=== PATIENT | female | born 1980 | race Caucasian/White ===

== ENCOUNTER 2023-07-18 21:37 | Emergency (ER) | payer OTHER, MEDICAID, SELFPAY ==
--- NOTE | ~2023-07-18 | XR_ITS ---
EXAMINATION: XR CHEST CLINICAL INFORMATION: Chest pain COMPARISON: Chest x-ray December 22, 2010 dictated report only. Images not available for review. TECHNIQUE: Frontal portable view of the chest was obtained. 10:04 PM FINDINGS: No significant abnormality is noted involving the heart, lungs, mediastinum, bony thorax or soft tissues. XR/XR chest 1V IMPRESSION: Unremarkable examination.
--- NOTE | 2023-07-18 21:48 | ECG_ITS ---
Test Reason : CP Blood Pressure : / mmHG Vent. Rate : 068 BPM Atrial Rate : 068 BPM P-R Int : 156 ms QRS Dur : 088 ms QT Int : 436 ms P-R-T Axes : 013 -02 039 degrees QTc Int : 463 ms Normal sinus rhythm Low voltage QRS Cannot rule out Anterior infarct , age undetermined Abnormal ECG When compared with ECG of 27-DEC-2010 06:39, No significant change was found Referred By: Evelyn Briscoe Electronically Signed By:Uvaldo Quijano
[2023-07-18 22:06] VITALS: BP 129/72; BP 165/92; PULSE 75; PULSE 88; RESP 16; TEMP 37.2; O2SAT 98; BMI 33.3
--- NOTE | 2023-07-18 22:08 | ED_ITS ---
HPI - Chest Pain General Chief Complaint: Chest Pain Stated Complaint: CHEST PRESSURE X4HRS, L JAW PAIN,LARM PAIN Time Seen by Provider: 07/18/23 21:49 History of Present Illness HPI narrative: Patient is a 43-year-old female presents today with having chest pain on the left side going to her neck. There is no shortness of breath there is no diaphoresis. Positive history using cocaine and heroin. Patient is from home. Patient's pain is been ongoing for the last 5 hours. There is no history of stress test. No history of coronary artery disease. No history of diabetes, hypertension, high cholesterol. No travel history. Is not made worse with deep breath. Not on control. No leg swelling. No history of blood clots in the past. Patient is from home. Related Data Previous Rx's Medication Instructions Recorded furosemide 20 mg tablet (Lasix) 20 mg PO DAILY #7 tabs 07/18/23 Allergies Allergy/AdvReac Type Severity Reaction Status Date / Time No Known Allergies Allergy Unverified 04/02/20 18:06 Review of Systems 2 Review of Systems: Positive chest pain Yes all other systems are reviewed and are negative PMFSH Past Medical History Attestation statement: The following information was validated with the patient. Onset Date is defined in the Problem List Problems that require an onset date and time if occurred within 24 hrs of arrival to the ED Aortic Dissection and Rupture; Neurologic impairment; Cardiopulmonary Arrest; Endotracheal Intubation; Insertion or Replacement of Mechanical Circulatory Assist Device Social History Social History Smoked in Last 30 Days: Yes Use of substances other than those prescribed or required for medical reasons: Yes Substance Use Type: Crack/Cocaine and Heroin Substance Use Frequency: Chronic Longstanding Last Used Substance: Weeks (ago) Any prior treatment program specific to substance use: No Advance Directives: No Advance Directives Information Provided: No Patient : No Physical Exam 2 Vital Signs: Vital Signs: Last Vital Signs Temp 98.9 F 07/18/23 22:06 Pulse 75 07/18/23 22:06 Resp 16 07/18/23 22:06 BP 129/72 07/18/23 22:06 Pulse Ox 98 07/18/23 22:06 O2 Del Method Room Air 07/18/23 22:06 BMI result Body Mass Index 33.3 Appearance: Alert. Oriented X3. No acute distress. Eyes: Pupils equal, round and reactive to light. ENT: Pharynx normal. Neck: Normal inspection. Neck supple. No lymph nodes noted. No crepitus CVS: Normal heart rate and rhythm. Pulses normal. Normal S1 and S2 Respiratory: No respiratory distress. Breath sounds normal. No Wheezing. No rales Abdomen: Soft and nontender. No rigidity. No distention. good BS x4 Skin: Skin warm and dry. Normal skin color. Normal skin turgor. Extremities: No lower extremity edema. Neurovascular intact to all extremities. No Lacerations. No Rash Neuro: Oriented X 3. No motor deficit. No sensory deficit. Moving all extermities. No slurred speech Medical Decision Making Medical Decision Making [facility] Narrative: Patient's COVID flu RSV were all negative. Positive coughing upper respiratory symptoms. Patient denies any cardiac history bed stated baseline she is on Lasix 20 mg. Will give 1 week supply of the medication. Will have patient follow-up on an outpatient basis closely. Patient chest x-ray did not show any focal infiltrate by my interpretation. I reviewed radiology's reading. Her EKG is normal her troponin is negative her chest pain is on ongoing for about 5 hours. Her pain is atypical for ACS. No history of diabetes, hypertension, high cholesterol, family history of AR. She does have a previous history of IV drug use. Her heart score is still less than 3. Patient is ESR and CRP are both negative. There is no evidence for spinal abscess. Will discharge patient home. Currently in stable condition. On my exam I did not appreciate any murmurs. Differential Diagnosis Differential Diagnoses: The differential diagnosis associated with the presentation includes Chest pain, ACS, spinal abscess, upper respiratory infection, COVID, flu, RSV Admission/Observation Consideration of admission/observation: Escalation of care including admission/observation considered Workup was negative symptom improving no need for admission Lab Data [facility] Lab Attestation statement: I reviewed the patient's lab results. 07/18/23 22:20 07/18/23 22:20 Labs: Lab Results 07/18/23 07/18/23 07/18/23 Range/Units 22:20 22:30 22:31 WBC 7.1 (4.8-10.8) X10*3/uL RBC 4.01 L (4.20-5.50) X10*6/uL Hgb 10.1 L (12.0-16.0) g/dl Hct 31.4 L (37.0-47.0) % MCV 78.3 L (80.0-98.0) fL MCH 25.2 L (27.0-33.0) pg MCHC 32.2 (31.0-35.0) g/dl RDW 16.8 H (11.0-16.0) % Plt Count 218 (160-400) X10*3/uL MPV 9.7 (9.4-12.3) fL Immature Gran % (Auto) 0.1 (0.0-0.4) % Neut % (Auto) 49.0 (45-73) % Lymph % (Auto) 42.5 H (20-40) % [place] % (Auto) 6.1 (2-11) % Eos % (Auto) 2.0 (0-4) % Baso % (Auto) 0.3 (0-2) % Lymph # (Auto) 3.0 (1.2-4.9) X10*3/uL [place] # (Auto) 0.4 (0.1-1.2) X10*3/uL Eos # (Auto) 0.1 (0.0-0.4) X10*3/uL Baso # (Auto) 0.0 (0.0-0.2) X10*3/uL Abs Immat Gran (auto) 0.01 (0.00-0.03) X10*3/uL Absolute Neuts (auto) 3.5 (2.0-8.3) x10*3/uL Absolute Nucleated RBC 0.000 (0.0-0.012) X10*3/uL Nucleated RBC % (auto) 0.0 (0.0-0.2) /100WBC ESR 12 (0-20) MM/HR Sodium 140 (135-145) mmol/L Potassium 3.6 (3.3-5.1) mmol/L Chloride 107 (96-108) mmol/L Carbon Dioxide 25 (22-29) mmol/L Anion Gap 12 (12-20) BUN 14 (9-16) mg/dL Creatinine 0.76 (0.5-1.4) mg/dL Estim Creat Clear Calc 108.4 Estimated GFR > 60 Random Glucose 78 (60-115) mg/dL Calcium 8.7 (8.4-10.2) mg/dL Total Bilirubin 0.1 (0.0-1.0) mg/dL AST 18 (5-31) U/L ALT 12 (0-31) U/L Alkaline Phosphatase 39 (39-117) U/L Troponin I High Sens < 2.7 (<3.5-17.0) ng/L C-Reactive Protein 0.17 (< or = 0.50) mg/dL Total Protein 7.0 (6.5-8.0) g/dL Albumin 4.1 (3.5-5.0) g/dL Urine Test NEGATIVE (NEGATIVE) COVID-19 (NERISSA) Negative (Negative) COVID-19 Clin Com See Note Influenza Type A (KIERRA) Negative (Negative) Influenza Type B (KIERRA) Negative (Negative) Influenza A & B Note See Note Independent Interpretation I performed an independent interpretation of an: EKG (My interpretation of patient's EKG showed a sinus rhythm heart rate is 70 GA QRS QTC within normal limits there is no acute ST segment elevation noted.) and Plain X-Ray (My interpretation of patient's chest x-ray is grossly negative for any acute evidence of pneumonia pneumothorax) Radiology Impression Discussion of test interpretation with radiology: I have reviewed the radiologist's reading. Social Determinants Patient?s care significantly limited by Social Determinants of Health including: Alcoholism and drug addiction in family Discharge Plan Discharge Clinical Impression: Chest pain, Acute upper respiratory infection Patient Disposition: Home, Self-Care Instructions: Chest Pain (DC), Upper Respiratory Infection (DC) Prescriptions: New furosemide [Lasix] 20 mg tablet 20 mg PO DAILY Qty: 7 0RF Referrals: Uvaldo Quijano MD [Physician] - 07/21/23
[2023-07-18 22:40] LABS: MANUAL DIFF FLAG NO
[2023-07-18 22:42] LABS: Basophils Percent Auto 0.3 % (0-2); Eosinophils Absolute Auto 0.1 X10*3/uL (0.0-0.4); Hematocrit 31.4 % (37.0-47.0); Hemoglobin 10.1 g/dl (12.0-16.0); Imm Gran Abs Auto 0.01 X10*3/uL (0.00-0.03); Imm Gran Pct Auto 0.1 % (0.0-0.4); Lymphocytes Percent Auto 42.5 % (20-40); Mean Corpuscular HGB Conc 32.2 g/dl (31.0-35.0); Mean Corpuscular Hemoglobin 25.2 pg (27.0-33.0); Mean Corpuscular Volume 78.3 fL (80.0-98.0); Mean Platelet Volume 9.7 fL (9.4-12.3); Monocytes Absolute Auto 0.4 X10*3/uL (0.1-1.2); Monocytes Percent Auto 6.1 % (2-11); Neutrophils Absolute Auto 3.5 x10*3/uL (2.0-8.3); Platelet Count 218 X10*3/uL (160-400); Red Blood Count 4.01 X10*6/uL (4.20-5.50); Red Cell Distribution Width 16.8 % (11.0-16.0); White Blood Count 7.1 X10*3/uL (4.8-10.8)
[2023-07-18 22:48] LABS: UPreg QC Valid YES; Urine Pregnancy NEGATIVE (NEGATIVE)
[2023-07-18 22:53] LABS: C Reactive Protein 0.17 mg/dL (< or = 0.50)
[2023-07-18 22:56] LABS: Alanine Aminotransferase 12 U/L (0-31); Albumin Level 4.1 g/dL (3.5-5.0); Alkaline Phosphatase 39 U/L (39-117); Anion Gap 12 (12-20); Aspartate Amino Transferase 18 U/L (5-31); Bilirubin Total 0.1 mg/dL (0.0-1.0); Blood Urea Nitrogen 14 mg/dL (9-16); Calcium 8.7 mg/dL (8.4-10.2); Carbon Dioxide 25 mmol/L (22-29); Chloride 107 mmol/L (96-108); Creatinine Clr Calc Pharmacy 108.4; Estimated Glomerular Filt Rate > 60; Glucose Random 78 mg/dL (60-115); Potassium 3.6 mmol/L (3.3-5.1); Sodium 140 mmol/L (135-145)
[2023-07-18 23:06] LABS: Troponin-I High Sensitivity < 2.7 ng/L (<3.5-17.0)
--- OUTSIDE RECORDS SUMMARY | 2023-07-18 23:06 | XMS_ITS | Continuity of Care Document ---
Author Name Unknown Organization [facility] Address [address] [place] [id number] Care Team Providers Care Casket Liner Name Role Phone Kvng SALAZAR, Janina Her Primary Care Physician Encounter [facility] [place] Date(s): 02/23/21 - 03/25/21 [facility] [address] [place] [id number] Allergies, Adverse Reactions, Alerts Substance Reaction Severity Status codeine Active Medications albuterol CFC free 90 mcg/inh inhalation aerosol 1, puffs, Inhalation, 4 times a day, PRN, # 7 Gm, Refills 5, Tot. Refills 5, Maintenance, 11/10/20 9:14:00 EDT, Aerosol, Route to Pharmacy Electronically, [id number], [facility] #[id number], 165, cm, 10/01/20 13:31:00 ED... Start Date: 11/10/20 Status: Ordered Atrovent HFA 17 mcg/inh inhalation aerosol 2 puffs, Inhalation, 4 times a day, # 12.9 Gm, 0 Refills, Maintenance, 10/07/19 15:10:00 EDT, Aerosol, [facility] #[id number], 165, cm, 09/17/19 11:11:00 EST, Height Start Date: 10/07/19 Status: Ordered clonazePAM 0.5 mg oral tablet 0 Refills, Maintenance, 12/26/19 13:59:00 EDT Start Date: 12/26/19 Status: Ordered diphenhydrAMINE 25 mg oral capsule 1 capsule, By Mouth, 3 times a day, PRN NEEDED FOR ITCHING, # 100 capsule, 0 Refills, Acute, 01/18/21 20:42:00 EDT, [facility] #[id number], 165, cm, 10/01/20 13:31:00 EDT, Height Start Date: 01/18/21 Status: Ordered gabapentin 600 mg oral tablet 0 Refills, Maintenance, 12/26/19 13:59:00 EDT Start Date: 12/26/19 Status: Ordered ibuprofen 800 mg oral tablet 800 mg, 1, tablet, By Mouth, 3 times a day, # 60 tablet, Refills 1, Tot. Refills 1, Maintenance, 07/30/20 18:10:00 EST, Route to Pharmacy Electronically, [facility] #[id number], Partial fill upon patient request if the prescription is for a sched... Start Date: 07/30/20 Status: Ordered levothyroxine 0.05 mg oral tablet 1 tablet = 50 mcg, By Mouth, Daily, # 30 tablet, 5 Refills, Maintenance, 07/15/19 17:13:00 EST, Tablet, [facility] #[id number], 165, cm, 04/15/19 16:17:00 EDT, Height, 93.5, kg, 08/24/17 21:31:00 EST, Dry Weight Start Date: 07/15/19 Status: Ordered methadone 10 mg oral tablet = 40 mg, By Mouth, Daily, 0 Refills, Maintenance, 08/26/17 11:07:54, Tablet Start Date: 08/26/17 Status: Ordered omeprazole 40 mg oral enteric coated capsule 1 capsule = 40 mg, By Mouth, Daily, for 30 days, # 30 capsule, 5 Refills, Hard Stop 03/30/21 14:01:00 EDT, 10/01/20 14:01:00 EDT, EC Capsule, [facility] #[id number], 165, cm, 10/01/20 13:31:00 EDT, Height Start Date: 10/01/20 Stop Date: 03/30/21 Status: Ordered omeprazole 40 mg oral enteric coated capsule 1 capsule = 40 mg, By Mouth, Daily, # 30 capsule, 2 Refills, Maintenance, 03/30/21 14:01:00 EDT, ECCapsule, [facility] #[id number], 165, cm, 10/01/20 13:31:00 EDT, Height Start Date: 03/30/21 Stop Date: 06/28/21 Status: Ordered QUEtiapine 300 mg oral tablet 0 Refills, Maintenance, 12/26/19 13:59:00 EDT Start Date: 12/26/19 Status: Ordered triamcinolone 0.1% topical cream See Instructions, APPLY EXTERNALLY TO THE AFFECTED AREA TWICE DAILY FOR 14 DAYS, # 80 Gm, 0 Refills, Acute, [facility] #[id number], 25, APPLY EXTERNALLY TO THE AFFECTED AREA TWICE DAILY FOR 14 DAYS, 165, cm, 10/01/20 13:31:00 EDT, Height Start Date: 01/19/21 Status: Ordered Problem List Condition Effective Dates Status Health Status Inform ant *HERB/ERICH/[facility]-[phone]/Health senior care, active care coordination(Confirmed) Active Tobacco dependence(Confirmed) Active Hepatitis C(Confirmed) Active Social History Social History Type Response Smoking Status 5-9 cigarettes (betw een 1/4 to 1/2 pack)/day in last 30 days; Other: VAPING FLAVORED TOBACCO; entered on: 04/15/19 Sex Female
--- OUTSIDE RECORDS SUMMARY | 2023-07-18 23:06 | XMS_ITS | Continuity of Care Document ---
Author Name Unknown Organization [facility] Address [address] [place] [id number] Care Team Providers Care Scrap Sawyer Name Role Phone Kvng SALAZAR, Janina Her Primary Care Physician [phone] [place] [facility] [place] 11/16/21 - 12/25/21 [facility] [address] [place] [id number] Attending Physician: Jorge Tapia MD Admitting Physician: Jorge Tapia MD Allergies, Adverse Reactions, Alerts Substance Reaction Severity Status codeine Active Immunizations Given and Recorded Vaccine Date Status Refusal Reason tetanus/diphtheria/pertussis, acel(Tdap) 04/09/21 Given tetanus/diphtheria/pertussis, acel(Tdap) 06/11/19 Recorded tetanus/diphtheria/pertussis, acel(Tdap) 07/21/16 Recorded tetanus-diphtheria toxoids (Td) 07/17/05 Recorded Not Given Vaccine Date Status Refusal Reason influenza virus vaccine, inactivated 04/15/21 Not Given Patient Refuses Medications Albuterol (Eqv-ProAir HFA) 90 mcg/inh inhalation aerosol 1 puffs, Inhalation, 4 times a day, PRN NEEDED FOR WHEEZING, for 90 days, # 18 Gm, 3 Refills, Physician Stop 12/15/22 9:03:00 EDT, 12/20/21 9:03:00 EDT, [facility] #[id number], 1 puffs Inhalation 4 times a day,x90 days,PRN: NEEDED FOR WHEEZI... Start Date: 12/20/21 Stop Date: 12/15/22 Status: Ordered Atrovent HFA 17 mcg/inh inhalation aerosol 2 puffs, Inhalation, 4 times a day, # 12.9 Gm, 0 Refills, Maintenance, 10/07/19 15:10:00 EDT, Aerosol, [facility] #[id number], 165, cm, 09/17/19 11:11:00 EST, Height Start Date: 10/07/19 Status: Ordered buPROPion 150 mg/24 hours (XL) oral tablet, extended release 1 tablet = 150 mg, By Mouth, Daily, # 30 tablet, 0 Refills, Maintenance, 04/22/21 9:39:00 EDT, XL Tablet, Partial fill upon patient request if the prescription is for a schedule II opioid drug. Start Date: 04/22/21 Status: Ordered clonazePAM 0.5 mg oral tablet 1 tablet = 0.5 mg, By Mouth, 2 times a day, 0 Refills, Maintenance, 04/09/21 15:56:00 EDT, Tablet, Partial fill upon patient request if the prescription is for a schedule II opioid drug. Start Date: 04/09/21 Status: Ordered cloNIDine 0.1 mg oral tablet 0.1 mg, 1, tablet, By Mouth, Daily at bedtime, PRN, # 30 tablet, Refills 0, Tot. Refills 0, Maintenance, Insomnia, 04/22/21 9:39:00 EDT, Print Requisition, Partial fill upon patient request if the prescription is for a schedule II opioid drug. Start Date: 04/22/21 Status: Ordered diphenhydrAMINE 25 mg oral capsule 1 capsule, By Mouth, 3 times a day, PRN NEEDED FOR ITCHING, # 100 capsule, 0 Refills, Acute, 01/18/21 20:42:00 EDT, [facility] #[id number], 165, cm, 10/01/20 13:31:00 EDT, Height Start Date: 01/18/21 Status: Ordered divalproex sodium 250 mg oral enteric coated tablet 1 tablet = 250 mg, By Mouth, 2 times a day, # 60 tablet, 0 Refills, Maintenance, 04/22/21 9:39:00 EDT, Tablet, Partial fill upon patient request if the prescription is for a schedule II opioid drug. Start Date: 04/22/21 Status: Ordered gabapentin 300 mg oral capsule 600 mg, 2, capsule, By Mouth, 2 times a day, Refills 0, Maintenance, 04/22/21 9:56:00 EDT, Partial fill upon patient request if the prescription is for a schedule II opioid drug. Start Date: 04/22/21 Status: Ordered ibuprofen 800 mg oral tablet 800 mg, 1, tablet, By Mouth, 3 times a day, # 60 tablet, Refills 1, Tot. Refills 1, Maintenance, 07/30/20 18:10:00 EST, Route to Pharmacy Electronically, [facility] #[id number], Partial fill upon patient request if the prescription is for a sched... Start Date: 07/30/20 Status: Ordered levothyroxine 0.05 mg oral tablet 1 tablet = 50 mcg, By Mouth, Daily, # 30 tablet, 5 Refills, Maintenance, 07/15/19 17:13:00 EST, Tablet, [facility] #[id number], 165, cm, 04/15/19 16:17:00 EDT, Height, 93.5, kg, 08/24/17 21:31:00 EST, Dry Weight Start Date: 07/15/19 Status: Ordered methadone 10 mg oral tablet 7 tablet = 70 mg, By Mouth, Daily, 0 Refills, Maintenance, 04/22/21 9:55:00 EDT, Tablet, Partial fill upon patient request if the prescription is for a schedule II opioid drug. Start Date: 04/22/21 Status: Ordered nicotine 7 mg/24 hr transdermal film, extended release 1 patch, Topically, Daily, # 30 patch, 0 Refills, Maintenance, 04/22/21 9:40:00 EDT, Patch, Partialfill upon patient request if the prescription is for a schedule II opioid drug. Start Date: 04/22/21 Status: Ordered omeprazole 40 mg oral enteric coated capsule 1 capsule = 40 mg, By Mouth, Daily, # 30 capsule, 2 Refills, Maintenance, 03/30/21 14:01:00 EDT, ECCapsule, [facility] #[id number], 165, cm, 10/01/20 13:31:00 EDT, Height Start Date: 03/30/21 Stop Date: 06/28/21 Status: Ordered QUEtiapine 200 mg oral tablet 200 mg, 1, tablet, By Mouth, Daily at bedtime, # 30 tablet, Refills 0, Tot. Refills 0, Maintenance,04/22/21 9:41:00 EDT, Print Requisition, Partial fill upon patient request if the prescription is for a schedule II opioid drug. Start Date: 04/22/21 Status: Ordered triamcinolone 0.1% topical cream See Instructions, APPLY EXTERNALLY TO THE AFFECTED AREA TWICE DAILY FOR 14 DAYS, # 80 Gm, 0 Refills, Acute, [facility] #[id number], 25, APPLY EXTERNALLY TO THE AFFECTED AREA TWICE DAILY FOR 14 DAYS, 165, cm, 10/01/20 13:31:00 EDT, Height Start Date: 01/19/21 Status: Ordered Problem List Condition Effective Dates Status Health Status Inform ant Borderline personality disorder(Confirmed) 1 Active *BHN/CCA/CC-Katie [facility]-[phone]/Health jail, active care coordination(Confirmed) Active PTSD (post-traumatic stress disorder)(Confirmed) Active Tobacco dependence(Confirmed) Active Hepatitis C(Confirmed) Active 1Psych admission 04/2021 Social History Social History Type Response Smoking Status 5-9 cigarettes (betw een 1/4 to 1/2 pack)/day in last 30 days; Other: VAPING FLAVORED TOBACCO; entered on: 04/15/19 Sex
--- OUTSIDE RECORDS SUMMARY | 2023-07-18 23:06 | XMS_ITS | Continuity of Care Document ---
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 Name Role Phone Santi Conway DO Primary Care Physician Encounter [facility] [place] Date(s): 01/26/23 - 01/28/[address] [address] Encounter Diagnosis Back pain(Final) - 01/27/23 Discharge Disposition: A-D/C Home Attending Physician: Vidal Platt MD Admitting Physician: Martin Brown MD Referring Physician: Not on Staff, Referring MD Allergies, Adverse Reactions, Alerts No Known Allergies Immunizations Given and Recorded Vaccine Date Status Refusal Reason tetanus/diphtheria/pertussis, acel(Tdap) 04/09/21 Given tetanus/diphtheria/pertussis, acel(Tdap) 06/11/19 Recorded tetanus/diphtheria/pertussis, acel(Tdap) 07/21/16 Recorded tetanus-diphtheria toxoids (Td) 07/17/05 Recorded Not Given Vaccine Date Status Refusal Reason influenza virus vaccine, inactivated 09/28/22 Not Given Patient Refuses influenza virus vaccine, inactivated 04/15/21 Not Given Patient Refuses Medications Albuterol (Eqv-ProAir HFA) 90 mcg/inh inhalation aerosol 1 puffs, Inhalation, 4 times a day, PRN Wheezing/Shortness of Breath Start Date: 01/01/23 Status: Ordered Ativan 1 mg oral tablet 1 tablet = 1 mg, By Mouth, 3 times a day, PRN Agitation, # 10 tablet, 0 Refills, Maintenance, 01/05/23 15:08:00 EDT, Tablet, [id number], Partial fill upon patient request if the prescription is for a schedule II opioid drug., 163, cm,... Start Date: 01/05/23 Status: Ordered gabapentin 300 mg oral capsule 300 mg, 1, capsule, By Mouth, 3 times a day, # 270 capsule, Refills 0, Maintenance, 01/28/23 3:59:00 EDT, Partial fill upon patient request if the prescription is for a schedule II opioid drug. Start Date: 01/28/23 Status: Ordered gabapentin 300 mg oral capsule 300 mg, Capsule, By Mouth, 01/28/23 9:00:00 EDT Start Date: 01/28/23 Stop Date: 01/28/23 Status: Completed KlonoPIN 0.5 mg oral tablet 1 tablet = 0.5 mg, By Mouth, 2 times a day, 0 Refills, Maintenance, 09/26/22 14:32:00 EDT, Tablet, Partial fill upon patient request if the prescription is for a schedule II opioid drug. Start Date: 09/26/22 Status: Ordered methadone 5 mg/5 mL oral solution = 90 mg, By Mouth, Daily, 0 Refills, Maintenance, 09/26/22 14:32:00 EDT, Partial fill upon patient request if the prescription is for a schedule II opioid drug. Start Date: 09/26/22 Status: Ordered omeprazole 40 mg oral enteric coated capsule 1 capsule = 40 mg, By Mouth, Daily, # 30 capsule, 2 Refills, Maintenance, 03/30/21 14:01:00 EDT, Yani, [id number], 165, cm, 10/01/20 13:31:00 EDT, Height Start Date: 03/30/21 Stop Date: 06/28/21 Status: Ordered QUEtiapine 200 mg oral tablet 200 mg, 1, tablet, By Mouth, Daily at bedtime, # 30 tablet, Refills 0, Tot. Refills 0, Maintenance,04/22/21 9:41:00 EDT, Print Requisition, Partial fill upon patient request if the prescription is for a schedule II opioid drug. Start Date: 04/22/21 Status: Ordered torsemide 20 mg oral tablet 1 tablet = 20 mg, By Mouth, Daily, # 30 tablet, 0 Refills, Maintenance, 01/28/23 9:42:00 EDT, Tablet, [facility] #[id number], Partial fill upon patient request if the prescription is for a schedule II opioid drug., 162, cm, 01/28/23 2:58:00 EDT, Height, 9... Start Date: 01/28/23 Status: Ordered Problem List Condition Confirmation Course Effective Dates Status Health St atus Informant Borderline personality disorder 1 Confirmed Active *BHN/CCA/CC-K[facility]-[phone]/ Health alf, active care coordination Confirmed Active PTSD (post-traumatic stress disorder) Confirmed Active Severe obesity (BMI 35.0-39.9) with comorbidity Confirmed Active Tobacco dependence Confirmed Active Hepatitis C Confirmed Active 1Psych admission 04/2021 Results Orders for Microbiology Reports Name Date Blood Culture 01/27/23 Microbiology Reports TEST:Blood Culture STATUS:Unauthenticated BODY SITE: SOURCE:Blood COLLECTED DATE/TIME:01/27/23 7:08 PM Blood Culture SPECIMEN DESCRIPTION : BLOOD NO SITE SPECIAL REQUESTS : NONE CULTURE : NO GROWTH AFTER 24 HOURS REPORT STATUS : PRELIMINARY REPORT Radiology Reports * Exam Date Time Procedure Performing Provider Status 01/27/23 5:34 PM MRI Thoracic Spine W+W/O Contrast Zoë Garcia ms; Auth (Verified) Notes: (MRI Thoracic Spine W+W/O Contrast) Reason For Exam: ?SEA;Back Pain RESULT: MRI Thoracic Spine W+W/O Contrast MRI Thoracic Spine W+W/O Contrast INDICATION: Hx of Present Illness: BLE edema for 6 days, sob with exertion, cough, back pain, headache, coming from PCP office; Reason: Back Pain; ?SEA; Clinical Question(s): Disc Space Infection; Order Comment: Please see Reference Text for complete list of contraindications Disc Space Infection TECHNIQUE: MRI of the thoracic spine was performed with and without intravenous contrast utilizing sagittal T1, sagittal T2, sagittal STIR, axial T1, and fat- saturated axial T2-weighted sequences, and post-contrast sagittal T1 and fat- saturated axial T1-weighted sequences. 20 mL of Clariscan was administered intravenously. COMPARISON: MRI of the thoracic spine dated 01/03/2023. FINDINGS: ALIGNMENT, VERTEBRAE, MARROW, AND DISCS: Alignment is normal. Vertebral body heights are preserved.There is no significant marrow signal abnormality. Intervertebral discs are maintained. There are partially imaged degenerative changes of the lumbar spine on the localizer images with disc desiccation at L4- L5 and L5-S1 as well as mild loss of intervertebral disc height at L5-S1. Similar findings on dedicated lumbar spine MRI from 09/27/2022. CORD: The thoracic cord is normal in signal and contour. There is no abnormal enhancement. PARASPINAL TISSUES: Visualized paraspinal soft tissues are unremarkable. Nonspecific edema in the subcutaneous fat which can be related to the common positioning. FINDINGS BY LEVEL: No significant central stenosis or neural foraminal narrowing is seen at any level in the thoracic spine. IMPRESSION: 1. Unremarkable MRI of the thoracic spine. No evidence of discitis/osteomyelitis or epidural abscess. No significant change from 01/03/2023. 2. Partially imaged minimal degenerative changes in the lumbar spine, also seen previously on 09/27/2022. A similar preliminary report was provided by Shira. WSN: [id number] Ordering Physician: Anne Boswell Dictated By: Janice Booker MD Dictated Date/Time: 01/28/23 7:52 am Reviewed By: Janice Booker MD Signed By: Janice Booker MD Signed Date/Time: 01/28/23 7:52 am Transcribed By: MAYA Transcribed Date/Time: 01/28/23 7:48 am * Exam Date Time Procedure Performing Provider Status 01/27/23 10:10 AM US Retroperitoneum Comp Nick Ramirez ca; Auth (Verified) Notes: (US Retroperitoneum Comp) Reason For Exam: Flank pain;Other: RESULT: US Retroperitoneum Comp US Retroperitoneum Comp Hx of Present Illness: One week of flank pain. Reason: Flank pain. Clinical Question(s): Renal Obstruction. COMPARISON: CT abdomen/pelvis 09/26/2022 FINDINGS: Right kidney: 10.6 cm in length. No hydronephrosis. Normal parenchymal thickness and echotexture. No stones. No suspicious mass. Left kidney: 11.8 cm in length. No hydronephrosis. Normal parenchymal thickness and echotexture. Nostones. No suspicious mass. Urinary bladder: Incompletely distended, but no evidence of stone, mass or debris. IMPRESSION: Normal kidneys and urinary bladder. I have personally reviewed the images and I agree with this report. WSN: [id number] Ordering Physician: Anne Boswell Dictated By: Geetha Colorado DO Dictated Date/Time: 01/27/23 10:42 a Reviewed By: Heaven Farr MD Signed By: Heaven Farr MD Signed Date/Time: 01/27/23 10:47 am Transcribed By: MAYA Transcribed Date/Time: 01/27/23 10:24 am * Exam Date Time Procedure Performing Provider Status 01/27/23 10:10 AM US Doppler Ext Lower Venous Bilat Maribell Ramirez; Auth (Verified) Notes: (US Doppler Ext Lower Venous Bilat) Reason For Exam: Pain in limb;Other: RESULT: US Doppler Ext Lower Venous Bilat US Doppler Ext Lower Venous Bilat Hx of Present Illness: BLE edema for 6 days, sob with exertion, cough, back pain, headache, coming from PCP office; Reason: Other:; Pain in limb; Clinical Question(s): Thrombosis COMPARISON: None IMAGING TECHNIQUE: Ultrasound of the veins from the groin through the calf was performed using grayscale, color, and spectral Doppler ultrasound assessing for complete compressibility and normal flowcharacteristics. FINDINGS: RIGHT LOWER EXTREMITY: Common femoral vein: Patent. No thrombosis. Femoral vein: Patent. No thrombosis. Popliteal vein: Patent. No thrombosis. Gastrocnemius veins: The visualized portions are patent without evidence of thrombosis. Peroneal veins: The visualized portions are patent without evidence of thrombosis. Posterior tibial veins: The visualized portions are patent without evidence of thrombosis. LEFT LOWER EXTREMITY: Common femoral vein: Patent. No thrombosis. Femoral vein: Patent. No thrombosis. Popliteal vein: Patent. No thrombosis. Gastrocnemius veins: The visualized portions are patent without evidence of thrombosis. Peroneal veins: The visualized portions are patent without evidence of thrombosis. Posterior tibial veins: The visualized portions are patent without evidence of thrombosis. OTHER FINDINGS: Anechoic fluid collection in the left popliteal fossa compatible with a Carty's cyst, measuring 5.2 x 1.3 x 2.9 cm. IMPRESSION: 1. No evidence of deep venous thrombosis. 2. 5.2 cm Carty cyst in the left popliteal fossa. WSN: [id number] Ordering Physician: Anne Boswell Dictated By: Heaven Farr MD Dictated Date/Time: 01/27/23 10:13 a Reviewed By: Heaven Farr MD Signed By: Heaven Farr MD Signed Date/Time: 01/27/23 10:13 am Transcribed By: MAYA Transcribed Date/Time: 01/27/23 10:12 am * Exam Date Time Procedure Performing Provider Status 01/26/23 11:50 AM Chest 2 Views Frontal and Lat Trinh Bailey; Stephani (Verified) Notes: (Chest 2 Views Frontal and Lat) Reason For Exam: Chest Pain;Other: RESULT: Chest 2 Views Frontal and Lat Chest 2 Views Frontal and Lat Hx of Present Illness: BLE edema for 6 days, sob with exertion, cough, back pain, headache, coming from PCP office; Reason: Other:; Chest Pain; Clinical Question(s): Other: COMPARISON: Multiple prior chest radiographs with the most recent dated 01/01/2023. FINDINGS: LINES AND TUBES: None. LUNGS AND PLEURA: Clear lungs. Normal pulmonary vascularity. No pleural effusion. No pneumothorax. HEART, MEDIASTINUM AND ANGELINA: Heart is normal in size. Normal mediastinal and hilar contour. BONES AND SOFT TISSUES: No acute abnormality. IMPRESSION: No acute abnormality. No significant interval change. WSN: [id number] Ordering Physician: Meagan Ellis Dictated By: Edouard Torrez MD, V Dictated Date/Time: 01/26/23 12:00 p Reviewed By: Edouard Torrez MD, V Signed By: Edouard Torrez MD, V Signed Date/Time: 01/26/23 12:00 pm Transcribed By: MAYA Transcribed Date/Time: 01/26/23 11:59 am Vital Signs Most recent to oldest [Reference Range]: 1 2 3 Height 162 cm (01/28/23 2:58 AM) 162 cm (01/27/23 2:08 PM) 162 cm (01/27/23 2:07 PM) Weight 96 kg (01/28/23 2:58 AM) Oxygen Saturation [94-100 %] 98 % (01/28/23 6:00 AM) 100 % (01/28/23 3:00 AM) 99 % (01/28/23 2:26 AM) Pulse Rate [55-90 bpm] 78 bpm (01/28/23 6:00 AM) 59 bpm (01/28/23 3:00 AM) 80 bpm (01/28/23 2:58 AM) Body Mass Index [18.5-24.99 kg/m2] 36.58 kg/m2 *>HHI* (01/28/23 2:58 AM) Blood Pressure [90-138/55-84 mm Hg] 104/54mm Hg (01/28/23 6:00 AM) 122/85mm Hg (01/28/23 3:00 AM) 180/68mm Hg *H* (01/28/23 2:58 AM) Respiratory Rate [16-30 br/min] 17 br/min (01/28/23 9:38 AM) 17 br/min (01/28/23 6:00 AM) 17 br/min (01/28/23 3:00 AM) Temperature [96.8-100.4 DegF] 98.1 DegF (01/28/23 6:00 AM) 98.5 DegF (01/28/23 3:00 AM) 98.9 DegF (01/28/23 2:58 AM) Mode of Delivery (Oxygen) Room air (01/28/23 6:00 AM) Room air (01/28/23 3:00 AM) Room air (01/28/23 2:26 AM) Blood pressure sites Arm, left (01/28/23 6:00 AM) Arm, right (01/28/23 3:00 AM) Arm, right (01/28/23 2:58 AM) Temperature Route Oral (01/28/23 6:00 AM) Oral (01/28/23 3:00 AM) Oral (01/28/23 2:58 AM) Dry Weight 98 kg (01/28/23 2:58 AM) 96 kg (01/27/23 2:08 PM) 96 kg (01/27/23 2:07 PM) Weight Obtained Via Patient/family state d (01/28/23 2:58 AM) Dry Weight Obtained Via Patient/family s tated (01/26/23 12:36 PM) Social History Social History Type Response Smoking Status 5-9 cigarettes (betw een 1/4 to 1/2 pack)/day in last 30 days; Other: VAPING FLAVORED TOBACCO; entered on: 04/15/19 Sex Female History and physical note * Santa Rivera MD: PERFORM, MODIFY Event Display: History and Physical Hospital Authored Date: [id number] Patient: ??DUSTIN WAGONER ? Age:??42 Years?Sex:??Female?:??1980?? Chief Complaint/Reason for Consultation sob, back pain, History of Present Illness 42-year-old female with a past medical history of anxiety, bipolar, PTSD, personality disorder, hepC, IV drug use, congestive heart failure continue IV drugs, presents to the hospital with With multiple complaints.?? Patient reports that all her symptoms started about 2 weeks ago, initially felt she had something stuck in her throat while she was talking, followed by facial droop and for which she seek medical attention and she was diagnosed to have Price's palsy.?? Her symptoms of facial droopare now resolved.?? Patient reports to have tics.?? She also reports to have shortness of breath, orthopnea, back pain, arm pain.?? Peripheral edema. gained 12 lbs weight in one week. ??she also reports her throat was white.?? Patient denies reports fever of 100.6 at home.?? Patient denies having any chills, side effects, heartburn, nausea, vomiting, diarrhea, urinary symptoms.?? She reports she relapsed on IV heroin because of pain, he takes methadone at baseline ?? She was also seen by heart failure clinic and she was sent to ED for evaluation. ?? In the emergency department, patient was hemodynamically stable, on room air, lab work showed hemoglobin of 9, baseline is around 10 chemistry shows creatinine 1.1, proBNP 131, troponin negative, C-reactive protein is 0.6, CK-MB of 6.5,??ultrasound renal was obtained with normal kidneys and bladder, duplex Doppler ultrasound negative for any DVT, 5.2 cm Carty's cyst noted, MRI of thoracic spine was also obtained did not show any acute findings.?? Patient received IV Toradol, methadone and 1/2 L bolus, chest x-ray was normal, no significant change.?? EKG was obtained shows normal sinus rhythm, nonspecific changes in V1 and V2, no other acute ST-T changes noted. Review of Systems as noted in HPI Objective Measurements?? Height: 162 cm (01/28/23) Weight: 96 kg (01/28/23) Dry Weight: 98 kg (01/28/23) Body Mass Index:??36.58 kg/m2??Critical (01/28/23) ? Vital Signs?? Temperature: 98.1 DegF (01/28/23 06:00:00) Temperature Route: Oral (01/28/23 06:00:00) Pulse Rate: 78 bpm (01/28/23 06:00:00) Respiratory Rate: 17 br/min (01/28/23 06:00:00) Vented: No (01/27/23 18:10:00) Systolic Blood Pressure: 104 mm Hg (01/28/23 06:00:00) Diastolic Blood Pressure:??54 mm Hg??Low (01/28/23 06:00:00) Blood pressure sites: Arm, left (01/28/23 06:00:00) Mean Arterial Pressure: 105 mm Hg (01/28/23 02:58:00) Pulse Pressure: 50 mm Hg (01/28/23 06:00:00) Oxygen Saturation: 98 % (01/28/23 06:00:00) Mode of Delivery (Oxygen): Room air (01/28/23 06:00:00) Early Warning Score: 0 (01/28/23 06:07:06) Temperature, Opiate Withdrawal: 98.9 DegF (01/28/23 03:08:00) Temperature Route, Opiate Withdrawal: Oral (01/28/23 03:08:00) Pulse Rate, Opiate Withdrawal: 59 bpm (01/28/23 03:08:00) Respiratory Rate, Opiate Withdrawal: 18 br/min (01/28/23 03:08:00) Systolic BP, Opiate Withdrawal: 122 mm Hg (01/28/23 03:08:00) Diastolic BP, Opiate Withdrawal:??85 mm Hg??High (01/28/23 03:08:00) ? Physical Exam Constitutional: Alert, in no acute distress. Head EENT: Extraocular muscle movement intact.??Moist mucous membranes.?? Neck: Supple. No JVD. Respiratory: Clear to auscultation. No wheezing or crackles. No use of accessory muscles. Cardiovascular: S1S2 regular. No murmurs, rubs or gallops. Gastrointestinal: Abdomen soft, non-tender, non-distended. Normal bowel sounds. Genitourinary: No CVA tenderness. Extremities:+ 2 edema . Neurologic: AAOx3, Speech normal. No focal neurological deficits. jerking movements of the head Skin: No rash. Psychiatric: Normal mood and affect Assessment/Plan Diagnoses Anxiety ??(F41.9) Back pain ??(M54.9) Price's palsy ??(G51.0) Shortness of breath ??(R06.02) 1. ??Borderline personality disorder ??(F60.3) 2. ??PTSD (post-traumatic stress disorder) ??(F43.10) ?? Assessment:??42-year-old female with a past medical history of anxiety, bipolar, PTSD, personality disorder, hep C, IV drug use, congestive heart failure continue IV drugs, presents to the hospital with With multiple complaints( sob, peripheral edema, weight gain, back pain ?? Shortness of breath (R06.02):??Presented with shortness of breath, orthopnea, peripheral edema and weight gain,??chest x-ray??was normal, no congestion, elevated proBNP of 131??(could be falsely low because he is obese)??but on exam her lungs are clear she only has peripheral edema??and she was resting comfortably laying flat.??Could be CHF versus anxiety. Patient was given steroids which can cause fluid retention but she reports she only took this for 1 day??as a she did not like how it made her feel. -Patient does have??history of??IV drug use??causing cardiomyopathy, EKG did not show any acute changes,??and troponin negative, unlikely to be ACS -Ultrasound negative for DVT did show Carty's cyst -Echocardiogram -Patient was also encouraged in cessation of IV drug use -check urine protein creatinine ratio -if her work up is negative she will benefit from psych eval ?? Back pain (M54.9):??Thoracic region, MRI??of thoracic spine was obtained??which then preliminary read did not show any acute findings -Also ultrasound renal was obtained showed normal kidneys -Patient reports that she takes gabapentin ?? Price's palsy (G51.0):??Currently??resolved,??chest posttreatment with valacyclovir ,??prednisone was prescribed by patient she only took it for 1 dose ?? Borderline personality disorder (F60.3):??: ?? PTSD (post-traumatic stress disorder) (F43.10):??: ?? Anxiety (F41.9):??:??Continue Ativan as needed, she only takes??seroquel as needed for sleep ?? Tics:??likely related to stress ?? VTE Prophylaxis:??Low risk ?VTE Prophylaxis Assessment:??Risk Level documented as Low Risk ?? Code Status:??Full code ?Order Code Status:??Code Status Ordered ?? Ongoing Medical Necessity:??Echocardiogram ?? Discharge Planning:??Pending clinical course ?? This note was created using [employer] speech recognition software, there may be unwanted word substitution, typographical errors or grammatical error, an attempt at proofreading has been made to minimize errors. please call if there are any questions regarding plan of care. ? Histories Allergies Allergies ?(Active and Proposed Allergies Only) NKA? (Severity: Unknown severity, Onset: Unknown) ? Past Medical History/Problem List Active Problems??(6) *BHN/ERICH/[facility]-[phone]/Health alf, active care coordination Borderline personality disorder Hepatitis C PTSD (post-traumatic stress disorder) Severe obesity (BMI 35.0-39.9) with comorbidity Tobacco dependence ? Past Surgical History No surgery history documented. ? Social History Alcohol Details:??Use: Past. Exercise Details:??Self assessment: Fair condition. Home/Environment Details:??Living situation: Home/Independent. Nutrition/Health Details:??Diet: Regular. Sexual Details:??Sexually involved in last 6 months: Yes. ??Gender identity: Identifies as female. ??Self described orientation: Lesbian, field or homosexual. Substance Abuse Details:??Use: Current. ??Type: Heroin. Tobacco Details:??Use: 5-9 cigarettes (between 1/4 to 1/2 pack)/day in last 30 days. ??Other: VAPING FLAVORED TOBACCO. ? Family History Mother: Agoraphobia; Bipolar Brother (B youngest): Autism ? Medications Home Medications Albuterol (Albuterol (Eqv-ProAir HFA) 90 mcg/inh inhalation aerosol)?1?puff(s)?Inhalation?4 times a day?as needed?Wheezing/Shortness of Breath Clonazepam (KlonoPIN 0.5 mg oral tablet)?1?tab(s)?0.5?Milligram?By Mouth?2 times a day Gabapentin (gabapentin 300 mg oral capsule)?300?Milligram?1?capsule?By Mouth?3 times a day Lorazepam (Ativan 1 mg oral tablet)?1?tab(s)?1?Milligram?By Mouth?3 times a day?as needed?Agitation Methadone (methadone 5 mg/5 mL oral solution)?90?Milligram?By Mouth?Daily Omeprazole (omeprazole 40 mg oral enteric coated capsule)?1?capsule?40?Milligram?By Mouth?Daily?for 30?Days Quetiapine (QUEtiapine 200 mg oral tablet)?200?Milligram?1?tablet?By Mouth?Daily at bedtime ? Results Recent Labs VIROLOGY COVID-19 by RT-PCR NEGATIVE ()?? 01/27/2023 21:45 ? EKG study * Event Display: EKG Authored Date: * Event Display: ECG 12-Lead Authored Date: Please click on pdf link to open report * Event Display: ECG 12-Lead Authored Date: Ventricular Rate: 63 BPM Atrial Rate: 63 BPM P-R Interval: 136 ms QRS Duration: 84 ms Q-T Interval: 464 ms QTC Calculation(Bazett): 474 ms P [place]: 15 degrees R Boston: 6 degrees T [place]: 36 degrees Normal sinus rhythm Low voltage QRS Cannot rule out Anterior infarct , age undetermined Abnormal ECG When compared with ECG of 04-JAN-2023 00:17, Questionable change in QRS axis Confirmed by DUY FRANCO MD ([id number]) on 01/26/2023 2:28:25 PM [place]: DUY FRANCO MD * Event Display: ECG 12-Lead Authored Date: [id number] Please click on pdf link to open report * Event Display: ECG 12-Lead Authored Date: [id number] Ventricular Rate: 74 BPM Atrial Rate: 74 BPM P-R Interval: 130 ms QRS Duration: 88 ms Q-T Interval: 442 ms QTC Calculation(Bazett): 490 ms P [place]: 2 degrees R Boston: 0 degrees T Boston: 46 degrees Normal sinus rhythm Prolonged QT Abnormal ECG When compared with ECG of 04-JAN-2023 00:17, Questionable change in QRS axis Confirmed by DONAVAN LING DO ([id number]) on 01/27/2023 9:08:53 AM [place]: DONAVAN LING DO [facility] Progress note * Chela Meza RN: PERFORM, SIGN, VERIFY Event Display: Progress Note [facility] Authored Date: [id number] Patient: DUSTIN WAGONER Age: 42 years Sex: Female : 1980 Associated Diagnoses: None Author: Chela Meza RN Findings Problem Related to Alteration in Comfort : Alteration in Comfort/new 01/28/2023 10:28 EDT Alteration in Comfort Related to Disease process Goals & Outcomes: Comfort Pt will report acceptable level of comfort & pain control, Pt will state importance of adhering to pain strategy regime, Pt will demonstrate necessary skills to manage pain, Non-verbal indicators will indicate comfort/pain control Interventions Implemented: Comfort Assess pain using appropriate pain scale/tools, Assess aggravating factors & prevent them accordingly BH Goals/Interventions, Comfort Yes Comfort, Problem Start 01/28/2023 10:28 Reviewed plan with, Comfort Patient Patient Progression, Comfort Plan Initiation Comfort, Problem Ongoing Yes . Nursing Data Vital Signs : VITAL SIGNS SECTION 01/28/2023 6:00 EDT Temperature 98.1 DegF Temperature Route Oral Pulse Rate 78 bpm Respiratory Rate 17 br/min Systolic Blood Pressure 104 mm Hg Diastolic Blood Pressure 54 mm Hg L Blood pressure sites Arm, left Pulse Pressure 50 mm Hg Oxygen Saturation 98 % Mode of Delivery (Oxygen) Room air . Narrative/Incidental Alert and oriented X 3, denies numbness/tingling/dizziness. Denies pain, headache and chest pain. LSC, no cough and no shortness of breath. Positive bowel sounds X 4, round soft non tender abdomen, denies n/v, tolerating diet and ate 100% of breakfast, up to BR independently. Up in room and hallwaywith steady gait noted. Safety is maintained, hourly checks in place. Discharge Information Case Management Discharge Plan : Case Management Discharge Plan Data 01/28/2023 10:23 EDT Discharge Level of Care at Discharge Home/Long-Term/Foster Care * Mireya Whiting: PERFORM, SIGN, VERIFY Event Display: Progress Note Hospital Authored Date: [id number] Patient: DUSTIN WAGONER Age: 42 years Sex: Female : 1980 Associated Diagnoses: None Author: Mireya Whiting Findings pt admitted from ED a&ox4, able to ambulate independently around room. lung sounds clear on room air. had some head ticking on arrival. + bowel sounds. pt stated she has not had a bm in 3 days which is normal for her. complaining of pain in lower extremities. +1 pitting edema to calves. no shortness of breath no n/v at the moment. COWS assessment done due to drug use. vital signs stable Note * Chela Meza RN: PERFORM Event Display: Discharge/Transfer Note Hospital Authored Date: [id number] Nursing Discharge Note Entered On: 01/28/2023 10:24 EDT Performed On: 01/28/2023 10:23 EDT by Chela Meza RN Nursing Discharge Note 2 Discharge Time : 01/28/2023 10:10 EDT Discharge Level of Care at Discharge : Home/Long-Term/Foster Care Patient Left Unit Via : Ambulatory Patient Accompanied Off Unit with : Responsible adult DC Instructions Provided & Signed by Pt : Yes Patient Understands D/C Instructions : Yes Verbalized Understanding of D/C Plan By : Patient Patient Instructions Discharge Signed : Yes Did Pt have Specialty Bed or Wound Vac : No Chela Meza RN - 01/28/2023 10:23 EDT * Lc SALAZAR, Vidal: MODIFY, PERFORM Event Display: Discharge/Transfer Note Hospital Authored Date: [id number] Patient: ??RIZWANA, DUSTIN ? Age:??42 Years?Sex:??Female?:??1980?? 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 _ Quality Measures Tobacco Use Treatment:? Medications Started torsemide Hospital Course Patient presented with??multiple nonspecific complaints. ??Complained of generalized body pain??back pain??leg swelling.?? Patient has history of polysubstance abuse. ??Admitting using cocaine.?? Patient denied any current IV drug abuse.?? Patient was extensively investigated??in the hospital.?? Patient is afebrile, hemodynamically stable??currently on room air, normal WBC count,??stable??microcytic hypochromic anemia??normal platelet normal ESR and CRP??normal complete metabolic panel,??troponin negative,??EKG no evidence of ischemia QTc 474,??DVT negative, ultrasound kidney negative for anyevidence of infection,??MRI thoracic spine and limited??inclusion of lumbar spine did not??reveal any evidence of??infection/epidural abscess.?? Chest x-ray within normal limit.?? Patient refused to give??a urine sample. ??However patient has no signs and symptoms suggestive of UTI.?? Patient neverhad an echo done previously.?? Patient's inpatient work-up is fairly unremarkable.?Clinically??patient does not have any signs and symptoms of overt CHF.?? Cardiac auscultation fairly benign,??chest bilaterally clear,??no JVD??no S3 gallop.?? Only patient is to palpate edema. ??Patient has been?? discharged from torsemide 20 mg daily.?? Patient has been extremely counseled that patient will need to follow-up with PCP??to get a formal outpatient echo??done.?? Patient has been strongly counseled??to quit??polysubstance abuse.?? Patient verbalized understanding and discharged in stable condition.?? Patient to follow-up with PCP for further work-up.?? Patient has been given diuretics. today patient achieved maximum benefit of hospitalization and discharged in stable condition. Objective doing well. ??Patient is little frustrated that no one had??ever explained what is going on.?? I explained in great details??heart test results. ??I also explained to her??that she may have??an element of cardiomyopathy related to her cocaine use however she does not have any??evidence of??florid heart failure which will??require inpatient??hospitalization and treatment.?? I told her that she need to follow-up with PCP??to get her??echocardiogram??and other work-up done as outpatient. ??Patientverbalized understanding??and I also explained that??she needs to stop using??recreational drugs??to have maximum benefit with medication. . Physical Exam Constitutional: Alert, in no acute distress. Head EENT: Extraocular muscle movement intact.??Moist mucous membranes.?? Neck: Supple. No JVD. Respiratory: Clear to auscultation. No wheezing or crackles. No use of accessory muscles. Cardiovascular: S1S2 regular. No murmurs, rubs or gallops. Gastrointestinal: Abdomen soft, non-tender, non-distended. Normal bowel sounds. Genitourinary: No CVA tenderness. Extremities: 2+ lower extremity edema. No cyanosis or clubbing. Neurologic: AAOx3, Speech normal. No focal neurological deficits. Skin: No rash. Psychiatric: Normal mood and affect Pending Results Add On Lab Order ordered on 01/27/2023 Add On Lab Order ordered on 01/27/2023 Add On Lab Order ordered on 01/27/2023 Add On Lab Order ordered on 01/28/2023 Blood Culture ordered on 01/27/2023 Blood Culture #2 ordered on 01/27/2023 Protein/Creatinine Ratio Urine ordered on 01/28/2023 Protein/Creatinine Ratio Urine ordered on 01/28/2023 Follow-Up Appointments Added Follow Up ?Time Frame ?Comments Djantonio DO, Syifa?1 week: call to discuss follow up visit Patient Instructions counseled to take diurectics as prescribed follow up with PCP to get an outpatient echo counseled to quit recreational drugs ?? Post Discharge Care Diet: Regular Diet Activity: Ambulate with assistance ??3 times a day ??unless otherwise specified Code Status: ?? Full Resuscitation Condition: stable Prognosis: Fair Discharge ?01/28/23 9:49:00 EDT Home Health Face to Face ^HomeHealthFTF _40 ??minutes spent on discharge * Chela Meza RN: PERFORM Event Display: Patient Education/Instruction Authored Date: [id number] Inpatient Adult Discharge Instructions [address] [address] Name: DUSTIN WAGONER : 1980 Visit: 01/26/2023 11:02:00 Current Date: 01/28/2023 09:49 Account: [id number] Inpatient Adult Discharge Instructions We would like to thank you for allowing us to assist you with your healthcare needs. The following includes patient education materials and information regarding your injury/illness. Our entire staffstrives to provide an excellent experience for our patients and their families. PLEASE ENSURE YOU FOLLOW-UP PER THE INSTRUCTIONS BELOW! ?? YOUR OPINION IS IMPORTANT TO US! Please complete the survey you may receive by mail or email. Your feedback will be used to make improvements to the healthcare experiences of our patients and their families. Surveys are administered by [employer] ?? If further treatment with your primary care physician or another doctor is recommended, it is important for you to keep the appointment. Call your primary care physician or return to the Emergency Department immediately if your condition worsens, fails to improve, or new symptoms develop. If you need to find a doctor, you can call [facility] for a referral at [phone] or toll free at [phone] ([phone]) or log in to [email or web address].. ?? You can view and manage your care through the patient portal or by using a health care rebecca of your choosing. [employer] is a website that allows you to securely view your medical information including your hospital discharge summary, office visit summaries, medications and follow-up visits. You can also request appointments, renew medications, and request access to your medical information using a health care rebecca of your choosing, or just ask a question. You can enroll at [email or web address] or register during your next office visit. You have been discharged from [facility], Patient Care Unit: S64. If you have any questions regarding these instructions after you leave, please call us and we will be happy to assist you. [facility] Your Care Team Attending Physician Vidal Platt MD Discharging Providers Vidal Platt MD Reason for Admission MCO: CP, tongue swelling, back pain Your Diagnosis Back pain Shortness of breath Borderline personality disorder PTSD (post-traumatic stress disorder) Anxiety Price's palsy Tests Performed Below is a partial list of the tests performed during your hospitalization. You may have had other tests and procedures not included in this list. Please discuss all test results with your provider. Basic Metabolic Panel BUN C-REACTIVE PROTEIN Calcium Level CBC w/ Differential CK (CREATINE KINASE) CKMB CONFIRMATION/QUANT COVID-19 (Novel Coronavirus), Rapid PCR Creatinine Electrolytes Glucose Level HEPATIC FUNCTION PANEL High??Sensitivity??Troponin T Hold Blue Top Tube HOLD LAVENDER TUBE Serum Qualitative PROBNP SEDIMENTATION RATE,AUTOMATED MRI Thoracic Spine W+W/O Contrast US Doppler Ext Lower Venous Bilat US Retroperitoneum Comp XR Chest 2 Views Frontal and Lat Primary Care Provider Santi Conway DO Advance Directive Health Care Proxy on File Yes - Health Care Proxy Discharge Vitals Temperature: 98.1 DegF Height: 162 cm Pulse Rate: 78 bpm Weight: 96 kg Respiratory Rate: 17 br/min Body Mass Index:??36.58 kg/m2??Critical Systolic Blood Pressure: 104 mm Hg Body surface area: 2.08 Diastolic Blood Pressure:??54 mm Hg??Low ?? Oxygen Saturation: 98 % ?? Studies Pending All tests and labs ordered during this hospital stay have been completed unless listed below. Please discuss all pending results with your provider listed above in these instructions. ?? Add On Lab Order Blood Culture Blood Culture #2 Protein/Creatinine Ratio Urine What to do next Instructions From Your Doctor counseled to take diurectics as prescribed follow up with PCP to get an outpatient echo counseled to quit recreational drugs ?? Discharge Orders Diet:??Regular Diet Activity:??Ambulate with assistance 3 times a day unless otherwise specified Code Status:?? Full Resuscitation Condition:??stable Prognosis:??Fair You Need to Schedule the Following Appointments Follow Up with??Santi Conway DO When:??Within 1 week: call to discuss follow up visit Where: ?? Discharge Medications DUSTIN WAGONER :1980 Visit Date:01/26/2023 Medications: Please continue your medications until treatment is completed or stopped by your provider. Medications not listed below should be discontinued. Discuss any questions related to medications with your provider. What How Much When Instructions Next Dose New torsemide (torsemide 20 mg oral tablet) 1 tab(s) Oral Daily Pickup at [facility]/pharmacy #[id number] Today Unchanged Albuterol (Albuterol (Eqv-ProAir HFA) 90 mcg/ inh inhalation aerosol) 1 puff(s) Inhalation 4 times a day as needed for Wheezing/Shortness of Breath As needed Unchanged Clonazepam (KlonoPIN 0.5 mg oral tablet) 1 tab(s) Oral Twice a day Today Unchanged Gabapentin (gabapentin 300 mg oral capsule) 1 capsule Oral 3 times a day Today at 3pm Unchanged Lorazepam (Ativan 1 mg oral tablet) 1 tab(s) Oral 3 times a day as needed for Agitation As needed Unchanged Methadone (methadone 5 mg/ 5 mL oral solution) 90 Milligram Oral Daily Today Unchanged Omeprazole (omeprazole 40 mg oral enteric coated capsule) 1 capsule Oral Daily Duration: 30 Days Today Unchanged Quetiapine (QUEtiapine 200 mg oral tablet) 1 tab(s) Oral Daily at Bedtime Tonight at bedtime Pharmacy Information [facility]/pharmacy #[id number]: [address], [place] [id number] [phone] Test Results Below is a partial list of the most recent Laboratory test results done prior to this discharge. You may have had other tests and procedures not included in this list. Please discuss all test resultswith your provider. Est Creatinine Clearance - 63.98 mL/min (01/28/2023) Basic Metabolic Panel (01/26/2023) ???Sodium - 140 mmol/L???Potassium - 4.4 mmol/L???Chloride - 103 mmol/L???Bicarbonate Level - 27 mmol/L???Anion Gap - 10???Glucose Level - 95 mg/dL???BUN - 16 mg/dL???Creatinine-Blood - 1.1 mg/dL???Estimated GFR Creatinine - 69 ML/MIN/1.73 M2???Calcium - 9.1 mg/dL BUN (01/28/2023) ???BUN - 12 mg/dL C-REACTIVE PROTEIN (01/26/2023) ???C-Reactive Protein - 0.6 mg/dL Calcium Level (01/28/2023) ???Calcium - 8.7 mg/dL CBC w/ Differential (01/26/2023) ???WBC - 6.1 k/mm3???RBC - 3.80 m/mm3???Hgb - 9.0 Gm/dL???Hct - 30.3 %???MCV - 79.7 femtoliters???MCH - 23.7 pg???MCHC - 29.7 g/dL???Platelet Count - 260 k/mm3???RDW-SD - 48.3 femtoliters???MPV - 9.7femtoliters???Nucleated RBC (Automated) - 0.0 #/100 WBC'S???Abs. NRBC - 0.0 k/mm3???Abs. Neut - 3.9 k/mm3???Abs. Lymph - 1.5 k/mm3???Abs. Sioux - 0.5 k/mm3???Abs. Eo - 0.1 k/mm3???Abs. Baso - 0.0 k/mm3???Neut % - 64.5 %???Lymph % - 25.1 %???Sioux % - 7.9 %???Eos % - 1.5 %???Baso % - 0.5 %???Imm Gran - 0.5 %???Abs. Imm Gran - 0.0 k/mm3 CK (CREATINE KINASE) (01/26/2023) ???CK, Total - 139 units/L CKMB CONFIRMATION/QUANT (01/26/2023) ???CK MB Confirmation - Quant - 6.5 ng/mL COVID-19 (Novel Coronavirus), Rapid PCR (01/27/2023) ???COVID-19 by RT-PCR - NEGATIVE Creatinine (01/28/2023) ???Creatinine-Blood - 1.0 mg/dL???Estimated GFR Creatinine - 71 ML/MIN/1.73 M2 Electrolytes (01/28/2023) ???Sodium - 143 mmol/L???Potassium - 4.4 mmol/L???Chloride - 109 mmol/L???Bicarbonate Level - 27 mmol/L???Anion Gap - 7 Glucose Level (01/28/2023) ???Glucose Level - 112 mg/dL HEPATIC FUNCTION PANEL (01/26/2023) ???Protein, Total - 7.0 Gm/dL???Albumin - 4.4 Gm/dL???Alkaline Phosphatase - 53 units/L???AST (SGOT) - 20 units/L? ?ALT (SGPT) - 13 units/L? ?Bilirubin, Total - <0.2 mg/dL? ?Bilirubin, Direct - <0.2 mg/dL???Bilirubin, Indirect - Total bilirubin is less than the measureable limit. Therefore, indirect High??Sensitivity??Troponin T (01/26/2023) ? ?High Sensitivity Troponin (HSTnT) - <6 ng/L Hold Blue Top Tube (01/26/2023) ???Hold Blue Top - SPECIMEN DISCARDED AFTER 4 HOURS. HOLD LAVENDER TUBE (01/28/2023) ???Hold Lavender Top - SPECIMEN DISCARDED AFTER 24 HOURS. Serum Qualitative (01/26/2023) ??? Serum Qual - NEGATIVE PROBNP (01/26/2023) ???Nt-Probnp - 131 pg/mL SEDIMENTATION RATE,AUTOMATED (01/26/2023) ???Sed Rate - 17 mm/hr Allergies (NKA means No Known Allergies) NKA Problems Active Problems??(9) *BHN/CCA/CC-Katie [facility]-[phone]/Health alf, active care coordination?? Anxiety and depression?? Bipolar disorder?? Borderline personality disorder?? Hepatitis C?? Polysubstance Use?? PTSD (post-traumatic stress disorder)?? Severe obesity (BMI 35.0-39.9) with comorbidity?? Tobacco dependence?? Education Materials Below is the list of Educational Leaflet Providered with your Discharge Instructions. Valuables and Belongings I fully understand and agree that [facility] accepts no responsibility for all my personal property including clothing, toilet articles, radios, jewelry, dentures, hearing aids, rings, money, or any other property that is in my possession or is brought to me after admission. I understand certain valuables may be placed in a hospital safe for a short period of time. I understand that the hospital is not liable for loss or damage due to accident, fire, or other natural occurrence while said property is in the safe. I accept full responsibility for any personal property that I keep with me, and will not hold the hospital responsible in case of loss or disappearance. I acknowledge that i have been encouraged to send valuables and belongings home. ?? Review of Valuable and Belonging List: With patient Date for Pt to Sign Valuables/Belongings: 01/28/23 03:21:00 ?? Other Discharge Information ? Pulmonary Rehab Status?? Pulmonary Rehab Discharge Status?? Respiratory Rate: 17 br/min ? Common Emergency Awareness Tips IS IT A STROKE? Act FAST and Check for these signs: FACE Does the face look uneven? ARM Does one arm drift down? SPEECH Does their speech sound strange? TIME Call at any sign of stroke ?? Heart Attack Signs Chest discomfort: Most heart attacks involve discomfort in the center of the chest and lasts more than a few minutes, or goes away and comes back. It can feel like uncomfortable pressure, squeezing, fullness or pain. Discomfort in upper body: Symptoms can include pain or discomfort in one or both arms, back, neck, jaw or stomach. Shortness of breath: With or without discomfort. Other signs: Breaking out in a cold sweat, nausea, or lightheaded. Remember, MINUTES DO MATTER. If you experience any of these heart attack warning signs, call to get immediate medical attention! ?? Smoking can increase your chances of developing chronic health problems and can cause harmful effects to other family members in your house. If you smoke, you are strongly encouraged to quit. Please call [facility] Link at [phone] or [phone] ([phone]) or log in to [email or web address] for referrals to smoking cessation programs. ?? 464 Suicide & Crisis Lifeline is available 06/02 if you or someone you know needs to find a reason to keep living. By calling 192 you'll be connected to a skilled, trained counselor at a crisis center in your area. INPATIENT DISCHARGE INSTRUCTIONS SIGNATURE PAGE DUSTIN WAGONER Location:[facility] Registration Date and Time:01/26/2023 11:02 EDT Primary Care Physician: Santi Conway DO, Attending Physician: Vidal Platt MD, I DUSTIN WAGONER, have received the above patient education materials/instructions and have verbalized understanding. If ambulance or transport services are being used I further acknowledge being given a choice of service. ?? If you need to contact me, please call me at this number: . Patient/Merchandise Adjustment Clerk Name: Patient/Merchandise Adjustment Clerk Signature: Relationship to Patient: Witness Name/Signature: Date: * Chela Meza RN: PERFORM Event Display: Patient Education Leaflets Authored Date: [id number] Anxiety: Learning to Just Be ?? Anxiety: Learning to Just Be - Video Rev. Paco High was always anxious; he just didn't know it. After undergoing therapy using a neurofeedback machine, he's now more aware of his place in the world around him. To view the video go to this web address: [email or web address] Or, scan this QR code with your smart phone ?? The [employer]. All rights reserved. This information is not intended as a substitute for professional medical care. Always follow your healthcare professional's instructions. ?? Patient Care team information Care Team Personnel Name: Santi Conway DO Position: [facility] Resident Member Role: PCP Address: Address: [address] [place] [id number] Name: Isabelle Sinclair Position: [facility] RN Member Role: Primary Care Nurse Name: Mireya Whiting Position: [facility] RN Member Role: Primary Care Nurse Name: Duy Dumont RN Position: [facility] RN Member Role: Primary Care Nurse Name: Cassidy Kelley RN Position: [facility] RN Member Role: Primary Care Nurse Name: Evelyn Chapin RN Position: [facility] RN Member Role: Primary Care Nurse Name: *S, ED Attending Position: [facility] ED Attendings Patient Name: *FOSTER, Inpt Attending Position: [facility] ED Medicine MD Name: Miko Mcguire RN Position: [facility] ED RN W/OE and Tasks Member Role: Patient Care Provider Name: Donna Hanks RN Position: [facility] ED RN W/OE and Tasks Member Role: Patient Care Provider Name: Hui Segundo Position: [facility] ED TA [facility] Member Role: Lap Runner Name: Oxana Myrick Position: [facility] ED TA [facility] Care Team Related Persons Name: MICHAEL CHEEK Name: VINICIUS WAGONER Address: home [address] [place] [id number] Name: CINDI WU Name: PAVITHRA WU Address: home UNKNOWN
--- OUTSIDE RECORDS SUMMARY | 2023-07-18 23:06 | XMS_ITS | Continuity of Care Document ---
Author Name Unknown Organization [facility] Address [address] [place] [address]- Care Team Providers Care Chemist Food Name Role Phone Kvng SALAZAR, Janina Her Primary Care Physician Encounter [facility] Date(s): 01/29/20 - 02/28/20 [facility] [address] [place] [address]- [facility] Allergies, Adverse Reactions, Alerts Substance Reaction Severity Status codeine Active Medications acetaminophen 325 mg oral tablet 650 mg, 2, tablet, By Mouth, Every 4 hours, PRN, # 30 tablet, Refills 0, Tot. Refills 0, Maintenance, as needed for fever, 09/16/19 13:27:00 EST, Route to Pharmacy Electronically, [facility] #[id number], 165, cm, 09/13/19 9:34:00 EST, Height Start Date: 09/16/19 Status: Ordered albuterol CFC free 90 mcg/inh inhalation aerosol 1, puffs, Inhalation, 4 times a day, PRN, # 7 Gm, Refills 5, Tot. Refills 5, Maintenance, 12/02/19 10:54:00 EDT, Aerosol, Route to Pharmacy Electronically, [id number], [facility] #[id number], 165, cm, 09/17/19 11:11:00 E... Start Date: 12/02/19 Status: Ordered Atrovent HFA 17 mcg/inh inhalation aerosol 2 puffs, Inhalation, 4 times a day, # 12.9 Gm, 0 Refills, Maintenance, 10/07/19 15:10:00 EDT, Aerosol, [facility] #[id number], 165, cm, 09/17/19 11:11:00 EST, Height Start Date: 10/07/19 Status: Ordered cetirizine 5 mg oral tablet 1 tablet = 5 mg, By Mouth, Daily, PRN Congestion, # 90 tablet, 1 Refills, Maintenance, 11/12/19 11:57:00 EDT, Tablet, [facility] #[id number], 165, cm, 09/17/19 11:11:00 EST, Height Start Date: 11/12/19 Status: Ordered clonazePAM 0.5 mg oral tablet 0 Refills, Maintenance, 12/26/19 13:59:00 EDT Start Date: 12/26/19 Status: Ordered cloNIDine 0.3 mg oral tablet 0 Refills, Maintenance, 12/26/19 13:59:00 EDT Start Date: 12/26/19 Status: Ordered Diflucan 150 mg oral tablet 1 tablet = 150 mg, By Mouth, Once, # 1 tablet, 1 Refills, Soft Stop, 12/26/19 13:58:00 EDT, Tablet,[facility] #[id number], 165, cm, 09/17/19 11:11:00 EST, Height Start Date: 12/26/19 Status: Ordered Flonase 50 mcg/inh nasal spray 1 sprays, Nares, Both, Daily in AM, # 9.9 mL, 0 Refills, Maintenance, 09/13/19 10:15:00 EST, [facility] #[id number], 1 sprays Nares, Both Daily in AM, 165, cm, 09/13/19 9:34:00 EST, Height Start Date: 09/13/19 Status: Ordered Flonase 50 mcg/inh nasal spray 1 sprays, Nares, Both, 2 times a day, # 16 Gm, 0 Refills, Maintenance, 10/11/19 8:25:00 EDT, [facility] #[id number], 1 sprays Nares, Both 2 times a day, 165, cm, 09/17/19 11:11:00 EST, Height Start Date: 10/11/19 Status: Ordered gabapentin 600 mg oral tablet 0 Refills, Maintenance, 12/26/19 13:59:00 EDT Start Date: 12/26/19 Status: Ordered levothyroxine 0.05 mg oral tablet 1 tablet = 50 mcg, By Mouth, Daily, # 30 tablet, 5 Refills, Maintenance, 07/15/19 17:13:00 EST, Tablet, [facility] #[id number], 165, cm, 04/15/19 16:17:00 EDT, Height, 93.5, kg, 08/24/17 21:31:00 EST, Dry Weight Start Date: 07/15/19 Status: Ordered methadone 10 mg oral tablet = 40 mg, By Mouth, Daily, 0 Refills, Maintenance, 08/26/17 11:07:54, Tablet Start Date: 08/26/17 Status: Ordered omeprazole 40 mg oral enteric coated capsule 1 capsule = 40 mg, By Mouth, Daily, # 30 capsule, 5 Refills, Maintenance, 12/26/19 13:58:00 EDT, ECCapsule, [email or web address] #[id number], 165, cm, 09/17/19 11:11:00 EST, Height Start Date: 12/26/19 Stop Date: 06/23/20 Status: Ordered QUEtiapine 300 mg oral tablet 0 Refills, Maintenance, 12/26/19 13:59:00 EDT Start Date: 12/26/19 Status: Ordered Problem List Condition Effective Dates Status Health Status Inform ant *BHN/ERICH/JOHNNIE-Katie [facility]-[phone]/Health prison, active care coordination(Confirmed) Active Tobacco dependence(Confirmed) Active Hepatitis C(Confirmed) Active Social History Social History Type Response Smoking Status 5-9 cigarettes (betw een 1/4 to 1/2 pack)/day in last 30 days; Other: VAPING FLAVORED TOBACCO; entered on: 04/15/19 Sex Female
--- OUTSIDE RECORDS SUMMARY | 2023-07-18 23:06 | XMS_ITS | Continuity of Care Document ---
Author Name Unknown Organization [facility] Address [address] [place] [address]- Care Team Providers Care Swimming Pool Salesperson Name Role Phone Santi Conway DO Primary Care Physician [place] [facility] [place]23 [place] 03/18/23 [facility] [address] [place] [address]- Attending Physician: Not on Staff, Attending MD Allergies, Adverse Reactions, Alerts No Known Allergies Immunizations Given and Recorded Vaccine Date Status Refusal Reason tetanus/diphtheria/pertussis, acel(Tdap) 04/09/21 Given tetanus/diphtheria/pertussis, acel(Tdap) 06/11/19 Recorded tetanus/diphtheria/pertussis, acel(Tdap) 07/21/16 Recorded tetanus-diphtheria toxoids (Td) 07/17/05 Recorded Medications Albuterol (Eqv-ProAir HFA) 90 mcg/inh inhalation aerosol 1 puffs, Inhalation, 4 times a day, PRN Wheezing/Shortness of Breath Start Date: 01/01/23 Status: Ordered Ativan 1 mg oral tablet 1 tablet = 1 mg, By Mouth, 3 times a day, PRN Agitation, # 10 tablet, 0 Refills, Maintenance, 01/05/23 15:08:00 EDT, Tablet, [facility] #[id number], Partial fill upon patient request if the [...] opioid drug. Start Date: 01/28/23 Status: Ordered KlonoPIN 0.5 mg oral tablet 1 tablet [...] 2 Refills, Maintenance, 03/30/21 14:01:00 EDT, ECCapsule, [facility] #[id number], 165, cm, 10/01/20 13:31:00 EDT, Height Start [...] 0 Refills, Maintenance, 01/28/23 9:42:00 EDT, Tablet, [facility]/pharmacy #[id number], Partial fill upon patient request if the prescription is for a schedule II opioid drug., 162, cm, 01/28/23 2:58:00 EDT, Height, 9... Start Date: 01/28/23 Status: Ordered Problem List Condition Confirmation Course Effective Dates Status Health St atus Informant Borderline personality disorder 1 Confirmed Active *BHN/CCA [facility] Esp[facility]-[phone] 2/Health intermediate, active care coordination Confirmed Active PTSD (post-traumatic stress disorder) Confirmed Active Severe obesity (BMI 35.0-39.9) with comorbidity Confirmed Active Tobacco dependence Confirmed Active Hepatitis C Confirmed Active 1Psy admission 04/2021 Social History Social History Type Response Smoking Status 5-9 cigarettes (betw een 1/4 to 1/2 pack)/day in last 30 days; Other: VAPING FLAVORED TOBACCO; entered on: 04/15/19 Sex Female Patient Care team information Care Team Personnel Name: Santi Conway DO Position: [facility] Resident Member Role: PCP Address: Address: [address] [place] [address] Name: Isabelle Sinclair Position: [facility] RN Member Role: Primary Care Nurse Name: Mireya Whiting Position: [facility] RN Member Role: Primary Care Nurse Name: Jared Dumont RN Position: [facility] RN Member Role: Primary Care Nurse Name: Cassidy Kelley RN Position: [facility] RN Member Role: Primary Care Nurse Name: Evelyn Chapin RN Position: [facility] RN Member Role: Primary Care Nurse Care Team Related Persons Name: MICHAEL CHEEK Name: VINICIUS WAGONER Address: home [address] [place] [address] Name: CINDI WU Name: PAVITHRA WU Address: home UNKNOWN
--- OUTSIDE RECORDS SUMMARY | 2023-07-18 23:06 | XMS_ITS | Continuity of Care Document ---
Author Name Unknown Organization [facility] Address [address] [place] [address]- Care Team Providers Care Umbrella Tipper Hand Name Role Phone Kvng SALAZAR, Janina Her Primary Care Physician [phone] Encounter [facility] [place] [facility] R [id number] Date(s): 03/16/20 - 04/15/20 [facility] [address] [place] [address]- [facility] Attending Physician: Not on Staff, Attending MD Allergies, Adverse Reactions, Alerts Substance Reaction Severity Status codeine Active Medications acetaminophen 325 mg oral tablet 650 mg, 2, tablet, By Mouth, Every 4 hours, PRN, # 30 tablet, Refills 0, Tot. Refills 0, Maintenance, as needed for fever, 09/16/19 13:27:00 EST, Route to Pharmacy Electronically, [facility] #[id number], 165, cm, 09/13/19 9:34:00 EST, Height Start Date: 09/16/19 Status: Ordered albuterol CFC free 90 mcg/inh inhalation aerosol 1, puffs, Inhalation, 4 times a day, PRN, # 7 Gm, Refills 5, Tot. Refills 5, Maintenance, 12/02/19 10:54:00 EDT, Aerosol, Route to Pharmacy Electronically, [id number], [facility] #[id number], 165, cm, 09/17/19 11:11:00 E... Start Date: 12/02/19 Status: Ordered Atrovent HFA 17 mcg/inh inhalation aerosol 2 puffs, Inhalation, 4 times a day, # 12.9 Gm, 0 Refills, Maintenance, 10/07/19 15:10:00 EDT, Aerosol, [facility] #[id number], 165, cm, 09/17/19 11:11:00 EST, Height Start Date: 10/07/19 Status: Ordered Benadryl 25 mg oral capsule 1 capsule = 25 mg, By Mouth, 3 times a day, PRN for itching, for 30 days, # 100 capsule, 0 Refills,Acute 04/19/20 16:28:00 EDT, 03/20/20 16:28:00 EDT, Capsule, [facility] #[id number], 165, cm, 03/20/20 16:09:00 EDT, Height Start Date: 03/20/20 Stop Date: 04/19/20 Status: Ordered cetirizine 5 mg oral tablet 1 tablet = 5 mg, By Mouth, Daily, PRN Congestion, # 90 tablet, 1 Refills, Maintenance, 11/12/19 11:57:00 EDT, Tablet, [facility] #[id number], 165, cm, 09/17/19 11:11:00 EST, Height Start Date: 11/12/19 Status: Ordered clonazePAM 0.5 mg oral tablet 0 Refills, Maintenance, 12/26/19 13:59:00 EDT Start Date: 12/26/19 Status: Ordered cloNIDine 0.3 mg oral tablet 0 Refills, Maintenance, 12/26/19 13:59:00 EDT Start Date: 12/26/19 Status: Ordered Dex-Tuss DM 10 mg-300 mg/5 mL oral liquid 5 mL, By Mouth, Every 4 hours, PRN for cough and congestion, # 360 mL, 1 Refills, Maintenance, 03/15/20 14:27:00 EDT, Liquid, [facility] #[id number], 5 mL By Mouth Every 4 hours,PRN:for cough and congestion, 165, cm, 09/17/19 11:11:00 EST, Height Start Date: 03/15/20 Status: Ordered Diflucan 150 mg oral tablet 1 tablet = 150 mg, By Mouth, Once, # 1 tablet, 1 Refills, Soft Stop, 12/26/19 13:58:00 EDT, Tablet,[facility] #[id number], 165, cm, 09/17/19 11:11:00 EST, Height Start Date: 12/26/19 Status: Ordered Flonase 50 mcg/inh nasal spray 1 sprays, Nares, Both, Daily in AM, # 9.9 mL, 0 Refills, Maintenance, 09/13/19 10:15:00 EST, [place] #50210, 1 sprays Nares, Both Daily in AM, 165, cm, 09/13/19 9:34:00 EST, Height Start Date: 09/13/19 Status: Ordered Flonase 50 mcg/inh nasal spray 1 sprays, Nares, Both, 2 times a day, # 16 Gm, 0 Refills, Maintenance, 10/11/19 8:25:00 EDT, [place],[facility] #[id number], 1 sprays Nares, Both 2 times a day, 165, cm, 09/17/19 11:11:00 EST, Height Start Date: 10/11/19 Status: Ordered gabapentin 600 mg oral tablet 0 Refills, Maintenance, 12/26/19 13:59:00 EDT Start Date: 12/26/19 Status: Ordered levothyroxine 0.05 mg oral tablet 1 tablet = 50 mcg, By Mouth, Daily, # 30 tablet, 5 Refills, Maintenance, 07/15/19 17:13:00 EST, Tablet, [facility] #[id number], 165, cm, 04/15/19 16:17:00 EDT, Height, 93.5, kg, 08/24/17 21:31:00 EST, Dry Weight Start Date: 07/15/19 Status: Ordered methadone 10 mg oral tablet = 40 mg, By Mouth, Daily, 0 Refills, Maintenance, 08/26/17 11:07:54, Tablet Start Date: 08/26/17 Status: Ordered omeprazole 40 mg oral enteric coated capsule 1 capsule = 40 mg, By Mouth, Daily, # 30 capsule, 5 Refills, Maintenance, 03/20/20 16:18:00 EDT, ECCapsule, [facility] #[id number], 165, cm, 03/20/20 16:09:00 EDT, Height Start Date: 03/20/20 Stop Date: 09/16/20 Status: Ordered QUEtiapine 300 mg oral tablet 0 Refills, Maintenance, 12/26/19 13:59:00 EDT Start Date: 12/26/19 Status: Ordered Problem List Condition Effective Dates Status Health Status Inform ant *BHN/ERICH/JOHNNIE-Katie [facility]-[phone]/Health assisted, active care coordination(Confirmed) Active Tobacco dependence(Confirmed) Active Hepatitis C(Confirmed) Active Social History Social History Type Response Smoking Status 5-9 cigarettes (betw een 1/4 to 1/2 pack)/day in last 30 days; Other: VAPING FLAVORED TOBACCO; entered on: 04/15/19 Sex Female
--- OUTSIDE RECORDS SUMMARY | 2023-07-18 23:06 | XMS_ITS | Continuity of Care Document ---
Author Name Unknown Organization [facility] Address [address] [place] [address]- Care Team Providers Care Steam Engineer Name Role Phone Not on Staff, PCP Primary Care Physician Unavail able Encounter [facility] [place] Date(s): 02/25/22 - 03/27/22 [facility] [address] [place] [id number] Attending Physician: Wilber Phelan Admitting Physician: Wilber Phelan Allergies, Adverse Reactions, Alerts No Known Allergies [...] Stop 12/15/22 9:03:00 EDT, 12/20/21 9:03:00 EDT, [facility] #[id number], 1 puffs Inhalation 4 times a day,x90 days,PRN: NEEDED FOR WHEEZI... Start Date: 12/20/21 Stop Date: 12/15/22 Status: Ordered Atrovent HFA 17 mcg/inh inhalation aerosol 2 puffs, Inhalation, 4 times a day, # 12.9 Gm, 0 Refills, Maintenance, 10/07/19 15:10:00 EDT, Aerosol, [facility] #25935, 165, cm, 09/17/19 11:11:00 EST, Height Start Date: 10/07/19 Status: Ordered buPROPion 150 mg/24 hours (XL) oral tablet, extended release 1 tablet = 150 mg, By Mouth, Daily, # 30 tablet, 0 Refills, Maintenance, 04/22/21 9:39:00 EDT, XL Tablet, Partial fill upon patient request if the prescription is for a schedule II opioid drug. Start Date: 04/22/21 Status: Ordered Carafate 1 gm oral tablet 1 Gm, 1, tablet, By Mouth, 4 times a day, # 120 tablet, Refills 0, Tot. Refills 0, Maintenance, 01/12/22 17:25:00 EDT, Route to Pharmacy Electronically, [facility] #[id number], Partial fill uponpatient request if the prescription is for a schedu... Start Date: 01/12/22 Status: Ordered clonazePAM 0.5 mg oral tablet [...] capsule, 0 Refills, Acute, 01/18/21 20:42:00 EDT, [facility] #[id number], 165, cm, 10/01/20 13:31:00 EDT, Height Start [...] 07/30/20 18:10:00 EST, Route to Pharmacy Electronically, [facility] #[id number], Partial fill upon patient request if the prescription is for a sched... Start Date: 07/30/20 Status: Ordered levothyroxine 0.05 mg oral tablet 1 tablet = 50 mcg, By Mouth, Daily, # 30 tablet, 5 Refills, Maintenance, 07/15/19 17:13:00 EST, Tablet, [facility] #[id number], 165, cm, 04/15/19 16:17:00 EDT, Height, 93.5, [...] 2 Refills, Maintenance, 03/30/21 14:01:00 EDT, ECCapsule, [facility] #[id number], 165, cm, 10/01/20 13:31:00 EDT, Height Start [...] DAYS, # 80 Gm, 0 Refills, Acute, [facility] #[id number], 25, APPLY EXTERNALLY TO THE AFFECTED AREA TWICE DAILY FOR 14 DAYS, 165, cm, 10/01/20 13:31:00 EDT, Height Start Date: 01/19/21 Status: Ordered Tylenol Extra Strength 500 mg oral tablet 2 tablet = 1,000 mg, By Mouth, Every 6 hours, PRN for pain, for 360 days, # 100 tablet, 0 Refills, Acute 01/07/23 17:25:00 EDT, 01/12/22 17:25:00 EDT, Tablet, [facility] #[id number], Partial fill upon patient request if the prescription is for a... Start Date: 01/12/22 Stop Date: 01/07/23 Status: Ordered Problem List Condition Effective Dates Status Health Status Inform ant Borderline personality disorder(Confirmed) 1 Active *N/ERICH/CC-Katie [facility]-[phone]/Health alf, active care coordination(Confirmed) Active PTSD (post-traumatic stress disorder)(Confirmed) Active Tobacco dependence(Confirmed) Active Hepatitis C(Confirmed) Active 1Psych admission 04/2021 Social History Social History Type Response Smoking Status 5-9 cigarettes (betw een 1/4 to 1/2 pack)/day in last 30 days; Other: VAPING FLAVORED TOBACCO; entered on: 04/15/19 Sex Care Team Personnel Name: Not on Staff, PCP
--- OUTSIDE RECORDS SUMMARY | 2023-07-18 23:06 | XMS_ITS | Continuity of Care Document ---
Author Name Unknown Organization [facility] Address [address] [place] [address]- Care Team Providers Care Substance Abuse Clinician Name Role Phone Santi Conway DO Primary Care Physician En[place] [facility] [place] Date(s): 08/15/22 - 09/14/22 [facility] [address] [place] [id number] Attending Physician: Jose Moreira Admitting Physician: AdmJose washington Referring Physician: AdmtrJose Allergies, Adverse Reactions, Alerts No Known Allergies [...] Stop 12/15/22 9:03:00 EDT, 12/20/21 9:03:00 EDT, [facility] #[id number], 1 puffs Inhalation 4 times a day,x90 days,PRN: NEEDED FOR WHEEZI... Start Date: 12/20/21 Stop Date: 12/15/22 Status: Ordered Atrovent HFA 17 mcg/inh inhalation aerosol 2 puffs, Inhalation, 4 times a day, # 12.9 Gm, 0 Refills, Maintenance, 10/07/19 15:10:00 EDT, Aerosol, [facility] #[id number], 165, cm, 09/17/19 11:11:00 EST, Height Start [...] 01/12/22 17:25:00 EDT, Route to Pharmacy Electronically, [facility] #[id number], Partial fill uponpatient request if the prescription [...] capsule, 0 Refills, Acute, 01/18/21 20:42:00 EDT, [facility] #[id number], 165, cm, 10/01/20 13:31:00 EDT, Height Start [...] 07/30/20 18:10:00 EST, Route to Pharmacy Electronically, [facility] #[id number], Partial fill upon patient request if the prescription is for a sched... Start Date: 07/30/20 Status: Ordered levothyroxine 0.05 mg oral tablet 1 tablet = 50 mcg, By Mouth, Daily, # 30 tablet, 5 Refills, Maintenance, 07/15/19 17:13:00 EST, Tablet, [facility] #43151, 165, cm, 04/15/19 16:17:00 EDT, Height, 93.5, kg, 08/24/17 21:31:00 EST, Dry Weight Start Date: 07/15/19 Status: Ordered methadone 10 mg oral tablet 7 tablet = 70 mg, By Mouth, Daily, 0 Refills, Maintenance, 04/22/21 9:55:00 EDT, Tablet, Partial fill upon patient request if the prescription is for a schedule II opioid drug. Start Date: 04/22/21 Status: Ordered nalOXONE 4 mg/0.1 mL nasal spray = 4 mg, Nares, Both, Once, may repeat every 2 to 3 minutes until patient responds, # 2 each, 11 Refills, Soft Stop, 07/13/22 17:04:00 EST, [facility] #[id number], Partial fill upon patient request if the prescription is for a schedule II opioid d... Start Date: 07/13/22 Status: Ordered nicotine 7 mg/24 hr transdermal [...] 2 Refills, Maintenance, 03/30/21 14:01:00 EDT, ECCapsule, [facility] #50479, 165, cm, 10/01/20 13:31:00 EDT, Height Start [...] DAYS, # 80 Gm, 0 Refills, Acute, [facility] #26369, 25, APPLY EXTERNALLY TO THE AFFECTED AREA TWICE DAILY FOR 14 DAYS, 165, cm, 10/01/20 13:31:00 EDT, Height Start Date: 01/19/21 Status: Ordered Tylenol Extra Strength 500 mg oral tablet 2 tablet = 1,000 mg, By Mouth, Every 6 hours, PRN for pain, for 360 days, # 100 tablet, 0 Refills, Acute 01/07/23 17:25:00 EDT, 01/12/22 17:25:00 EDT, Tablet, [facility] #[id number], Partial fill upon patient request if the prescription is for a... Start Date: 01/12/22 Stop Date: 01/07/23 Status: Ordered Problem List Condition Confirmation Course Effective Dates Status Health St at[facility] Informant Borderline personality disorder 1 Confirmed Active Obese class I Confirmed Active *BHN/CCA/CC-Katie [facility]-[phone]/ Health skilled nursing, active care coordination Confirmed Active PTSD (post-traumatic stress disorder) Confirmed Active Tobacco dependence Confirmed Active Hepatitis C Confirmed Active 1Psych admission 04/2021 Social History Social History Type Response Smoking Status 5-9 cigarettes (betw een 1/4 to 1/2 pack)/day in last 30 days; Other: VAPING FLAVORED TOBACCO; entered on: 04/15/19 Sex Note * Event Display: EKG Non Authored Date: Patient Care team information Care Team Personnel Name: Santi Conway DO Position: [facility] Resident Member Role: PCP Address: Address: [address] [place] [address] Name: Isabelle Sinclair Position: [facility] RN Member Role: Primary Care Nurse Name: Heaven Perez NP Position: [facility] PCO Associate Professional Member Role: Lifetime Consulting Provider Address: Address: [address] [place] [address] Name: Cassidy Kelley RN Position: [facility] RN Member Role: Primary Care Nurse Name: Evelyn Chapin RN Position: [facility] RN Member Role: Primary Care Nurse Care Team Related Persons Name: MICHAEL CHEEK Name: VINICIUS WAGONER Address: home [address] [place] [id number] Name: CINDI WU Name: PAVITHRA WU Address: home UNKNOWN
--- OUTSIDE RECORDS SUMMARY | 2023-07-18 23:06 | XMS_ITS | Continuity of Care Document ---
Author Name Unknown Organization [facility] Address [address] [place] [address]- Care Team Providers Care Licensed Audiologist Name Role Phone Santi Conway DO Primary Care Physician Encounter [facility] Date(s): 01/03/23 - 02/03/23 [facility] [address] [place] [id number] Attending Physician: Varsha Wakefield NP Admitting Physician: Varsha Wakefield NP Allergies, Adverse Reactions, Alerts No Known Allergies [...] 0 Refills, Maintenance, 01/05/23 15:08:00 EDT, Tablet, [facility] #[id number], Partial fill upon patient request if the [...] 2 Refills, Maintenance, 03/30/21 14:01:00 EDT, ECCapsule, [facility] #[id number], 165, cm, 10/01/20 13:31:00 EDT, Height Start [...] 0 Refills, Maintenance, 01/28/23 9:42:00 EDT, Tablet, [facility]acy #[id number], Partial fill upon patient request if the prescription is for a schedule II opioid drug., 162, cm, 01/28/23 2:58:00 EDT, Height, 9... Start Date: 01/28/23 Status: Ordered Problem List Condition Confirmation Course Effective Dates Status Health St atus Informant Borderline personality disorder 1 Confirmed Active *BHN/CCA/CC-Katie [facility]-[phone]/ Health fpc, active care coordination Confirmed Active PTSD (post-traumatic [...] Team Personnel Name: Santi Conway DO Position: [facility] Resident Member Role: PCP Address: Address: [address] [place] [address] Name: Isabelle Sincliar Position: S RN Member Role: Primary Care Nurse Name: Mireya Whiting Position: S RN Member Role: Primary Care Nurse Name: Jared Dumont RN Position: S RN Member Role: Primary Care Nurse Name: Cassidy Kelley RN Position: S RN Member Role: Primary Care Nurse Name: Evelyn Chapin RN Position: S RN Member Role: Primary Care Nurse Care Team Related Persons Name: MICHAEL CHEEK Name: VINICIUS WAGONER Address: home [address] [place] [address] Name: CINDI WU Name: PAVITHRA WU Address: home UNKNOWN
--- OUTSIDE RECORDS SUMMARY | 2023-07-18 23:06 | XMS_ITS | Continuity of Care Document ---
Author Name Unknown Organization [facility] Address [address] [place] [address]- Care Team Providers Care Car Storer Name Role Phone Kvng SALAZAR, Janina Her Primary Care Physician [place] [facility] [place] Date(s): 09/11/19 - 11/02/19 [facility] [address] [place] [id number] [facility] Attending Physician: Not on Staff, Attending MD Allergies, Adverse Reactions, Alerts Substance Reaction Severity Status codeine Active Medications acetaminophen 325 mg oral tablet 650 mg, 2, tablet, By Mouth, Every 4 hours, PRN, # 30 tablet, Refills 0, Tot. Refills 0, Maintenance, as needed for fever, 09/16/19 13:27:00 EST, Route to Pharmacy Electronically, [facility] #[id number], 165, cm, 09/13/19 9:34:00 EST, Height Start Date: 09/16/19 Status: Ordered albuterol CFC free 90 mcg/inh inhalation aerosol 1, puffs, Inhalation, 4 times a day, PRN, # 7 Gm, Refills 0, Tot. Refills 0, Maintenance, 10/13/19 14:32:00 EDT, Aerosol, Route to Pharmacy Electronically, [id number], [facility] #[id number], 165, cm, 09/17/19 11:11:00 E... Start Date: 10/13/19 Status: Ordered Atrovent HFA 17 mcg/inh inhalation aerosol 2 puffs, Inhalation, 4 times a day, # 12.9 Gm, 0 Refills, Maintenance, 10/07/19 15:10:00 EDT, Aerosol, [facility] #[id number], 165, cm, 09/17/19 11:11:00 EST, Height Start Date: 10/07/19 Status: Ordered clonazePAM 1 mg oral tablet 1 tablet = 1 mg, By Mouth, Daily at bedtime, # 28 tablet, 0 Refills, Maintenance, 12/24/18 16:50:49EDT, Tablet Start Date: 12/24/18 Stop Date: 01/21/19 Status: Ordered cloNIDine 0.3 mg oral tablet 1 tablet = 0.3 mg, By Mouth, Daily at bedtime, # 30 tablet, 0 Refills, Maintenance, 12/21/18 12:14:29 EDT Start Date: 12/21/18 Status: Ordered Diflucan 150 mg oral tablet 1 tablet = 150 mg, By Mouth, Once, # 1 tablet, 0 Refills, Soft Stop, 10/06/19 10:57:00 EDT, Tablet,[facility] #71310, 165, cm, 09/17/19 11:11:00 EST, Height Start Date: 10/06/19 Status: Ordered Flonase 50 mcg/inh nasal spray 1 sprays, Nares, Both, Daily in AM, # 9.9 mL, 0 Refills, Maintenance, 09/13/19 10:15:00 EST, [place] #[id number], 1 sprays Nares, Both Daily in AM, 165, cm, 09/13/19 9:34:00 EST, Height Start Date: 09/13/19 Status: Ordered Flonase 50 mcg/inh nasal spray 1 sprays, Nares, Both, 2 times a day, # 16 Gm, 0 Refills, Maintenance, 10/11/19 8:25:00 EDT, [place] #[id number], 1 sprays Nares, Both 2 times a day, 165, cm, 09/17/19 11:11:00 EST, Height Start Date: 10/11/19 Status: Ordered gabapentin 600 mg oral tablet 1 tablet = 600 mg, By Mouth, 2 times a day, # 60 tablet, 4 Refills, Maintenance, 09/19/18 13:40:07 EST Start Date: 09/19/18 Status: Ordered levothyroxine 0.05 mg oral tablet 1 tablet = 50 mcg, By Mouth, Daily, # 30 tablet, 5 Refills, Maintenance, 07/15/19 17:13:00 EST, Tablet, [facility] #[id number], 165, cm, 04/15/19 16:17:00 EDT, Height, 93.5, kg, 08/24/17 21:31:00 EST, Dry Weight Start Date: 07/15/19 Status: Ordered methadone 10 mg oral tablet = 40 mg, By Mouth, Daily, 0 Refills, Maintenance, 08/26/17 11:07:54, Tablet Start Date: 08/26/17 Status: Ordered omeprazole 40 mg oral enteric coated capsule 1 capsule = 40 mg, By Mouth, Daily, # 30 capsule, 1 Refills, Maintenance, 08/22/18 15:52:48 EST, ECCapsule Start Date: 08/22/18 Stop Date: 10/21/18 Status: Ordered SEROquel 300 mg oral tablet 1 tablet = 300 mg, By Mouth, Daily at bedtime, # 30 tablet, 0 Refills, Maintenance, 12/21/18 12:13:41 EDT, Tablet Start Date: 12/21/18 Status: Ordered Tylenol 8 Hour 650 mg oral tablet, extended release 2 tablet = 1,300 mg, By Mouth, Every 8 hours, PRN as needed for pain, for 14 days, # 50 tablet, 0 Refills, Acute 11/05/19 11:40:00 EDT, 10/22/19 11:40:00 EDT, ER Tablet, [facility] #[id number], 165, cm, 09/17/19 11:11:00 EST, Height Start Date: 10/22/19 Stop Date: 11/05/19 Status: Ordered Problem List Condition Effective Dates Status Health Status Inform ant *BHN/CCA/CC-Katie [facility]-[phone]/Health custodial, active care coordination(Confirmed) Active Tobacco dependence(Confirmed) Active Hepatitis C(Confirmed) Active Social History Social History Type Response Smoking Status 5-9 cigarettes (betw een 1/4 to 1/2 pack)/day in last 30 days; Other: VAPING FLAVORED TOBACCO; entered on: 04/15/19 Sex Female
--- OUTSIDE RECORDS SUMMARY | 2023-07-18 23:06 | XMS_ITS | Continuity of Care Document ---
Author Name Unknown Organization [facility] Address [address] [place] [address]- Care Team Providers Care Service Trainer Name Role Phone Santi Conway DO Primary Care Physician [phone] En[place] [facility] [place] Date(s): 05/08/23 - 06/07/[address] [address]- Attending Physician: Jose Moreira Admitting Physician: Jose Moreira Referring Physician: AdmtrJose Allergies, Adverse Reactions, Alerts [...] 0 Refills, Maintenance, 01/05/23 15:08:00 EDT, Tablet, [facility] #[id number], Partial fill upon patient request if the [...] 2 Refills, Maintenance, 03/30/21 14:01:00 EDT, Yani, [facility] #[id number], 165, cm, 10/01/20 13:31:00 EDT, Height Start [...] 0 Refills, Maintenance, 01/28/23 9:42:00 EDT, Tablet, [facility]/pharmacy #[id number], Partial fill upon patient request if the prescription is for a schedule II opioid drug., 162, cm, 01/28/23 2:58:00 EDT, Height, 9... Start Date: 01/28/23 Status: Ordered Problem List Condition Confirmation Course Effective Dates Status Health St atus Informant Borderline personality disorder 1 Confirmed Active *BHN/[facility]/Sharepoint Developer-Az Espino-[phone] 2/Health fdc, active care coordination Confirmed Active PTSD (post-traumatic [...] Team Personnel Name: Santi Conway DO Position: [facility] Resident Member Role: PCP Address: Address: [address] [place] [address] Name: Isabelle Sinclair Position: [facility] RN Member Role: Primary Care Nurse Name: Mireya Whiting Position: [facility] RN Member Role: Primary Care Nurse Name: Jared Dumont RN Position: [facility] RN Member Role: Primary Care Nurse Name: Cassidy Kelley RN Position: [facility] RN Member Role: Primary Care Nurse Name: Evelyn Chapin RN Position: [facility] RN Member Role: Primary Care Nurse Care Team Related Persons Name: MICHALE CHEEK Name: VINICIUS WAGONER Address: home [address] [place] [id number] Name: CINDI WU Name: PAVITHRA WU Address: home UNKNOWN
--- OUTSIDE RECORDS SUMMARY | 2023-07-18 23:06 | XMS_ITS | Continuity of Care Document ---
Author Name Unknown Organization [facility] ter Address [address] [place] [address]- Care Team Providers Care Packaging Materials Inspector Name Role Phone Santi Conway DO Primary Care Physician [place] [facility] [place] Date(s): 01/03/23 - 01/03/[address] [address]- Discharge Disposition: A-D/C Walkout Attending Physician: Not on Staff, Attending MD Admitting Physician: Not on Staff, Admitting MD Referring Physician: Not on Staff, Referring [...] of Breath Start Date: 01/01/23 Status: Ordered KlonoPIN 0.5 mg oral tablet [...] capsule, 2 Refills, Maintenance, 03/30/21 14:01:00 EDT, [facility][id number], 165, cm, 10/01/20 13:31:00 EDT, Height Start Date: 03/30/21 Stop Date: 06/28/21 Status: Ordered QUEtiapine 200 mg oral tablet 200 mg, 1, tablet, By Mouth, Daily at bedtime, # 30 tablet, Refills 0, Tot. Refills 0, Maintenance,04/22/21 9:41:00 EDT, Print Requisition, Partial fill upon patient request if the prescription is for a schedule II opioid drug. Start Date: 04/22/21 Status: Ordered Problem List Condition Confirmation Course Effective Dates Status Health St at[facility] Informant Borderline personality disorder 1 Confirmed Active Obese class I Confirmed Active *BHN/CCA/CC-Katie Neat-[phone]/ Health long-term, active care coordination Confirmed Active PTSD (post-traumatic stress disorder) Confirmed Active Tobacco dependence Confirmed Active Hepatitis C Confirmed Active 1Psych admission 04/2021 Vital Signs Most recent to oldest [Reference Range]: 1 2 Weight 90.4 kg (01/03/23 6:32 PM) 90.4 kg (01/03/23 4:49 PM) Oxygen Saturation [94-100 %] 100 % (01/03/23 4:49 PM) Pulse Rate [55-90 bpm] 100 bpm 1 *H* (01/03/23 6:32 PM) 125 bpm *H* (01/03/23 4:49 PM) Blood Pressure [90-138/55-84 mm Hg] 164/ 111mm Hg 2 *H* (01/03/23 6:32 PM) 143/87mm Hg *H* (01/03/23 4:49 PM) Respiratory Rate [16-30 br/min] 20 br/mi n (01/03/23 6:32 PM) 22 br/min (01/03/23 4:49 PM) Temperature [96.8-100.4 DegF] 100.6 DegF 3 *H* (01/03/23 6:32 PM) 99.9 DegF (01/03/23 4:49 PM) Mode of Delivery (Oxygen) Room air (01/03/23 4:49 PM) Blood pressure sites Arm, right (01/03/23 6:32 PM) Arm, left (01/03/23 4:49 PM) Temperature Route Oral (01/03/23 6:32 PM) Oral (01/03/23 4:49 PM) Dry Weight 90.4 kg (01/03/23 6:32 PM) 90.4 kg (01/03/23 4:49 PM) Weight Obtained Via Standing scale (01/03/23 4:49 PM) Dry Weight Obtained Via Standing scale (01/03/23 4:49 PM) 1Result Comment: Jevon RN aware of this 2Result Comment: Jevon RN aware of this 3Result Comment: Jevon RN aware of this Social History Social History Type Response Smoking Status 5-9 cigarettes (betw een 1/4 to 1/2 pack)/day in last 30 days; Other: VAPING FLAVORED TOBACCO; entered on: 04/15/19 Sex Patient Care team information Care Team Personnel Name: aSnti Conway DO Position: [facility] Resident Member Role: PCP Address: Address: [address] [place] [address] Name: Isabelle Sinclair Position: S RN Member Role: Primary Care Nurse Name: Jared Dumont RN Position: S RN Member Role: Primary Care Nurse Name: Cassidy Kelley RN Position: S RN Member Role: Primary Care Nurse Name: Evelyn Chapin RN Position: S RN Member Role: Primary Care Nurse Care Team Related Persons Name: MICHAEL CHEEK Name: VINICIUS WAGONER Address: home [address] [place] [id number] Name: CINDI WU Name: PAVITHRA WU Address: home UNKNOWN
--- OUTSIDE RECORDS SUMMARY | 2023-07-18 23:06 | XMS_ITS | Continuity of Care Document ---
Author Name Unknown Organization [facility] Address [address] [place] [address]- Care Team Providers Care Transport Coordinator Name Role Phone Santi Conway DO Primary Care Physician Encounter [facility] Date(s): 02/16/23 - 03/18/23 [facility] [address] [place] [address]- Attending Physician: Jose Moreira Admitting Physician: AdmJose [...] 0 Refills, Maintenance, 01/05/23 15:08:00 EDT, Tablet, [facility] #[id number], Partial fill upon patient request if the [...] 2 Refills, Maintenance, 03/30/21 14:01:00 EDT, [facility] #[id number], 165, cm, 10/01/20 13:31:00 EDT, Height Start [...] 0 Refills, Maintenance, 01/28/23 9:42:00 EDT, Tablet, [facility]/pharmacy #[id number], Partial fill upon patient request if the prescription is for a schedule II opioid drug., 162, cm, 01/28/23 2:58:00 EDT, Height, 9... Start Date: 01/28/23 Status: Ordered Problem List Condition Confirmation Course Effective Dates Status Health St at[facility] Informant Borderline personality disorder 1 Confirmed Active *[facility]N/[facility]/Curriculum Assistant Principal-Az Espino-[phone] 2/Health usp, active care coordination Confirmed Active PTSD (post-traumatic stress disorder) Confirmed Active Severe obesity (BMI 35.0-39.9) with comorbidity Confirmed Active Tobacco dependence Confirmed Active Hepatitis C Confirmed Active 1Psych admission 04/2021 Social History Social History Type Response Smoking Status 5-9 cigarettes (betw een 1/4 to 1/2 pack)/day in last 30 days; Other: VAPING FLAVORED TOBACCO; entered on: 04/15/19 Sex Female Cardiology * Event Display: EKG Non Authored Date: Patient Care team information Care Team Personnel Name: Santi Conway DO Position: [facility] Resident Member Role: PCP Address: Address: [address] [place] [address] Name: Isabelle Sinclair Position: [facility] RN Member Role: Primary Care Nurse Name: Mireya Whiting Position: [facility] RN Member Role: Primary Care Nurse Name: Jared Dumont RN Position: [facility] RN Member Role: Primary Care Nurse Name: Cassidy Kelley RN Position: [facility] RN Member Role: Primary Care Nurse Name: Evelyn Chapin RN Position: [facility] RN Member Role: Primary Care Nurse Care Team Related Persons Name: MICHAEL CHEEK Name: VINICIUS WAGONER Address: home [address] [place] [id number] Name: CINDI WU Name: PAVITHRA WU Address: home UNKNOWN
--- OUTSIDE RECORDS SUMMARY | 2023-07-18 23:06 | XMS_ITS | Continuity of Care Document ---
Author Name Unknown Organization [facility] ter Address [address] [place] [address]- Care Team Providers Care Book Binder Name Role Phone Santi Conway DO Primary Care Physician [phone] [place] [facility] [place]23 - 01/03/[address] [address]- Discharge Disposition: A-D/C Home Attending Physician: Marcelo Watkins MD Admitting Physician: Marcelo Watkins MD Referring Physician: Not on Staff, Referring [...] opioid drug. Start Date: 09/26/22 Status: Ordered MorPHINE Inj 4 mg, Injection, IV Push Slowly, Every 5 minutes for 3 doses/times, PRN for Pain , Moderate, and SBP greater than 100, Routine, 01/02/23 14:13:00 EDT, Stop date Limited # of times Start Date: 01/02/23 Stop Date: 01/02/23 Status: Completed omeprazole 40 mg oral enteric coated capsule 1 capsule = 40 mg, By Mouth, Daily, # 30 capsule, 2 Refills, Maintenance, 03/30/21 14:01:00 EDT, [facility][id number], 165, cm, 10/01/20 13:31:00 EDT, Height Start [...] Confirmed Active Obese class I Confirmed Active *N/CCA/CC-Katie Neath-[phone]/ Health usp, active care coordination Confirmed Active PTSD (post-traumatic stress disorder) Confirmed Active Tobacco dependence Confirmed Active Hepatitis C Confirmed Active 1Psy admission 04/2021 Results Orders for Microbiology Reports Name Date Blood Culture 01/02/23 Blood Culture #2 01/02/23 Microbiology Reports TEST:Blood Culture STATUS:Unauthenticated BODY SITE: SOURCE:Blood COLLECTED DATE/TIME:01/02/23 1:45 PM Blood Culture SPECIMEN DESCRIPTION : BLOOD NO SITE SPECIAL REQUESTS : NONE CULTURE : NO GROWTH AFTER 24 HOURS REPORT STATUS : PRELIMINARY REPORT TEST:Blood Culture, Second Order STATUS:Unauthenticated BODY SITE: SOURCE:Blood COLLECTED DATE/TIME:01/02/23 1:45 PM Blood Culture, Second Order SPECIMEN DESCRIPTION : BLOOD NO SITE SPECIAL REQUESTS : NONE CULTURE : NO GROWTH AFTER 24 HOURS REPORT STATUS : PRELIMINARY REPORT Radiology Reports * Exam Date Time Procedure Performing Provider Status 01/03/23 1:24 AM MRI Thoracic Spine W+W/O Contrast Vanna Light; Auth (Verified) Notes: (MRI Thoracic Spine W+W/O Contrast) Reason For Exam: Epidural abscess;Other: RESULT: MRI Thoracic Spine W+W/O Contrast MRI Thoracic Spine W+W/O Contrast INDICATION: Reason: Other:; Epidural abscess; Clinical Question(s): Epidural Empyema; Special Instructions: obtain within two hours; Order Comment: Please see Reference Text for complete list of contraindications Epidural Empyema TECHNIQUE: MRI of the thoracic spine was performed with and without intravenous contrast utilizing sagittal T1, sagittal T2, sagittal STIR, axial T1, and fat- saturated axial T2-weighted sequences, and post-contrast sagittal T1 and fat- saturated axial T1-weighted sequences. 20 mL of Clariscan was administered intravenously. COMPARISON: MRI of 09/27/2022 FINDINGS: ALIGNMENT, VERTEBRAE, MARROW, AND DISCS: Alignment is normal. Vertebral body heights are preserved.There is no significant marrow signal abnormality. Intervertebral discs are maintained. CORD: The thoracic cord is normal in signal and contour. There is no abnormal enhancement. PARASPINAL TISSUES: Visualized paraspinal soft tissues are unremarkable. FINDINGS BY LEVEL: No significant central stenosis or neural foraminal narrowing is seen at any level in the thoracic spine. IMPRESSION: Normal MRI of the thoracic spine with and without contrast. A similar preliminary report was provided by [facility] at 1:58 AM on 01/03/2023. WSN: [id number] Ordering Physician: Marcio Lira Dictated By: Milvia Whiting MD Dictated Date/Time: 01/03/23 8:55 am Reviewed By: Milvia Whiting MD Signed By: Milvia Whiting MD Signed Date/Time: 01/03/23 8:55 am Transcribed By: MAAY Transcribed Date/Time: 01/03/23 8:50 am * Exam Date Time Procedure Performing Provider Status 01/03/23 1:24 AM MRI Cervical Spine W+W/O Contrast Vanna Light; Auth (Verified) Notes: (MRI Cervical Spine W+W/O Contrast) Reason For Exam: Epidural abscess;Other: RESULT: MRI Cervical Spine W+W/O Contrast MRI Cervical Spine W+W/O Contrast INDICATION: Reason: Other:; Epidural abscess; Clinical Question(s): Epidural Empyema; Special Instructions: obtain within two hours; Order Comment: Please see Reference Text for complete list of contraindications Epidural Empyema TECHNIQUE: MRI of the cervical spine was performed with and without intravenous contrast utilizing sagittal T1, sagittal T2, sagittal STIR, axial T1, and fat- saturated axial T2-weighted sequences, and post-contrast sagittal T1 and fat- saturated axial T1-weighted sequences. 20 mL of Clariscan was administered intravenously. COMPARISON: CT soft tissue neck of 05/19/2022, CTA of 01/01/2023. FINDINGS: ALIGNMENT, VERTEBRAE, MARROW, AND DISCS: Alignment is normal. Vertebral body heights are preserved.There is no significant marrow signal abnormality. Intervertebral discs are maintained. POSTERIOR FOSSA AND CORD: Visualized posterior fossa is normal. The cervical cord is normal in signal and caliber. There is no abnormal enhancement. PARASPINAL TISSUES: Soft tissues of the neck are unremarkable. Major cervical flow voids are present. FINDINGS BY LEVEL: No significant central stenosis or neural foraminal narrowing is seen at any level in the cervical spine. IMPRESSION: No evidence of discitis or osteomyelitis. No abnormal signal within the cord. A similar preliminary report was provided by [facility] at 2:03 AM on 01/03/2023. WSN: [id number] Ordering Physician: Marcio Lira Dictated By: Milvia Whiting MD Dictated Date/Time: 01/03/23 8:50 am Reviewed By: Milvia Whiting MD Signed By: Milvia Whiting MD Signed Date/Time: 01/03/23 8:50 am Transcribed By: MAYA Transcribed Date/Time: 01/03/23 8:43 am Vital Signs Most recent to oldest [Reference Range]: 1 2 3 Oxygen Saturation [94-100 %] 99 % (01/03/23 2:31 AM) 96 % (01/02/23 11:51 PM) 100 % (01/02/23 10:40 PM) Pulse Rate [55-90 bpm] 94 bpm *H* (01/03/23 2:31 AM) 100 bpm *H* (01/02/23 11:51 PM) 96 bpm *H* (01/02/23 10:40 PM) Blood Pressure [90-138/55-84 mm Hg] 129/90mm Hg (01/03/23 2:31 AM) 121/75mm Hg (01/02/23 11:51 PM) 121/84mm Hg (01/02/23 10:40 PM) Respiratory Rate [16-30 br/min] 18 br/min (01/03/23 2:31 AM) 18 br/min (01/02/23 11:51 PM) 18 br/min (01/02/23 10:40 PM) Temperature [96.8-100.4 DegF] 98.7 DegF (01/03/23 2:31 AM) 98.8 DegF (01/02/23 11:51 PM) 98.2 DegF (01/02/23 10:40 PM) Mode of Delivery (Oxygen) Room air (01/03/23 2:31 AM) Room air (01/02/23 11:51 PM) Room air (01/02/23 10:40 PM) Blood pressure sites Arm, right (01/03/23 2:31 AM) Arm, right (01/02/23 11:51 PM) Arm, right (01/02/23 10:40 PM) Temperature Route Oral (01/03/23 2:31 AM) Oral (01/02/23 11:51 PM) Oral (01/02/23 10:40 PM) Social History Social History Type Response Smoking Status 5-9 cigarettes (betw een 1/4 to 1/2 pack)/day in last 30 days; Other: VAPING FLAVORED TOBACCO; entered on: 04/15/19 Sex Patient Care team information Care Team Personnel Name: Santi Conway DO Position: [facility] Resident Member Role: PCP Address: Address: [address] [place] [id number] Name: Isabelle Sinclair Position: S RN Member Role: Primary Care Nurse Name: Jared Dumont RN Position: S RN Member Role: Primary Care Nurse Name: Cassidy Kelley RN Position: S RN Member Role: Primary Care Nurse Name: Evelyn Chapin RN Position: S RN Member Role: Primary Care Nurse Name: Isela Kendrick LPN Position: [facility] ED RN W/OE and Tasks Member Role: Patient Care Provider Name: Venancio Erickson DO Position: [facility] Resident Member Role: ED Resident Address: Address: [address] [place] [address] Name: Feli Hernandes Position: [facility] ED TA [facility] Member Role: Vacuum Drum Drier Operator Name: Marcelo Watkins MD Position: [facility] Resident Member Role: ED Attending Physician Address: Address: [address] [place] [address] Name: Valentin Morgan RN Position: [facility] ED RN W/OE and Tasks Member Role: Patient Care Provider Care Team Related Persons Name: MICHAEL CHEEK Name: VINICIUS WAGONER Address: [address] [address] Name: CINDI WU Name: PAVITHRA WU Address: home UNKNOWN
--- OUTSIDE RECORDS SUMMARY | 2023-07-18 23:06 | XMS_ITS | Continuity of Care Document ---
Author Name Unknown Organization [facility] Address [address] [place] [address]- Care Team Providers Care Chemical Plant Operator Supervisor Name Role Phone Santi Conway DO Primary Care Phys[id number] [address], [place] [address] Attending Physician: Kali Pineda MD Admitting Physician: Kali Pineda MD Allergies, Adverse Reactions, Alerts No Known [...] Stop 12/15/22 9:03:00 EDT, 12/20/21 9:03:00 EDT, [facility] #[id number], 1 puffs Inhalation 4 times a day,x90 days,PRN: NEEDED FOR WHEEZI... Start Date: 12/20/21 Stop Date: 12/15/22 Status: Ordered Atrovent HFA 17 mcg/inh inhalation aerosol 2 puffs, Inhalation, 4 times a day, # 12.9 Gm, 0 Refills, Maintenance, 10/07/19 15:10:00 EDT, Aerosol, [facility] #[id number], 165, cm, 09/17/19 11:11:00 EST, Height Start [...] 01/12/22 17:25:00 EDT, Route to Pharmacy Electronically, [facility] #[id number], Partial fill uponpatient request if the prescription [...] capsule, 0 Refills, Acute, 01/18/21 20:42:00 EDT, [facility] #[id number], 165, cm, 10/01/20 13:31:00 EDT, Height Start [...] 07/30/20 18:10:00 EST, Route to Pharmacy Electronically, [facility] #[id number], Partial fill upon patient request if the prescription is for a sched... Start Date: 07/30/20 Status: Ordered levothyroxine 0.05 mg oral tablet 1 tablet = 50 mcg, By Mouth, Daily, # 30 tablet, 5 Refills, Maintenance, 07/15/19 17:13:00 EST, Tablet, [facility] #[id number], 165, cm, 04/15/19 16:17:00 EDT, Height, 93.5, [...] 2 Refills, Maintenance, 03/30/21 14:01:00 EDT, ECCapsule, [facility] #[id number], 165, cm, 10/01/20 13:31:00 EDT, Height Start [...] DAYS, # 80 Gm, 0 Refills, Acute, [facility] #[id number], 25, APPLY EXTERNALLY TO THE AFFECTED AREA TWICE DAILY FOR 14 DAYS, 165, cm, 10/01/20 13:31:00 EDT, Height Start Date: 01/19/21 Status: Ordered Tylenol Extra Strength 500 mg oral tablet 2 tablet = 1,000 mg, By Mouth, Every 6 hours, PRN for pain, for 360 days, # 100 tablet, 0 Refills, Acute 01/07/23 17:25:00 EDT, 01/12/22 17:25:00 EDT, Tablet, [facility] #[id number], Partial fill upon patient request if the prescription is for a... Start Date: 01/12/22 Stop Date: 01/07/23 Status: Ordered Problem List Condition Confirmation Course Effective Dates Status Health St at[facility] Informant Borderline personality disorder 1 Confirmed Active *BHN/CCA/CC-Katie [facility]-[phone]/ Health intermediate, active care coordination Confirmed Active PTSD (post-traumatic stress disorder) Confirmed Active Tobacco dependence Confirmed Active Hepatitis C Confirmed Active 1Psych admission 04/2021 Social History Social History Type Response Smoking Status 5-9 cigarettes (betw een 1/4 to 1/2 pack)/day in last 30 days; Other: VAPING FLAVORED TOBACCO; entered on: 04/15/19 Sex Patient Care team information Care Team Personnel Name: Santi Conway DO Position: [facility] Resident Member Role: PCP Address: Address: [address] [place] [address]- Name: Isabelle Sinclair Position: S RN Member Role: Primary Care Nurse Name: Heaven Perez NP Position: [facility] PCO Associate Professional Member Role: Lifetime Consulting Provider Address: Address: [address] [place] [address]- Name: Cassidy Kelley RN Position: [facility] RN Member Role: Primary Care Nurse Name: Vianney Wang RN Position: [facility] RN Member Role: Primary Care Nurse Name: Evelyn Chapin RN Position: [facility] RN Member Role: Primary Care Nurse Care Team Related Persons Name: MICHAEL CHEEK Name: VINICIUS WAGONER Address: home [address] [place] [id number] Name: CINDI WU Name: PAVITHRA WU Address: home UNKNOWN
--- OUTSIDE RECORDS SUMMARY | 2023-07-18 23:06 | XMS_ITS | Continuity of Care Document ---
Author Name Unknown Organization [facility] Address [address] [place] [address]- Care Team Providers Care Rand Cementer Name Role Phone Not on Staff, PCP Primary Care Physician Unavail able Encounter [facility] [place] Date(s): 01/12/22 - 01/12/[address] [address]- Encounter Diagnosis Extravasation of other vesicant agent, initial encounter(Final) - 01/12/22 Discharge Disposition: A-D/C Home Attending Physician: Mary Sy MD Admitting Physician: Mary Sy MD Referring Physician: Not on Staff, Referring [...] Stop 12/15/22 9:03:00 EDT, 12/20/21 9:03:00 EDT, [facility] #[id number], 1 puffs Inhalation 4 times a day,x90 days,PRN: NEEDED FOR WHEEZI... Start Date: 12/20/21 Stop Date: 12/15/22 Status: Ordered Atrovent HFA 17 mcg/inh inhalation aerosol 2 puffs, Inhalation, 4 times a day, # 12.9 Gm, 0 Refills, Maintenance, 10/07/19 15:10:00 EDT, Aerosol, [facility] #[id number], 165, cm, 09/17/19 11:11:00 EST, Height Start [...] 01/12/22 17:25:00 EDT, Route to Pharmacy Electronically, [facility] #[id number], Partial fill uponpatient request if the prescription is for a schedu... Start Date: 01/12/22 Status: Ordered cephalexin monohydrate 250 mg oral capsule 1 capsule = 250 mg, By Mouth, 4 times a day, for 7 days, # 28 capsule, 0 Refills, Acute 01/19/22 17:25:00 EDT, 01/12/22 17:25:00 EDT, Capsule, [facility] #[id number], Partial fill upon patient request if the prescription is for a schedule II opio... Start Date: 01/12/22 Stop Date: 01/19/22 Status: Ordered clonazePAM 0.5 mg oral tablet [...] capsule, 0 Refills, Acute, 01/18/21 20:42:00 EDT, [facility] #[id number], 165, cm, 10/01/20 13:31:00 EDT, Height Start [...] drug. Start Date: 04/22/21 Status: Ordered ibuprofen 600 mg oral tablet 600 mg, 1, tablet, By Mouth, 4 times a day, for 14 days, # 56 tablet, Refills 0, Tot. Refills 0, Acute 01/26/22 17:25:00 EDT, 01/12/22 17:25:00 EDT, Route to Pharmacy Electronically, [facility] #[id number], Partial fill upon patient request if th... Start Date: 01/12/22 Stop Date: 01/26/22 Status: Ordered ibuprofen 800 mg oral tablet 800 mg, 1, tablet, By Mouth, 3 times a day, # 60 tablet, Refills 1, Tot. Refills 1, Maintenance, 07/30/20 18:10:00 EST, Route to Pharmacy Electronically, [facility] #[id number], Partial fill upon patient request if the prescription is for a sched... Start Date: 07/30/20 Status: Ordered levothyroxine 0.05 mg oral tablet 1 tablet = 50 mcg, By Mouth, Daily, # 30 tablet, 5 Refills, Maintenance, 07/15/19 17:13:00 EST, Tablet, [facility] #[id number], 165, cm, 04/15/19 16:17:00 EDT, Height, 93.5, [...] 2 Refills, Maintenance, 03/30/21 14:01:00 EDT, ECCapsule, [facility] #[id number], 165, cm, 10/01/20 13:31:00 EDT, Height Start [...] DAYS, # 80 Gm, 0 Refills, Acute, [facility] #[id number], 25, APPLY EXTERNALLY TO THE AFFECTED AREA TWICE DAILY FOR 14 DAYS, 165, cm, 10/01/20 13:31:00 EDT, Height Start Date: 01/19/21 Status: Ordered Tylenol Extra Strength 500 mg oral tablet 2 tablet = 1,000 mg, By Mouth, Every 6 hours, PRN for pain, for 360 days, # 100 tablet, 0 Refills, Acute 01/07/23 17:25:00 EDT, 01/12/22 17:25:00 EDT, Tablet, [facility] #[id number], Partial fill upon patient request if the prescription is for a... Start Date: 01/12/22 Stop Date: 01/07/23 Status: Ordered Problem List Condition Effective Dates Status Health Status Inform ant Borderline personality disorder(Confirmed) 1 Active *BHN/CCA/CC-Katie Neat-[phone]/Health long term, active care coordination(Confirmed) Active PTSD (post-traumatic stress disorder)(Confirmed) Active Tobacco dependence(Confirmed) Active Hepatitis C(Confirmed) Active 1Psych admission 04/2021 Vital Signs Most recent to oldest [Reference Range]: 1 2 3 Oxygen Saturation [94-100 %] 100 % (01/12/22 3:50 PM) 100 % (01/12/22 3:33 PM) Pulse Rate [55-90 bpm] 110 bpm *H* (01/12/22 5:18 PM) 102 bpm *H* (01/12/22 3:50 PM) 112 bpm *H* (01/12/22 3:33 PM) Blood Pressure [90-138/55-84 mm Hg] 123/73mm Hg (01/12/22 5:18 PM) 131/78mm Hg (01/12/22 3:50 PM) Respiratory Rate [16-30 br/min] 18 br/min (01/12/22 5:18 PM) 18 br/min (01/12/22 3:50 PM) Temperature [96.8-100.4 DegF] 99.0 DegF (01/12/22 5:18 PM) 98.8 DegF (01/12/22 3:50 PM) Mode of Delivery (Oxygen) Room air (01/12/22 5:18 PM) Room air (01/12/22 3:50 PM) Room air (01/12/22 3:33 PM) Blood pressure sites Arm, left (01/12/22 5:18 PM) Arm, left (01/12/22 3:50 PM) Temperature Route Oral (01/12/22 5:18 PM) Oral (01/12/22 3:50 PM) Social History Social History Type Response Smoking Status 5-9 cigarettes (betw een 1/4 to 1/2 pack)/day in last 30 days; Other: VAPING FLAVORED TOBACCO; entered on: 04/15/19 Sex
--- OUTSIDE RECORDS SUMMARY | 2023-07-18 23:06 | XMS_ITS | Continuity of Care Document ---
Author Name Unknown Organization [facility] Address [address] [place] [address]- Care Team Providers Care Underground Roof Bolter Name Role Phone Kvng SALAZAR, Janina Her Primary Care Physician Encounter [facility] [place] Date(s): 11/15/21 - 12/15/21 [facility] [address] [place] [id number] Allergies, Adverse Reactions, Alerts Substance Reaction Severity [...] times a day, PRN NEEDED FOR WHEEZING, # 8.5 Gm, 0 Refills, [facility] #[id number], 50, INHALE ONE PUFF BY MOUTH FOUR TIMES DAILY NEEDED FOR WHEEZING, 165, cm, 04/22/21 9:13:00 EDT, Height, 93.5, kg, 04/10/21 17:07:00... Start Date: 10/26/21 Status: Ordered Atrovent HFA 17 mcg/inh inhalation aerosol 2 puffs, Inhalation, 4 times a day, # 12.9 Gm, 0 Refills, Maintenance, 10/07/19 15:10:00 EDT, Aerosol, [facility] #[id number], 165, cm, 09/17/19 11:11:00 EST, Height Start [...] capsule, 0 Refills, Acute, 01/18/21 20:42:00 EDT, [facility] #[id number], 165, cm, 10/01/20 13:31:00 EDT, Height Start [...] 07/30/20 18:10:00 EST, Route to Pharmacy Electronically, [facility] #[id number], Partial fill upon patient request if the prescription is for a sched... Start Date: 07/30/20 Status: Ordered levothyroxine 0.05 mg oral tablet 1 tablet = 50 mcg, By Mouth, Daily, # 30 tablet, 5 Refills, Maintenance, 07/15/19 17:13:00 EST, Tablet, [facility] #[id number], 165, cm, 04/15/19 16:17:00 EDT, Height, 93.5, [...] 2 Refills, Maintenance, 03/30/21 14:01:00 EDT, ECCapsule, [facility] #[id number], 165, cm, 10/01/20 13:31:00 EDT, Height Start [...] DAYS, # 80 Gm, 0 Refills, Acute, [facility] #[id number], 25, APPLY EXTERNALLY TO THE AFFECTED AREA TWICE DAILY FOR 14 DAYS, 165, cm, 10/01/20 13:31:00 EDT, Height Start Date: 01/19/21 Status: Ordered Problem List Condition Effective Dates Status Health Status Inform ant Borderline personality disorder(Confirmed) 1 Active *BHN/CCA/CC-Katie Neath-[phone]/Health shelter, active care coordination(Confirmed) Active PTSD (post-traumatic stress disorder)(Confirmed) Active Tobacco dependence(Confirmed) Active Hepatitis C(Confirmed) Active 1Psych admission 04/2021 Social History Social History Type Response Smoking Status 5-9 cigarettes (betw een 1/4 to 1/2 pack)/day in last 30 days; Other: VAPING FLAVORED TOBACCO; entered on: 04/15/19 Sex
--- OUTSIDE RECORDS SUMMARY | 2023-07-18 23:06 | XMS_ITS | Continuity of Care Document ---
Author Name Unknown Organization [facility] Address [address] [place] [id number]- Care Team Providers Care Care Management Associate Name Role Phone Janina Calderon MD Primary Care Physician Encounter [facility] [place] Date(s): 12/25/20 - 02/04/21 [facility] [address] [place] [address] Attending Physician: Ashu WHYTE, Varsha Chang Admitting Physician: Varsha Wakefield NP Referring Physician: Janina Calderon MD Allergies, Adverse Reactions, Alerts Substance Reaction Severity Status codeine Active Medications albuterol CFC free 90 mcg/inh inhalation aerosol 1, puffs, Inhalation, 4 times a day, PRN, # 7 Gm, Refills 5, Tot. Refills 5, Maintenance, 11/10/20 9:14:00 EDT, Aerosol, Route to Pharmacy Electronically, [id number], [facility] #[id number], 165, cm, 10/01/20 13:31:00 ED... Start Date: 11/10/20 Status: Ordered Atrovent HFA 17 mcg/inh inhalation aerosol 2 puffs, Inhalation, 4 times a day, # 12.9 Gm, 0 Refills, Maintenance, 10/07/19 15:10:00 EDT, Aerosol, [facility] #[id number], 165, cm, 09/17/19 11:11:00 EST, Height Start Date: 10/07/19 Status: Ordered clonazePAM 0.5 mg oral tablet 0 Refills, Maintenance, 12/26/19 13:59:00 EDT Start Date: 12/26/19 Status: Ordered diphenhydrAMINE 25 mg oral capsule 1 capsule, By Mouth, 3 times a day, PRN NEEDED FOR ITCHING, # 100 capsule, 0 Refills, Acute, 01/18/21 20:42:00 EDT, [facility] #[id number], 165, cm, 10/01/20 13:31:00 EDT, Height Start Date: 01/18/21 Status: Ordered gabapentin 600 mg oral tablet 0 Refills, Maintenance, 12/26/19 13:59:00 EDT Start Date: 12/26/19 Status: Ordered ibuprofen 800 mg oral tablet 800 mg, 1, tablet, By Mouth, 3 times a day, # 60 tablet, Refills 1, Tot. Refills 1, Maintenance, 07/30/20 18:10:00 EST, Route to Pharmacy Electronically, [facility] #[id number], Partial fill upon patient request if the prescription is for a sched... Start Date: 07/30/20 Status: Ordered levothyroxine 0.05 mg oral tablet 1 tablet = 50 mcg, By Mouth, Daily, # 30 tablet, 5 Refills, Maintenance, 07/15/19 17:13:00 EST, Tablet, [facility] #[id number], 165, cm, 04/15/19 16:17:00 EDT, Height, 93.5, kg, 08/24/17 21:31:00 EST, Dry Weight Start Date: 07/15/19 Status: Ordered methadone 10 mg oral tablet = 40 mg, By Mouth, Daily, 0 Refills, Maintenance, 08/26/17 11:07:54, Tablet Start Date: 08/26/17 Status: Ordered omeprazole 40 mg oral enteric coated capsule 1 capsule = 40 mg, By Mouth, Daily, # 30 capsule, 5 Refills, Maintenance, 10/01/20 14:01:00 EDT, ECCapsule, [facility] #[id number], 165, cm, 10/01/20 13:31:00 EDT, Height Start Date: 10/01/20 Stop Date: 03/30/21 Status: Ordered QUEtiapine 300 mg oral tablet 0 Refills, Maintenance, 12/26/19 13:59:00 EDT Start Date: 12/26/19 Status: Ordered triamcinolone 0.1% topical cream See Instructions, APPLY EXTERNALLY TO THE AFFECTED AREA TWICE DAILY FOR 14 DAYS, # 80 Gm, 0 Refills, Acute, [facility] #[id number], 25, APPLY EXTERNALLY TO THE AFFECTED AREA TWICE DAILY FOR 14 DAYS, 165, cm, 10/01/20 13:31:00 EDT, Height Start Date: 01/19/21 Status: Ordered Problem List Condition Effective Dates Status Health Status Inform ant *BHN/ERICH/[facility]-[phone]/Health senior living, active care coordination(Confirmed) Active Tobacco dependence(Confirmed) Active Hepatitis C(Confirmed) Active Social History Social History Type Response Smoking Status 5-9 cigarettes (betw een 1/4 to 1/2 pack)/day in last 30 days; Other: VAPING FLAVORED TOBACCO; entered on: 04/15/19 Sex Female
--- OUTSIDE RECORDS SUMMARY | 2023-07-18 23:06 | XMS_ITS | Continuity of Care Document ---
Author Name Unknown Organization [facility] Address [address] [place] [address]- Care Team Providers Care Metrology Specialist Name Role Phone Kvng SALAZAR, Janina Her Primary Care Physician Encounter [facility] [place] Date(s): 10/15/19 - 10/22/19 [facility] [address] [place] [id number] [facility] Attending Physician: Willie SALAZAR, Jorge Juan Allergies, Adverse Reactions, Alerts Substance Reaction Severity Status codeine Active Medications acetaminophen 325 mg oral tablet 650 mg, 2, tablet, By Mouth, Every 4 hours, PRN, # 30 tablet, Refills 0, Tot. Refills 0, Maintenance, as needed for fever, 09/16/19 13:27:00 EST, Route to Pharmacy Electronically, [facility] #[id number], 165, cm, 09/13/19 9:34:00 EST, Height Start Date: 09/16/19 Status: Ordered albuterol CFC free 90 mcg/inh inhalation aerosol 1, puffs, Inhalation, 4 times a day, PRN, # 7 Gm, Refills 0, Tot. Refills 0, Maintenance, 10/13/19 14:32:00 EDT, Aerosol, Route to Pharmacy Electronically, [id number], [facility] #[id number], 165, cm, 09/17/19 11:11:00 E... Start Date: 10/13/19 Status: Ordered Atrovent HFA 17 mcg/inh inhalation aerosol 2 puffs, Inhalation, 4 times a day, # 12.9 Gm, 0 Refills, Maintenance, 10/07/19 15:10:00 EDT, Aerosol, [facility] #[id number], 165, cm, 09/17/19 11:11:00 EST, Height Start [...] 0 Refills, Soft Stop, 10/06/19 10:57:00 EDT, Tablet,[facility] #[id number], 165, cm, 09/17/19 11:11:00 EST, Height Start Date: 10/06/19 Status: Ordered Flonase 50 mcg/inh nasal spray 1 sprays, Nares, Both, Daily in AM, # 9.9 mL, 0 Refills, Maintenance, 09/13/19 10:15:00 EST, [place] #[id number], 1 sprays Nares, Both Daily in AM, 165, cm, 09/13/19 9:34:00 EST, Height Start Date: 09/13/19 Status: Ordered Flonase 50 mcg/inh nasal spray 1 sprays, Nares, Both, 2 times a day, # 16 Gm, 0 Refills, Maintenance, 10/11/19 8:25:00 EDT, [place] #[id number], 1 sprays Nares, Both 2 times a day, 165, cm, 09/17/19 11:11:00 EST, Height Start Date: 10/11/19 Status: Ordered gabapentin 600 mg oral tablet 1 tablet = 600 mg, By Mouth, 2 times a day, # 60 tablet, 4 Refills, Maintenance, 09/19/18 13:40:07 EST Start Date: 09/19/18 Status: Ordered ibuprofen 800 mg oral tablet 800 mg, 1, tablet, By Mouth, 3 times a day, PRN, for 10 days, # 30 tablet, Refills 0, Tot. Refills 0, Acute 10/23/19 14:30:00 EDT, for pain, 10/13/19 14:30:00 EDT, Route to Pharmacy Electronically, [facility] #[id number], 165, cm, 09/17/19 11:11:... Start Date: 10/13/19 Stop Date: 10/23/19 Status: Ordered levothyroxine 0.05 mg oral tablet 1 tablet = 50 mcg, By Mouth, Daily, # 30 tablet, 5 Refills, Maintenance, 07/15/19 17:13:00 EST, Tablet, [facility] #[id number], 165, cm, 04/15/19 16:17:00 EDT, Height, 93.5, [...] Date: 08/22/18 Stop Date: 10/21/18 Status: Ordered pseudoephedrine 30 mg oral tablet 1 tablet = 30 mg, By Mouth, Every 6 hours, PRN as needed for congestion, for 7 days, # 24 tablet, 0Refills, Acute 10/29/19 11:38:00 EDT, 10/22/19 11:38:00 EDT, Tablet, [facility] #[id number], 165, cm, 09/17/19 11:11:00 EST, Height Start Date: 10/22/19 Stop Date: 10/29/19 Status: Ordered SEROquel 300 mg oral tablet [...] 11:40:00 EDT, 10/22/19 11:40:00 EDT, ER Tablet, [facility] #[id number], 165, cm, 09/17/19 11:11:00 EST, Height Start Date: 10/22/19 Stop Date: 11/05/19 Status: Ordered Problem List Condition Effective Dates Status Health Status Inform ant *BHN/ERICH/CC-Katie Neat-[phone]/Health [facility], active care coordination(Confirmed) Active Tobacco dependence(Confirmed) Active Hepatitis C(Confirmed) Active Social History Social History Type Response Smoking Status 5-9 cigarettes (betw een 1/4 to 1/2 pack)/day in last 30 days; Other: VAPING FLAVORED TOBACCO; entered on: 04/15/19 Sex Female
--- OUTSIDE RECORDS SUMMARY | 2023-07-18 23:06 | XMS_ITS | Continuity of Care Document ---
Author Name Unknown Organization [facility] Address [address] [place] [address]- Care Team Providers Care Biochemist Name Role Phone Kvng SALAZAR, Janina Her Primary Care Physician Encounter [facility] [place] Date(s): 03/31/20 - 04/30/20 [facility] [address] [place] [address]- [facility] Attending Physician: Admpadmini, Jose Admitting Physician: Admtr, Jose Referring Physician: Admtr, Ar8 Allergies, Adverse Reactions, Alerts Substance Reaction Severity Status codeine Active Medications acetaminophen 325 mg oral tablet 650 mg, 2, tablet, By Mouth, Every 4 hours, PRN, # 30 tablet, Refills 0, Tot. Refills 0, Maintenance, as needed for fever, 09/16/19 13:27:00 EST, Route to Pharmacy Electronically, [facility] #[id number], 165, cm, 09/13/19 9:34:00 EST, Height Start Date: 09/16/19 Status: Ordered albuterol CFC free 90 mcg/inh inhalation aerosol 1, puffs, Inhalation, 4 times a day, PRN, # 7 Gm, Refills 5, Tot. Refills 5, Maintenance, 12/02/19 10:54:00 EDT, Aerosol, Route to Pharmacy Electronically, [id number], [facility] #[id number], 165, cm, 09/17/19 11:11:00 E... Start Date: 12/02/19 Status: Ordered Atrovent HFA 17 mcg/inh inhalation aerosol 2 puffs, Inhalation, 4 times a day, # 12.9 Gm, 0 Refills, Maintenance, 10/07/19 15:10:00 EDT, Aerosol, [facility] #[id number], 165, cm, 09/17/19 11:11:00 EST, Height Start Date: 10/07/19 Status: Ordered cetirizine 5 mg oral tablet 1 tablet = 5 mg, By Mouth, Daily, PRN Congestion, # 90 tablet, 1 Refills, Maintenance, 11/12/19 11:57:00 EDT, Tablet, [facility] #[id number], 165, cm, 09/17/19 11:11:00 EST, Height Start [...] 1 Refills, Maintenance, 03/15/20 14:27:00 EDT, Liquid, [facility] #06054, 5 mL By Mouth Every 4 hours,PRN:for cough and congestion, 165, cm, 09/17/19 11:11:00 EST, Height Start Date: 03/15/20 Status: Ordered Diflucan 150 mg oral tablet 1 tablet = 150 mg, By Mouth, Once, # 1 tablet, 1 Refills, Soft Stop, 12/26/19 13:58:00 EDT, Tablet,[facility] #[id number], 165, cm, 09/17/19 11:11:00 EST, Height Start Date: 12/26/19 Status: Ordered Flonase 50 mcg/inh nasal spray 1 sprays, Nares, Both, Daily in AM, # 9.9 mL, 0 Refills, Maintenance, 09/13/19 10:15:00 EST, [place] #[id number], 1 sprays Nares, Both Daily in AM, 165, cm, 09/13/19 9:34:00 EST, Height Start Date: 09/13/19 Status: Ordered Flonase 50 mcg/inh nasal spray 1 sprays, Nares, Both, 2 times a day, # 16 Gm, 0 Refills, Maintenance, 10/11/19 8:25:00 EDT, [place] #[id number], 1 sprays Nares, Both 2 times a day, 165, cm, 09/17/19 11:11:00 EST, Height Start Date: 10/11/19 Status: Ordered gabapentin 600 mg oral tablet 0 Refills, Maintenance, 12/26/19 13:59:00 EDT Start Date: 12/26/19 Status: Ordered levothyroxine 0.05 mg oral tablet 1 tablet = 50 mcg, By Mouth, Daily, # 30 tablet, 5 Refills, Maintenance, 07/15/19 17:13:00 EST, Tablet, [facility] #[id number], 165, cm, 04/15/19 16:17:00 EDT, Height, 93.5, [...] 5 Refills, Maintenance, 03/20/20 16:18:00 EDT, ECCapsule, [facility] #[id number], 165, cm, 03/20/20 16:09:00 EDT, Height Start Date: 03/20/20 Stop Date: 09/16/20 Status: Ordered QUEtiapine 300 mg oral tablet 0 Refills, Maintenance, 12/26/19 13:59:00 EDT Start Date: 12/26/19 Status: Ordered Problem List Condition Effective Dates Status Health Status Inform ant *BHN/[facility][phone]/Health long-term, active care coordination(Confirmed) Active Tobacco dependence(Confirmed) Active Hepatitis C(Confirmed) Active Social History Social History Type Response Smoking Status 5-9 cigarettes (betw een 1/4 to 1/2 pack)/day in last 30 days; Other: VAPING FLAVORED TOBACCO; entered on: 04/15/19 Sex Female
--- OUTSIDE RECORDS SUMMARY | 2023-07-18 23:06 | XMS_ITS | Continuity of Care Document ---
Author Name Unknown Organization [facility] ter Address [address] [place] [id number]- Care Team Providers Care Unit Secy Name Role Phone Santi Conway DO Primary Care Physician [place] [facility] [place]): [place]26[place]22 - 09/28/[address] [address]- Encounter Diagnosis Sepsis(Final) - 09/27/22 Constipation(Final) - 09/27/22 Discharge Disposition: A-D/C Home Attending Physician: Sarai Burns MD Admitting Physician: Leatha SALAZAR, Jayna Wilks Referring Physician: Not on Staff, Referring MD [...] Stop 12/15/22 9:03:00 EDT, 12/20/21 9:03:00 EDT, [id number], 1 puffs Inhalation 4 times a day,x90 days,PRN: NEEDED FOR WHEEZI... Start Date: 12/20/21 Stop Date: 12/15/22 Status: Ordered KlonoPIN 0.5 mg oral tablet 1 tablet = 0.5 mg, By Mouth, 2 times a day, 0 Refills, Maintenance, 09/26/22 14:32:00 EDT, Tablet, Partial fill upon patient request if the prescription is for a schedule II opioid drug. Start Date: 09/26/22 Status: Ordered methadone 5 mg/5 mL oral solution = 85 mg, By Mouth, Daily, 0 Refills, Maintenance, 09/26/22 14:32:00 EDT, Partial fill upon patient request if the prescription is for a schedule II opioid drug. Start Date: 09/26/22 Status: Ordered Methadone Tablet 85 mg, Tablet, By Mouth, 09/28/22 9:00:00 EDT Start Date: 09/28/22 Stop Date: 09/28/22 Status: Completed omeprazole 40 mg oral enteric coated capsule 1 capsule = 40 mg, By Mouth, Daily, # 30 capsule, 2 Refills, Maintenance, 03/30/21 14:01:00 EDT, [id number], 165, cm, 10/01/20 13:31:00 EDT, Height Start [...] Active Obese class I Confirmed Active *BHN/CCA/CC-Katie Neat-[phone]/ Health halfway, active care coordination Confirmed Active PTSD (post-traumatic stress disorder) Confirmed Active Tobacco dependence Confirmed Active Hepatitis C Confirmed Active 1Psych admission 04/2021 Results Orders for Microbiology Reports Name Date Blood Culture #2 09/26/22 Microbiology Reports TEST:Blood Culture, Second Order STATUS:Unauthenticated BODY SITE: SOURCE:Blood COLLECTED DATE/TIME:09/27/22 1:35 AM Blood Culture, Second Order SPECIMEN DESCRIPTION : BLOOD NO SITE SPECIAL REQUESTS : NONE CULTURE : NO GROWTH AFTER 24 HOURS REPORT STATUS : PRELIMINARY REPORT Radiology Reports * Exam Date Time Procedure Performing Provider Status 09/28/22 1:[address] Head-Hyper Acute Stroke Cheikh Mendoza; Auth (Verified) Notes: (CT Head-Hyper Acute Stroke) Reason For Exam: IVDU, dark spot in visual field, shooting eye pain;Other: RESULT: CT Head-Hyper Acute Stroke CT Head-Hyper Acute Stroke INDICATION: Reason: Other:; IVDU, dark spot in visual field, shooting eye pain; Clinical Question(s): Other:; septic embolic brain abscess; Order Comment: TECHNIQUE: Noncontrast head CT using axial technique and reconstructed in axial and coronal planes.Iterative reconstruction techniques are used to optimize dose and image quality. CTDIvol Head: 48.20 mGy, DLP Head: 773 mGy*cm. COMPARISON: 05/19/2022. FINDINGS: Wet Process Head Miller view findings, lines and tubes: None. BRAIN AND EXTRA-AXIAL SPACES: No parenchymal hemorrhage, midline shift, or mass effect. Jensen-white matter differentiation is wellpreserved. No acute infarct. Negative insular ribbon and hyperdense vessel signs. Mild prominence of the ventricles and sulci consistent with parenchymal volume loss. No white matter lesions. No subarachnoid hemorrhage. No subdural or epidural collection. CALVARIUM, SKULL BASE, AND SOFT TISSUES: No fractures or suspicious bony lesions. The paranasal sinuses and mastoid air cells are clear. Visualized orbits and globes are intact. The extracranial soft tissues are unremarkable. IMPRESSION: No acute intracranial pathology. I have personally reviewed the images and I agree with this report. WSN: [id number] Ordering Physician: Corie Gotti Dictated By: Evelyn Dillon MD Dictated Date/Time: 09/28/22 7:17 am Reviewed By: Blaze Ye MD Signed By: Blaze Ye MD Signed Date/Time: 09/28/22 7:22 am Transcribed By: MAYA Transcribed Date/Time: 09/28/22 1:39 am * Exam Date Time Procedure Performing Provider Status 09/27/22 3:38 AM MRI Lumbar Spine W+W/O Contrast Vanna Light; Auth (Verified) Notes: (MRI Lumbar Spine W+W/O Contrast) Reason For Exam: neck, thoracic and lumbar back pain, paresthesias, IDVU;Fever RESULT: MRI Lumbar Spine W+W/O Contrast MRI Thoracic Spine W+W/O Contrast, MRI Lumbar Spine W+W/O Contrast INDICATION: Fever; neck, thoracic and lumbar back pain, paresthesias, IVDU; Clinical Question(s): Other:; spinal epidural abscess. TECHNIQUE: Sagittal T1, T2, STIR and axial T1 and T2-weighted fat-sat sequences through the thoracic and lumbar spine. After 20 mL of Clariscan was administered intravenously, sagittal T1 and axial T1 with fat sat sequences obtained. COMPARISON: CT of abdomen and pelvis on 09/26/2022. FINDINGS: ALIGNMENT, VERTEBRAE, MARROW, AND DISCS: The alignment of the thoracic and lumbar spine is normal. No fracture or subluxation. The bone marrow signals are within normal limits. No evidence of an epidural hematoma or ligamentous injury. The intervertebral disc spaces of the thoracic spine 2 level ofL3-L4 are preserved. Disc desiccation is seen at L4-L5 and L5-S1 levels. L5-S1 level has mild disc space narrowing and mild degenerative endplate changes. CORD: The thoracic cord is normal in signal and contour. The conus medullaris terminates at the level of L1. The nerve roots of cauda equina are unremarkable. There is no abnormal enhancement. PARASPINAL TISSUES: Visualized paraspinal soft tissues are unremarkable. There is no disc herniation, stenosis or neuroforamen narrowing throughout the thoracic and the lumbar spine. A small perineural cyst is seen at the left-sided T9 neural foramina. L4-L5 and L5-S1 levels have mild disc bulges. No abnormal enhancement is seen throughout the thoracic and lumbar spine.No epidural empyema is seen. There is no evidence of osteomyelitis or discitis. No paravertebral sof t tissue swelling or enhancement. IMPRESSION: No evidence of epidural empyema, osteomyelitis/discitis is seen throughout the thoracicand lumbar spine. The thoracic cord is normal. The conus medullaris terminates at L1-2 level No myelopathy or abnormal enhancement. Unremarkable thoracic spine. Minimal spondylosis at L4-L5 and L5-S1 levels. The preliminary report was given by the [facility]. WSN: [id number] Ordering Physician: Mary López Dictated By: Phill Dang MD Dictated Date/Time: 09/27/22 8:14 am Reviewed By: Phill Dang MD Signed By: Phill Dang MD Signed Date/Time: 09/27/22 8:14 am Transcribed By: MAYA Transcribed Date/Time: 09/27/22 8:09 am * Exam Date Time Procedure Performing Provider Status 09/27/22 3:38 AM MRI Thoracic Spine W+W/O Contrast Vanna Light; Auth (Verified) Notes: (MRI Thoracic Spine W+W/O Contrast) Reason For Exam: neck, thoracic and lumbar back pain, paresthesias, IDVU;Fever RESULT: MRI Thoracic Spine W+W/O Contrast MRI Thoracic Spine W+W/O Contrast, MRI Lumbar Spine W+W/O Contrast INDICATION: Fever; neck, thoracic and lumbar back pain, paresthesias, IVDU; Clinical Question(s): Other:; spinal epidural abscess. TECHNIQUE: Sagittal T1, T2, STIR and axial T1 and T2-weighted fat-sat sequences through the thoracic and lumbar spine. After 20 mL of Clariscan was administered intravenously, sagittal T1 and axial T1 with fat sat sequences obtained. COMPARISON: CT of abdomen and pelvis on 09/26/2022. FINDINGS: ALIGNMENT, VERTEBRAE, MARROW, AND DISCS: The alignment of the thoracic and lumbar spine is normal. No fracture or subluxation. The bone marrow signals are within normal limits. No evidence of an epidural hematoma or ligamentous injury. The intervertebral disc spaces of the thoracic spine 2 level ofL3-L4 are preserved. Disc desiccation is seen at L4-L5 and L5-S1 levels. L5-S1 level has mild disc space narrowing and mild degenerative endplate changes. CORD: The thoracic cord is normal in signal and contour. The conus medullaris terminates at the level of L1. The nerve roots of cauda equina are unremarkable. There is no abnormal enhancement. PARASPINAL TISSUES: Visualized paraspinal soft tissues are unremarkable. There is no disc herniation, stenosis or neuroforamen narrowing throughout the thoracic and the lumbar spine. A small perineural cyst is seen at the left-sided T9 neural foramina. L4-L5 and L5-S1 levels have mild disc bulges. No abnormal enhancement is seen throughout the thoracic and lumbar spine.No epidural empyema is seen. There is no evidence of osteomyelitis or discitis. No paravertebral sof t tissue swelling or enhancement. IMPRESSION: No evidence of epidural empyema, osteomyelitis/discitis is seen throughout the thoracicand lumbar spine. The thoracic cord is normal. The conus medullaris terminates at L1-2 level No myelopathy or abnormal enhancement. Unremarkable thoracic spine. Minimal spondylosis at L4-L5 and L5-S1 levels. The preliminary report was given by the [facility]. WSN: [id number] Ordering Physician: Mary López Dictated By: Phill Dang MD Dictated Date/Time: 09/27/22 8:14 am Reviewed By: Phill Dang MD Signed By: Phill Dang MD Signed Date/Time: 09/27/22 8:14 am Transcribed By: MAYA Transcribed Date/Time: 09/27/22 8:09 am Vital Signs Most recent to oldest [Reference Range]: 1 2 3 Height 165 cm (09/27/22 8:21 PM) 165 cm (09/27/22 3:09 PM) Weight 89.3 kg (09/27/22 3: PM) Oxygen Saturation [94-100 %] 100 % (09/28/22 5:00 AM) 100 % (09/27/22 8: PM) 97 % (09/27/22 3:09 PM) Pulse Rate [55-90 bpm] 83 bpm (09/28/22 5:00 AM) 88 bpm (09/27/22 8: PM) 86 bpm (09/27/22 3:09 PM) Body Mass Index [18.5-24.99 kg/m2] 32.8 kg/m2 *>HHI* (09/27/22 3:09 PM) Blood Pressure [90-138/55-84 mm Hg] 116/65mm Hg (09/28/22 5:00 AM) 148/98mm Hg *H* (09/27/22 8: PM) 137/108mm Hg (09/27/22 3:09 PM) Respiratory Rate [16-30 br/min] 18 br/min (09/28/22 12:34 PM) 18 br/min (09/28/22 5:00 AM) 18 br/min (09/27/22 8:21 PM) Temperature [96.8-100.4 DegF] 97.7 DegF (09/28/22 5:00 AM) 98.5 DegF (09/27/22 8:21 PM) 98.6 DegF (09/27/22 3:09 PM) Mode of Delivery (Oxygen) Room air (09/28/22 5:00 AM) Room air (09/27/22 8:21 PM) Room air (09/27/22 3:09 PM) Blood pressure sites Arm, left (09/28/22 5:00 AM) Arm, right (09/27/22 8:21 PM) Arm, left (09/27/22 3:09 PM) Temperature Route Oral (09/28/22 5:00 AM) Oral (09/27/22 8:21 PM) Oral (09/27/22 3:09 PM) Dry Weight 89.3 kg (09/27/22 3:09 PM) Social History Social History Type Response Smoking Status 5-9 cigarettes (betw een 1/4 to 1/2 pack)/day in last 30 days; Other: VAPING FLAVORED TOBACCO; entered on: 04/15/19 Sex Admission evaluation note * Monica SALAZAR, Lonnie S: MODIFY, MODIFY, PERFORM, MODIFY, MODIFY, MODIFY Event Display: Admission Note Authored Date: Patient: ??DUSTIN WAGONER ? Age:??42 Years?Sex:??Female?:??1980?? Chief Complaint/Reason for Consultation transfer from [facility], IV drug user, +hep C. c/o abd pain, bp, mouth pain, rectal pain. VSS. given vanco zosyn & 2 L, clonidine History of Present Illness 42-year-old??lady??with past medical history??of IV drug use??with heroin and cocaine abuse??who injects into the??jugular veins??stopped??fluids??okay (about??3 days ago??per patient.?? The patient states that the??she had??abdominal pain and rectal pain??and was severely constipated.?? She denies having any vomitings. ??She denies having any fevers??or chills or rigors.?? She had a temperature 100.9 ??F.?? 2 sets of blood cultures have been??ordered. ??The patient is being admitted to [facility] for further evaluation and treatment. Review of Systems Constitutional: No fever HEENT: No visual loss, blurred vision, double vision or yellow sclera. No runny nose or sore throat. Cardiovascular: No chest pain, palpitations or pedal edema. Respiratory: No shortness of breath, cough or sputum production. Gastrointestinal: Severe constipation.?No nausea, vomiting or diarrhea.c/o ??abdominal pain.?? Neurologic: No headache, dizziness, unilateral weakness, numbness or tingling in the extremities. Objective ? Vital Signs?? Temperature: 99.1 DegF (09/27/22 09:10:00) Temperature Route: Oral (09/27/22 09:10:00) Pulse Rate: 86 bpm (09/27/22 09:10:00) Respiratory Rate: 20 br/min (09/27/22 09:10:00) Systolic Blood Pressure: 111 mm Hg (09/27/22 09:10:00) Diastolic Blood Pressure: 64 mm Hg (09/27/22 09:10:00) Blood pressure sites: Arm, right (09/27/22 09:10:00) Mean Arterial Pressure: 123 mm Hg (09/26/22 14:23:00) Pulse Pressure: 47 mm Hg (09/27/22 09:10:00) Oxygen Saturation: 99 % (09/27/22 09:10:00) Mode of Delivery (Oxygen): Room air (09/27/22 09:10:00) Early Warning Score: 0 (09/27/22 09:25:31) ? Intake/Output? No Data Available ?? Precautions No Precautions documented.? Mobility & Ambulation Level Mobility & Ambulation Level?? No qualifying data available. ? Physical Exam General: Alert Mental Status: Oriented to person, place and time. Head: Normocephalic. Neck: Supple Respiratory: Clear to auscultation and percussion. No wheezing, rales or rhonchi. Cardiovascular: Heart sounds normal. No thrills. Regular rate and rhythm, no murmurs, rubs or gallops. Gastrointestinal: Abdomen soft, tender, non-distended. Normal bowel sounds.?? Neurologic: Cranial nerves II-XII grossly intact. No focal neurological deficits. Sensation intact bilaterally. Skin: No rashes or lesions.?? Musculoskeletal: No cyanosis Assessment/Plan Diagnoses Constipation ??(K59.00) Sepsis ??(A41.9) ?? Assessment:??42-year-old lady with past medical history of IV drug use with heroin and cocaine abuse who injects into the jugular veins.?Last injection was??about??3 days ago per patient. The patient states that the she had abdominal pain and rectal pain and was severely constipated. She denies having any vomitings. She denies having any fevers or chills or rigors. She had a temperature 100.9 ??F. 2 sets of blood cultures have been ordered. The patient is being admitted to [facility] for further evaluation and treatment. ? 1.?Severe constipation: Likely secondary to opiate use??disorder Patient says that??sometimes she??manually??does manual disimpaction Multiple laxatives:??Senna, Colace, MiraLAX,??Dulcolax suppositories Will monitor ? 2.?History of??opiate use, cocaine use??disorder : QTc interval normal Patient says that she??85 mg of??methadone??daily??from the methadone clinic at[facility] [place], [place] I called the number??but nobody picked up??probably??due to him??severe??snowstorm??in the [place].??Weneed to try??to call them??again tomorrow?? I have counseled the patient??in detail about the potential serious and??illicit drug??use??and that it can sometimes lead to??serious complications including I have??consulted??addiction team I have also consulted??social work??for further guidance ?? Addiction team contacted me and said to give 10 mg more of methadone * 1 time today to make it total of??40??mg for today which??I ordered.?? QTc interval normal on EKG 479 ? 3.? Febrile illness: Temperature 100.9 Likely from??IV drug use??history 2 sets of blood cultures have been sent Further attempted transabdominal We will follow up??with??blood culture results ? 4.?Anxiety: Patient has history of anxiety We will continue with??clonazepam ? 5.?GERD: Patient takes??omeprazole at home.?It is not available in hospital formulary We will??give pantoprazole??40 mg daily??in the hospital ? 6.?DVT prophylaxis:??Subcu heparin Diet:??Regular diet CODE STATUS: Full code ? I have discussed the above plan with the patient at bedside who is in??agreement. ? Discharge Planning:? Histories Allergies Allergies ?(Active and Proposed Allergies Only) NKA? (Severity: Unknown severity, Onset: Unknown) ? Past Medical History/Problem List Active Problems??(6) *BHN/CCA/CC-Katie [facility]-[phone]/Health halfway, active care coordination Borderline personality disorder Hepatitis C Obese class I PTSD (post-traumatic stress disorder) Tobacco dependence ? Past Surgical History No [...] 30 days. ??Other: VAPING FLAVORED TOBACCO. ? Psychosocial History ? Family History Mother: Agoraphobia; Bipolar Brother (B youngest): Autism ? Medications Home Medications Albuterol (Albuterol (Eqv-ProAir HFA) 90 mcg/inh inhalation aerosol)?1?puff(s)?Inhalation?4 times a day?as needed? NEEDED FOR WHEEZING?for 90?Days Clonazepam (KlonoPIN 0.5 mg oral tablet)?1?tab(s)?0.5?Milligram?By Mouth?2 times a day Methadone (methadone 5 mg/5 mL oral solution)?85?Milligram?By Mouth?Daily Omeprazole (omeprazole 40 mg oral enteric coated capsule)?1?capsule?40?Milligram?By Mouth?Daily?for 30?Days Quetiapine (QUEtiapine 200 mg oral tablet)?200?Milligram?1?tablet?By Mouth?Daily at bedtime ? Inpatient Medications Medications (21) Active SCHEDULED: (11) BuPROPion XL 150 mg Tablet (BuPROpion XL Tablet) ??150 mg, By Mouth, Daily Clonazepam 0.5 mg Tablet (KlonoPIN 0.5 mg oral tablet) ??0.5 mg, By Mouth, 2 times a day Heparin 5000 units/mL Inj (1 mL) (Heparin Inj) ??5,000 units 1 mL, Subcutaneous Injection, 3 times a day Ipratropium 0.02% Inhalation Solution (Ipratropium 0.02% inhalation otto) ??0.5 mg 2.5 mL, BAND Nebulizer, 3 times a day Methadone 10 mg Tablet (Methadone Tablet) ??30 mg, By Mouth, Once NaCl 0.9% Flush 3ml (NaCL 0.9% Flush) ??3 mL, IV Push, Every 8 hours NaCl 0.9% Flush 3ml (NaCL 0.9% Flush) ??3 mL, IV Push, Every 8 hours Pantoprazole 40 mg EC Tablet (pantoprazole 40 mg oral delayed release tablet) ??40 mg, By Mouth, Daily Polyethylene Glycol 17 Gm Powder (MiraLax Powder) ??17 Gm 1 pack/packet, By Mouth, Daily Quetiapine 200 mg Tablet (QUEtiapine 200 mg oral tablet) ??200 mg, By Mouth, Daily at bedtime Senna 8.6 mg / Docusate 50 mg tablet (Docusate/Senna Tablet) ??2 tablet, By Mouth, 2 times a day CONTINUOUS: (0) PRN: (10) Acetaminophen 325 mg Tablet (Acetaminophen Tablet) ??650 mg, By Mouth, Every 4 hours Albuterol 90mcg/Inhalation Inhaler HFA (Ventolin 90 mcg Inhaler) ??90 mcg 1 puffs, Inhalation, Every 4 hours Bisacodyl 10 mg Suppository (Dulcolax Supp) ??10 mg 1 supp, Rectally, Daily Dextromethorphan-Guaifenesin 20 mg-200 mg/10 mL Liqu UD (Robitussin DM Liquid) ??10 mL, By Mouth, Every 4 hours Melatonin 3 mg Tablet (Melatonin Tablet) ??3 mg, By Mouth, Daily at bedtime NaCl 0.9% Flush 3ml (NaCL 0.9% Flush) ??3 mL, IV Push, Every 8 hours nalOXONE ??400mcg/mL Inj (nalOXONE Inj) ??0.2 mg 0.5 mL, IV Push, Every 5 minutes Polyethylene Glycol 17 Gm Powder (MiraLax Powder) ??17 Gm 1 pack/packet, By Mouth, Daily Senna 8.6 mg / Docusate 50 mg tablet (Docusate/Senna Tablet) ??1 tablet, By Mouth, 2 times a day Simethicone 80 mg Chewable Tablet (Simethicone Tablet) ??80 mg, Chew, 3 times a day ? Results Recent Labs BLOOD COUNT & DIFF WBC 12.7 k/mm3 (High)?? 09/27/2022 01:35 RBC 4.18 m/mm3 (Low)?? 09/27/2022 01:35 Hgb 9.9 Gm/dL (Low)?? 09/27/2022 01:35 Hct 32.8 % (Low)?? 09/27/2022 01:35 MCV 78.5 femtoliters (Low)?? 09/27/2022 01:35 MCH 23.7 pg (Low)?? 09/27/2022 01:35 MCHC 30.2 g/dL (Low)?? 09/27/2022 01:35 Platelet Count 363 k/mm3 ()?? 09/27/2022 01:35 RDW-SD 43.8 femtoliters ()?? 09/27/2022 01:35 MPV 9.3 femtoliters (Low)?? 09/27/2022 01:35 Nucleated RBC (Automated) 0.0 #/100 WBC'S ()?? 09/27/2022 01:35 Abs. NRBC 0.0 k/mm3 ()?? 09/27/2022 01:35 Abs. Neut 9.2 k/mm3 (High)?? 09/27/2022 01:35 Abs. Lymph 2.7 k/mm3 ()?? 09/27/2022 01:35 Abs. [place] 0.8 k/mm3 ()?? 09/27/2022 01:35 Abs. Eo 0.0 k/mm3 ()?? 09/27/2022 01:35 Abs. Baso 0.0 k/mm3 ()?? 09/27/2022 01:35 Neut % 71.8 % ()?? 09/27/2022 01:35 Lymph % 21.2 % ()?? 09/27/2022 01:35 [place] % 6.0 % ()?? 09/27/2022 01:35 Eos % 0.2 % ()?? 09/27/2022 01:35 Baso % 0.2 % ()?? 09/27/2022 01:35 Imm Gran 0.6 % ()?? 09/27/2022 01:35 Abs. Imm Gran 0.1 k/mm3 ()?? 09/27/2022 01:35 ?? CHEM GENERAL Sodium 142 mmol/L ()?? 09/27/2022 01:35 Potassium 4.6 mmol/L ()?? 09/27/2022 01:35 Chloride 104 mmol/L ()?? 09/27/2022 01:35 Bicarbonate Level 27 mmol/L ()?? 09/27/2022 01:35 Anion Gap 11 ()?? 09/27/2022 01:35 Glucose Level 94 mg/dL ()?? 09/27/2022 01:35 BUN 7 mg/dL ()?? 09/27/2022 01:35 Creatinine-Blood 1.0 mg/dL ()?? 09/27/2022 01:35 Estimated GFR Creatinine 78 ML/MIN/1.73 M2 ()?? 09/27/2022 01:35 Calcium 9.4 mg/dL ()?? 09/27/2022 01:35 Protein, Total 8.5 Gm/dL (High)?? 09/26/2022 16:17 Albumin 4.5 Gm/dL ()?? 09/26/2022 16:17 AG Ratio 1.1 ()?? 09/26/2022 16:17 Alkaline Phosphatase 73 units/L ()?? 09/26/2022 16:17 Lipase 16 units/L ()?? 09/26/2022 16:17 AST (SGOT) 13 units/L ()?? 09/26/2022 16:17 ALT (SGPT) 9 units/L ()?? 09/26/2022 16:17 Bilirubin, Total 0.2 mg/dL ()?? 09/26/2022 16:17 Lactate 1.1 mmol/L ()?? 09/27/2022 01:35 C-Reactive Protein 2.1 mg/dL (High)?? 09/26/2022 16:17 ?? ENDOCRINE/TUMOR MARKER TSH 0.71 uIU/mL ()?? 09/26/2022 16:17 Beta HCG-serum, Qual NEGATIVE ()?? 09/26/2022 16:17 ?? HEME OTHER Sed Rate 49 mm/hr (High)?? 09/26/2022 16:17 Hold Blue Top SPECIMEN DISCARDED AFTER 4 HOURS. ()?? 09/26/2022 16:17 ?? MISC. CHEMISTRY Hold Green Top SPECIMEN DISCARDED AFTER 1 WEEK ()?? 09/27/2022 01:34 ?? UA/URINALYSIS Appear/Color, Urine LIGHT YELLOW ()?? 09/26/2022 16:00 Clarity CLEAR ()?? 09/26/2022 16:00 Specific [place], Urine <1.005 ()?? 09/26/2022 16:00 pH, Urine 7.0 ()?? 09/26/2022 16:00 Albumin, Urine NEGATIVE ()?? 09/26/2022 16:00 Glucose, Urine NEGATIVE ()?? 09/26/2022 16:00 Ketones, Urine NEGATIVE ()?? 09/26/2022 16:00 Bilirubin, Urine NEGATIVE ()?? 09/26/2022 16:00 Hemoglobin, Urine NEGATIVE ()?? 09/26/2022 16:00 Nitrite, Urine NEGATIVE ()?? 09/26/2022 16:00 Leukocyte, Urine NEGATIVE ()?? 09/26/2022 16:00 Urobilinogen NORMAL mg/dL ()?? 09/26/2022 16:00 Hold Urine Culture Testing available 48 hours from time of collection. ()?? 09/26/2022 16:00 ?? VIROLOGY COVID-19 by RT-PCR NEGATIVE ()?? 09/27/2022 08:53 ? EKG study * Event Display: ECG 12-Lead Authored Date: Please click on pdf link to open report * Event Display: ECG 12-Lead Authored Date: Ventricular Rate: 84 BPM Atrial Rate: 84 BPM P-R Interval: 136 ms QRS Duration: 80 ms Q-T Interval: 406 ms QTC Calculation(Bazett): 479 ms P [place]: 67 degrees R [place]: -6 degrees T [place]: 53 degrees Normal sinus rhythm Normal ECG When compared with ECG of 19-MAY-2022 18:49, QT has shortened Confirmed by LUIS ACUNA ([id number]) on 09/27/2022 8:28:17 PM [place]: LUIS ACUNA [facility] Progress note * Corie Gotti NP: PERFORM Event Display: Progress Note Hospital Authored Date: [id number] 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 Age:??42 Years?Sex:??Female?:??1980?? Paged due to patient c/o right posterior neck pain and shooting pain to R eye, as well as report ofblack spot in the R visual field. Patient evaluated at bedside.?? Denies changes in visual acuity, double or blurry vision, reports??dark spot in R visual field.?? Pt denies??temporal tenderness. afebrile.?? No other focal neurologicdeficit. Given hx of IVDU and use of neck veins for injection with obtain plain CT head for??initial evaluation??of possible septic emboli. * Jared Dumont RN: PERFORM, SIGN, VERIFY Event Display: Progress Note Hospital Authored Date: [id number] Patient: DUSTIN WAGONER Age: 42 years Sex: Female : 1980 Associated Diagnoses: None Author: Jared Dumont RN Findings Problem Related to Alteration in Gastrointestinal : Alteration in Gastrointestinal Func/new 09/28/2022 3:00 EDT Alteration in GI status Related to Constipation Goals & Outcomes, Gastrointestinal Establish a regular pattern of elimination for pt, Nutritional intake is adequate for metabolic needs, Pt will achieve normal/improved fluid balance, Pt will have a bowel movement prior to discharge, Pt will maintain adequate GI function appropriate for pt, Ptwill maintain normal elimination patterns, Pt will resume/maintain adequate hemodynamic status, Pt w ill tolerate age appropriate diet prior to discharge Interventions, Gastrointestinal Assess/monitor abdomen for distention, tenderness, Assess/monitor bowel pattern, bowel sounds, flatus, Assess/monitor color, quantity, quality, consistency of stoo, Assess/monitor pt for nausea, vomiting BH Goals/Interventions, Gastrointestinal Yes Gastrointestinal, Problem Start 09/27/2022 18:57 Reviewed plan with, Gastrointestinal Patient Patient Progression, Gastrointestinal Pt progressing according to plan . Evaluation Pt has been using the bathroom multiple times, and saying that she is just getting smears of bowel movements. Pt continues on Senna/Docusate and Milarlax. Pt moved her bowels on the day shift. Pt says she is still constipated. Abdomen is soft, tender, and bowel sounds are active to hypoactive. Heart rate is regular, and pedal pulses are present. No edema is noted. Pt is afebrile. No acute resp distress is noted. Lung sounds are diminished throughout. Pt had c/os of right posterior neck pain, and that the pain was radiating in her left eye. Pt also said that she was seeing a dark spot with the right eye. TThat the dark spot was moving with her gaze. Pt did not present with other neuro signs: Pt was alert, oriented, and was able move all extremities equally. Hammad hand grasps were equal. Pt was able smile, and no facial droop was noted. Voice wasclear. Pt was seen by provider Corie Gotti. A CT scan was ordered, and it was done. . * Tali Phan: PERFORM, SIGN, VERIFY Event Display: Progress Note Hospital Authored Date: [id number] Patient: DUSTIN WAGONER Age: 42 years Sex: Female : 1980 Associated Diagnoses: None Author: Tali Phan Findings Narrative/Incidental Pt alert and oriented, came up from ED this afternoon. Pt has IV access. Pt was not able to pass stool, Miralax and senna given, pt had bowel movement. Pt is on Heparin but refused. Pt was anxious. Pt got oxycodone for pain. Pt safe and comfortable. Call ferrer within reach, bed in lowest position, all needs met at this time. . Note * Makayla Powers RN: PERFORM Event Display: Discharge/Transfer Note Hospital Authored Date: [id number] Nursing Discharge Note Entered On: 09/28/2022 13:42 EDT Performed On: 09/28/2022 13:42 EDT by Makayla Powers RN Nursing Discharge Note 2 Discharge Time : 09/28/2022 13:42 EDT Discharge Level of Care at Discharge : Home/Fpc/Foster Care Patient Left Unit Via : Ambulatory Patient Accompanied Off Unit with : Responsible adult DC Instructions Provided & Signed by Pt : Yes Patient Understands D/C Instructions : Yes Patient Instructions Discharge Signed : Yes Did Pt have Specialty Bed or Wound Vac : No Makayla Powers RN - 09/28/2022 13:42 EDT * Katy SALAZAR, Sarai Rocha: PERFORM Event Display: Discharge/Transfer Note Hospital Authored Date: Patient: ??RIZWANA, DUSTIN ? Age:??42 Years?Sex:??Female?:??1980?? Patient Information Discharge Location: 4 Primary Care Physician: Santi Conway DO Admit Date/Time: 09/27/22 05:02 Discharge Disposition Discharge Disposition: ?? 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 _ Discharge Medications Albuterol (Albuterol (Eqv-ProAir HFA) 90 mcg/inh inhalation aerosol)?1?puff(s)?Inhalation?4 times a day?as needed? NEEDED FOR WHEEZING?for 90?Days Clonazepam (KlonoPIN 0.5 mg oral tablet)?1?tab(s)?0.5?Milligram?By Mouth?2 times a day Methadone (methadone 5 mg/5 mL oral solution)?85?Milligram?By Mouth?Daily Omeprazole (omeprazole 40 mg oral enteric coated capsule)?1?capsule?40?Milligram?By Mouth?Daily?for 30?Days Quetiapine (QUEtiapine 200 mg oral tablet)?200?Milligram?1?tablet?By Mouth?Daily at bedtime ? Quality Measures Tobacco Use Treatment:? Allergies Allergies ?(Active and Proposed Allergies Only) NKA? (Severity: Unknown severity, Onset: Unknown) ? Objective Assessment and Plan Assessment:? 42 y/o female with h/o??IV drug use with heroin and cocaine abuse who injects into the jugular veins. Last injection was about 3 days ago per patient. The patient states that the she had abdominal pain and rectal pain and was severely constipated. She denies having any vomitings. She denies having any fevers or chills or rigors. She had a temperature 100.9 ??F. 2 sets of blood cultures have been ordered. The patient is being admitted to [facility] for further evaluation and treatment. ? Severe constipation: ??Likely secondary to opiate use disorder Had large BM She wants to go home She is being discharged home in??a stable condition ?? Plan: Will continue??bowel regimen including??Senna, Colace, MiraLAX, Dulcolax suppositories ??Will monitor, if needed will give enema ? History of??opiate use, cocaine use disorder QTc interval normal, 479 ?? Plan: Will continue to f/up with Methadone clinic for??Methadone??85 mg??daily (getting a dose today prior to discharge) ?? Addiction medicine consulted Patient requested a therapy referral for addiction resources. Patient has been referred to [facility] in [facility] for individual therapy ? She was referred to??the following programs: ?? [facility] Therapy [address] [place] [id number] Patient will call the above number listed for same day intake to begin therapy over the phone. ? Febrile illness: Temperature 100.9 on arrival Afebrile since then Due to??IV drug use??endocarditis??is on differential Blood cs was sent She does not wait for CS to be back; states that she will follow up with PCP for culture result ? Anxiety: ??We will continue with clonazepam ? GERD: PPI ? Diet: Regular diet ?CODE STATUS: Full code ?? Discharge Planning:? Vital Signs?? Temperature: 97.7 DegF (09/28/22 05:00:00) Temperature Route: Oral (09/28/22 05:00:00) Pulse Rate: 83 bpm (09/28/22 05:00:00) Respiratory Rate: 18 br/min (09/28/22 05:00:00) Systolic Blood Pressure: 116 mm Hg (09/28/22 05:00:00) Diastolic Blood Pressure: 65 mm Hg (09/28/22 05:00:00) Blood pressure sites: Arm, left (09/28/22 05:00:00) Mean Arterial Pressure: 115 mm Hg (09/27/22 20:21:00) Pulse Pressure: 50 mm Hg (09/27/22 20:21:00) Oxygen Saturation: 100 % (09/28/22 05:00:00) Mode of Delivery (Oxygen): Room air (09/28/22 05:00:00) Early Warning Score: 2 (09/28/22 05:24:43) ? . Physical Exam Awake, alert, oriented Lungs: Clear to auscultation bilateral, no wheezing no rales Heart: Regular rate and rhythm, no murmur, no rub or gallop Abdomen: Soft, nontender, nondistended; Bowel sounds present Extremity: No edema cyanosis clubbing Neurological: No focal deficit Psychiatric: Normal mood and affect Pending Results Blood Culture ordered on 09/26/2022 Blood Culture #2 ordered on 09/26/2022 Follow-Up Appointments Added Follow Up ?Time Frame ?Comments Man FORTUNE, Syifa?2 to 3 days?pl follow up with your bloodcs resultYou have been referred to the following programs:[facility] Therapy [address] [place], [place] [phone] the above number listed for same day intake to begin therapy over the phone.? Home Health Face to Face ^[facility] Results Discharge Labs BLOOD COUNT & DIFF WBC 11.1 k/mm3 (High)?? 09/28/2022 00:42 RBC 3.78 m/mm3 (Low)?? 09/28/2022 00:42 Hgb 9.0 Gm/dL (Low)?? 09/28/2022 00:42 Hct 30.3 % (Low)?? 09/28/2022 00:42 MCV 80.2 femtoliters ()?? 09/28/2022 00:42 MCH 23.8 pg (Low)?? 09/28/2022 00:42 MCHC 29.7 g/dL (Low)?? 09/28/2022 00:42 Platelet Count 314 k/mm3 ()?? 09/28/2022 00:42 RDW-SD 45.2 femtoliters ()?? 09/28/2022 00:42 MPV 9.2 femtoliters (Low)?? 09/28/2022 00:42 Nucleated RBC (Automated) 0.0 #/100 WBC'S ()?? 09/28/2022 00:42 Abs. NRBC 0.0 k/mm3 ()?? 09/28/2022 00:42 Abs. Neut 7.8 k/mm3 (High)?? 09/28/2022 00:42 Abs. Lymph 2.6 k/mm3 ()?? 09/28/2022 00:42 Abs. Lenoir 0.5 k/mm3 ()?? 09/28/2022 00:42 Abs. Eo 0.0 k/mm3 ()?? 09/28/2022 00:42 Abs. Baso 0.0 k/mm3 ()?? 09/28/2022 00:42 Neut % 70.3 % ()?? 09/28/2022 00:42 Lymph % 23.8 % ()?? 09/28/2022 00:42 Lenoir % 4.8 % ()?? 09/28/2022 00:42 Eos % 0.4 % ()?? 09/28/2022 00:42 Baso % 0.2 % ()?? 09/28/2022 00:42 Imm Gran 0.5 % ()?? 09/28/2022 00:42 Abs. Imm Gran 0.1 k/mm3 ()?? 09/28/2022 00:42 ?? CHEM GENERAL Sodium 139 mmol/L ()?? 09/28/2022 00:42 Potassium 4.2 mmol/L ()?? 09/28/2022 00:42 Chloride 103 mmol/L ()?? 09/28/2022 00:42 Bicarbonate Level 24 mmol/L ()?? 09/28/2022 00:42 Anion Gap 12 ()?? 09/28/2022 00:42 Glucose Level 94 mg/dL ()?? 09/27/2022 01:35 BUN 9 mg/dL ()?? 09/28/2022 00:42 Creatinine-Blood 0.9 mg/dL ()?? 09/28/2022 00:42 Estimated GFR Creatinine 84 ML/MIN/1.73 M2 ()?? 09/28/2022 00:42 Calcium 9.4 mg/dL ()?? 09/27/2022 01:35 Lactate 1.1 mmol/L ()?? 09/27/2022 01:35 ? MISC. CHEMISTRY Hold Green Top SPECIMEN DISCARDED AFTER 1 WEEK ()?? 09/27/2022 01:34 ? VIROLOGY COVID-19 by RT-PCR NEGATIVE ()?? 09/27/2022 08:53 ? Microbiology ?? COVID-19 (Novel Coronavirus), Rapid PCR?? Completed?? Source: Nasal Body Site: Nose Collected Dt/Tm: 09/27/2022 05:01 Last Updated Dt/Tm: 09/27/2022 09:42 ? 30 minutes spent on discharge * Makayla Powers RN: PERFORM Event Display: Patient Education/Instruction Authored Date: [id number] Inpatient Adult Discharge Instructions [address] [id number] Name: DUSTIN WAGONER : 1980 Visit: 09/26/2022 23:12:00 Current Date: 09/28/2022 13:13 Account: [id number] Inpatient Adult Discharge Instructions We would like [...] and their families. Surveys are administered by [employer] ?? If further treatment with your primary care physician or another doctor is recommended, it is important for you to keep the appointment. Call your primary care physician or return to the Emergency Department immediately if your condition worsens, fails to improve, or new symptoms develop. If you need to find a doctor, you can call [facility] [employer] for a referral at [phone] or toll free at [phone]) or log in to [email or web address].. ?? You can view and manage your care through the patient portal or by using a health care rebecca of your choosing. [employer] is a website that allows you to securely view your medical information including your hospital discharge summary, office visit summaries, medications and follow-up visits. You can also request appointments, renew medications, and request access to your medical information using a health care rebecca of your choosing, or just ask a question. You can enroll at [email or web address] or register during your next office visit. You have been discharged from [facility], Patient Care Unit: S64. If you have any questions regarding these instructions after you leave, please call us and we will be happy to assist you. [facility] Your Care Team Attending Physician Sarai Burns MD Discharging Providers Sarai Burns MD Reason for Admission transfer from [facility], IV drug user, +hep C. c/o abd pain, bp, mouth pain, rectal pain. VSS. given vanco zosyn & 2 L, clonidine Your Diagnosis Sepsis Constipation Cocaine use disorder Opioid use disorder Benzodiazepine misuse Tests Performed Below is a partial list of the tests performed during your hospitalization. You may have had other tests and procedures not included in this list. Please discuss all test results with your provider. Basic Metabolic Panel BUN CBC w/ Differential COVID-19 (Novel Coronavirus), Rapid PCR Creatinine Electrolytes HOLD GREEN TUBE Lactate Level CT Head-Hyper Acute Stroke MRI Lumbar Spine W+W/O Contrast MRI Thoracic Spine W+W/O Contrast Primary Care Provider Santi Conway DO Advance Directive Health Care Proxy on File Yes - Health Care Proxy Discharge Vitals Temperature: 97.7 DegF Height: 165 cm Pulse Rate: 83 bpm Weight: 89.3 kg Respiratory Rate: 18 br/min Body Mass Index:??32.8 kg/m2??Critical Systolic Blood Pressure: 116 mm Hg Body surface area: 2.02 Diastolic Blood Pressure: 65 mm Hg ?? Oxygen Saturation: 100 % ?? Studies Pending All tests and labs ordered during this hospital stay have been completed unless listed below. Please discuss all pending results with your provider listed above in these instructions. ?? Blood Culture #2 What to do next Instructions From Your Doctor Discharge Orders You Need to Schedule the Following Appointments Follow Up with??Santi Conway DO When??Within 2 to 3 days Why: pl follow up with your blood cs result ?? You have been referred to the following programs: ?? [facility] Therapy [address] [place] [address] Call the above number listed for same day intake to begin therapy over the phone. ? Where: ?? Discharge Medications DUSTIN WAGONER :1980 Visit Date:09/26/2022 Medications: Please continue your medications until treatment is completed or stopped by your provider. Medications not listed below should be discontinued. Discuss any questions related to medications with your provider. What How Much When Instructions Next Dose Unchanged Albuterol (Albuterol (Eqv- ProAir HFA) 90 mcg/ inh inhalation aerosol) 1 puff(s) Inhalation 4 times a day as needed for NEEDED FOR WHEEZING Duration: 90 Days as needed Unchanged Clonazepam (KlonoPIN 0.5 mg oral tablet) 1 tab(s) Oral Twice a day 09/28 in pm Unchanged Methadone (methadone 5 mg/ 5 mL oral solution) 85 Milligram Oral Daily 09/29 in am Unchanged Omeprazole (omeprazole 40 mg oral enteric coated capsule) 1 capsule Oral Daily Duration: 30 Days 09/29 in am Unchanged Quetiapine (QUEtiapine 200 mg oral tablet) 1 tab(s) Oral Daily at Bedtime 3/15 in pm Test Results Below is a partial list of the most recent Laboratory test results done prior to this discharge. You may have had other tests and procedures not included in this list. Please discuss all test resultswith your provider. Basic Metabolic Panel (09/27/2022) ???Sodium - 142 mmol/L???Potassium - 4.6 mmol/L???Chloride - 104 mmol/L???Bicarbonate Level - 27 mmol/L???Anion Gap - 11???Glucose Level - 94 mg/dL???BUN - 7 mg/dL???Creatinine-Blood - 1.0 mg/dL???Estimated GFR Creatinine - 78 ML/MIN/1.73 M2???Calcium - 9.4 mg/dL BUN (09/28/2022) ???BUN - 9 mg/dL CBC w/ Differential (09/28/2022) ???WBC - 11.1 k/mm3???RBC - 3.78 m/mm3???Hgb - 9.0 Gm/dL???Hct - 30.3 %???MCV - 80.2 femtoliters???MCH - 23.8 pg???MCHC - 29.7 g/dL???Platelet Count - 314 k/mm3???RDW-SD - 45.2 femtoliters???MPV - 9.2 femtoliters???Nucleated RBC (Automated) - 0.0 #/100 WBC'S???Abs. NRBC - 0.0 k/mm3???Abs. Neut - 7.8 k/mm3???Abs. Lymph - 2.6 k/mm3???Abs. Lenoir - 0.5 k/mm3???Abs. Eo - 0.0 k/mm3???Abs. Baso - 0.0 k/mm3???Neut % - 70.3 %???Lymph % - 23.8 %???Lenoir % - 4.8 %???Eos % - 0.4 %???Baso % - 0.2 %???Imm Gran- 0.5 %???Abs. Imm Gran - 0.1 k/mm3 COVID-19 (Novel Coronavirus), Rapid PCR (09/27/2022) ???COVID-19 by RT-PCR - NEGATIVE Creatinine (09/28/2022) ???Creatinine-Blood - 0.9 mg/dL???Estimated GFR Creatinine - 84 ML/MIN/1.73 M2 Electrolytes (09/28/2022) ???Sodium - 139 mmol/L???Potassium - 4.2 mmol/L???Chloride - 103 mmol/L???Bicarbonate Level - 24 mmol/L???Anion Gap - 12 HOLD GREEN TUBE (09/27/2022) ???Hold Green Top - SPECIMEN DISCARDED AFTER 1 WEEK Lactate Level (09/27/2022) ???Lactate - 1.1 mmol/L Immunizations This Visit Not Given Vaccine Commentsinfluenza virus vaccine, inactivated Patient Refuses Allergies (NKA means No Known Allergies) NKA Problems Active Problems??(9) *WILLIAMN/ERICH/JOHNNIE-Katie [facility]-[phone]/Health halfway, active care coordination?? Anxiety and depression?? Bipolar disorder?? Borderline personality disorder?? Hepatitis C?? Obese class I?? Polysubstance Use?? PTSD (post-traumatic stress disorder)?? Tobacco dependence?? Education Materials Below is the list of Educational Leaflet Providered with your Discharge Instructions. Constipation (Adult)?? Valuables and Belongings I fully understand and agree that [facility] accepts no responsibility for all my [...] ?? Review of Valuable and Belonging List: Other: locked with security Date for Pt to Sign Valuables/Belongings: 09/27/22 14:45:00 ?? Other Discharge Information ? Pulmonary Rehab Status?? Pulmonary Rehab Discharge Status?? Respiratory Rate: 18 br/min ? Common Emergency Awareness Tips IS [...] are strongly encouraged to quit. Please call [facility] [employer] Link at [phone] or [phone] ([phone]) or log in to [email or web address] for referrals to smoking cessation programs. ?? The National Suicide Prevention Hotline is available 06/02 if you or someone you know needs to find a reason to keep living. By calling 6-562-660-[employer] (6468) you'll be connected to a skilled, trained counselor at a crisis center in your area. INPATIENT DISCHARGE INSTRUCTIONS SIGNATURE PAGE DAMEONDUSTIN TUCKER Location:[facility] Registration Date and Time:09/26/2022 23:12 EDT Primary Care Physician: Santi Conway DO, I DUSTIN WAGONER, have received the above patient education materials/instructions and have verbalized understanding. If ambulance or transport services are being used I further acknowledge being given a choice of service. ?? If you need to contact me, please call me at this number: . Patient/Irrigation Service Technician Name: Patient/Irrigation Service Technician Signature: Relationship to Patient: Witness Name/Signature: Date: * Makayla Powers RN: PERFORM Event Display: Patient Education Leaflets Authored Date: [id number] Constipation (Adult) ?? [id number] Constipation (Adult) Constipation means that you have bowel movements that are less frequent than usual. Stools often become very hard and difficult to pass. Constipation is very common. At some point in life, it affects almost everyone. Since everyone's bowel habits are different, what is constipation to one person may not be to another. Your healthcare provider may do tests to diagnose constipation. It depends on what??they??find when evaluating you. Symptoms of constipation include: ??? Abdominal pain ??? Bloating ??? Vomiting ??? Painful bowel movements ??? Itching, swelling, bleeding, or pain around the anus Causes Constipation can have many causes. These include: ??? Diet low in fiber ??? Too much dairy ??? Not drinking enough liquids ??? Lack of exercise or physical activity (especially true for older adults)??? Changes in lifestyle or daily routine, including , aging, work, and travel ??? Frequent use or misuse of laxatives ??? Ignoring the urge to have a bowel movement or delaying it until later ??? Medicines, such as certain prescription pain medicines, iron supplements, antacids, certain antidepressants, and calcium supplements ??? Diseases like irritable bowel syndrome, bowel obstructions, stroke, diabetes, thyroid disease, Parkinson disease, hemorrhoids, and colon cancer ?? Complications Possible complications of constipation can include: ??? Hemorrhoids ??? Rectal bleeding from hemorrhoids or anal fissures??(skin tears) ??? Hernias ??? Chronic constipation ??? Fecal impaction, a severe form of constipation in which a large amount of hard stool is in your rectum that you can't pass??? Bowel obstruction or perforation ?? Home care All treatment should be done after talking with your healthcare provider. This is especially true if you have another medical problem, are taking prescription medicines, or are an older adult. Treatment most often involves lifestyle changes. You may also need medicines. Your healthcare provider will tell you which will work best for you. Follow the advice below to help avoid this problem in the future. ?? Lifestyle changes These lifestyle changes can help prevent constipation: ??? Diet. Eat a high- fiber diet, with fresh fruit and vegetables, and reduce dairy intake, meats, and processed foods ??? Fluids. It's importantto get enough fluids each day. Drink plenty of water when you eat more fiber. If you are on diet that limits the amount of fluid you can have, talk about this with your healthcare provider. ??? Regular exercise. Check with your healthcare provider first. ?? Medicines Take any medicines as directed. Some laxatives are safe to use only every now and then. Others can be taken on a regular basis. While laxatives don't cause bowel dependence, they are treating the symptoms. So your constipation may return if you don't make other changes. Talk with your healthcare provider or pharmacist if you have questions. Prescription pain medicines can cause constipation. If you are taking this kind of medicine, ask your healthcare provider if you should also take a stool softener. Medicines you may take to treat constipation include: ??? Fiber supplements ??? Stool softeners ???Laxatives ??? Enemas ??? Rectal suppositories ?? Follow-up care Follow up with your healthcare provider if symptoms don't get better in the next few days. You may need to have more tests or see a specialist. ?? Call 911 Call 911 if any of these occur: ??? Trouble breathing ??? Stiff, rigid abdomen that is severely painful to touch ??? Large amount of blood in the stool ??? Confusion ??? Fainting or loss of consciousness ??? Rapid heart rate ??? Chest pain ?? When to seek medical advice Call your healthcare provider right away if any of these occur: ??? Fever of 100.4??F (38??C) or higher, or as directed by your healthcare provider ??? Failure to resume normal bowel movements ??? Pain in your abdomen or back gets worse ??? Nausea or vomiting ??? Swelling in your abdomen ??? Small amount of blood in the stool ??? Black, tarry stool ??? Involuntary weight loss ??? Weakness ?? Last Reviewed Date: 2021 ?? 1572-3259 The [employer]. All rights reserved. This information is not intended as a substitute for professional medical care. Always follow your healthcare professional's instructions. ?? * BHSPowerscribe , CIS S: TRANSCSHARIF Ye MD, Blaze J: JAZMIN Dillon MD, Evelyn: SIGN Event Display: Result: Authored Date: [id number] CT Head-Hyper Acute Stroke INDICATION: Reason: Other:; IVDU, dark spot in visual field, shooting eye pain; Clinical Question(s): Other:; septic embolic brain abscess; Order Comment: TECHNIQUE: Noncontrast head CT using axial technique and reconstructed in axial and coronal planes.Iterative reconstruction techniques are used to optimize dose and image quality. CTDIvol Head: 48.20 mGy, DLP Head: 773 mGy*cm. COMPARISON: 05/19/2022. FINDINGS: Wet Process Head Miller view findings, lines and tubes: None. BRAIN AND EXTRA-AXIAL SPACES: No parenchymal hemorrhage, midline shift, or mass effect. Jensen-white matter differentiation is wellpreserved. No acute infarct. Negative insular ribbon and hyperdense vessel signs. Mild prominence of the ventricles and sulci consistent with parenchymal volume loss. No white matter lesions. No subarachnoid hemorrhage. No subdural or epidural collection. CALVARIUM, SKULL BASE, AND SOFT TISSUES: No fractures or suspicious bony lesions. The paranasal sinuses and mastoid air cells are clear. Visualized orbits and globes are intact. The extracranial soft tissues are unremarkable. IMPRESSION: No acute intracranial pathology. I have personally reviewed the images and I agree with this report. WSN: [id number] Ordering Physician: Corie Gotti Dictated By: Evelyn Dillon MD Dictated Date/Time: 09/28/22 7:17 am Reviewed By: Blaze Ye MD Signed By: Blaze Ye MD Signed Date/Time: 09/28/22 7:22 am Transcribed By: MAYA Transcribed Date/Time: 09/28/22 1:39 am MR Lumbar spine WO and W contrast IV * BHSPowerscribe , CIS S: TRANSCRIBE Phill Dang MD: VERIFY Event Display: Result: Authored Date: [id number] MRI Thoracic Spine W+W/O Contrast, MRI Lumbar Spine W+W/O Contrast INDICATION: Fever; neck, thoracic and lumbar back pain, paresthesias, IVDU; Clinical Question(s): Other:; spinal epidural abscess. TECHNIQUE: Sagittal T1, T2, STIR and axial T1 and T2-weighted fat-sat sequences through the thoracic and lumbar spine. After 20 mL of Clariscan was administered intravenously, sagittal T1 and axial T1 with fat sat sequences obtained. COMPARISON: CT of abdomen and pelvis on 09/26/2022. FINDINGS: ALIGNMENT, VERTEBRAE, MARROW, AND DISCS: The alignment of the thoracic and lumbar spine is normal. No fracture or subluxation. The bone marrow signals are within normal limits. No evidence of an epidural hematoma or ligamentous injury. The intervertebral disc spaces of the thoracic spine 2 level ofL3-L4 are preserved. Disc desiccation is seen at L4-L5 and L5-S1 levels. L5-S1 level has mild disc space narrowing and mild degenerative endplate changes. CORD: The thoracic cord is normal in signal and contour. The conus medullaris terminates at the level of L1. The nerve roots of cauda equina are unremarkable. There is no abnormal enhancement. PARASPINAL TISSUES: Visualized paraspinal soft tissues are unremarkable. There is no disc herniation, stenosis or neuroforamen narrowing throughout the thoracic and the lumbar spine. A small perineural cyst is seen at the left-sided T9 neural foramina. L4-L5 and L5-S1 levels have mild disc bulges. No abnormal enhancement is seen throughout the thoracic and lumbar spine.No epidural empyema is seen. There is no evidence of osteomyelitis or discitis. No paravertebral sof t tissue swelling or enhancement. IMPRESSION: No evidence of epidural empyema, osteomyelitis/discitis is seen throughout the thoracicand lumbar spine. The thoracic cord is normal. The conus medullaris terminates at L1-2 level No myelopathy or abnormal enhancement. Unremarkable thoracic spine. Minimal spondylosis at L4-L5 and L5-S1 levels. The preliminary report was given by the [facility]. WSN: [id number] Ordering Physician: Mary López Dictated By: Phill Dang MD Dictated Date/Time: 09/27/22 8:14 am Reviewed By: Phill Dang MD Signed By: Phill Dang MD Signed Date/Time: 09/27/22 8:14 am Transcribed By: MAYA Transcribed Date/Time: 09/27/22 8:09 am MR Thoracic spine WO and W contrast IV * [facility] , CIS S: TRANSCRIBE Phill Dang MD: VERIFY Event Display: Result: Authored Date: [id number] MRI Thoracic Spine W+W/O Contrast, MRI Lumbar Spine W+W/O Contrast INDICATION: Fever; neck, thoracic and lumbar back pain, paresthesias, IVDU; Clinical Question(s): Other:; spinal epidural abscess. TECHNIQUE: Sagittal T1, T2, STIR and axial T1 and T2-weighted fat-sat sequences through the thoracic and lumbar spine. After 20 mL of Clariscan was administered intravenously, sagittal T1 and axial T1 with fat sat sequences obtained. COMPARISON: CT of abdomen and pelvis on 09/26/2022. FINDINGS: ALIGNMENT, VERTEBRAE, MARROW, AND DISCS: The alignment of the thoracic and lumbar spine is normal. No fracture or subluxation. The bone marrow signals are within normal limits. No evidence of an epidural hematoma or ligamentous injury. The intervertebral disc spaces of the thoracic spine 2 level ofL3-L4 are preserved. Disc desiccation is seen at L4-L5 and L5-S1 levels. L5-S1 level has mild disc space narrowing and mild degenerative endplate changes. CORD: The thoracic cord is normal in signal and contour. The conus medullaris terminates at the level of L1. The nerve roots of cauda equina are unremarkable. There is no abnormal enhancement. PARASPINAL TISSUES: Visualized paraspinal soft tissues are unremarkable. There is no disc herniation, stenosis or neuroforamen narrowing throughout the thoracic and the lumbar spine. A small perineural cyst is seen at the left-sided T9 neural foramina. L4-L5 and L5-S1 levels have mild disc bulges. No abnormal enhancement is seen throughout the thoracic and lumbar spine.No epidural empyema is seen. There is no evidence of osteomyelitis or discitis. No paravertebral sof t tissue swelling or enhancement. IMPRESSION: No evidence of epidural empyema, osteomyelitis/discitis is seen throughout the thoracicand lumbar spine. The thoracic cord is normal. The conus medullaris terminates at L1-2 level No myelopathy or abnormal enhancement. Unremarkable thoracic spine. Minimal spondylosis at L4-L5 and L5-S1 levels. The preliminary report was given by the [facility]. WSN: [id number] Ordering Physician: Mary López Dictated By: Phill Dang MD Dictated Date/Time: 09/27/22 8:14 am Reviewed By: Phill Dang MD Signed By: Phill Dang MD Signed Date/Time: 09/27/22 8:14 am Transcribed By: MAYA Transcribed Date/Time: 09/27/22 8:09 am Patient Care team information Care Team Personnel Name: Santi Conway DO Position: [facility] Resident Member Role: PCP Address: Address: [address] [place] [id number] Name: Isabelle Sinclair Position: [facility] RN Member Role: Primary Care Nurse Name: Jared Dumont RN Position: [facility] RN Member Role: Primary Care Nurse Name: Cassidy Kelley RN Position: [facility] RN Member Role: Primary Care Nurse Name: Evelyn Chapin RN Position: [facility] RN Member Role: Primary Care Nurse Name: Francois POLLARD Attending Position: [facility] ED Medicine Name: Maribell Grigsby RN Position: [facility] ED RN W/OE and Tasks Member Role: Patient Care Provider Name: nAne Gilliland Position: [facility] ED TA [facility] Member Role: [employer] Care Team Related Persons Name: MICHAEL CHEEK Name: VINICIUS WAGONER Address: [address] [place] [address] Name: CINDI WU Name: PAVITHRA WU Address: home UNKNOWN
--- OUTSIDE RECORDS SUMMARY | 2023-07-18 23:06 | XMS_ITS | Continuity of Care Document ---
Author Name Unknown Organization [facility] Address [address] [place] [address]- Care Team Providers Care Senior Climate Advisor Name Role Phone Kvng SALAZAR, Janina Her Primary Care Physician Encounter [facility] [place] Date(s): 12/23/20 - 01/22/21 [facility] [address] [place] [id number] Allergies, Adverse Reactions, Alerts Substance Reaction Severity Status codeine Active Medications albuterol CFC free 90 mcg/inh inhalation aerosol 1, puffs, Inhalation, 4 times a day, PRN, # 7 Gm, Refills 5, Tot. Refills 5, Maintenance, 11/10/20 9:14:00 EDT, Aerosol, Route to Pharmacy Electronically, [id number], [facility] #[id number], 165, cm, 10/01/20 13:31:00 ED... Start Date: 11/10/20 Status: Ordered Atrovent HFA 17 mcg/inh inhalation aerosol 2 puffs, Inhalation, 4 times a day, # 12.9 Gm, 0 Refills, Maintenance, 10/07/19 15:10:00 EDT, Aerosol, [facility] #[id number], 165, cm, 09/17/19 11:11:00 EST, Height Start Date: 10/07/19 Status: Ordered clonazePAM 0.5 mg oral tablet 0 Refills, Maintenance, 12/26/19 13:59:00 EDT Start Date: 12/26/19 Status: Ordered diphenhydrAMINE 25 mg oral capsule 1 capsule, By Mouth, 3 times a day, PRN NEEDED FOR ITCHING, # 100 capsule, 0 Refills, Acute, 01/18/21 20:42:00 EDT, [facility] #[id number], 165, cm, 10/01/20 13:31:00 EDT, Height Start Date: 01/18/21 Status: Ordered gabapentin 600 mg oral tablet 0 Refills, Maintenance, 12/26/19 13:59:00 EDT Start Date: 12/26/19 Status: Ordered ibuprofen 800 mg oral tablet 800 mg, 1, tablet, By Mouth, 3 times a day, # 60 tablet, Refills 1, Tot. Refills 1, Maintenance, 07/30/20 18:10:00 EST, Route to Pharmacy Electronically, [facility] #[id number], Partial fill upon patient request if the prescription is for a sched... Start Date: 07/30/20 Status: Ordered levothyroxine 0.05 mg oral tablet 1 tablet = 50 mcg, By Mouth, Daily, # 30 tablet, 5 Refills, Maintenance, 07/15/19 17:13:00 EST, Tablet, [facility] #[id number], 165, cm, 04/15/19 16:17:00 EDT, Height, 93.5, [...] 5 Refills, Maintenance, 10/01/20 14:01:00 EDT, ECCapsule, [facility] #[id number], 165, cm, 10/01/20 13:31:00 EDT, Height Start Date: 10/01/20 Stop Date: 03/30/21 Status: Ordered QUEtiapine 300 mg oral tablet 0 Refills, Maintenance, 12/26/19 13:59:00 EDT Start Date: 12/26/19 Status: Ordered triamcinolone 0.1% topical cream See Instructions, APPLY EXTERNALLY TO THE AFFECTED AREA TWICE DAILY FOR 14 DAYS, # 80 Gm, 0 Refills, Acute, [facility] #[id number], 25, APPLY EXTERNALLY TO THE AFFECTED AREA TWICE DAILY FOR 14 DAYS, 165, cm, 10/01/20 13:31:00 EDT, Height Start Date: 01/19/21 Status: Ordered Problem List Condition Effective Dates Status Health Status Inform ant *HERB/ERICH/CC-Katie Neat-[phone]/Health alf, active care coordination(Confirmed) Active Tobacco dependence(Confirmed) Active Hepatitis C(Confirmed) Active Social History Social History Type Response Smoking Status 5-9 cigarettes (betw een 1/4 to 1/2 pack)/day in last 30 days; Other: VAPING FLAVORED TOBACCO; entered on: 04/15/19 Sex Female
--- OUTSIDE RECORDS SUMMARY | 2023-07-18 23:06 | XMS_ITS | Continuity of Care Document ---
Author Name Unknown Organization [facility] ter Address [address] [place] [id number]- Care Team Providers Care Mirror Machine Feeder Name Role Phone Santi Conway DO Primary Care Physician Encounter [facility] [place] Date(s): 01/01/23 - 01/01/[address] [address]- Encounter Diagnosis Bigeminy(Final) - 01/01/23 Discharge Disposition: A-D/C AMA Attending Physician: Lonnie Anderson MD Admitting Physician: Lonnie Anderson MD Referring Physician: Not on Staff, Referring [...] 2 Refills, Maintenance, 03/30/21 14:01:00 EDT, [id number], 165, cm, 10/01/20 13:31:00 EDT, Height Start [...] Informant Borderline personality disorder 1 Confirmed Active *N/CCA/CC-Katie Neath-[phone]/ Health alf, active care coordination Confirmed Active PTSD (post-traumatic stress disorder) Confirmed Active Severe obesity (BMI 35.0-39.9) with comorbidity Confirmed Active Tobacco dependence Confirmed Active Hepatitis C Confirmed Active 1Psy admission 04/2021 Results Radiology Reports * Exam Date Time Procedure Performing Provider Status 01/01/23 4:[address] Angio Neck Kassandra Bonilla; Auth (Yari eubanks) Notes: (CT Angio Neck) Reason For Exam: Neck pain, IVDU in left jugular vein;Other: RESULT: CT Angio Neck CT Angio Head, CT Angio Neck Hx of Present Illness: left sided neck pains, palpitations; Reason: Other:; IVDU in left jugular vein, GUZMÁN dz; Clinical Question(s): Other:; ?intracranial abscess embolism; Order Comment: / Other: TECHNIQUE: CT angiogram of the head and neck was performed after bolus administration of intravenous contrast. 100 mL of Omnipaque 300 was administered intravenously. Coronal and sagittal MIP reformatted images were obtained. Additional 3-D images were created on a separate workstation under concurrent supervision by the attending radiologist. All stenoses are measured using NASCET criteria. Weight-based protocol using automatic tube modulation was used to optimize exposure parameters. RADIATION DOSE PARAMETERS: CTDIvol Body: 23.10 mGy, DLP Body: 512 mGy*cm. COMPARISON: Noncontrast CT head performed concurrently. FINDINGS: CTA OF THE NECK: Arch: There is a three vessel aortic arch. The origins of the supra aortic vessels are patent. Right carotid system: The common carotid and cervical internal carotid arteries are patent, allowing for mild motion artifact in the lower neck. No stenosis (0%) by NASCET criteria. There is no dissection or aneurysm. Left carotid system: The common carotid and cervical internal carotid arteries are patent. No stenosis (0%) by NASCET criteria. There is no dissection or aneurysm. There is a co-dominant vertebral artery system. Right vertebral: No significant stenosis. No evidence of dissection or aneurysm. Left vertebral: No significant stenosis. No evidence of dissection or aneurysm. Visualized cervical veins: There is normal enhancement of bilateral internal jugular veins throughout the neck without filling defect. Evaluation is degraded at the internal jugular-subclavian venousjunction by mixing artifact. Other: Soft tissues and bones: No evidence of lymphadenopathy or mass. No inflammatory change or fluid collection is seen. The thyroid is unremarkable. Visualized lungs are blurred by motion artifact, without significant superimposed airspace opacity. No acute osseous abnormality. CTA OF THE HEAD: Anterior circulation: Bilateral intracranial ICAs and their DAVID and MCA branches are patent. There is no significant stenosis, proximal cutoff, aneurysm, or vascular malformation. Posterior circulation: Bilateral intracranial vertebral arteries, the basilar artery, and bilateralsuperior cerebellar and posterior cerebral branches are patent. There is no significant stenosis, proximal cutoff, aneurysm, or vascular malformation. Veins: Major dural venous sinuses are patent. Other: Soft tissues and bones: No midline shift or effacement of the basal cisterns. No space-occupying hemorrhage. No territorial loss of english-white matter differentiation. Orbits are unremarkable. No significant opacification in the paranasal sinuses or mastoid air cells. Multiple dental caries. IMPRESSION: No proximal occlusion, high grade stenosis, or other significant abnormality of the major arteries of the head and neck. A similar preliminary report was provided by [facility]. WSN: [id number] Ordering Physician: Joseph Alexandra Dictated By: Heaven Farr MD Dictated Date/Time: 01/01/23 4:17 pm Reviewed By: Heaven Farr MD Signed By: Heaven Farr MD Signed Date/Time: 01/01/23 4:17 pm Transcribed By: MAYA Transcribed Date/Time: 01/01/23 3:43 pm * Exam Date Time Procedure Performing Provider Status 01/01/23 4:[address] Angio Head Irene Kassandra; Auth (Veri fied) Notes: (CT Angio Head) Reason For Exam: IVDU in left jugular vein, GUZMÁN/ dz;Other: RESULT: CT Angio Head CT Angio Head, CT Angio Neck Hx of Present Illness: left sided neck pains, palpitations; Reason: Other:; IVDU in left jugular vein, GUZMÁN dz; Clinical Question(s): Other:; ?intracranial abscess embolism; Order Comment: / Other: TECHNIQUE: CT angiogram of the head and neck was performed after bolus administration of intravenous contrast. 100 mL of Omnipaque 300 was administered intravenously. Coronal and sagittal MIP reformatted images were obtained. Additional 3-D images were created on a separate workstation under concurrent supervision by the attending radiologist. All stenoses are measured using NASCET criteria. Weight-based protocol using automatic tube modulation was used to optimize exposure parameters. RADIATION DOSE PARAMETERS: CTDIvol Body: 23.10 mGy, DLP Body: 512 mGy*cm. COMPARISON: Noncontrast CT head performed concurrently. FINDINGS: CTA OF THE NECK: Arch: There is a three vessel aortic arch. The origins of the supra aortic vessels are patent. Right carotid system: The common carotid and cervical internal carotid arteries are patent, allowing for mild motion artifact in the lower neck. No stenosis (0%) by NASCET criteria. There is no dissection or aneurysm. Left carotid system: The common carotid and cervical internal carotid arteries are patent. No stenosis (0%) by NASCET criteria. There is no dissection or aneurysm. There is a co-dominant vertebral artery system. Right vertebral: No significant stenosis. No evidence of dissection or aneurysm. Left vertebral: No significant stenosis. No evidence of dissection or aneurysm. Visualized cervical veins: There is normal enhancement of bilateral internal jugular veins throughout the neck without filling defect. Evaluation is degraded at the internal jugular-subclavian venousjunction by mixing artifact. Other: Soft tissues and bones: No evidence of lymphadenopathy or mass. No inflammatory change or fluid collection is seen. The thyroid is unremarkable. Visualized lungs are blurred by motion artifact, without significant superimposed airspace opacity. No acute osseous abnormality. CTA OF THE HEAD: Anterior circulation: Bilateral intracranial ICAs and their DAVID and MCA branches are patent. There is no significant stenosis, proximal cutoff, aneurysm, or vascular malformation. Posterior circulation: Bilateral intracranial vertebral arteries, the basilar artery, and bilateralsuperior cerebellar and posterior cerebral branches are patent. There is no significant stenosis, proximal cutoff, aneurysm, or vascular malformation. Veins: Major dural venous sinuses are patent. Other: Soft tissues and bones: No midline shift or effacement of the basal cisterns. No space-occupying hemorrhage. No territorial loss of english-white matter differentiation. Orbits are unremarkable. No significant opacification in the paranasal sinuses or mastoid air cells. Multiple dental caries. IMPRESSION: No proximal occlusion, high grade stenosis, or other significant abnormality of the major arteries of the head and neck. A similar preliminary report was provided by [facility]. WSN: [id number] Ordering Physician: Joseph Alexandra Dictated By: Heaven Farr MD Dictated Date/Time: 01/01/23 4:17 pm Reviewed By: Heaven Farr MD Signed By: Heaven Farr MD Signed Date/Time: 01/01/23 4:17 pm Transcribed By: MAYA Transcribed Date/Time: 01/01/23 3:43 pm * Exam Date Time Procedure Performing Provider Status 01/01/23 2:24 AM Chest Portable Brii Eckert; Auth (Verified) Notes: (Chest Portable) Reason For Exam: Chest Pain;Other: RESULT: Chest Portable Chest Portable Reason: Other:; Chest Pain; Clinical Question(s): CHF; Order Comment: Not ready for portable chest xray @ 0125, labs, IV. [facility] COMPARISON: 09/26/2022. FINDINGS: LINES AND TUBES: None. LUNGS AND PLEURA: Clear lungs. Normal pulmonary vascularity. No pleural effusion. No pneumothorax. HEART, MEDIASTINUM AND ANGELINA: Heart is normal in size. Normal mediastinal and hilar contour. BONES AND SOFT TISSUES: No acute abnormality. IMPRESSION: No acute abnormality. WSN: [id number] Ordering Physician: Joseph Alexandra Dictated By: Mai Murdock MD Dictated Date/Time: 01/01/23 4:30 am Reviewed By: Mai Murdock MD Signed By: Mai Murdock MD Signed Date/Time: 01/01/23 4:30 am Transcribed By: MAYA Transcribed Date/Time: 01/01/23 4:30 am Vital Signs Most recent to oldest [Reference Range]: 1 2 3 Height 163 cm (01/01/23 10:23 AM) 163 cm (01/01/23 10:03 AM) 163 cm (01/01/23 1:06 AM) Weight 95.5 kg (01/01/23 10:23 AM) 95.5 kg (01/01/23 1:06 AM) Oxygen Saturation [94-100 %] 100 % (01/01/23 3:42 PM) 100 % (01/01/23 10:23 AM) 100 % (01/01/23 10:03 AM) Pulse Rate [55-90 bpm] 115 bpm *H* (01/01/23 3:42 PM) 77 bpm (01/01/23 10:23 AM) 77 bpm (01/01/23 10:03 AM) Body Mass Index [18.5-24.99 kg/m2] 35.94 kg/m2 *>HHI* (01/01/23 10:23 AM) Blood Pressure [90-138/55-84 mm Hg] 163/101mm Hg *H* (01/01/23 3:42 PM) 199/85mm Hg *H* (01/01/23 10:23 AM) 199/85mm Hg *H* (01/01/23 10:03 AM) Respiratory Rate [16-30 br/min] 22 br/min (01/01/23 3:42 PM) 18 br/min (01/01/23 10:23 AM) 18 br/min (01/01/23 10:03 AM) Temperature [96.8-100.4 DegF] 98.7 DegF (01/01/23 10:23 AM) 98.7 DegF (01/01/23 10:03 AM) 98.8 DegF (01/01/23 5:35 AM) Mode of Delivery (Oxygen) Room air (01/01/23 3:42 PM) Room air (01/01/23 10:23 AM) Room air (01/01/23 10:03 AM) Blood pressure sites Arm, left (01/01/23 3:42 PM) Arm, right (01/01/23 10:23 AM) Arm, right (01/01/23 10:03 AM) Temperature Route Oral (01/01/23 10:23 AM) Oral (01/01/23 10:03 AM) Oral (01/01/23 5:35 AM) Dry Weight 95.5 kg (01/01/23 10:23 AM) 95.5 kg (01/01/23 1:06 AM) Weight Obtained Via Patient/family state d (01/01/23 1:06 AM) Dry Weight Obtained Via Patient/family s tated (01/01/23 1:06 AM) Social History Social History Type Response Smoking Status 5-9 cigarettes (betw een 1/4 to 1/2 pack)/day in last 30 days; Other: VAPING FLAVORED TOBACCO; entered on: 04/15/19 Sex Admission evaluation note * Monica SALAZAR, Lonnie Duff: MODIFY, PERFORM, MODIFY Event Display: Admission Note Authored Date: Patient: ??DUSTIN WAGONER ? Age:??42 Years?Sex:??Female?:??1980?? Chief Complaint/Reason for Consultation neck pains and palpitations. Was using the carotid arteries for the IV drug use and she lastly used4 days ago History of Present Illness 42-year-old??lady with past medical history of??anxiety, bipolar disorder, borderline personality disorder, PTSD, hepatitis C,??IV drug use??with heroin??presented to [facility] with??complaints of palpitations, anxiety, chest pain.?? She denies having any cough or sputum production or diarrhea or vomiting.?? She states that??she was recently??seen at??[facility].?? High-sensitivity??troponins??are negative. EKG showed normal sinus rhythm with a ventricular rate of 85 bpm, MO [id number] ms, QTc interval 485 ms. ??During my interview??of the patient??with??registered nurse??at [facility],??the patient became??very anxious??and panicky??for about 5 to 10 minutes.??I called??patient's??family??and updated??them.?? I again counseled the??patient??and patient agreed to??stay in the hospital.?? The patient is being admitted to [facility] for further evaluation and treatment Review of Systems Constitutional: No fever, increased anxiety HEENT: No visual loss, blurred vision, double vision or yellow sclera. No runny nose or sore throat. Cardiovascular: No chest pain, palpitations or pedal edema. Respiratory: No shortness of breath, cough or sputum production. Gastrointestinal: No nausea, vomiting or diarrhea. No abdominal pain.?? Neurologic: No headache, dizziness, unilateral weakness, numbness or tingling in the extremities. Objective Measurements?? Height: 163 cm (01/01/23) Weight: 95.5 kg (01/01/23) Dry Weight: 95.5 kg (01/01/23) Body Mass Index:??35.94 kg/m2??Critical (01/01/23) ? Vital Signs?? Temperature: 98.7 DegF (01/01/23 10:23:00) Temperature Route: Oral (01/01/23 10:23:00) Pulse Rate: 77 bpm (01/01/23 10:23:00) Respiratory Rate: 18 br/min (01/01/23 10:23:00) Systolic Blood Pressure:??199 mm Hg??High (01/01/23 10:23:00) Diastolic Blood Pressure:??85 mm Hg??High (01/01/23 10:23:00) Blood pressure sites: Arm, right (01/01/23 10:23:00) Mean Arterial Pressure: 123 mm Hg (01/01/23 10:23:00) Pulse Pressure: 114 mm Hg (01/01/23 10:23:00) Oxygen Saturation: 100 % (01/01/23 10:23:00) Mode of Delivery (Oxygen): Room air (01/01/23 10:23:00) Early Warning Score: 0 (01/01/23 10:26:15) ? Intake/Output? No Data Available ?? Precautions [...] Gastrointestinal: Abdomen soft, non-tender, non-distended. Normal bowel sounds.?? Neurologic: Cranial nerves II-XII grossly intact. No focal neurological deficits. Sensation intact bilaterally. Skin: No rashes or lesions.?? Musculoskeletal: No cyanosis or clubbing. Assessment/Plan Diagnoses Bigeminy ??(I49.8) ?? Assessment:??42-year-old lady with past medical history of anxiety, bipolar disorder, borderline personality disorder, PTSD, hepatitis C, IV drug use with heroin presented to [facility] with complaints of palpitations, anxiety, chest pain. She denies having any cough or sputum production or diarrhea or vomiting. She states that she was recently seen at [facility]. High- sensitivity troponins are negative. EKG showed normal sinus rhythm with a ventricular rate of 85 bpm, MO interval 138ms, QTc interval 485 ms. During my interview of the patient with registered nurse at bedside, the patient became very anxious and panicky for about 5 to 10 minutes. I called patient's family and updated them. I again counseled the patient and patient agreed to stay in the hospital. The patient is being admitted to [facility] for further evaluation and treatment ? 1.?Increased anxiety/panic attack: Patient has history of??anxiety/PTSD/borderline personality disorder/bipolar??disorder Patient??had a panic attack??in ER??and she was very anxious I??counseled the patient??at bedside??with the RN at bedside I also??called??the patient's??parents??and updated them I have also ordered??few doses of IV Ativan Patient??started to calm down She agreed to stay in the hospital??for further treatment We will monitor this patient closely ? 2.?Opiate use disorder: Patient has a history of??IV??drug/opiate??abuse I have consulted social sciences lecturer??for further counseling??about??substance use??and its problems If still not improving,??can consider Addiction team consult ?? 3.?Chest pain: Patient complained of chest pain??which has subsequently??improved??after the??panic has improved EKG showed normal sinus rhythm??without any??ischemic changes High-sensitivity??troponins??are normal I think??the chest pain is??a noncardiac chest pain We will monitor??the patient closely ? 4.?DVT prophylaxis:??We will give??pneumatic compression boots??and will encourage??early ambulation Diet:??Regular diet CODE STATUS: Full code ? I have discussed the above plan with the patient??who is in agreement ?? I have also??talked to patient's??family??and updated them ? Discharge Planning:? Histories Allergies Allergies ?(Active and Proposed Allergies Only) NKA? (Severity: Unknown severity, Onset: Unknown) ? Past Medical History/Problem List Active Problems??(6) *BHN/CCA/CC-Katie [facility]-[phone]/Health alf, active care coordination Borderline personality disorder [...] day Methadone (methadone 5 mg/5 mL oral solution)?90?Milligram?By Mouth?Daily Omeprazole (omeprazole 40 mg oral enteric coated capsule)?1?capsule?40?Milligram?By Mouth?Daily?for 30?Days Quetiapine (QUEtiapine 200 mg oral tablet)?200?Milligram?1?tablet?By Mouth?Daily at bedtime ? Inpatient Medications Medications (18) Active SCHEDULED: (7) Clonazepam 0.5 mg Tablet (clonazePAM 0.5 mg oral tablet) ??0.5 mg, By Mouth, 2 times a day Methadone 10 mg Tablet (Methadone Tablet) ??90 mg, By Mouth, Daily NaCl 0.9% Flush 3ml (NaCL 0.9% Flush) ??3 mL, IV Push, Every 8 hours NaCl 0.9% Flush 3ml (NaCL 0.9% Flush) ??3 mL, IV Push, Every 8 hours Pantoprazole 40 mg EC Tablet (pantoprazole 40 mg oral delayed release tablet) ??40 mg, By Mouth, 2 times a day Quetiapine 200 mg Tablet (QUEtiapine 200 mg oral tablet) ??200 mg, By Mouth, Daily at bedtime Quetiapine 200 mg Tablet (QUEtiapine 200 mg oral tablet) ??200 mg, By Mouth, Daily at bedtime CONTINUOUS: (0) PRN: (11) Acetaminophen 325 mg Tablet (Acetaminophen Tablet) ??650 mg, By Mouth, Every 4 hours Albuterol 90mcg/Inhalation Inhaler HFA (albuterol CFC free 90 mcg/inh inhalation aerosol) ??90 mcg 1 puffs, Inhalation, Every 4 hours Dextromethorphan-Guaifenesin 20 mg-200 mg/10 mL Liqu UD (Robitussin DM Liquid) ??10 mL, By Mouth, Every 4 hours Lorazepam 2 mg Inj Syringe (Ativan Inj) ??1 mg, IV Push Slowly, Every 6 hours Melatonin 3 mg Tablet (Melatonin Tablet) ??3 mg, By Mouth, Daily at bedtime NaCl 0.9% Flush 3ml (NaCL 0.9% Flush) ??3 mL, IV Push, Every 8 hours nalOXONE ??400mcg/mL Inj (nalOXONE Inj) ??0.2 mg 0.5 mL, IV Push, Every 5 minutes nalOXONE ??400mcg/mL Inj (nalOXONE Inj) ??0.2 mg [...] Recent Labs BLOOD COUNT & DIFF WBC 8.1 k/mm3 ()?? 01/01/2023 01:34 RBC 4.23 m/mm3 ()?? 01/01/2023 01:34 Hgb 10.0 Gm/dL (Low)?? 01/01/2023 01:34 Hct 33.3 % (Low)?? 01/01/2023 01:34 MCV 78.7 femtoliters (Low)?? 01/01/2023 01:34 MCH 23.6 pg (Low)?? 01/01/2023 01:34 MCHC 30.0 g/dL (Low)?? 01/01/2023 01:34 Platelet Count 275 k/mm3 ()?? 01/01/2023 01:34 RDW-SD 48.1 femtoliters (High)?? 01/01/2023 01:34 MPV 9.7 femtoliters ()?? 01/01/2023 01:34 Nucleated RBC (Automated) 0.0 #/100 WBC'S ()?? 01/01/2023 01:34 Abs. NRBC 0.0 k/mm3 ()?? 01/01/2023 01:34 Abs. Neut 4.0 k/mm3 ()?? 01/01/2023 01:34 Abs. Lymph 3.2 k/mm3 (High)?? 01/01/2023 01:34 Abs. [place] 0.7 k/mm3 ()?? 01/01/2023 01:34 Abs. Eo 0.1 k/mm3 ()?? 01/01/2023 01:34 Abs. Baso 0.0 k/mm3 ()?? 01/01/2023 01:34 Neut % 50.2 % ()?? 01/01/2023 01:34 Lymph % 39.8 % ()?? 01/01/2023 01:34 [place] % 8.3 % ()?? 01/01/2023 01:34 Eos % 1.0 % ()?? 01/01/2023 01:34 Baso % 0.5 % ()?? 01/01/2023 01:34 Imm Gran 0.2 % ()?? 01/01/2023 01:34 Abs. Imm Gran 0.0 k/mm3 ()?? 01/01/2023 01:34 ?? CARDIAC High Sensitivity Troponin (HSTnT) 10 ng/L ()?? 01/01/2023 06:44 ?? CHEM GENERAL Sodium 142 mmol/L ()?? 01/01/2023 01:34 Potassium 4.0 mmol/L ()?? 01/01/2023 01:34 Chloride 106 mmol/L ()?? 01/01/2023 01:34 Bicarbonate Level 25 mmol/L ()?? 01/01/2023 01:34 Anion Gap 11 ()?? 01/01/2023 01:34 Glucose Level 100 mg/dL (High)?? 01/01/2023 01:34 BUN 15 mg/dL ()?? 01/01/2023 01:34 Creatinine-Blood 1.0 mg/dL ()?? 01/01/2023 01:34 Estimated GFR Creatinine 72 ML/MIN/1.73 M2 ()?? 01/01/2023 01:34 Calcium 9.6 mg/dL ()?? 01/01/2023 01:34 ?? ENDOCRINE/TUMOR MARKER TSH 1.61 uIU/mL ()?? 01/01/2023 01:34 ?? URINE OTHER Est Creatinine Clearance 65.05 mL/min ()?? 01/01/2023 02:34 ?? VIROLOGY COVID-19 by RT-PCR NEGATIVE ()?? 01/01/2023 01:35 ? Hospital Progress note * Qian Flores: PERFORM Event Display: Progress Note Hospital Authored Date: Patient: ??DUSTIN WAGONER ? Age:??42 Years?Sex:??Female?:??1980?? RN informed via page that the patient had left AMA without signing the form. She had left with an IV still in place, however security was called, the patient was found, and her was??IV removed by nursing staff. Still did not sign the AMA form per nursing. * Alisha Yoo RN: PERFORM, SIGN, VERIFY Event Display: Progress Note Hospital Authored Date: Patient: DUSTIN WAGONER Age: 42 years Sex: Female : 1980 Associated Diagnoses: None Author: Alisha Yoo RN Findings Narrative/Incidental Patient KAYLEE SALAZAR notified. Patient Care team information Care Team Personnel Name: Santi Conway DO Position: [facility] Resident Member Role: PCP Address: Address: [address] [place] [id number] Name: Isabelle Sinclair Position: [facility] RN Member Role: Primary Care Nurse Name: Jared Dumont RN Position: [facility] RN Member Role: Primary Care Nurse Name: Cassidy Kelley RN Position: [facility] RN Member Role: Primary Care Nurse Name: Evelyn Chapin RN Position: [facility] RN Member Role: Primary Care Nurse Name: Francois POLLARD Attending Position: [facility] ED Medicine MD Name: Soha Gillespie RN Position: [facility] ED RN W/OE and Tasks Member Role: Patient Care Provider Name: Saundra Good RN Position: [facility] ED RN W/OE and Tasks Member Role: Patient Care Provider Name: Óscar Chan Position: [facility] ED TA [facility] Member Role: Patient Care Provider Care Team Related Persons Name: MICHAEL CHEEK Name: VINICIUS WAGONER Address: home [address] [place] [id number] Name: CINDI WU Name: PAVITHRA WU Address: home UNKNOWN
--- OUTSIDE RECORDS SUMMARY | 2023-07-18 23:06 | XMS_ITS | Continuity of Care Document ---
Author Name Unknown Organization [facility] Address [address] [place] [id number]- Care Team Providers Care Animal Impersonator Name Role Phone Kvng SALAZAR, Janina Her Primary Care Physician [place] [facility] [place] - 10/20/21 [facility] [address] [place] [id number] Attending Physician: Jorge Tapia MD Admitting Physician: Jorge Tapia MD Allergies, Adverse Reactions, Alerts Substance Reaction Severity Status codeine Active Immunizations Given and Recorded Vaccine Date Status Refusal Reason tetanus/diphtheria/pertussis, acel(Tdap) 04/09/21 Given tetanus/diphtheria/pertussis, acel(Tdap) 06/11/19 Recorded tetanus/diphtheria/pertussis, acel(Tdap) 07/21/16 Recorded tetanus-diphtheria toxoids (Td) 07/17/05 Recorded Not Given Vaccine Date Status Refusal Reason influenza virus vaccine, inactivated 04/15/21 Not Given Patient Refuses Medications albuterol CFC free 90 mcg/inh inhalation aerosol 1, puffs, Inhalation, 4 times a day, PRN, # 7 Gm, Refills 5, Tot. Refills 5, Maintenance, 11/10/20 9:14:00 EDT, Aerosol, Route to Pharmacy Electronically, [id number], [facility] #[id number], 165, cm, 10/01/20 13:31:00 ED... Start Date: 11/10/20 Status: Ordered Atrovent HFA 17 mcg/inh inhalation aerosol 2 puffs, Inhalation, 4 times a day, # 12.9 Gm, 0 Refills, Maintenance, 10/07/19 15:10:00 EDT, Aerosol, [facility] #[id number], 165, cm, 09/17/19 11:11:00 EST, Height Start [...] capsule, 0 Refills, Acute, 01/18/21 20:42:00 EDT, [facility] #[id number], 165, cm, 10/01/20 13:31:00 EDT, Height Start [...] 07/30/20 18:10:00 EST, Route to Pharmacy Electronically, [facility] #[id number], Partial fill upon patient request if the prescription is for a sched... Start Date: 07/30/20 Status: Ordered levothyroxine 0.05 mg oral tablet 1 tablet = 50 mcg, By Mouth, Daily, # 30 tablet, 5 Refills, Maintenance, 07/15/19 17:13:00 EST, Tablet, [facility] #43651, 165, cm, 04/15/19 16:17:00 EDT, Height, 93.5, [...] 2 Refills, Maintenance, 03/30/21 14:01:00 EDT, ECCapsule, [facility] #07007, 165, cm, 10/01/20 13:31:00 EDT, Height Start [...] DAYS, # 80 Gm, 0 Refills, Acute, [facility] #21511, 25, APPLY EXTERNALLY TO THE AFFECTED AREA TWICE DAILY FOR 14 DAYS, 165, cm, 10/01/20 13:31:00 EDT, Height Start Date: 01/19/21 Status: Ordered Problem List Condition Effective Dates Status Health Status Inform ant Borderline personality disorder(Confirmed) 1 Active *BHN/CCA/CC-Katie [facility]-[phone]/Health assisted, active care coordination(Confirmed) Active PTSD (post-traumatic stress disorder)(Confirmed) Active Tobacco dependence(Confirmed) Active Hepatitis C(Confirmed) Active 1Psych admission 04/2021 Social History Social History Type Response Smoking Status 5-9 cigarettes (betw een 1/4 to 1/2 pack)/day in last 30 days; Other: VAPING FLAVORED TOBACCO; entered on: 04/15/19 Sex
--- OUTSIDE RECORDS SUMMARY | 2023-07-18 23:06 | XMS_ITS | Continuity of Care Document ---
Author Name Unknown Organization [facility] Address [address] [place] [address]- Care Team Providers Care Box Repairer Name Role Phone Kvng SALAZAR, Janina Her Primary Care Physician Encounter [facility] Date(s): 12/30/19 - 01/29/20 [facility] [address] [place] [address]- [facility] Attending Physician: Jose Moreira Admitting Physician: AdmtrJose Referring Physician: Admtr ArFabian Allergies, Adverse Reactions, Alerts Substance Reaction Severity Status codeine Active Medications acetaminophen 325 mg oral tablet 650 mg, 2, tablet, By Mouth, Every 4 hours, PRN, # 30 tablet, Refills 0, Tot. Refills 0, Maintenance, as needed for fever, 09/16/19 13:27:00 EST, Route to Pharmacy Electronically, [facility] #50091, 165, cm, 09/13/19 9:34:00 EST, Height Start Date: 09/16/19 Status: Ordered albuterol CFC free 90 mcg/inh inhalation aerosol 1, puffs, Inhalation, 4 times a day, PRN, # 7 Gm, Refills 5, Tot. Refills 5, Maintenance, 12/02/19 10:54:00 EDT, Aerosol, Route to Pharmacy Electronically, [id number], [facility] #[id number], 165, cm, 09/17/19 11:11:00 E... Start Date: 12/02/19 Status: Ordered Atrovent HFA 17 mcg/inh inhalation aerosol 2 puffs, Inhalation, 4 times a day, # 12.9 Gm, 0 Refills, Maintenance, 10/07/19 15:10:00 EDT, Aerosol, [facility] #74663, 165, cm, 09/17/19 11:11:00 EST, Height Start Date: 10/07/19 Status: Ordered cetirizine 5 mg oral tablet 1 tablet = 5 mg, By Mouth, Daily, PRN Congestion, # 90 tablet, 1 Refills, Maintenance, 11/12/19 11:57:00 EDT, Tablet, [facility] #48711, 165, cm, 09/17/19 11:11:00 EST, Height Start [...] 1 Refills, Soft Stop, 12/26/19 13:58:00 EDT, Tablet,[facility] #86857, 165, cm, 09/17/19 11:11:00 EST, Height Start Date: 12/26/19 Status: Ordered Flonase 50 mcg/inh nasal spray 1 sprays, Nares, Both, Daily in AM, # 9.9 mL, 0 Refills, Maintenance, 09/13/19 10:15:00 EST, [place],[facility] #69344, 1 sprays Nares, Both Daily in AM, 165, cm, 09/13/19 9:34:00 EST, Height Start Date: 09/13/19 Status: Ordered Flonase 50 mcg/inh nasal spray 1 sprays, Nares, Both, 2 times a day, # 16 Gm, 0 Refills, Maintenance, 10/11/19 8:25:00 EDT, [place],[facility] #97616, 1 sprays Nares, Both 2 times a day, 165, cm, 09/17/19 11:11:00 EST, Height Start Date: 10/11/19 Status: Ordered gabapentin 600 mg oral tablet 0 Refills, Maintenance, 12/26/19 13:59:00 EDT Start Date: 12/26/19 Status: Ordered levothyroxine 0.05 mg oral tablet 1 tablet = 50 mcg, By Mouth, Daily, # 30 tablet, 5 Refills, Maintenance, 07/15/19 17:13:00 EST, Tablet, [facility] #63286, 165, cm, 04/15/19 16:17:00 EDT, Height, 93.5, [...] 5 Refills, Maintenance, 12/26/19 13:58:00 EDT, ECCapsule, [facility] #44838, 165, cm, 09/17/19 11:11:00 EST, Height Start Date: 12/26/19 Stop Date: 06/23/20 Status: Ordered QUEtiapine 300 mg oral tablet 0 Refills, Maintenance, 12/26/19 13:59:00 EDT Start Date: 12/26/19 Status: Ordered Problem List Condition Effective Dates Status Health Status Inform ant *BHN/ERICH/CC-Katie [facility]-[phone]/Health detention, active care coordination(Confirmed) Active Tobacco dependence(Confirmed) Active Hepatitis C(Confirmed) Active Social History Social History Type Response Smoking Status 5-9 cigarettes (betw een 1/4 to 1/2 pack)/day in last 30 days; Other: VAPING FLAVORED TOBACCO; entered on: 04/15/19 Sex Female
--- OUTSIDE RECORDS SUMMARY | 2023-07-18 23:06 | XMS_ITS | Continuity of Care Document ---
Author Name Unknown Organization [facility] Address [address] [place] [address]- Care Team Providers Care Sealer Operator Name Role Phone Kvng SALAZAR, Janina Her Primary Care Physician [phone] [place] [facility] [place] Date(s): 11/12/19 - 11/19/19 [facility] [address] [place] [address]- [facility] Attending Physician: Simon Myrick MD Admitting Physician: Willie SALAZAR, Jorge Juan Allergies, Adverse Reactions, Alerts Substance Reaction Severity Status codeine Active Medications acetaminophen 325 mg oral tablet 650 mg, 2, tablet, By Mouth, Every 4 hours, PRN, # 30 tablet, Refills 0, Tot. Refills 0, Maintenance, as needed for fever, 09/16/19 13:27:00 EST, Route to Pharmacy Electronically, [facility] #[id number], 165, cm, 09/13/19 9:34:00 EST, Height Start Date: 09/16/19 Status: Ordered albuterol CFC free 90 mcg/inh inhalation aerosol 1, puffs, Inhalation, 4 times a day, PRN, # 7 Gm, Refills 0, Tot. Refills 0, Maintenance, 10/13/19 14:32:00 EDT, Aerosol, Route to Pharmacy Electronically, [id number], [facility] #51602, 165, cm, 09/17/19 11:11:00 E... Start Date: 10/13/19 Status: Ordered Atrovent HFA 17 mcg/inh inhalation aerosol 2 puffs, Inhalation, 4 times a day, # 12.9 Gm, 0 Refills, Maintenance, 10/07/19 15:10:00 EDT, Aerosol, [facility] #25593, 165, cm, 09/17/19 11:11:00 EST, Height Start Date: 10/07/19 Status: Ordered cetirizine 5 mg oral tablet 1 tablet = 5 mg, By Mouth, Daily, PRN Congestion, # 90 tablet, 1 Refills, Maintenance, 11/12/19 11:57:00 EDT, Tablet, [facility] #83491, 165, cm, 09/17/19 11:11:00 EST, Height Start Date: 11/12/19 Status: Ordered clonazePAM 1 mg oral tablet [...] 0 Refills, Soft Stop, 10/06/19 10:57:00 EDT, Tablet,[facility] #[id number], 165, cm, 09/17/19 11:11:00 EST, Height Start Date: 10/06/19 Status: Ordered Flonase 50 mcg/inh nasal spray 1 sprays, Nares, Both, Daily in AM, # 9.9 mL, 0 Refills, Maintenance, 09/13/19 10:15:00 EST, [place],[facility] #82253, 1 sprays Nares, Both Daily in AM, 165, cm, 09/13/19 9:34:00 EST, Height Start Date: 09/13/19 Status: Ordered Flonase 50 mcg/inh nasal spray 1 sprays, Nares, Both, 2 times a day, # 16 Gm, 0 Refills, Maintenance, 10/11/19 8:25:00 EDT, [place],[facility] #55685, 1 sprays Nares, Both 2 times a day, 165, cm, 09/17/19 11:11:00 EST, Height Start Date: 10/11/19 Status: Ordered gabapentin 600 mg oral tablet 1 tablet = 600 mg, By Mouth, 2 times a day, # 60 tablet, 4 Refills, Maintenance, 09/19/18 13:40:07 EST Start Date: 09/19/18 Status: Ordered ipratropium nasal 21 mcg/inh spray 2 sprays, Nares, Both, 2 times a day, for 30 days, # 30 mL, 1 Refills, Acute 01/11/20 11:55:00 EDT,11/12/19 11:55:00 EDT, [place], [facility] #17048, 2 sprays Nares, Both 2 times a day,x30 days, 165, cm, 09/17/19 11:11:00 EST, Height Start Date: 11/12/19 Stop Date: 01/11/20 Status: Ordered levothyroxine 0.05 mg oral tablet 1 tablet = 50 mcg, By Mouth, Daily, # 30 tablet, 5 Refills, Maintenance, 07/15/19 17:13:00 EST, Tablet, [facility] #99420, 165, cm, 04/15/19 16:17:00 EDT, Height, 93.5, [...] EDT, Tablet Start Date: 12/21/18 Status: Ordered Problem List Condition Effective Dates Status Health Status Inform ant *BHN/CCA/CC-Katie [facility]-[phone]/Health residential, active care coordination(Confirmed) Active Tobacco dependence(Confirmed) Active Hepatitis C(Confirmed) Active Social History Social History Type Response Smoking Status 5-9 cigarettes (betw een 1/4 to 1/2 pack)/day in last 30 days; Other: VAPING FLAVORED TOBACCO; entered on: 04/15/19 Sex Female
--- OUTSIDE RECORDS SUMMARY | 2023-07-18 23:06 | XMS_ITS | Continuity of Care Document ---
Author Name Unknown Organization [facility] Address [address] [place] [address]- Care Team Providers Care User Support Analyst Name Role Phone Kvng SALAZAR, Janina Her Primary Care Physician [phone] Encounter [facility] [place] Date(s): 05/14/21 - 08/07/21 [facility] [address] [place] [address] Attending Physician: Jorge Tapia MD Admitting [...] 9:14:00 EDT, Aerosol, Route to Pharmacy Electronically, [id number], [facility] #[id number], 165, cm, 10/01/20 13:31:00 ED... Start Date: 11/10/20 Status: Ordered Atrovent HFA 17 mcg/inh inhalation aerosol 2 puffs, Inhalation, 4 times a day, # 12.9 Gm, 0 Refills, Maintenance, 10/07/19 15:10:00 EDT, Aerosol, [facility] #76282, 165, cm, 09/17/19 11:11:00 EST, Height Start [...] capsule, 0 Refills, Acute, 01/18/21 20:42:00 EDT, [facility] #06291, 165, cm, 10/01/20 13:31:00 EDT, Height Start [...] 07/30/20 18:10:00 EST, Route to Pharmacy Electronically, [facility] #65102, Partial fill upon patient request if the prescription is for a sched... Start Date: 07/30/20 Status: Ordered levothyroxine 0.05 mg oral tablet 1 tablet = 50 mcg, By Mouth, Daily, # 30 tablet, 5 Refills, Maintenance, 07/15/19 17:13:00 EST, Tablet, [facility] #58941, 165, cm, 04/15/19 16:17:00 EDT, Height, 93.5, [...] 2 Refills, Maintenance, 03/30/21 14:01:00 EDT, ECCapsule, [facility] #82498, 165, cm, 10/01/20 13:31:00 EDT, Height Start [...] DAYS, # 80 Gm, 0 Refills, Acute, [facility] #55716, 25, APPLY EXTERNALLY TO THE AFFECTED AREA TWICE DAILY FOR 14 DAYS, 165, cm, 10/01/20 13:31:00 EDT, Height Start Date: 01/19/21 Status: Ordered Problem List Condition Effective Dates Status Health Status Inform ant *BHN/CCA/CC-Katie [facility]-[phone]/Health group home, active care coordination(Confirmed) Active Tobacco dependence(Confirmed) Active Hepatitis C(Confirmed) Active Social History Social History Type Response Smoking Status 5-9 cigarettes (betw een 1/4 to 1/2 pack)/day in last 30 days; Other: VAPING FLAVORED TOBACCO; entered on: 04/15/19 Sex
--- OUTSIDE RECORDS SUMMARY | 2023-07-18 23:06 | XMS_ITS | Continuity of Care Document ---
Author Name Unknown Organization [facility] Address [address] [place] [address]- Care Team Providers Care Director Of Quality Improvement Name Role Phone Kvng SALAZAR, Janina Her Primary Care Physician [place] [facility] [id number] Date(s): 03/17/20 - 04/17/20 [facility] [address] [place] [address]- [facility] Attending Physician: Not on Staff, Attending MD Allergies, Adverse Reactions, Alerts Substance Reaction Severity Status codeine Active Medications acetaminophen 325 mg oral tablet 650 mg, 2, tablet, By Mouth, Every 4 hours, PRN, # 30 tablet, Refills 0, Tot. Refills 0, Maintenance, as needed for fever, 09/16/19 13:27:00 EST, Route to Pharmacy Electronically, [facility] #[id number], 165, cm, 09/13/19 9:34:00 EST, Height Start Date: 09/16/19 Status: Ordered albuterol CFC free 90 mcg/inh inhalation aerosol 1, puffs, Inhalation, 4 times a day, PRN, # 7 Gm, Refills 5, Tot. Refills 5, Maintenance, 12/02/19 10:54:00 EDT, Aerosol, Route to Pharmacy Electronically, [id number], [facility] #77662, 165, cm, 09/17/19 11:11:00 E... Start Date: 12/02/19 Status: Ordered Atrovent HFA 17 mcg/inh inhalation aerosol 2 puffs, Inhalation, 4 times a day, # 12.9 Gm, 0 Refills, Maintenance, 10/07/19 15:10:00 EDT, Aerosol, [facility] #06908, 165, cm, 09/17/19 11:11:00 EST, Height Start Date: 10/07/19 Status: Ordered Benadryl 25 mg oral capsule 1 capsule = 25 mg, By Mouth, 3 times a day, PRN for itching, for 30 days, # 100 capsule, 0 Refills,Acute 04/19/20 16:28:00 EDT, 03/20/20 16:28:00 EDT, Capsule, [facility] #40361, 165, cm, 03/20/20 16:09:00 EDT, Height Start Date: 03/20/20 Stop Date: 04/19/20 Status: Ordered cetirizine 5 mg oral tablet 1 tablet = 5 mg, By Mouth, Daily, PRN Congestion, # 90 tablet, 1 Refills, Maintenance, 11/12/19 11:57:00 EDT, Tablet, [facility] #46030, 165, cm, 09/17/19 11:11:00 EST, Height Start [...] 1 Refills, Maintenance, 03/15/20 14:27:00 EDT, Liquid, [facility] #93204, 5 mL By Mouth Every 4 hours,PRN:for cough and congestion, 165, cm, 09/17/19 11:11:00 EST, Height Start Date: 03/15/20 Status: Ordered Diflucan 150 mg oral tablet 1 tablet = 150 mg, By Mouth, Once, # 1 tablet, 1 Refills, Soft Stop, 12/26/19 13:58:00 EDT, Tablet,[facility] #63724, 165, cm, 09/17/19 11:11:00 EST, Height Start Date: 12/26/19 Status: Ordered Flonase 50 mcg/inh nasal spray 1 sprays, Nares, Both, Daily in AM, # 9.9 mL, 0 Refills, Maintenance, 09/13/19 10:15:00 EST, [place],[facility] #60010, 1 sprays Nares, Both Daily in AM, 165, cm, 09/13/19 9:34:00 EST, Height Start Date: 09/13/19 Status: Ordered Flonase 50 mcg/inh nasal spray 1 sprays, Nares, Both, 2 times a day, # 16 Gm, 0 Refills, Maintenance, 10/11/19 8:25:00 EDT, [place],[facility] #30384, 1 sprays Nares, Both 2 times a day, 165, cm, 09/17/19 11:11:00 EST, Height Start Date: 10/11/19 Status: Ordered gabapentin 600 mg oral tablet 0 Refills, Maintenance, 12/26/19 13:59:00 EDT Start Date: 12/26/19 Status: Ordered levothyroxine 0.05 mg oral tablet 1 tablet = 50 mcg, By Mouth, Daily, # 30 tablet, 5 Refills, Maintenance, 07/15/19 17:13:00 EST, Tablet, [facility] #00838, 165, cm, 04/15/19 16:17:00 EDT, Height, 93.5, [...] 5 Refills, Maintenance, 03/20/20 16:18:00 EDT, ECCapsule, [facility] #09209, 165, cm, 03/20/20 16:09:00 EDT, Height Start Date: 03/20/20 Stop Date: 09/16/20 Status: Ordered QUEtiapine 300 mg oral tablet 0 Refills, Maintenance, 12/26/19 13:59:00 EDT Start Date: 12/26/19 Status: Ordered Problem List Condition Effective Dates Status Health Status Inform ant *BHN/ERICH/CC-Katie [facility]-[phone]/Health residential, active care coordination(Confirmed) Active Tobacco dependence(Confirmed) Active Hepatitis C(Confirmed) Active Social History Social History Type Response Smoking Status 5-9 cigarettes (betw een 1/4 to 1/2 pack)/day in last 30 days; Other: VAPING FLAVORED TOBACCO; entered on: 04/15/19 Sex Female
--- OUTSIDE RECORDS SUMMARY | 2023-07-18 23:06 | XMS_ITS | Continuity of Care Document ---
Author Name Unknown Organization [facility] Address [address] [place] [address]- Care Team Providers Care Golf Player Assistant Name Role Phone Santi Conway DO Primary Care Physician [place] [facility] [place] [facility] [address] [place], [place] [address] Allergies, Adverse Reactions, Alerts No Known Allergies [...] Stop 12/15/22 9:03:00 EDT, 12/20/21 9:03:00 EDT, [facility] #36402, 1 puffs Inhalation 4 times a day,x90 [...] capsule, 2 Refills, Maintenance, 03/30/21 14:01:00 EDT, [facility] #06086, 165, cm, 10/01/20 13:31:00 EDT, Height Start [...] Active Obese class I Confirmed Active *BHN/CCA/CC-Katie [facility]-[phone]/ Health assisted, active care coordination Confirmed Active PTSD (post-traumatic stress disorder) Confirmed Active Tobacco dependence Confirmed Active Hepatitis C Confirmed Active 1Psy admission 04/2021 Social History Social History Type Response Smoking Status 5-9 cigarettes (betw een 1/4 to 1/2 pack)/day in last 30 days; Other: VAPING FLAVORED TOBACCO; entered on: 04/15/19 Sex Patient Care team information Care Team Personnel Name: Santi Conway DO Position: [facility] Resident Member Role: PCP Address: Address: [address] [place] [address]- Name: Isabelle Sinclair Position: S RN Member Role: Primary Care Nurse Name: Jared Dumont RN Position: S RN Member Role: Primary Care Nurse Name: Cassidy Kelley RN Position: S RN Member Role: Primary Care Nurse Name: Evelyn Chapin RN Position: [facility] RN Member Role: Primary Care Nurse Care Team Related Persons Name: MICHAEL CHEEK Name: VINICIUS WAGONER Address: [address] [address] Name: CINDI WU Name: PAVITHRA WU Address: home UNKNOWN
--- OUTSIDE RECORDS SUMMARY | 2023-07-18 23:06 | XMS_ITS | Continuity of Care Document ---
Author Name Unknown Organization [facility] Address [address] [place] [address]- Care Team Providers Care Supervisor [employer] Name Role Phone Kvng SALAZAR, Janina Her Primary Care Physician [phone] [place] [facility] [place] Date(s): 06/15/21 - 07/18/21 [facility] [address] [place] [id number] Attending Physician: Jorge Tapia MD Admitting [...] 9:14:00 EDT, Aerosol, Route to Pharmacy Electronically, [id number], [facility] #[id number], 165, cm, 10/01/20 13:31:00 ED... Start Date: 11/10/20 Status: Ordered Atrovent HFA 17 mcg/inh inhalation aerosol 2 puffs, Inhalation, 4 times a day, # 12.9 Gm, 0 Refills, Maintenance, 10/07/19 15:10:00 EDT, Aerosol, [facility] #47629, 165, cm, 09/17/19 11:11:00 EST, Height Start [...] capsule, 0 Refills, Acute, 01/18/21 20:42:00 EDT, [facility] #68756, 165, cm, 10/01/20 13:31:00 EDT, Height Start [...] 07/30/20 18:10:00 EST, Route to Pharmacy Electronically, [facility] #[id number], Partial fill upon patient request if the prescription is for a sched... Start Date: 07/30/20 Status: Ordered levothyroxine 0.05 mg oral tablet 1 tablet = 50 mcg, By Mouth, Daily, # 30 tablet, 5 Refills, Maintenance, 07/15/19 17:13:00 EST, Tablet, [facility] #95499, 165, cm, 04/15/19 16:17:00 EDT, Height, 93.5, [...] 2 Refills, Maintenance, 03/30/21 14:01:00 EDT, ECCapsule, [facility] #90433, 165, cm, 10/01/20 13:31:00 EDT, Height Start [...] DAYS, # 80 Gm, 0 Refills, Acute, [facility] #29453, 25, APPLY EXTERNALLY TO THE AFFECTED AREA TWICE DAILY FOR 14 DAYS, 165, cm, 10/01/20 13:31:00 EDT, Height Start Date: 01/19/21 Status: Ordered Problem List Condition Effective Dates Status Health Status Inform ant *BHN/CCA/CC-Katie [facility]-[phone]/Health prison, active care coordination(Confirmed) Active Tobacco dependence(Confirmed) Active Hepatitis C(Confirmed) Active Social History Social History Type Response Smoking Status 5-9 cigarettes (betw een 1/4 to 1/2 pack)/day in last 30 days; Other: VAPING FLAVORED TOBACCO; entered on: 04/15/19 Sex
--- OUTSIDE RECORDS SUMMARY | 2023-07-18 23:06 | XMS_ITS | Continuity of Care Document ---
Author Name Unknown Organization [facility] Address [address] [place] [address]- Care Team Providers Care Spooler Name Role Phone Santi Conway DO [id number] - [facility]10[facility] [address] [place], [place] [address] Attending Physician: Wilber Phelan Admitting Physician: Wilber [...] Stop 12/15/22 9:03:00 EDT, 12/20/21 9:03:00 EDT, [facility] #[id number], 1 puffs Inhalation 4 times a day,x90 days,PRN: NEEDED FOR WHEEZI... Start Date: 12/20/21 Stop Date: 12/15/22 Status: Ordered Atrovent HFA 17 mcg/inh inhalation aerosol 2 puffs, Inhalation, 4 times a day, # 12.9 Gm, 0 Refills, Maintenance, 10/07/19 15:10:00 EDT, Aerosol, [facility] #[id number], 165, cm, 09/17/19 11:11:00 EST, Height Start [...] 01/12/22 17:25:00 EDT, Route to Pharmacy Electronically, [facility] #[id number], Partial fill uponpatient request if the prescription [...] capsule, 0 Refills, Acute, 01/18/21 20:42:00 EDT, [facility] #[id number], 165, cm, 10/01/20 13:31:00 EDT, Height Start [...] 07/30/20 18:10:00 EST, Route to Pharmacy Electronically, [facility] #[id number], Partial fill upon patient request if the prescription is for a sched... Start Date: 07/30/20 Status: Ordered levothyroxine 0.05 mg oral tablet 1 tablet = 50 mcg, By Mouth, Daily, # 30 tablet, 5 Refills, Maintenance, 07/15/19 17:13:00 EST, Tablet, [facility] #[id number], 165, cm, 04/15/19 16:17:00 EDT, Height, 93.5, [...] 2 Refills, Maintenance, 03/30/21 14:01:00 EDT, ECCapsule, [facility] #[id number], 165, cm, 10/01/20 13:31:00 EDT, Height Start [...] DAYS, # 80 Gm, 0 Refills, Acute, [facility] #[id number], 25, APPLY EXTERNALLY TO THE AFFECTED AREA TWICE DAILY FOR 14 DAYS, 165, cm, 10/01/20 13:31:00 EDT, Height Start Date: 01/19/21 Status: Ordered Tylenol Extra Strength 500 mg oral tablet 2 tablet = 1,000 mg, By Mouth, Every 6 hours, PRN for pain, for 360 days, # 100 tablet, 0 Refills, Acute 01/07/23 17:25:00 EDT, 01/12/22 17:25:00 EDT, Tablet, [facility] #22568, Partial fill upon patient request if the prescription is for a... Start Date: 01/12/22 Stop Date: 01/07/23 Status: Ordered Problem List Condition Confirmation Course Effective Dates Status Health St atus Informant Borderline personality disorder 1 Confirmed Active *BHN/CCA/CC-Katie [facility]-[phone]/ Health long-term, active care coordination Confirmed Active [...] Team Personnel Name: Santi Conway DO Position: [facility] Resident Member Role: PCP Address: Address: [address] [place] [phone]- Name: Isabelle Sinclair Position: S RN Member Role: Primary Care Nurse Name: Heaven Perez NP Position: [facility] PCO Associate Professional Member Role: Lifetime Consulting Provider Address: Address: [address] [place] [address]- Name: Cassidy Kelley RN Position: [facility] RN Member Role: Primary Care Nurse Name: Vianney Wang RN Position: [facility] RN Member Role: Primary Care Nurse Name: Evelyn Chapin RN Position: [facility] RN Member Role: Primary Care Nurse Care Team Related Persons Name: MICHAEL CHEEK Name: VINICIUS WAGONER Address: home [address] [place] [phone] Name: CINDI WU Name: PAVITHRA WU Address: home UNKNOWN
--- OUTSIDE RECORDS SUMMARY | 2023-07-18 23:06 | XMS_ITS | Continuity of Care Document ---
Author Name Unknown Organization [facility] Address [address] [place] [address]- Care Team Providers Care Employment Attorney Name Role Phone Santi Conway DO Primary Care Physician Encounter [facility] Date(s): 05/26/22 - 06/25/22 [facility] [address] [place], [place] [address] Attending Physician: Jose Moreira Admitting Physician: Jose Moreira Referring Physician: AdmJose washington Allergies, Adverse Reactions, Alerts No Known Allergies [...] Stop 12/15/22 9:03:00 EDT, 12/20/21 9:03:00 EDT, [facility] #[id number], 1 puffs Inhalation 4 times a day,x90 days,PRN: NEEDED FOR WHEEZI... Start Date: 12/20/21 Stop Date: 12/15/22 Status: Ordered Atrovent HFA 17 mcg/inh inhalation aerosol 2 puffs, Inhalation, 4 times a day, # 12.9 Gm, 0 Refills, Maintenance, 10/07/19 15:10:00 EDT, Aerosol, [facility] #[id number], 165, cm, 09/17/19 11:11:00 EST, Height Start [...] 01/12/22 17:25:00 EDT, Route to Pharmacy Electronically, [facility] #[id number], Partial fill uponpatient request if the prescription [...] capsule, 0 Refills, Acute, 01/18/21 20:42:00 EDT, [facility] #[id number], 165, cm, 10/01/20 13:31:00 EDT, Height Start [...] 07/30/20 18:10:00 EST, Route to Pharmacy Electronically, [facility] #[id number], Partial fill upon patient request if the prescription is for a sched... Start Date: 07/30/20 Status: Ordered levothyroxine 0.05 mg oral tablet 1 tablet = 50 mcg, By Mouth, Daily, # 30 tablet, 5 Refills, Maintenance, 07/15/19 17:13:00 EST, Tablet, [facility] #42110, 165, cm, 04/15/19 16:17:00 EDT, Height, 93.5, [...] 2 Refills, Maintenance, 03/30/21 14:01:00 EDT, ECCapsule, [facility] #70933, 165, cm, 10/01/20 13:31:00 EDT, Height Start [...] DAYS, # 80 Gm, 0 Refills, Acute, [facility] #50260, 25, APPLY EXTERNALLY TO THE AFFECTED AREA TWICE DAILY FOR 14 DAYS, 165, cm, 10/01/20 13:31:00 EDT, Height Start Date: 01/19/21 Status: Ordered Tylenol Extra Strength 500 mg oral tablet 2 tablet = 1,000 mg, By Mouth, Every 6 hours, PRN for pain, for 360 days, # 100 tablet, 0 Refills, Acute 01/07/23 17:25:00 EDT, 01/12/22 17:25:00 EDT, Tablet, [facility] #53192, Partial fill upon patient request if the prescription is for a... Start Date: 01/12/22 Stop Date: 01/07/23 Status: Ordered Problem List Condition Confirmation Course Effective Dates Status Health St atus Informant Borderline personality disorder 1 Confirmed Active *BHN/CCA/CC-Katie [facility]-[phone]/ Health [facility], active care coordination Confirmed Active PTSD (post-traumatic stress disorder) Confirmed Active Tobacco dependence Confirmed Active Hepatitis C Confirmed Active 1Psych admission 04/2021 Social History Social History Type Response Smoking Status 5-9 cigarettes (betw een 1/4 to 1/2 pack)/day in last 30 days; Other: VAPING FLAVORED TOBACCO; entered on: 04/15/19 Sex Note * Event Display: EKG Non BH Authored Date: Patient Care team information Care Team Personnel Name: Walterantonio FORTUNE Scottlongcheng Position: [facility] Resident Member Role: PCP Address: Address: [address] [place] [id number] Name: Isabelle Sinclair Position: [facility] RN Member Role: Primary Care Nurse Name: Heaven Perez NP Position: [facility] PCO Associate Professional Member Role: Lifetime Consulting Provider Address: Address: [address] [place] [address]- Name: Cassidy Kelley RN Position: [facility] RN Member Role: Primary Care Nurse Name: Vianney Wang RN Position: [facility] RN Member Role: Primary Care Nurse Name: Evelyn Chapin RN Position: [facility] RN Member Role: Primary Care Nurse Care Team Related Persons Name: MICHAEL CHEEK Name: VINICIUS WAGONER Address: home [address] [place] [id number] Name: CINDI WU Name: PAVITHRA WU Address: home UNKNOWN
--- OUTSIDE RECORDS SUMMARY | 2023-07-18 23:06 | XMS_ITS | Continuity of Care Document ---
Author Name Unknown Organization [facility] Address [address] [place] [address]- Care Team Providers Care Testing Coordinator Name Role Phone Santi Conway DO Primary Care Physician Encounter [facility] Date(s): 01/03/23 - 02/02/23 [facility] [address] [place] [id number] Allergies, Adverse Reactions, Alerts No Known Allergies [...] 0 Refills, Maintenance, 01/05/23 15:08:00 EDT, Tablet, [facility] #[id number], Partial fill upon patient request if the [...] 2 Refills, Maintenance, 03/30/21 14:01:00 EDT, ECCapsule, [facility] #[id number], 165, cm, 10/01/20 13:31:00 EDT, Height Start [...] 0 Refills, Maintenance, 01/28/23 9:42:00 EDT, Tablet, [id number], Partial fill upon patient request if the prescription is for a schedule II opioid drug., 162, cm, 01/28/23 2:58:00 EDT, Height, 9... Start Date: 01/28/23 Status: Ordered Problem List Condition Confirmation Course Effective Dates Status Health St atus Informant Borderline personality disorder 1 Confirmed Active [phone]/ Health assisted, active care coordination Confirmed Active [...] Team Personnel Name: Santi Conway DO Position: [facility] Resident Member Role: PCP Address: Address: [address] [place] [address] Name: Isabelle Sinclair Position: S RN Member Role: Primary Care Nurse Name: Mireya Wihting Position: S RN Member Role: Primary Care Nurse Name: Jared Dumont RN Position: S RN Member Role: Primary Care Nurse Name: Cassidy Kelley RN Position: S RN Member Role: Primary Care Nurse Name: Evelyn Chapin RN Position: S RN Member Role: Primary Care Nurse Care Team Related Persons Name: MICHAEL CHEEK Name: VINICIUS WAGONER Address: home [address] [place] [phone] Name: CINDI WU Name: PAVITHRA WU Address: home UNKNOWN
--- OUTSIDE RECORDS SUMMARY | 2023-07-18 23:07 | XMS_ITS | Continuity of Care Document ---
Author Name Unknown Organization [facility] Address [address] [place] [address]- Care Team Providers Care Manager Universal Name Role Phone Kvng SALAZAR, Janina Her Primary Care Physician En[facility] Date(s): 10/22/19 - 11/01/19 [facility] [address] [place] [address]- [facility] Attending Physician: Jose Moreira Admitting Physician: AdmtrJose Referring Physician: Admtr ArFabian Allergies, Adverse Reactions, Alerts Substance Reaction Severity Status codeine Active Medications acetaminophen 325 mg oral tablet 650 mg, 2, tablet, By Mouth, Every 4 hours, PRN, # 30 tablet, Refills 0, Tot. Refills 0, Maintenance, as needed for fever, 09/16/19 13:27:00 EST, Route to Pharmacy Electronically, [facility] #[id number], 165, cm, 09/13/19 9:34:00 EST, Height Start Date: 09/16/19 Status: Ordered albuterol CFC free 90 mcg/inh inhalation aerosol 1, puffs, Inhalation, 4 times a day, PRN, # 7 Gm, Refills 0, Tot. Refills 0, Maintenance, 10/13/19 14:32:00 EDT, Aerosol, Route to Pharmacy Electronically, [id number], [facility] #[id number], 165, cm, 09/17/19 11:11:00 E... Start Date: 10/13/19 Status: Ordered Atrovent HFA 17 mcg/inh inhalation aerosol 2 puffs, Inhalation, 4 times a day, # 12.9 Gm, 0 Refills, Maintenance, 10/07/19 15:10:00 EDT, Aerosol, [facility] #85859, 165, cm, 09/17/19 11:11:00 EST, Height Start [...] 0 Refills, Soft Stop, 10/06/19 10:57:00 EDT, Tablet,[facility] #66259, 165, cm, 09/17/19 11:11:00 EST, Height Start Date: 10/06/19 Status: Ordered Flonase 50 mcg/inh nasal spray 1 sprays, Nares, Both, Daily in AM, # 9.9 mL, 0 Refills, Maintenance, 09/13/19 10:15:00 EST, [facility] #55933, 1 sprays Nares, Both Daily in AM, 165, cm, 09/13/19 9:34:00 EST, Height Start Date: 09/13/19 Status: Ordered Flonase 50 mcg/inh nasal spray 1 sprays, Nares, Both, 2 times a day, # 16 Gm, 0 Refills, Maintenance, 10/11/19 8:25:00 EDT, [facility] #80565, 1 sprays Nares, Both 2 times a [...] 5 Refills, Maintenance, 07/15/19 17:13:00 EST, Tablet, [facility] #[id number], 165, cm, 04/15/19 16:17:00 EDT, Height, 93.5, [...] 11:40:00 EDT, 10/22/19 11:40:00 EDT, ER Tablet, [facility] #45278, 165, cm, 09/17/19 11:11:00 EST, Height Start Date: 10/22/19 Stop Date: 11/05/19 Status: Ordered Problem List Condition Effective Dates Status Health Status Inform ant *BHN/CCA/JOHNNIE-Katie [facility]-[phone]/Health [facility], active care coordination(Confirmed) Active Tobacco dependence(Confirmed) Active Hepatitis C(Confirmed) Active Social History Social History Type Response Smoking Status 5-9 cigarettes (betw een 1/4 to 1/2 pack)/day in last 30 days; Other: VAPING FLAVORED TOBACCO; entered on: 04/15/19 Sex Female
--- OUTSIDE RECORDS SUMMARY | 2023-07-18 23:07 | XMS_ITS | Continuity of Care Document ---
Author Name Unknown Organization [facility] Address [address] [place] [address]- Care Team Providers Care Rug Hooker Hand Name Role Phone Stevocorina Santi FORTUNE Primary Care Physician [phone] Encounter [facility] Date(s): 07/12/22 - 08/11/22 [facility] [address] [place] [id number] Allergies, Adverse Reactions, Alerts No Known [...] Stop 12/15/22 9:03:00 EDT, 12/20/21 9:03:00 EDT, [facility] #87006, 1 puffs Inhalation 4 times a day,x90 days,PRN: NEEDED FOR WHEEZI... Start Date: 12/20/21 Stop Date: 12/15/22 Status: Ordered Atrovent HFA 17 mcg/inh inhalation aerosol 2 puffs, Inhalation, 4 times a day, # 12.9 Gm, 0 Refills, Maintenance, 10/07/19 15:10:00 EDT, Aerosol, [facility] #[id number], 165, cm, 09/17/19 11:11:00 EST, Height Start [...] 01/12/22 17:25:00 EDT, Route to Pharmacy Electronically, [facility] #[id number], Partial fill uponpatient request if the prescription [...] capsule, 0 Refills, Acute, 01/18/21 20:42:00 EDT, [facility] #[id number], 165, cm, 10/01/20 13:31:00 EDT, Height Start [...] 07/30/20 18:10:00 EST, Route to Pharmacy Electronically, [facility] #[id number], Partial fill upon patient request if the prescription is for a sched... Start Date: 07/30/20 Status: Ordered levothyroxine 0.05 mg oral tablet 1 tablet = 50 mcg, By Mouth, Daily, # 30 tablet, 5 Refills, Maintenance, 07/15/19 17:13:00 EST, Tablet, [facility] #[id number], 165, cm, 04/15/19 16:17:00 EDT, Height, 93.5, [...] 11 Refills, Soft Stop, 07/13/22 17:04:00 EST, [facility] #88794, Partial fill upon patient request if the [...] 2 Refills, Maintenance, 03/30/21 14:01:00 EDT, ECCapsule, [facility] #61743, 165, cm, 10/01/20 13:31:00 EDT, Height Start [...] DAYS, # 80 Gm, 0 Refills, Acute, [facility] #05448, 25, APPLY EXTERNALLY TO THE AFFECTED AREA TWICE DAILY FOR 14 DAYS, 165, cm, 10/01/20 13:31:00 EDT, Height Start Date: 01/19/21 Status: Ordered Tylenol Extra Strength 500 mg oral tablet 2 tablet = 1,000 mg, By Mouth, Every 6 hours, PRN for pain, for 360 days, # 100 tablet, 0 Refills, Acute 01/07/23 17:25:00 EDT, 01/12/22 17:25:00 EDT, Tablet, [facility] #43469, Partial fill upon patient request if the prescription is for a... Start Date: 01/12/22 Stop Date: 01/07/23 Status: Ordered Problem List Condition Confirmation Course Effective Dates Status Health St at[facility] Informant Borderline personality disorder 1 Confirmed Active Obese class I Confirmed Active *BHN/CCA/CC-Katie [facility]-[phone]/ Health [facility], active care coordination Confirmed Active PTSD (post-traumatic stress disorder) Confirmed Active Tobacco dependence Confirmed Active Hepatitis C Confirmed Active 1Psych admission 04/2021 Social History Social History Type Response Smoking Status 5-9 cigarettes (betw een 1/4 to 1/2 pack)/day in last 30 days; Other: VAPING FLAVORED TOBACCO; entered on: 04/15/19 Sex Patient Care team information Care Team Personnel Name: Man FORTUNE Santi Position: [facility] Resident Member Role: PCP Address: Address: [address] [place] [address] Name: Isabelle Sinclair Position: [facility] RN Member Role: Primary Care Nurse Name: Heaven Perez NP Position: [facility] PCO Associate Professional Member Role: Lifetime Consulting Provider Address: Address: [address] [place] [id number] Name: Cassidy Kelley RN Position: [facility] RN Member Role: Primary Care Nurse Name: Vianney Wang RN Position: [facility] RN Member Role: Primary Care Nurse Name: Evelyn Chapin RN Position: [facility] RN Member Role: Primary Care Nurse Care Team Related Persons Name: MICHAEL CHEEK Name: VINICIUS WAGONER Address: home [address] [place] [phone] Name: CINDI WU Name: PAVITHRA WU Address: home UNKNOWN
--- OUTSIDE RECORDS SUMMARY | 2023-07-18 23:07 | XMS_ITS | Continuity of Care Document ---
Author Name Unknown Organization [facility] Address [address] [place] [address]- Care Team Providers Care Rn Internship Name Role Phone Santi Conway DO Primary Care Physician [place] [facility] [place]/19[place]22 - 06/18/22 [facility] [address] [place], [place] [address] Allergies, Adverse Reactions, Alerts No [...] Stop 12/15/22 9:03:00 EDT, 12/20/21 9:03:00 EDT, [facility] #[id number], 1 puffs Inhalation 4 times a day,x90 days,PRN: NEEDED FOR WHEEZI... Start Date: 12/20/21 Stop Date: 12/15/22 Status: Ordered Atrovent HFA 17 mcg/inh inhalation aerosol 2 puffs, Inhalation, 4 times a day, # 12.9 Gm, 0 Refills, Maintenance, 10/07/19 15:10:00 EDT, Aerosol, [facility] #[id number], 165, cm, 09/17/19 11:11:00 EST, Height Start [...] 01/12/22 17:25:00 EDT, Route to Pharmacy Electronically, [facility] #[id number], Partial fill uponpatient request if the prescription [...] capsule, 0 Refills, Acute, 01/18/21 20:42:00 EDT, [facility] #[id number], 165, cm, 10/01/20 13:31:00 EDT, Height Start [...] 07/30/20 18:10:00 EST, Route to Pharmacy Electronically, [facility] #[id number], Partial fill upon patient request if the prescription is for a sched... Start Date: 07/30/20 Status: Ordered levothyroxine 0.05 mg oral tablet 1 tablet = 50 mcg, By Mouth, Daily, # 30 tablet, 5 Refills, Maintenance, 07/15/19 17:13:00 EST, Tablet, [facility] #[id number], 165, cm, 04/15/19 16:17:00 EDT, Height, 93.5, [...] 2 Refills, Maintenance, 03/30/21 14:01:00 EDT, ECCapsule, [facility] #[id number], 165, cm, 10/01/20 13:31:00 EDT, Height Start [...] DAYS, # 80 Gm, 0 Refills, Acute, [facility] #53507, 25, APPLY EXTERNALLY TO THE AFFECTED AREA TWICE DAILY FOR 14 DAYS, 165, cm, 10/01/20 13:31:00 EDT, Height Start Date: 01/19/21 Status: Ordered Tylenol Extra Strength 500 mg oral tablet 2 tablet = 1,000 mg, By Mouth, Every 6 hours, PRN for pain, for 360 days, # 100 tablet, 0 Refills, Acute 01/07/23 17:25:00 EDT, 01/12/22 17:25:00 EDT, Tablet, [facility] #59514, Partial fill upon patient request if the prescription is for a... Start Date: 01/12/22 Stop Date: 01/07/23 Status: Ordered Problem List Condition Confirmation Course Effective Dates Status Health St atus Informant Borderline personality disorder 1 Confirmed Active *N/CCA/CC-Katie [facility]-[phone]/ Health custodial, active care coordination Confirmed Active PTSD (post-traumatic stress disorder) Confirmed Active Tobacco dependence Confirmed Active Hepatitis C Confirmed Active 1Psych admission 04/2021 Social History Social History Type Response Smoking Status 5-9 cigarettes (betw een 1/4 to 1/2 pack)/day in last 30 days; Other: VAPING FLAVORED TOBACCO; entered on: 04/15/19 Sex Patient Care team information Care Team Personnel Name: Santi Conway DO Position: [facility] Resident Member Role: PCP Address: Address: [address] [place] [address] Name: Isabelle Sinclair Position: [facility] RN Member Role: Primary Care Nurse Name: Heaven Perez NP Position: [facility] PCO Associate Professional Member Role: Lifetime Consulting Provider Address: Address: [address] [place] [id number] Name: Cassidy Kelley RN Position: [facility] RN Member Role: Primary Care Nurse Name: Vianney Wang RN Position: [facility] RN Member Role: Primary Care Nurse Name: Evelyn Chapin RN Position: [facility] RN Member Role: Primary Care Nurse Care Team Related Persons Name: MICHAEL CHEEK Name: VINICIUS WAGONER Address: home [address] [place] [phone] Name: CINDI WU Name: PAVITHRA WU Address: home UNKNOWN
--- OUTSIDE RECORDS SUMMARY | 2023-07-18 23:07 | XMS_ITS | Continuity of Care Document ---
Author Name Unknown Organization [facility] Address [address] [place] [address]- Care Team Providers Care Senior Technical Manager Name Role Phone Santi Conway DO Primary Care Physician Encounter [facility] Date(s): 10/21/22 - 11/20/22 [facility] [address] [place], [place] [address] Attending Physician: Jose Moreira Admitting Physician: Jose [...] Stop 12/15/22 9:03:00 EDT, 12/20/21 9:03:00 EDT, [facility] #[id number], 1 puffs Inhalation 4 times a day,x90 [...] 2 Refills, Maintenance, 03/30/21 14:01:00 EDT, [facility]18503, 165, cm, 10/01/20 13:31:00 EDT, Height Start [...] Active Obese class I Confirmed Active *BHN/CCA/CC-Katie [facility]-[phone]/ Health skilled nursing, active care coordination Confirmed Active PTSD (post-traumatic stress disorder) Confirmed Active Tobacco dependence Confirmed Active Hepatitis C Confirmed Active 1Psych admission 04/2021 Social History Social History Type Response Smoking Status 5-9 cigarettes (betw een 1/4 to 1/2 pack)/day in last 30 days; Other: VAPING FLAVORED TOBACCO; entered on: 04/15/19 Sex Cardiology * Event Display: EKG Non BH Authored Date: [id number] Patient Care team information Care Team Personnel Name: Santi Conway DO Position: [facility] Resident Member Role: PCP Address: Address: [address] [place] [address]- [place] Name: Isabelle Sinclair Position: S RN Member Role: Primary Care Nurse Name: Jared Dumont RN Position: S RN Member Role: Primary Care Nurse Name: Cassidy Kelley RN Position: S RN Member Role: Primary Care Nurse Name: Evelyn Chapin RN Position: S RN Member Role: Primary Care Nurse Care Team Related Persons Name: MICHAEL CHEEK Name: VINICIUS WAGONER Address: home [address] [place] [phone] Name: CINDI WU Name: PAVITHRA WU Address: home UNKNOWN
--- OUTSIDE RECORDS SUMMARY | 2023-07-18 23:07 | XMS_ITS | Continuity of Care Document ---
Author Name Unknown Organization [facility] Address [address] [place] [address]- Care Team Providers Care Clinical Allergist Name Role Phone Santi Conway DO Primary Care Physician Encounter [facility] Date(s): 01/26/23 - 02/25/23 [facility] [address] [place] [id number] Allergies, Adverse Reactions, Alerts No Known Allergies [...] 0 Refills, Maintenance, 01/05/23 15:08:00 EDT, Tablet, [id number], Partial fill upon patient request if the [...] 2 Refills, Maintenance, 03/30/21 14:01:00 EDT, Yani, [facility] #[id number], 165, cm, 10/01/20 13:31:00 EDT, Height Start [...] 0 Refills, Maintenance, 01/28/23 9:42:00 EDT, Tablet, [facility]/pharmacy #[id number], Partial fill upon patient request if the prescription is for a schedule II opioid drug., 162, cm, 01/28/23 2:58:00 EDT, Height, 9... Start Date: 01/28/23 Status: Ordered Problem List Condition Confirmation Course Effective Dates Status Health St [facility] Informant Borderline personality disorder 1 Confirmed Active *BHN/CCA/CC-[facility]-[phone]/ Health [facility], active care coordination Confirmed Active PTSD (post-traumatic [...] Team Personnel Name: Santi Conway DO Position: [facility] Resident Member Role: PCP Address: Address: [address] [place] [address] Name: Isabelle Sinclair Position: [facility] RN Member Role: Primary Care Nurse Name: Mireya Whiting Position: [facility] RN Member Role: Primary Care Nurse Name: Jared Dumont RN Position: [facility] RN Member Role: Primary Care Nurse Name: Cassidy Kelley RN Position: [facility] RN Member Role: Primary Care Nurse Name: Evelyn Chapin RN Position: [facility] RN Member Role: Primary Care Nurse Care Team Related Persons Name: MICHAEL CHEEK Name: VINICIUS WAGONER Address: home [address] [place] [id number] Name: CINDI WU Name: PAVITHRA WU Address: home UNKNOWN
--- OUTSIDE RECORDS SUMMARY | 2023-07-18 23:07 | XMS_ITS | Continuity of Care Document ---
Author Name Unknown Organization [facility] Address [address] [place] [address]- Care Team Providers Care Clipping Marker Name Role Phone Kvng SALAZAR, Janina Her Primary Care Physician Encounter [facility] [place] Date(s): 09/16/21 - 10/17/21 [facility] [address] [place] [id number] Attending Physician: Jorge Tapia MD [...] 9:14:00 EDT, Aerosol, Route to Pharmacy Electronically, [id number], [facility] #[id number], 165, cm, 10/01/20 13:31:00 ED... Start Date: 11/10/20 Status: Ordered Atrovent HFA 17 mcg/inh inhalation aerosol 2 puffs, Inhalation, 4 times a day, # 12.9 Gm, 0 Refills, Maintenance, 10/07/19 15:10:00 EDT, Aerosol, [facility] #[id number], 165, cm, 09/17/19 11:11:00 EST, Height Start [...] capsule, 0 Refills, Acute, 01/18/21 20:42:00 EDT, [facility] #[id number], 165, cm, 10/01/20 13:31:00 EDT, Height Start [...] 07/30/20 18:10:00 EST, Route to Pharmacy Electronically, [facility] #[id number], Partial fill upon patient request if the prescription is for a sched... Start Date: 07/30/20 Status: Ordered levothyroxine 0.05 mg oral tablet 1 tablet = 50 mcg, By Mouth, Daily, # 30 tablet, 5 Refills, Maintenance, 07/15/19 17:13:00 EST, Tablet, [facility] #[id number], 165, cm, 04/15/19 16:17:00 EDT, Height, 93.5, [...] 2 Refills, Maintenance, 03/30/21 14:01:00 EDT, ECCapsule, [facility] #[id number], 165, cm, 10/01/20 13:31:00 EDT, Height Start [...] DAYS, # 80 Gm, 0 Refills, Acute, [facility] #[id number], 25, APPLY EXTERNALLY TO THE AFFECTED AREA TWICE DAILY FOR 14 DAYS, 165, cm, 10/01/20 13:31:00 EDT, Height Start Date: 01/19/21 Status: Ordered Problem List Condition Effective Dates Status Health Status Inform ant Borderline personality disorder(Confirmed) 1 Active *BHN/CCA/CC-[facility]-[phone]/Health alf, active care coordination(Confirmed) Active PTSD (post-traumatic stress disorder)(Confirmed) Active Tobacco dependence(Confirmed) Active Hepatitis C(Confirmed) Active 1Psych admission 04/2021 Social History Social History Type Response Smoking Status 5-9 cigarettes (betw een 1/4 to 1/2 pack)/day in last 30 days; Other: VAPING FLAVORED TOBACCO; entered on: 04/15/19 Sex
--- OUTSIDE RECORDS SUMMARY | 2023-07-18 23:07 | XMS_ITS | Continuity of Care Document ---
Author Name Unknown Organization [facility] Address [address] [place] [address]- Care Team Providers Care Construction Safety Consultant Name Role Phone Kvng SALAZAR, Janina Her Primary Care Physician [place] [facility] [place]18[place]21 - 03/20/21 [facility] [address] [place] [id number] Allergies, Adverse Reactions, Alerts Substance Reaction Severity Status codeine Active Medications albuterol CFC free 90 mcg/inh inhalation aerosol 1, puffs, Inhalation, 4 times a day, PRN, # 7 Gm, Refills 5, Tot. Refills 5, Maintenance, 11/10/20 9:14:00 EDT, Aerosol, Route to Pharmacy Electronically, [id number], [facility] #[id number], 165, cm, 10/01/20 13:31:00 ED... Start Date: 11/10/20 Status: Ordered Atrovent HFA 17 mcg/inh inhalation aerosol 2 puffs, Inhalation, 4 times a day, # 12.9 Gm, 0 Refills, Maintenance, 10/07/19 15:10:00 EDT, Aerosol, [facility] #[id number], 165, cm, 09/17/19 11:11:00 EST, Height Start Date: 10/07/19 Status: Ordered clonazePAM 0.5 mg oral tablet 0 Refills, Maintenance, 12/26/19 13:59:00 EDT Start Date: 12/26/19 Status: Ordered diphenhydrAMINE 25 mg oral capsule 1 capsule, By Mouth, 3 times a day, PRN NEEDED FOR ITCHING, # 100 capsule, 0 Refills, Acute, 01/18/21 20:42:00 EDT, [facility] #[id number], 165, cm, 10/01/20 13:31:00 EDT, Height Start Date: 01/18/21 Status: Ordered gabapentin 600 mg oral tablet 0 Refills, Maintenance, 12/26/19 13:59:00 EDT Start Date: 12/26/19 Status: Ordered ibuprofen 800 mg oral tablet 800 mg, 1, tablet, By Mouth, 3 times a day, # 60 tablet, Refills 1, Tot. Refills 1, Maintenance, 07/30/20 18:10:00 EST, Route to Pharmacy Electronically, [facility] #[id number], Partial fill upon patient request if the prescription is for a sched... Start Date: 07/30/20 Status: Ordered levothyroxine 0.05 mg oral tablet 1 tablet = 50 mcg, By Mouth, Daily, # 30 tablet, 5 Refills, Maintenance, 07/15/19 17:13:00 EST, Tablet, [facility] #[id number], 165, cm, 04/15/19 16:17:00 EDT, Height, 93.5, [...] 14:01:00 EDT, 10/01/20 14:01:00 EDT, EC Capsule, [facility] #[id number], 165, cm, 10/01/20 13:31:00 EDT, Height Start Date: 10/01/20 Stop Date: 03/30/21 Status: Ordered omeprazole 40 mg oral enteric coated capsule 1 capsule = 40 mg, By Mouth, Daily, # 30 capsule, 2 Refills, Maintenance, 03/30/21 14:01:00 EDT, ECCapsule, [facility] #[id number], 165, cm, 10/01/20 13:31:00 EDT, Height Start Date: 03/30/21 Stop Date: 06/28/21 Status: Ordered QUEtiapine 300 mg oral tablet 0 Refills, Maintenance, 12/26/19 13:59:00 EDT Start Date: 12/26/19 Status: Ordered triamcinolone 0.1% topical cream See Instructions, APPLY EXTERNALLY TO THE AFFECTED AREA TWICE DAILY FOR 14 DAYS, # 80 Gm, 0 Refills, Acute, [facility] #[id number], 25, APPLY EXTERNALLY TO THE AFFECTED AREA TWICE DAILY FOR 14 DAYS, 165, cm, 10/01/20 13:31:00 EDT, Height Start Date: 01/19/21 Status: Ordered Problem List Condition Effective Dates Status Health Status Inform ant *HERB/ERICH/[facility]-[phone]/Health halfway, active care coordination(Confirmed) Active Tobacco dependence(Confirmed) Active Hepatitis C(Confirmed) Active Social History Social History Type Response Smoking Status 5-9 cigarettes (betw een 1/4 to 1/2 pack)/day in last 30 days; Other: VAPING FLAVORED TOBACCO; entered on: 04/15/19 Sex Female
--- OUTSIDE RECORDS SUMMARY | 2023-07-18 23:07 | XMS_ITS | Continuity of Care Document ---
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 Start Date: 12/20/21 Stop Date: 12/15/22 Status: Ordered Atrovent HFA 17 mcg/inh inhalation aerosol 2 puffs, Inhalation, 4 times a day, # 12.9 Gm, 0 Refills, Maintenance, 10/07/19 15:10:00 EDT, Aerosol, [facility] #[id number], 165, cm, 09/17/19 11:11:00 EST, Height Start [...] 01/12/22 17:25:00 EDT, Route to Pharmacy Electronically, [facility] #[id number], Partial fill uponpatient request if the prescription [...] capsule, 0 Refills, Acute, 01/18/21 20:42:00 EDT, [facility] #[id number], 165, cm, 10/01/20 13:31:00 EDT, Height Start [...] 07/30/20 18:10:00 EST, Route to Pharmacy Electronically, [facility] #[id number], Partial fill upon patient request if the prescription is for a sched... Start Date: 07/30/20 Status: Ordered levothyroxine 0.05 mg oral tablet 1 tablet = 50 mcg, By Mouth, Daily, # 30 tablet, 5 Refills, Maintenance, 07/15/19 17:13:00 EST, Tablet, [facility] #[id number], 165, cm, 04/15/19 16:17:00 EDT, Height, 93.5, [...] 2 Refills, Maintenance, 03/30/21 14:01:00 EDT, ECCapsule, [facility] #[id number], 165, cm, 10/01/20 13:31:00 EDT, Height Start [...] DAYS, # 80 Gm, 0 Refills, Acute, [facility] #51818, 25, APPLY EXTERNALLY TO THE AFFECTED AREA TWICE DAILY FOR 14 DAYS, 165, cm, 10/01/20 13:31:00 EDT, Height Start Date: 01/19/21 Status: Ordered Tylenol Extra Strength 500 mg oral tablet 2 tablet = 1,000 mg, By Mouth, Every 6 hours, PRN for pain, for 360 days, # 100 tablet, 0 Refills, Acute 01/07/23 17:25:00 EDT, 01/12/22 17:25:00 EDT, Tablet, [facility] #[id number], Partial fill upon patient request if the prescription is for a... Start Date: 01/12/22 Stop Date: 01/07/23 Status: Ordered Problem List Condition Confirmation Course Effective Dates Status Health St [facility] Informant Borderline personality disorder 1 Confirmed Active *BHN/CCA/CC-[facility]-[phone]/ Health longterm, active care coordination Confirmed Active PTSD (post-traumatic stress disorder) Confirmed Active Tobacco dependence Confirmed Active Hepatitis C Confirmed Active 1Psych admission 04/2021 Results Radiology Reports * Exam Date Time Procedure Performing Provider Status 05/19/22 7:18 PM Chest 2 Views Frontal and Lat Lorna Lorenz; Auth (Verified) Notes: (Chest 2 Views Frontal and Lat) Reason For Exam: Angina RESULT: Chest 2 Views Frontal and Lat Chest 2 Views Frontal and Lat INDICATION/CLINICAL QUESTION: Palpitations. Cold sweats. Dyspnea on exertion. TECHNIQUE: Frontal and lateral views of the chest. COMPARISON: None.. FINDINGS: LINES AND TUBES: None. LUNGS AND PLEURA: RIGHT CHEST: The right lung is clear and there is no right effusion. LEFT CHEST: The left lung is clear and there is no left effusion. HEART, MEDIASTINUM AND GARY: The heart is of normal size. The mediastinum and gary are normal. BONES AND SOFT TISSUES: No acute bony abnormality. IMPRESSION: 1. No active disease in chest. WSN: [id number] Ordering Physician: Randa Jarquin Dictated By: Ollie Durant MD Dictated Date/Time: 05/19/22 7:22 pm Reviewed By: Ollie Durant MD Signed By: Ollie Durant MD Signed Date/Time: 05/19/22 7:22 pm Transcribed By: MAYA Transcribed Date/Time: 05/19/22 7:22 pm Vital Signs Most recent to oldest [Reference Range]: 1 2 3 Weight 85 kg (05/19/22 4:31 PM) Oxygen Saturation [94-100 %] 100 % (05/19/22 8:37 PM) 99 % (05/19/22 4:31 PM) 100 % (05/19/22 3:51 PM) Pulse Rate [55-90 bpm] 68 bpm (05/19/22 8:37 PM) 71 bpm (05/19/22 4:31 PM) 105 bpm *H* (05/19/22 3:51 PM) Blood Pressure [90-138/55-84 mm Hg] 104/54mm Hg (05/19/22 8:37 PM) 101/56mm Hg (05/19/22 4:31 PM) Respiratory Rate [16-30 br/min] 16 br/min (05/19/22 8:37 PM) 16 br/min (05/19/22 4:31 PM) Temperature [96.8-100.4 DegF] 98.8 DegF (05/19/22 4:31 PM) Mode of Delivery (Oxygen) Room air (05/19/22 8:37 PM) Blood pressure sites Arm, left (05/19/22 8:37 PM) Temperature Route Oral (05/19/22 4:31 PM) Weight Obtained Via Standing scale (05/19/22 4:31 PM) Social History Social History Type Response Smoking Status 5-9 cigarettes (betw een 1/4 to 1/2 pack)/day in last 30 days; Other: VAPING FLAVORED TOBACCO; entered on: 04/15/19 Sex Note * BHSPowerscribe , CIS S: TRANSCRIBE Ollie Durant MD: VERIFY Event Display: Result: Authored Date: Chest 2 Views Frontal and Lat INDICATION/CLINICAL QUESTION: Palpitations. Cold sweats. Dyspnea on exertion. TECHNIQUE: Frontal and lateral views of the chest. COMPARISON: None.. FINDINGS: LINES AND TUBES: None. LUNGS AND PLEURA: RIGHT CHEST: The right lung is clear and there is no right effusion. LEFT CHEST: The left lung is clear and there is no left effusion. HEART, MEDIASTINUM AND GARY: The heart is of normal size. The mediastinum and gary are normal. BONES AND SOFT TISSUES: No acute bony abnormality. IMPRESSION: 1. No active disease in chest. WSN: [id number] Ordering Physician: Randa Jarquin Dictated By: Ollie Durant MD Dictated Date/Time: 05/19/22 7:22 pm Reviewed By: Ollie Durant MD Signed By: Ollie Durant MD Signed Date/Time: 05/19/22 7:22 pm Transcribed By: MAYA Transcribed Date/Time: 05/19/22 7:22 pm Patient Care team information Personnel Name: Santi Conway DO Address: Address: [address] [place] [id number] [[email or web address]]
--- OUTSIDE RECORDS SUMMARY | 2023-07-18 23:07 | XMS_ITS | Continuity of Care Document ---
Author Name Unknown Organization [facility] Address [address] [place] [address]- Care Team Providers Care Android Software Engineer Name Role Phone Santi Conway DO Primary Care Physician [place] [facility] [place]22 [facility] [address] [place] [id number] Attending Physician: Jorge Tapia MD Admitting Physician: Jorge Tapia MD Allergies, Adverse Reactions, Alerts No Known [...] Stop 12/15/22 9:03:00 EDT, 12/20/21 9:03:00 EDT, [facility] #[id number], 1 puffs Inhalation 4 times a day,x90 days,PRN: NEEDED FOR WHEEZI... Start Date: 12/20/21 Stop Date: 12/15/22 Status: Ordered Atrovent HFA 17 mcg/inh inhalation aerosol 2 puffs, Inhalation, 4 times a day, # 12.9 Gm, 0 Refills, Maintenance, 10/07/19 15:10:00 EDT, Aerosol, [facility] #[id number], 165, cm, 09/17/19 11:11:00 EST, Height Start [...] 01/12/22 17:25:00 EDT, Route to Pharmacy Electronically, [facility] #[id number], Partial fill uponpatient request if the prescription [...] capsule, 0 Refills, Acute, 01/18/21 20:42:00 EDT, [facility] #[id number], 165, cm, 10/01/20 13:31:00 EDT, Height Start [...] 07/30/20 18:10:00 EST, Route to Pharmacy Electronically, [facility] #[id number], Partial fill upon patient request if the prescription is for a sched... Start Date: 07/30/20 Status: Ordered levothyroxine 0.05 mg oral tablet 1 tablet = 50 mcg, By Mouth, Daily, # 30 tablet, 5 Refills, Maintenance, 07/15/19 17:13:00 EST, Tablet, [facility] #[id number], 165, cm, 04/15/19 16:17:00 EDT, Height, 93.5, [...] 11 Refills, Soft Stop, 07/13/22 17:04:00 EST, [facility] #65291, Partial fill upon patient request if the [...] 2 Refills, Maintenance, 03/30/21 14:01:00 EDT, ECCapsule, [facility] #28753, 165, cm, 10/01/20 13:31:00 EDT, Height Start [...] DAYS, # 80 Gm, 0 Refills, Acute, [facility] #[id number], 25, APPLY EXTERNALLY TO THE AFFECTED AREA TWICE DAILY FOR 14 DAYS, 165, cm, 10/01/20 13:31:00 EDT, Height Start Date: 01/19/21 Status: Ordered Tylenol Extra Strength 500 mg oral tablet 2 tablet = 1,000 mg, By Mouth, Every 6 hours, PRN for pain, for 360 days, # 100 tablet, 0 Refills, Acute 01/07/23 17:25:00 EDT, 01/12/22 17:25:00 EDT, Tablet, [facility] #45810, Partial fill upon patient request if the prescription is for a... Start Date: 01/12/22 Stop Date: 01/07/23 Status: Ordered Problem List Condition Confirmation Course Effective Dates Status Health St [facility] Informant Borderline personality disorder 1 Confirmed Active Obese class I Confirmed Active *N/CCA/CC-[facility]-[phone]/ Health senior living, active care coordination Confirmed Active PTSD (post-traumatic stress disorder) Confirmed Active Tobacco dependence Confirmed Active Hepatitis C Confirmed Active 1Psych admission 04/2021 Social History Social History Type Response Smoking Status 5-9 cigarettes (betw een 1/4 to 1/2 pack)/day in last 30 days; Other: VAPING FLAVORED TOBACCO; entered on: 04/15/19 Sex Patient Care team information Care Team Personnel Name: Sidthomascorina DO Scottlongcheng Position: [facility] Resident Member Role: PCP Address: Address: [address] [place] [address]- Name: Isabelle Sinclair Position: [facility] RN Member Role: Primary Care Nurse Name: Heaven Perez NP Position: [facility] PCO Associate Professional Member Role: Lifetime Consulting Provider Address: Address: [address] [place] [address]- Name: Cassidy Kelley RN Position: [facility] RN Member Role: Primary Care Nurse Name: Evelyn Chapin RN Position: [facility] RN Member Role: Primary Care Nurse Care Team Related Persons Name: MICHAEL CHEEK Name: VINICIUS WAGONER Address: home [address] [place] [id number] Name: CINDI WU Name: PAVITHRA WU Address: home UNKNOWN
--- OUTSIDE RECORDS SUMMARY | 2023-07-18 23:07 | XMS_ITS | Continuity of Care Document ---
Author Name Unknown Organization [facility] Address [address] [place] [address]- Care Team Providers Care Color Technician Name Role Phone Kvng SALAZAR, Janina Her Primary Care Physician [place] [facility] [place] [facility] [address] [place] [id number] Allergies, Adverse Reactions, Alerts Substance Reaction Severity Status codeine Active Medications albuterol CFC free 90 mcg/inh inhalation aerosol 1, puffs, Inhalation, 4 times a day, PRN, # 7 Gm, Refills 5, Tot. Refills 5, Maintenance, 11/10/20 9:14:00 EDT, Aerosol, Route to Pharmacy Electronically, [id number], [facility] #[id number], 165, cm, 10/01/20 13:31:00 ED... Start Date: 11/10/20 Status: Ordered Atrovent HFA 17 mcg/inh inhalation aerosol 2 puffs, Inhalation, 4 times a day, # 12.9 Gm, 0 Refills, Maintenance, 10/07/19 15:10:00 EDT, Aerosol, [facility] #[id number], 165, cm, 09/17/19 11:11:00 EST, Height Start Date: 10/07/19 Status: Ordered clonazePAM 0.5 mg oral tablet 0 Refills, Maintenance, 12/26/19 13:59:00 EDT Start Date: 12/26/19 Status: Ordered diphenhydrAMINE 25 mg oral capsule 1 capsule, By Mouth, 3 times a day, PRN NEEDED FOR ITCHING, # 100 capsule, 0 Refills, Acute, 01/18/21 20:42:00 EDT, [facility] #77504, 165, cm, 10/01/20 13:31:00 EDT, Height Start Date: 01/18/21 Status: Ordered gabapentin 600 mg oral tablet 0 Refills, Maintenance, 12/26/19 13:59:00 EDT Start Date: 12/26/19 Status: Ordered ibuprofen 800 mg oral tablet 800 mg, 1, tablet, By Mouth, 3 times a day, # 60 tablet, Refills 1, Tot. Refills 1, Maintenance, 07/30/20 18:10:00 EST, Route to Pharmacy Electronically, [facility] #[id number], Partial fill upon patient request if the prescription is for a sched... Start Date: 07/30/20 Status: Ordered levothyroxine 0.05 mg oral tablet 1 tablet = 50 mcg, By Mouth, Daily, # 30 tablet, 5 Refills, Maintenance, 07/15/19 17:13:00 EST, Tablet, [facility] #[id number], 165, cm, 04/15/19 16:17:00 EDT, Height, 93.5, [...] 5 Refills, Maintenance, 10/01/20 14:01:00 EDT, ECCapsule, [facility] #75354, 165, cm, 10/01/20 13:31:00 EDT, Height Start Date: 10/01/20 Stop Date: 03/30/21 Status: Ordered QUEtiapine 300 mg oral tablet 0 Refills, Maintenance, 12/26/19 13:59:00 EDT Start Date: 12/26/19 Status: Ordered triamcinolone 0.1% topical cream See Instructions, APPLY EXTERNALLY TO THE AFFECTED AREA TWICE DAILY FOR 14 DAYS, # 80 Gm, 0 Refills, Acute, [facility] #[id number], 25, APPLY EXTERNALLY TO THE AFFECTED AREA TWICE DAILY FOR 14 DAYS, 165, cm, 10/01/20 13:31:00 EDT, Height Start Date: 01/19/21 Status: Ordered Problem List Condition Effective Dates Status Health Status Inform ant *WILLIAMN/ERICH/CC-[facility]-[phone]/Health detention, active care coordination(Confirmed) Active Tobacco dependence(Confirmed) Active Hepatitis C(Confirmed) Active Social History Social History Type Response Smoking Status 5-9 cigarettes (betw een 1/4 to 1/2 pack)/day in last 30 days; Other: VAPING FLAVORED TOBACCO; entered on: 04/15/19 Sex Female
--- OUTSIDE RECORDS SUMMARY | 2023-07-18 23:07 | XMS_ITS | Continuity of Care Document ---
Author Name Unknown Organization [facility] Address [address] [place] [address]- Care Team Providers Care Mattress Renovator Name Role Phone Not on Staff, PCP Primary Care Physician Unavail able Encounter [facility] Date(s): 10/01/20 - 10/31/20 [facility] [address], [place] [address] Attending Physician: AdmJose washington Admitting Physician: Admtr, Ar8 Referring Physician: Admtr, Ar8 Allergies, Adverse Reactions, Alerts Substance Reaction Severity Status codeine Active Medications albuterol CFC free 90 mcg/inh inhalation aerosol 1, puffs, Inhalation, 4 times a day, PRN, # 7 Gm, Refills 5, Tot. Refills 5, Maintenance, 12/02/19 10:54:00 EDT, Aerosol, Route to Pharmacy Electronically, [id number], [facility] #[id number], 165, cm, 09/17/19 11:11:00 E... Start Date: 12/02/19 Status: Ordered Atrovent HFA 17 mcg/inh inhalation aerosol 2 puffs, Inhalation, 4 times a day, # 12.9 Gm, 0 Refills, Maintenance, 10/07/19 15:10:00 EDT, Aerosol, [facility] #[id number], 165, cm, 09/17/19 11:11:00 EST, Height Start Date: 10/07/19 Status: Ordered clonazePAM 0.5 mg oral tablet 0 Refills, Maintenance, 12/26/19 13:59:00 EDT Start Date: 12/26/19 Status: Ordered gabapentin 600 mg oral tablet 0 Refills, Maintenance, 12/26/19 13:59:00 EDT Start Date: 12/26/19 Status: Ordered ibuprofen 800 mg oral tablet 800 mg, 1, tablet, By Mouth, 3 times a day, # 60 tablet, Refills 1, Tot. Refills 1, Maintenance, 07/30/20 18:10:00 EST, Route to Pharmacy Electronically, [facility] #[id number], Partial fill upon patient request if the prescription is for a sched... Start Date: 07/30/20 Status: Ordered levothyroxine 0.05 mg oral tablet 1 tablet = 50 mcg, By Mouth, Daily, # 30 tablet, 5 Refills, Maintenance, 07/15/19 17:13:00 EST, Tablet, [facility] #[id number], 165, cm, 04/15/19 16:17:00 EDT, Height, 93.5, [...] 5 Refills, Maintenance, 10/01/20 14:01:00 EDT, ECCapsule, [facility] #[id number], 165, cm, 10/01/20 13:31:00 EDT, Height Start Date: 10/01/20 Stop Date: 03/30/21 Status: Ordered QUEtiapine 300 mg oral tablet 0 Refills, Maintenance, 12/26/19 13:59:00 EDT Start Date: 12/26/19 Status: Ordered Problem List Condition Effective Dates Status Health Status Inform ant *BHN/CCA/CC-[facility]-[phone]/Health chcf, active care coordination(Confirmed) Active Tobacco dependence(Confirmed) Active Hepatitis C(Confirmed) Active Social History Social History Type Response Smoking Status 5-9 cigarettes (betw een 1/4 to 1/2 pack)/day in last 30 days; Other: VAPING FLAVORED TOBACCO; entered on: 04/15/19 Sex Female
--- OUTSIDE RECORDS SUMMARY | 2023-07-18 23:07 | XMS_ITS | Continuity of Care Document ---
Author Name Unknown Organization [facility] Address [address] [place] [address]- Care Team Providers Care Gear Coding Machine Operator Name Role Phone Kvng SALAZAR, Janina Her Primary Care Physician [place] [facility] Date(s): 11/25/21 - 12/25/21 [facility] [address] [place] [id number] Attending Physician: Jose Moreira Admitting Physician: AdmJose washington Referring Physician: AdmtrJose Allergies, Adverse Reactions, Alerts Substance Reaction Severity [...] Stop 12/15/22 9:03:00 EDT, 12/20/21 9:03:00 EDT, [facility] #[id number], 1 puffs Inhalation 4 times a day,x90 days,PRN: NEEDED FOR WHEEZI... Start Date: 12/20/21 Stop Date: 12/15/22 Status: Ordered Atrovent HFA 17 mcg/inh inhalation aerosol 2 puffs, Inhalation, 4 times a day, # 12.9 Gm, 0 Refills, Maintenance, 10/07/19 15:10:00 EDT, Aerosol, [facility] #[id number], 165, cm, 09/17/19 11:11:00 EST, Height Start [...] capsule, 0 Refills, Acute, 01/18/21 20:42:00 EDT, [facility] #[id number], 165, cm, 10/01/20 13:31:00 EDT, Height Start [...] 07/30/20 18:10:00 EST, Route to Pharmacy Electronically, [facility] #[id number], Partial fill upon patient request if the prescription is for a sched... Start Date: 07/30/20 Status: Ordered levothyroxine 0.05 mg oral tablet 1 tablet = 50 mcg, By Mouth, Daily, # 30 tablet, 5 Refills, Maintenance, 07/15/19 17:13:00 EST, Tablet, [facility] #44284, 165, cm, 04/15/19 16:17:00 EDT, Height, 93.5, [...] 2 Refills, Maintenance, 03/30/21 14:01:00 EDT, ECCapsule, [facility] #55341, 165, cm, 10/01/20 13:31:00 EDT, Height Start [...] DAYS, # 80 Gm, 0 Refills, Acute, [facility] #04825, 25, APPLY EXTERNALLY TO THE AFFECTED AREA TWICE DAILY FOR 14 DAYS, 165, cm, 10/01/20 13:31:00 EDT, Height Start Date: 01/19/21 Status: Ordered Problem List Condition Effective Dates Status Health Status Inform ant Borderline personality disorder(Confirmed) 1 Active *BHN/CCA/CC-[facility]-[phone]/Health snf, active care coordination(Confirmed) Active PTSD (post-traumatic stress disorder)(Confirmed) Active Tobacco dependence(Confirmed) Active Hepatitis C(Confirmed) Active 1Psych admission 04/2021 Social History Social History Type Response Smoking Status 5-9 cigarettes (betw een 1/4 to 1/2 pack)/day in last 30 days; Other: VAPING FLAVORED TOBACCO; entered on: 04/15/19 Sex
--- OUTSIDE RECORDS SUMMARY | 2023-07-18 23:07 | XMS_ITS | Continuity of Care Document ---
Author Name Unknown Organization [facility] Address [address] [place] [address]- Care Team Providers Care Buggy Driver Name Role Phone Kvgn SALAZAR, Janina Her Primary Care Physician [place] [facility] [place] 09/20/21 - 10/20/21 [facility] [address] [place] [id number] Attending Physician: AdmJose washington Admitting Physician: AdmtrJose Referring Physician: AdmtrJose Allergies, Adverse Reactions, Alerts [...] 9:14:00 EDT, Aerosol, Route to Pharmacy Electronically, [id number], [id number], 165, cm, 10/01/20 13:31:00 ED... Start Date: 11/10/20 Status: Ordered Atrovent HFA 17 mcg/inh inhalation aerosol 2 puffs, Inhalation, 4 times a day, # 12.9 Gm, 0 Refills, Maintenance, 10/07/19 15:10:00 EDT, Aerosol, [facility] #82086, 165, cm, 09/17/19 11:11:00 EST, Height Start [...] capsule, 0 Refills, Acute, 01/18/21 20:42:00 EDT, [facility] #39653, 165, cm, 10/01/20 13:31:00 EDT, Height Start [...] 07/30/20 18:10:00 EST, Route to Pharmacy Electronically, [facility] #[id number], Partial fill upon patient request if the prescription is for a sched... Start Date: 07/30/20 Status: Ordered levothyroxine 0.05 mg oral tablet 1 tablet = 50 mcg, By Mouth, Daily, # 30 tablet, 5 Refills, Maintenance, 07/15/19 17:13:00 EST, Tablet, [facility] #25875, 165, cm, 04/15/19 16:17:00 EDT, Height, 93.5, [...] 2 Refills, Maintenance, 03/30/21 14:01:00 EDT, ECCapsule, [facility] #11262, 165, cm, 10/01/20 13:31:00 EDT, Height Start [...] DAYS, # 80 Gm, 0 Refills, Acute, [facility] #08315, 25, APPLY EXTERNALLY TO THE AFFECTED AREA TWICE DAILY FOR 14 DAYS, 165, cm, 10/01/20 13:31:00 EDT, Height Start Date: 01/19/21 Status: Ordered Problem List Condition Effective Dates Status Health Status Inform ant Borderline personality disorder(Confirmed) 1 Active *BHN/CCA/CC-[facility]-[phone]/Health residential, active care coordination(Confirmed) Active PTSD (post-traumatic stress disorder)(Confirmed) Active Tobacco dependence(Confirmed) Active Hepatitis C(Confirmed) Active 1Psych admission 04/2021 Social History Social History Type Response Smoking Status 5-9 cigarettes (betw een 1/4 to 1/2 pack)/day in last 30 days; Other: VAPING FLAVORED TOBACCO; entered on: 04/15/19 Sex
--- OUTSIDE RECORDS SUMMARY | 2023-07-18 23:07 | XMS_ITS | Continuity of Care Document ---
Author Name Unknown Organization [facility] Address [address] [place] [address]- Care Team Providers Care Zoo Director Name Role Phone Santi Conway DO Primary Care Physician Encounter [facility] Date(s): 01/13/23 - 02/12/23 [facility] [address] [place] [id number] Allergies, Adverse Reactions, [...] 0 Refills, Maintenance, 01/05/23 15:08:00 EDT, Tablet, [facility] #[id number], Partial fill upon patient request if the [...] 2 Refills, Maintenance, 03/30/21 14:01:00 EDT, ECCapsule, [facility] #07209, 165, cm, 10/01/20 13:31:00 EDT, Height Start [...] 0 Refills, Maintenance, 01/28/23 9:42:00 EDT, Tablet, [facility]/pharmacy #[id number], Partial fill upon patient request if the prescription is for a schedule II opioid drug., 162, cm, 01/28/23 2:58:00 EDT, Height, 9... Start Date: 01/28/23 Status: Ordered Problem List Condition Confirmation Course Effective Dates Status Health St [facility] Informant Borderline personality disorder 1 Confirmed Active *[phone]/ Health custodial, active care coordination Confirmed Active [...] Team Personnel Name: Santi Conway DO Position: [facility] Resident Member Role: PCP Address: Address: [address] [place] [address] Name: Isabelle Sinclair Position: S RN Member [...] MICHAEL CHEEK Name: VINICIUS WAGONER Address: home [address] [place] [id number] Name: CINDI WU Name: PAVITHRA WU Address: home UNKNOWN
--- OUTSIDE RECORDS SUMMARY | 2023-07-18 23:07 | XMS_ITS | Continuity of Care Document ---
Author Name Unknown Organization [facility] Address [address] [place] [address]- Care Team Providers Care Product Safety Engineer Name Role Phone Santi Conway DO Primary Care Physician Encounter [facility] [place] [place] Date(s): 10/10/22 - 11/20/22 [facility] [address] [place], [place] [address] Attending Physician: Not on Staff, Attending MD [...] Stop 12/15/22 9:03:00 EDT, 12/20/21 9:03:00 EDT, [facility] #[id number], 1 puffs Inhalation 4 times a day,x90 [...] 2 Refills, Maintenance, 03/30/21 14:01:00 EDT, [facility] #73775, 165, cm, 10/01/20 13:31:00 EDT, Height Start [...] Active Obese class I Confirmed Active *BHN/CCA/CC-[facility]-[phone]/ Health correction, active care coordination Confirmed Active PTSD (post-traumatic stress disorder) Confirmed Active Tobacco dependence Confirmed Active Hepatitis C Confirmed Active 1Psych admission 04/2021 Social History Social History Type Response Smoking Status 5-9 cigarettes (betw een 1/4 to 1/2 pack)/day in last 30 days; Other: VAPING FLAVORED TOBACCO; entered on: 04/15/19 Sex Patient Care team information Care Team Personnel Name: Santi Conway DO Position: [facility] Resident Member Role: PCP Address: Address: [address] [place] [id number] Name: Isabelle Sinclair Position: [facility] RN Member Role: Primary Care Nurse Name: Jared Dumont RN Position: [facility] RN Member Role: Primary Care Nurse Name: Cassidy Kelley RN Position: S RN Member Role: Primary Care Nurse Name: Evelyn Chapin RN Position: [facility] RN Member Role: Primary Care Nurse Care Team Related Persons Name: MICHAEL CHEEK Name: VINICIUS WAGONER Address: [address] [address] Name: CINDI WU Name: PAVITHRA WU Address: home UNKNOWN
--- OUTSIDE RECORDS SUMMARY | 2023-07-18 23:07 | XMS_ITS | Continuity of Care Document ---
Author Name Unknown Organization [facility] Address [address] [place] [address]- Care Team Providers Care Supervisor Cured Meats Name Role Phone Kvng SALAZAR, Janina Her Primary Care Physician Encounter [facility] Date(s): 10/22/19 - 10/29/19 [facility] [address] [place] [id number] [place] Encounter Diagnosis Chronic sinusitis(Discharge Diagnosis) - 10/22/19 Attending Physician: Abhishek SALAZAR, Delio Brice Admitting Physician: Willie SALAZAR, Jorge Juan Allergies, Adverse Reactions, Alerts Substance Reaction Severity Status codeine Active Medications acetaminophen 325 mg oral tablet 650 mg, 2, tablet, By Mouth, Every 4 hours, PRN, # 30 tablet, Refills 0, Tot. Refills 0, Maintenance, as needed for fever, 09/16/19 13:27:00 EST, Route to Pharmacy Electronically, [facility] #[id number], 165, cm, 09/13/19 9:34:00 EST, Height Start Date: 09/16/19 Status: Ordered albuterol CFC free 90 mcg/inh inhalation aerosol 1, puffs, Inhalation, 4 times a day, PRN, # 7 Gm, Refills 0, Tot. Refills 0, Maintenance, 10/13/19 14:32:00 EDT, Aerosol, Route to Pharmacy Electronically, [id number], [facility] #[id number], 165, cm, 09/17/19 11:11:00 E... Start Date: 10/13/19 Status: Ordered Atrovent HFA 17 mcg/inh inhalation aerosol 2 puffs, Inhalation, 4 times a day, # 12.9 Gm, 0 Refills, Maintenance, 10/07/19 15:10:00 EDT, Aerosol, [facility] #51611, 165, cm, 09/17/19 11:11:00 EST, Height Start [...] 0 Refills, Soft Stop, 10/06/19 10:57:00 EDT, Tablet,[facility] #[id number], 165, cm, 09/17/19 11:11:00 EST, Height Start Date: 10/06/19 Status: Ordered Flonase 50 mcg/inh nasal spray 1 sprays, Nares, Both, Daily in AM, # 9.9 mL, 0 Refills, Maintenance, 09/13/19 10:15:00 EST, [place] #87803, 1 sprays Nares, Both Daily in AM, 165, cm, 09/13/19 9:34:00 EST, Height Start Date: 09/13/19 Status: Ordered Flonase 50 mcg/inh nasal spray 1 sprays, Nares, Both, 2 times a day, # 16 Gm, 0 Refills, Maintenance, 10/11/19 8:25:00 EDT, [place] #93077, 1 sprays Nares, Both 2 times a [...] 5 Refills, Maintenance, 07/15/19 17:13:00 EST, Tablet, [facility] #92057, 165, cm, 04/15/19 16:17:00 EDT, Height, 93.5, [...] 11:40:00 EDT, 10/22/19 11:40:00 EDT, ER Tablet, [facility] #29739, 165, cm, 09/17/19 11:11:00 EST, Height Start Date: 10/22/19 Stop Date: 11/05/19 Status: Ordered Problem List Condition Effective Dates Status Health Status Inform ant *WILLIAMN/ERICH/[facility]-[phone]/Health [facility], active care coordination(Confirmed) Active Tobacco dependence(Confirmed) Active Hepatitis C(Confirmed) Active Diagnosis Diagnosis Type Effective Dates Health Status Cl inical Service Informant Chronic sinusitis Discharge Diagnosis 10/22/19 Social History Social History Type Response Smoking Status 5-9 cigarettes (betw een 1/4 to 1/2 pack)/day in last 30 days; Other: VAPING FLAVORED TOBACCO; entered on: 04/15/19 Sex Female
--- OUTSIDE RECORDS SUMMARY | 2023-07-18 23:07 | XMS_ITS | Continuity of Care Document ---
Author Name Unknown Organization [facility] Address [address] [place] [address]- Care Team Providers Care Ethanol Quality Leader Name Role Phone Not on Staff, PCP Primary Care Physician Unavail able Encounter [facility] Date(s): 02/25/22 - 03/27/22 [facility] Medicine [address] [place] [id number] Attending Physician: Jose Moreira Admitting Physician: AdmJose [...] Stop 12/15/22 9:03:00 EDT, 12/20/21 9:03:00 EDT, [facility] #[id number], 1 puffs Inhalation 4 times a day,x90 days,PRN: NEEDED FOR WHEEZI... Start Date: 12/20/21 Stop Date: 12/15/22 Status: Ordered Atrovent HFA 17 mcg/inh inhalation aerosol 2 puffs, Inhalation, 4 times a day, # 12.9 Gm, 0 Refills, Maintenance, 10/07/19 15:10:00 EDT, Aerosol, [facility] #[id number], 165, cm, 09/17/19 11:11:00 EST, Height Start [...] 01/12/22 17:25:00 EDT, Route to Pharmacy Electronically, [facility] #[id number], Partial fill uponpatient request if the prescription [...] capsule, 0 Refills, Acute, 01/18/21 20:42:00 EDT, [facility] #19961, 165, cm, 10/01/20 13:31:00 EDT, Height Start [...] 07/30/20 18:10:00 EST, Route to Pharmacy Electronically, [facility] #[id number], Partial fill upon patient request if the prescription is for a sched... Start Date: 07/30/20 Status: Ordered levothyroxine 0.05 mg oral tablet 1 tablet = 50 mcg, By Mouth, Daily, # 30 tablet, 5 Refills, Maintenance, 07/15/19 17:13:00 EST, Tablet, [facility] #76356, 165, cm, 04/15/19 16:17:00 EDT, Height, 93.5, [...] 2 Refills, Maintenance, 03/30/21 14:01:00 EDT, ECCapsule, [facility] #11385, 165, cm, 10/01/20 13:31:00 EDT, Height Start [...] DAYS, # 80 Gm, 0 Refills, Acute, [facility] #58285, 25, APPLY EXTERNALLY TO THE AFFECTED AREA TWICE DAILY FOR 14 DAYS, 165, cm, 10/01/20 13:31:00 EDT, Height Start Date: 01/19/21 Status: Ordered Tylenol Extra Strength 500 mg oral tablet 2 tablet = 1,000 mg, By Mouth, Every 6 hours, PRN for pain, for 360 days, # 100 tablet, 0 Refills, Acute 01/07/23 17:25:00 EDT, 01/12/22 17:25:00 EDT, Tablet, [facility] #32291, Partial fill upon patient request if the prescription is for a... Start Date: 01/12/22 Stop Date: 01/07/23 Status: Ordered Problem List Condition Effective Dates Status Health Status Inform ant Borderline personality disorder(Confirmed) 1 Active *BHN/CCA/CC-[facility]-[phone]/Health retirement, active care coordination(Confirmed) Active PTSD (post-traumatic stress disorder)(Confirmed) Active Tobacco dependence(Confirmed) Active Hepatitis C(Confirmed) Active 1Psych admission 04/2021 Social History Social History Type Response Smoking Status 5-9 cigarettes (betw een 1/4 to 1/2 pack)/day in last 30 days; Other: VAPING FLAVORED TOBACCO; entered on: 04/15/19 Sex Care Team Personnel Name: Not on Staff, PCP
--- OUTSIDE RECORDS SUMMARY | 2023-07-18 23:07 | XMS_ITS | Continuity of Care Document ---
Author Name Unknown Organization [facility] Address [address] [place] [address]- Care Team Providers Care Sales Marketing Director Name Role Phone Kvng SALAZAR, Janina Her Primary Care Physician [phone] Encounter [facility] [place] Date(s): 11/12/19 - 12/12/19 [facility] [address] [place] [address] [facility] Attending Physician: Jose Moreira Admitting Physician: AdmtrJose Referring Physician: Admtr ArFabian Allergies, Adverse Reactions, Alerts Substance Reaction Severity Status codeine Active Medications acetaminophen 325 mg oral tablet 650 mg, 2, tablet, By Mouth, Every 4 hours, PRN, # 30 tablet, Refills 0, Tot. Refills 0, Maintenance, as needed for fever, 09/16/19 13:27:00 EST, Route to Pharmacy Electronically, [facility] #[id number], 165, cm, 09/13/19 9:34:00 EST, Height Start Date: 09/16/19 Status: Ordered albuterol CFC free 90 mcg/inh inhalation aerosol 1, puffs, Inhalation, 4 times a day, PRN, # 7 Gm, Refills 5, Tot. Refills 5, Maintenance, 12/02/19 10:54:00 EDT, Aerosol, Route to Pharmacy Electronically, [id number], [facility] #[id number], 165, cm, 09/17/19 11:11:00 E... Start Date: 12/02/19 Status: Ordered Atrovent HFA 17 mcg/inh inhalation aerosol 2 puffs, Inhalation, 4 times a day, # 12.9 Gm, 0 Refills, Maintenance, 10/07/19 15:10:00 EDT, Aerosol, [facility] #30248, 165, cm, 09/17/19 11:11:00 EST, Height Start Date: 10/07/19 Status: Ordered cetirizine 5 mg oral tablet 1 tablet = 5 mg, By Mouth, Daily, PRN Congestion, # 90 tablet, 1 Refills, Maintenance, 11/12/19 11:57:00 EDT, Tablet, [facility] #[id number], 165, cm, 09/17/19 11:11:00 EST, Height Start [...] 0 Refills, Soft Stop, 10/06/19 10:57:00 EDT, Tablet,[facility] #[id number], 165, cm, 09/17/19 11:11:00 EST, Height Start Date: 10/06/19 Status: Ordered Flonase 50 mcg/inh nasal spray 1 sprays, Nares, Both, Daily in AM, # 9.9 mL, 0 Refills, Maintenance, 09/13/19 10:15:00 EST, [place] #73731, 1 sprays Nares, Both Daily in AM, 165, cm, 09/13/19 9:34:00 EST, Height Start Date: 09/13/19 Status: Ordered Flonase 50 mcg/inh nasal spray 1 sprays, Nares, Both, 2 times a day, # 16 Gm, 0 Refills, Maintenance, 10/11/19 8:25:00 EDT, [place],[facility] #08687, 1 sprays Nares, Both 2 times a [...] Refills, Acute 01/11/20 11:55:00 EDT,11/12/19 11:55:00 EDT, [place], [facility] #77473, 2 sprays Nares, Both 2 times a day,x30 days, 165, cm, 09/17/19 11:11:00 EST, Height Start Date: 11/12/19 Stop Date: 01/11/20 Status: Ordered levothyroxine 0.05 mg oral tablet 1 tablet = 50 mcg, By Mouth, Daily, # 30 tablet, 5 Refills, Maintenance, 07/15/19 17:13:00 EST, Tablet, [facility] #[id number], 165, cm, 04/15/19 16:17:00 EDT, Height, 93.5, [...] Status Health Status Inform ant *BHN/CCA/JOHNNIE-[facility]-[phone]/Health alf, active care coordination(Confirmed) Active Tobacco dependence(Confirmed) Active Hepatitis C(Confirmed) Active Social History Social History Type Response Smoking Status 5-9 cigarettes (betw een 1/4 to 1/2 pack)/day in last 30 days; Other: VAPING FLAVORED TOBACCO; entered on: 04/15/19 Sex Female
--- OUTSIDE RECORDS SUMMARY | 2023-07-18 23:07 | XMS_ITS | Continuity of Care Document ---
Author Name Unknown Organization [facility] Address [address] [place] [id number]- Care Team Providers Care Fuse Cutter Name Role Phone Not on Staff, PCP Primary Care Physician Unavail able Encounter [facility] Date(s): 09/04/20 - 10/04/[address] [address]- Allergies, Adverse Reactions, Alerts Substance Reaction Severity Status codeine Active Medications albuterol CFC free 90 mcg/inh inhalation aerosol 1, puffs, Inhalation, 4 times a day, PRN, # 7 Gm, Refills 5, Tot. Refills 5, Maintenance, 12/02/19 10:54:00 EDT, Aerosol, Route to Pharmacy Electronically, [id number], [facility] #[id number], 165, cm, 09/17/19 11:11:00 E... Start Date: 12/02/19 Status: Ordered Atrovent HFA 17 mcg/inh inhalation aerosol 2 puffs, Inhalation, 4 times a day, # 12.9 Gm, 0 Refills, Maintenance, 10/07/19 15:10:00 EDT, Aerosol, [facility] #[id number], 165, cm, 09/17/19 11:11:00 EST, Height Start [...] 07/30/20 18:10:00 EST, Route to Pharmacy Electronically, [facility] #[id number], Partial fill upon patient request if the prescription is for a sched... Start Date: 07/30/20 Status: Ordered levothyroxine 0.05 mg oral tablet 1 tablet = 50 mcg, By Mouth, Daily, # 30 tablet, 5 Refills, Maintenance, 07/15/19 17:13:00 EST, Tablet, [facility] #[id number], 165, cm, 04/15/19 16:17:00 EDT, Height, 93.5, [...] 5 Refills, Maintenance, 10/01/20 14:01:00 EDT, ECCapsule, [facility] #[id number], 165, cm, 10/01/20 13:31:00 EDT, Height Start Date: 10/01/20 Stop Date: 03/30/21 Status: Ordered QUEtiapine 300 mg oral tablet 0 Refills, Maintenance, 12/26/19 13:59:00 EDT Start Date: 12/26/19 Status: Ordered Problem List Condition Effective Dates Status Health Status Inform ant *N/CCA/CC-[facility]-[phone]/Health [facility], active care coordination(Confirmed) Active Tobacco dependence(Confirmed) Active Hepatitis C(Confirmed) Active Social History Social History Type Response Smoking Status 5-9 cigarettes (betw een 1/4 to 1/2 pack)/day in last 30 days; Other: VAPING FLAVORED TOBACCO; entered on: 04/15/19 Sex Female
--- OUTSIDE RECORDS SUMMARY | 2023-07-18 23:07 | XMS_ITS | Continuity of Care Document ---
Author Name Unknown Organization [facility] Address [address] [place] [address]- Care Team Providers Care Circulation Clerk Name Role Phone Kvng SALAZAR, Janian Her Primary Care Physician [place] [facility] [place]16[place] - 04/15/20 [facility] [address] [place] [address]- [facility] Allergies, Adverse Reactions, Alerts Substance Reaction Severity Status codeine Active Medications acetaminophen 325 mg oral tablet 650 mg, 2, tablet, By Mouth, Every 4 hours, PRN, # 30 tablet, Refills 0, Tot. Refills 0, Maintenance, as needed for fever, 09/16/19 13:27:00 EST, Route to Pharmacy Electronically, [facility] #[id number], 165, cm, 09/13/19 9:34:00 EST, Height Start Date: 09/16/19 Status: Ordered albuterol CFC free 90 mcg/inh inhalation aerosol 1, puffs, Inhalation, 4 times a day, PRN, # 7 Gm, Refills 5, Tot. Refills 5, Maintenance, 12/02/19 10:54:00 EDT, Aerosol, Route to Pharmacy Electronically, [id number], [facility] #[id number], 165, cm, 09/17/19 11:11:00 E... Start Date: 12/02/19 Status: Ordered Atrovent HFA 17 mcg/inh inhalation aerosol 2 puffs, Inhalation, 4 times a day, # 12.9 Gm, 0 Refills, Maintenance, 10/07/19 15:10:00 EDT, Aerosol, [facility] #[id number], 165, cm, 09/17/19 11:11:00 EST, Height Start Date: 10/07/19 Status: Ordered Benadryl 25 mg oral capsule 1 capsule = 25 mg, By Mouth, 3 times a day, PRN for itching, for 30 days, # 100 capsule, 0 Refills,Acute 04/19/20 16:28:00 EDT, 03/20/20 16:28:00 EDT, Capsule, [facility] #[id number], 165, cm, 03/20/20 16:09:00 EDT, Height Start Date: 03/20/20 Stop Date: 04/19/20 Status: Ordered cetirizine 5 mg oral tablet 1 tablet = 5 mg, By Mouth, Daily, PRN Congestion, # 90 tablet, 1 Refills, Maintenance, 11/12/19 11:57:00 EDT, Tablet, [facility] #06073, 165, cm, 09/17/19 11:11:00 EST, Height Start [...] 1 Refills, Maintenance, 03/15/20 14:27:00 EDT, Liquid, [facility] #00559, 5 mL By Mouth Every 4 hours,PRN:for cough and congestion, 165, cm, 09/17/19 11:11:00 EST, Height Start Date: 03/15/20 Status: Ordered Diflucan 150 mg oral tablet 1 tablet = 150 mg, By Mouth, Once, # 1 tablet, 1 Refills, Soft Stop, 12/26/19 13:58:00 EDT, Tablet,[facility] #04711, 165, cm, 09/17/19 11:11:00 EST, Height Start Date: 12/26/19 Status: Ordered Flonase 50 mcg/inh nasal spray 1 sprays, Nares, Both, Daily in AM, # 9.9 mL, 0 Refills, Maintenance, 09/13/19 10:15:00 EST, [place] #51125, 1 sprays Nares, Both Daily in AM, 165, cm, 09/13/19 9:34:00 EST, Height Start Date: 09/13/19 Status: Ordered Flonase 50 mcg/inh nasal spray 1 sprays, Nares, Both, 2 times a day, # 16 Gm, 0 Refills, Maintenance, 10/11/19 8:25:00 EDT, [place] #01240, 1 sprays Nares, Both 2 times a day, 165, cm, 09/17/19 11:11:00 EST, Height Start Date: 10/11/19 Status: Ordered gabapentin 600 mg oral tablet 0 Refills, Maintenance, 12/26/19 13:59:00 EDT Start Date: 12/26/19 Status: Ordered levothyroxine 0.05 mg oral tablet 1 tablet = 50 mcg, By Mouth, Daily, # 30 tablet, 5 Refills, Maintenance, 07/15/19 17:13:00 EST, Tablet, [facility] #50487, 165, cm, 04/15/19 16:17:00 EDT, Height, 93.5, [...] 5 Refills, Maintenance, 03/20/20 16:18:00 EDT, ECCapsule, [facility] #19759, 165, cm, 03/20/20 16:09:00 EDT, Height Start Date: 03/20/20 Stop Date: 09/16/20 Status: Ordered QUEtiapine 300 mg oral tablet 0 Refills, Maintenance, 12/26/19 13:59:00 EDT Start Date: 12/26/19 Status: Ordered Problem List Condition Effective Dates Status Health Status Inform ant *BHN/ERICH/CC-Katie [facility]-[phone]/Health mcc, active care coordination(Confirmed) Active Tobacco dependence(Confirmed) Active Hepatitis C(Confirmed) Active Social History Social History Type Response Smoking Status 5-9 cigarettes (betw een 1/4 to 1/2 pack)/day in last 30 days; Other: VAPING FLAVORED TOBACCO; entered on: 04/15/19 Sex Female
--- OUTSIDE RECORDS SUMMARY | 2023-07-18 23:07 | XMS_ITS | Continuity of Care Document ---
Author Name Unknown Organization [facility] ter Address [address] [place] [address]- Care Team Providers Care Electronics Processor Name Role Phone Kvng SALAZAR, Janina Her Primary Care Physician [phone] [place] [facility] [place] 02/21/21 - 02/21/[address] [address]- Encounter Diagnosis IVDU (intravenous drug user)(Final) - 02/22/21 Discharge Disposition: A-D/C Home Attending Physician: Óscar Boo MD Admitting Physician: Óscar Boo MD Referring Physician: Not on Staff, Referring MD Allergies, Adverse Reactions, Alerts Substance Reaction Severity Status codeine Active Medications albuterol CFC free 90 mcg/inh inhalation aerosol 1, puffs, Inhalation, 4 times a day, PRN, # 7 Gm, Refills 5, Tot. Refills 5, Maintenance, 11/10/20 9:14:00 EDT, Aerosol, Route to Pharmacy Electronically, [id number], [facility] #[id number], 165, cm, 10/01/20 13:31:00 ED... Start Date: 11/10/20 Status: Ordered Atrovent HFA 17 mcg/inh inhalation aerosol 2 puffs, Inhalation, 4 times a day, # 12.9 Gm, 0 Refills, Maintenance, 10/07/19 15:10:00 EDT, Aerosol, [facility] #09630, 165, cm, 09/17/19 11:11:00 EST, Height Start Date: 10/07/19 Status: Ordered clonazePAM 0.5 mg oral tablet 0 Refills, Maintenance, 12/26/19 13:59:00 EDT Start Date: 12/26/19 Status: Ordered diphenhydrAMINE 25 mg oral capsule 1 capsule, By Mouth, 3 times a day, PRN NEEDED FOR ITCHING, # 100 capsule, 0 Refills, Acute, 01/18/21 20:42:00 EDT, [facility] #[id number], 165, cm, 10/01/20 13:31:00 EDT, Height Start Date: 01/18/21 Status: Ordered gabapentin 600 mg oral tablet 0 Refills, Maintenance, 12/26/19 13:59:00 EDT Start Date: 12/26/19 Status: Ordered ibuprofen 800 mg oral tablet 800 mg, 1, tablet, By Mouth, 3 times a day, # 60 tablet, Refills 1, Tot. Refills 1, Maintenance, 07/30/20 18:10:00 EST, Route to Pharmacy Electronically, [facility] #[id number], Partial fill upon patient request if the prescription is for a sched... Start Date: 07/30/20 Status: Ordered levothyroxine 0.05 mg oral tablet 1 tablet = 50 mcg, By Mouth, Daily, # 30 tablet, 5 Refills, Maintenance, 07/15/19 17:13:00 EST, Tablet, [facility] #63788, 165, cm, 04/15/19 16:17:00 EDT, Height, 93.5, [...] 14:01:00 EDT, 10/01/20 14:01:00 EDT, EC Capsule, [facility] #33471, 165, cm, 10/01/20 13:31:00 EDT, Height Start Date: 10/01/20 Stop Date: 03/30/21 Status: Ordered omeprazole 40 mg oral enteric coated capsule 1 capsule = 40 mg, By Mouth, Daily, # 30 capsule, 2 Refills, Maintenance, 03/30/21 14:01:00 EDT, ECCapsule, [facility] #72297, 165, cm, 10/01/20 13:31:00 EDT, Height Start Date: 03/30/21 Stop Date: 06/28/21 Status: Ordered QUEtiapine 300 mg oral tablet 0 Refills, Maintenance, 12/26/19 13:59:00 EDT Start Date: 12/26/19 Status: Ordered triamcinolone 0.1% topical cream See Instructions, APPLY EXTERNALLY TO THE AFFECTED AREA TWICE DAILY FOR 14 DAYS, # 80 Gm, 0 Refills, Acute, [facility] #55793, 25, APPLY EXTERNALLY TO THE AFFECTED AREA TWICE DAILY FOR 14 DAYS, 165, cm, 10/01/20 13:31:00 EDT, Height Start Date: 01/19/21 Status: Ordered Problem List Condition Effective Dates Status Health Status Inform ant *BHN/CCA/[facility]-[phone]/Health senior care, active care coordination(Confirmed) Active Tobacco dependence(Confirmed) Active Hepatitis C(Confirmed) Active Vital Signs Most recent to oldest [Reference Range]: 1 2 3 Oxygen Saturation [94-100 %] 96 % (02/21/21 10:27 PM) 99 % (02/21/21 8:31 PM) 100 % (02/21/21 4:38 PM) Pulse Rate [55-90 bpm] 76 bpm (02/21/21 10:27 PM) 89 bpm (02/21/21 8:31 PM) 107 bpm *H* (02/21/21 4:38 PM) Blood Pressure [90-138/55-84 mm Hg] 120/66mm Hg (02/21/21 11:00 PM) 86/55mm Hg *L* (02/21/21 10:27 PM) 102/74mm Hg (02/21/21 8:31 PM) Respiratory Rate [16-30 br/min] 18 br/min (02/21/21 10:27 PM) 17 br/min (02/21/21 8:31 PM) 16 br/min (02/21/21 4:38 PM) Temperature [96.8-100.4 DegF] 98.6 DegF (02/21/21 8:31 PM) 99.8 DegF (02/21/21 4:38 PM) Liters per Minute 0 L/min (02/21/21 3:51 PM) Mode of Delivery (Oxygen) Room air (02/21/21 10:27 PM) Room air (02/21/21 8:31 PM) Room air (02/21/21 4:38 PM) Temperature Route Oral (02/21/21 8:31 PM) Oral (02/21/21 4:38 PM) Social History Social History Type Response Smoking Status 5-9 cigarettes (betw een 1/4 to 1/2 pack)/day in last 30 days; Other: VAPING FLAVORED TOBACCO; entered on: 04/15/19 Sex Female
--- OUTSIDE RECORDS SUMMARY | 2023-07-18 23:07 | XMS_ITS | Continuity of Care Document ---
Author Name Unknown Organization [facility] Adult Medicine Address [address] [place] [address]- Care Team Providers Care Rn Examiner Name Role Phone Kvng SALAZAR, Janina Her Primary Care Physician [phone] [place] [facility] [place](s): 10/07/19 - 10/14/19 [facility] Adult [facility] [address] [place] [address]- [facility] Attending Physician: Kali Pineda MD Admitting Physician: Willie SALAZAR, Jorge Juan Allergies, Adverse Reactions, Alerts Substance Reaction Severity Status codeine Active Medications acetaminophen 325 mg oral tablet 650 mg, 2, tablet, By Mouth, Every 4 hours, PRN, # 30 tablet, Refills 0, Tot. Refills 0, Maintenance, as needed for fever, 09/16/19 13:27:00 EST, Route to Pharmacy Electronically, [facility] #[id number], 165, cm, 09/13/19 9:34:00 EST, Height Start Date: 09/16/19 Status: Ordered albuterol CFC free 90 mcg/inh inhalation aerosol 1, puffs, Inhalation, 4 times a day, PRN, # 7 Gm, Refills 0, Tot. Refills 0, Maintenance, 10/13/19 14:32:00 EDT, Aerosol, Route to Pharmacy Electronically, [id number], [facility] #45562, 165, cm, 09/17/19 11:11:00 E... Start Date: 10/13/19 Status: Ordered Atrovent HFA 17 mcg/inh inhalation aerosol 2 puffs, Inhalation, 4 times a day, # 12.9 Gm, 0 Refills, Maintenance, 10/07/19 15:10:00 EDT, Aerosol, [facility] #75163, 165, cm, 09/17/19 11:11:00 EST, Height Start Date: 10/07/19 Status: Ordered Augmentin 500 mg-125 mg oral tablet 1 tablet, By Mouth, Every 8 hours, for 7 days, take with food., # 21 tablet, 0 Refills, Acute 10/15/19 11:39:00 EDT, 10/08/19 11:39:00 EDT, [facility] #64087, 165, cm, 09/17/19 11:11:00 EST, Height Start Date: 10/08/19 Stop Date: 10/15/19 Status: Ordered clonazePAM 1 mg oral tablet [...] 0 Refills, Soft Stop, 10/06/19 10:57:00 EDT, Tablet,[facility] #[id number], 165, cm, 09/17/19 11:11:00 EST, Height Start Date: 10/06/19 Status: Ordered Flonase 50 mcg/inh nasal spray 1 sprays, Nares, Both, Daily in AM, # 9.9 mL, 0 Refills, Maintenance, 09/13/19 10:15:00 EST, [place] #76570, 1 sprays Nares, Both Daily in AM, 165, cm, 09/13/19 9:34:00 EST, Height Start Date: 09/13/19 Status: Ordered Flonase 50 mcg/inh nasal spray 1 sprays, Nares, Both, 2 times a day, # 16 Gm, 0 Refills, Maintenance, 10/11/19 8:25:00 EDT, [place] #53357, 1 sprays Nares, Both 2 times a [...] 10/13/19 14:30:00 EDT, Route to Pharmacy Electronically, [facility] #07604, 165, cm, 09/17/19 11:11:... Start Date: 10/13/19 Stop Date: 10/23/19 Status: Ordered levothyroxine 0.05 mg oral tablet 1 tablet = 50 mcg, By Mouth, Daily, # 30 tablet, 5 Refills, Maintenance, 07/15/19 17:13:00 EST, Tablet, [facility] #92610, 165, cm, 04/15/19 16:17:00 EDT, Height, 93.5, [...] Dates Status Health Status Inform ant *WILLIAMN/ERICH/CC-Katie [facility]-[phone]/Health residential, active care coordination(Confirmed) Active Tobacco dependence(Confirmed) Active Hepatitis C(Confirmed) Active Social History Social History Type Response Smoking Status 5-9 cigarettes (betw een 1/4 to 1/2 pack)/day in last 30 days; Other: VAPING FLAVORED TOBACCO; entered on: 04/15/19 Sex Female
--- OUTSIDE RECORDS SUMMARY | 2023-07-18 23:07 | XMS_ITS | Continuity of Care Document ---
Author Name Unknown Organization [facility] Adult Medicine Address [address] [place] [address]- Care Team Providers Care Hop Worker Name Role Phone Kvng SALAZAR, Janina Her Primary Care Physician Encounter [facility] [place] Date(s): 09/05/19 - 10/11/19 [facility] [address] [place] [address]- [facility] Attending Physician: Not on Staff, Attending MD Allergies, Adverse Reactions, Alerts Substance Reaction Severity Status codeine Active Medications acetaminophen 325 mg oral tablet 650 mg, 2, tablet, By Mouth, Every 4 hours, PRN, # 30 tablet, Refills 0, Tot. Refills 0, Maintenance, as needed for fever, 09/16/19 13:27:00 EST, Route to Pharmacy Electronically, [facility] #[id number], 165, cm, 09/13/19 9:34:00 EST, Height Start Date: 09/16/19 Status: Ordered Atrovent HFA 17 mcg/inh inhalation aerosol 2 puffs, Inhalation, 4 times a day, # 12.9 Gm, 0 Refills, Maintenance, 10/07/19 15:10:00 EDT, Aerosol, [facility] #01657, 165, cm, 09/17/19 11:11:00 EST, Height Start Date: 10/07/19 Status: Ordered Augmentin 500 mg-125 mg oral tablet 1 tablet, By Mouth, Every 8 hours, for 7 days, take with food., # 21 tablet, 0 Refills, Acute 10/15/19 11:39:00 EDT, 10/08/19 11:39:00 EDT, [facility] #36249, 165, cm, 09/17/19 11:11:00 EST, Height Start [...] 0 Refills, Soft Stop, 10/06/19 10:57:00 EDT, Tablet,[facility] #91293, 165, cm, 09/17/19 11:11:00 EST, Height Start Date: 10/06/19 Status: Ordered Flonase 50 mcg/inh nasal spray 1 sprays, Nares, Both, Daily in AM, # 9.9 mL, 0 Refills, Maintenance, 09/13/19 10:15:00 EST, [place] #87938, 1 sprays Nares, Both Daily in AM, 165, cm, 09/13/19 9:34:00 EST, Height Start Date: 09/13/19 Status: Ordered Flonase 50 mcg/inh nasal spray 1 sprays, Nares, Both, 2 times a day, # 16 Gm, 0 Refills, Maintenance, 10/11/19 8:25:00 EDT, [place] #15643, 1 sprays Nares, Both 2 times a day, 165, cm, 09/17/19 11:11:00 EST, Height Start Date: 10/11/19 Status: Ordered gabapentin 600 mg oral tablet 1 tablet = 600 mg, By Mouth, 2 times a day, # 60 tablet, 4 Refills, Maintenance, 09/19/18 13:40:07 EST Start Date: 09/19/18 Status: Ordered ibuprofen 200 mg oral capsule 2 capsule = 400 mg, By Mouth, Every 4 hours, PRN as needed for pain, # 50 capsule, 0 Refills, Maintenance, 09/16/19 13:27:00 EST, Capsule, [facility] #04844, 165, cm, 09/13/19 9:34:00 EST, Height Start Date: 09/16/19 Status: Ordered levothyroxine 0.05 mg oral tablet 1 tablet = 50 mcg, By Mouth, Daily, # 30 tablet, 5 Refills, Maintenance, 07/15/19 17:13:00 EST, Tablet, [facility] #16096, 165, cm, 04/15/19 16:17:00 EDT, Height, 93.5, kg, 08/24/17 21:31:00 EST, Dry Weight Start Date: 07/15/19 Status: Ordered methadone 10 mg oral tablet = 40 mg, By Mouth, Daily, 0 Refills, Maintenance, 08/26/17 11:07:54, Tablet Start Date: 08/26/17 Status: Ordered nystatin 461555 u/ml oral suspension 5 mL = 500,000 units, By Mouth, 4 times a day, for 7 days, swish and swallow, # 140 mL, 0 Refills, Acute 10/13/19 10:56:00 EDT, 10/06/19 10:56:00 EDT, Suspension, [facility] #36135, 165, cm, 09/17/19 11:11:00 EST, Height Start Date: 10/06/19 Stop Date: 10/13/19 Status: Ordered omeprazole 40 mg oral enteric [...] Dates Status Health Status Inform ant *BHN/CCA/CC-[facility]-[phone]/Health snf, active care coordination(Confirmed) Active Tobacco dependence(Confirmed) Active Hepatitis C(Confirmed) Active Social History Social History Type Response Smoking Status 5-9 cigarettes (betw een 1/4 to 1/2 pack)/day in last 30 days; Other: VAPING FLAVORED TOBACCO; entered on: 04/15/19 Sex Female
--- OUTSIDE RECORDS SUMMARY | 2023-07-18 23:07 | XMS_ITS | Continuity of Care Document ---
Author Name Unknown Organization [facility] ter Address [address] [place] [address]- Care Team Providers Care Forest Ecologist Name Role Phone Santi Conway DO Primary Care Physician [phone] Encounter [facility] [place] Date(s): 01/04/23 - 01/04/[address] [address]- Discharge Disposition: A-D/C Walkout Attending Physician: Not [...] 2 Refills, Maintenance, 03/30/21 14:01:00 EDT, [facility] #[id number], 165, cm, 10/01/20 13:31:00 EDT, Height Start [...] Active Obese class I Confirmed Active *BHN/CCA/CC-Katie [facility]-[phone]/ Health correction, active care coordination Confirmed Active PTSD (post-traumatic stress disorder) Confirmed Active Tobacco dependence Confirmed Active Hepatitis C Confirmed Active 1Psych admission 04/2021 Vital Signs Most recent to oldest [Reference Range]: 1 Oxygen Saturation [94-100 %] 100 % (01/04/23 6:24 PM) Pulse Rate [55-90 bpm] 115 bpm *H* (01/04/23 6:24 PM) Blood Pressure [90-138/55-84 mm Hg] 193/ 95mm Hg *H* (01/04/23 6:24 PM) Respiratory Rate [16-30 br/min] 18 br/mi n (01/04/23 6:24 PM) Temperature [96.8-100.4 DegF] 99.1 DegF (01/04/23 6:24 PM) Mode of Delivery (Oxygen) Room air (01/04/23 6:24 PM) Blood pressure sites Arm, left (01/04/23 6:24 PM) Temperature Route Oral (6/21/23 6:24 PM) Social History Social History Type Response Smoking Status 5-9 cigarettes (betw een 1/4 to 1/2 pack)/day in last 30 days; Other: VAPING FLAVORED TOBACCO; entered on: 04/15/19 Sex Patient Care team information Care Team Personnel Name: Santi Conway DO Position: [facility] Resident Member Role: PCP Address: Address: [address] [place] [address] Name: Isabelle Sinclair Position: S RN Member Role: Primary Care Nurse Name: Jared Dumont RN Position: [facility] RN Member Role: Primary Care Nurse Name: Cassidy Kelley RN Position: [facility] RN Member Role: Primary Care Nurse Name: Evelyn Chapin RN Position: [facility] RN Member Role: Primary Care Nurse Care Team Related Persons Name: MICHAEL CHEEK Name: VINICIUS WAGONER Address: home [address] [place] [address] Name: CINDI WU Name: PAVITHRA WU Address: home UNKNOWN
--- OUTSIDE RECORDS SUMMARY | 2023-07-18 23:07 | XMS_ITS | Continuity of Care Document ---
Author Name Unknown Organization [facility] Adult [facility] Address [address] [place] [address]- Care Team Providers Care Accounts Executive Name Role Phone Santi Conway DO Primary Care Physician Encounter [facility] Date(s): 05/29/23 - 06/28/23 [facility] Adult [facility] [address] [place] [id number] Allergies, Adverse Reactions, Alerts No Known [...] 0 Refills, Maintenance, 01/05/23 15:08:00 EDT, Tablet, [facility] #00142, Partial fill upon patient request if the [...] 2 Refills, Maintenance, 03/30/21 14:01:00 EDT, ECCapsule, [facility] #[id number], 165, cm, 10/01/20 13:31:00 EDT, Height Start [...] 0 Refills, Maintenance, 01/28/23 9:42:00 EDT, Tablet, [facility]/pharmacy #[id number], Partial fill upon patient request if the prescription is for a schedule II opioid drug., 162, cm, 01/28/23 2:58:00 EDT, Height, 9... Start Date: 01/28/23 Status: Ordered Problem List Condition Confirmation Course Effective Dates Status Health St [facility] Informant Borderline personality disorder 1 Confirmed Active *BHN/CCA [facility]/Water Pipe Installer-[facility] Esp[facility]-[phone]/Health residential, active care coordination Confirmed Active PTSD (post-traumatic [...] [place] Resident Member Role: PCP Address: Address: [address] [place] [address] Name: Isabelle Sinclair Position: S RN Member Role: Primary Care Nurse Name: Mireya Whiting Position: S RN Member Role: Primary Care Nurse Name: Jared Dumont RN Position: [facility] RN Member Role: Primary Care Nurse Name: Cassidy Kelley RN Position: S RN Member Role: Primary Care Nurse Name: Evelyn Chapin RN Position: S RN Member Role: Primary Care Nurse Care Team Related Persons Name: MICHAEL CHEEK Name: VINICIUS WAGONER Address: home [address] [place] [address] Name: CINDI WU Name: PAVITHRA WU Address: home UNKNOWN
--- OUTSIDE RECORDS SUMMARY | 2023-07-18 23:07 | XMS_ITS | Continuity of Care Document ---
Author Name Unknown Organization [facility] Adult [facility] Address [address] [place] [address]- Care Team Providers Care Planogrammer Name Role Phone Santi Conway DO Primary Care Physician [id number] Date[facility] 05/26/22 - 06/25/22 [facility] [address] [place], [place] [address] Attending Physician: Cassidy Mendoza MD Admitting Physician: Cassidy Mendoza MD Allergies, Adverse Reactions, Alerts No Known [...] Stop 12/15/22 9:03:00 EDT, 12/20/21 9:03:00 EDT, [facility] #85676, 1 puffs Inhalation 4 times a day,x90 days,PRN: NEEDED FOR WHEEZI... Start Date: 12/20/21 Stop Date: 12/15/22 Status: Ordered Atrovent HFA 17 mcg/inh inhalation aerosol 2 puffs, Inhalation, 4 times a day, # 12.9 Gm, 0 Refills, Maintenance, 10/07/19 15:10:00 EDT, Aerosol, [facility] #77221, 165, cm, 09/17/19 11:11:00 EST, Height Start [...] 01/12/22 17:25:00 EDT, Route to Pharmacy Electronically, [facility] #[id number], Partial fill uponpatient request if the prescription [...] capsule, 0 Refills, Acute, 01/18/21 20:42:00 EDT, [facility] #01509, 165, cm, 10/01/20 13:31:00 EDT, Height Start [...] 07/30/20 18:10:00 EST, Route to Pharmacy Electronically, [facility] #[id number], Partial fill upon patient request if the prescription is for a sched... Start Date: 07/30/20 Status: Ordered levothyroxine 0.05 mg oral tablet 1 tablet = 50 mcg, By Mouth, Daily, # 30 tablet, 5 Refills, Maintenance, 07/15/19 17:13:00 EST, Tablet, [facility] #05010, 165, cm, 04/15/19 16:17:00 EDT, Height, 93.5, [...] 2 Refills, Maintenance, 03/30/21 14:01:00 EDT, ECCapsule, [facility] #59545, 165, cm, 10/01/20 13:31:00 EDT, Height Start [...] DAYS, # 80 Gm, 0 Refills, Acute, [facility] #61146, 25, APPLY EXTERNALLY TO THE AFFECTED AREA TWICE DAILY FOR 14 DAYS, 165, cm, 10/01/20 13:31:00 EDT, Height Start Date: 01/19/21 Status: Ordered Tylenol Extra Strength 500 mg oral tablet 2 tablet = 1,000 mg, By Mouth, Every 6 hours, PRN for pain, for 360 days, # 100 tablet, 0 Refills, Acute 01/07/23 17:25:00 EDT, 01/12/22 17:25:00 EDT, Tablet, [facility] #52913, Partial fill upon patient request if the prescription is for a... Start Date: 01/12/22 Stop Date: 01/07/23 Status: Ordered Problem List Condition Confirmation Course Effective Dates Status Health [facility] Informant Borderline personality disorder 1 Confirmed Active *BHN/CCA/CC-[facility]-[phone]/ Health [facility], active care [...] Team Personnel Name: Santi Conway DO Position: [facility] Resident Member Role: PCP Address: Address: [address] [place] [address]- Name: Isabelle Sinclair Position: S RN Member Role: Primary Care Nurse Name: Heaven Perez NP Position: [facility] PCO Associate Professional Member Role: Lifetime Consulting Provider Address: Address: [address] [place] [address]- Name: Cassidy Kelley RN Position: [facility] RN Member Role: Primary Care Nurse Name: Vianney Wang RN Position: [facility] RN Member Role: Primary Care Nurse Name: Evelyn Chapin RN Position: [facility] RN Member Role: Primary Care Nurse Care Team Related Persons Name: MICHAEL CHEEK Name: VINICIUS WAGONER Address: home [address] [place] [id number] Name: CINDI WU Name: PAVITHRA WU Address: home UNKNOWN
--- OUTSIDE RECORDS SUMMARY | 2023-07-18 23:07 | XMS_ITS | Continuity of Care Document ---
Author Name Unknown Organization [facility] ter Address [address] [place] [id number]- Care Team Providers Care Nickel Plater Name Role Phone Santi Conway DO Primary Care Physician [phone] Encounter [facility] Date(s): 01/05/23 - 01/05/[address] [address]- Encounter Diagnosis Arm pain(Final) - 01/05/23 Discharge Disposition: A-D/C Home Attending Physician: Carol Calvillo DO Admitting Physician: Carol Calvillo DO Referring Physician: Not on Staff, Referring MD [...] 0 Refills, Maintenance, 01/05/23 15:08:00 EDT, Tablet, [id number], Partial fill upon patient request if the prescription is for a schedule II opioid drug., 163, cm,... Start Date: 01/05/23 Status: Ordered KlonoPIN 0.5 mg oral tablet [...] capsule, 2 Refills, Maintenance, 03/30/21 14:01:00 EDT, ECCfrancisule, [facility] #[id number], 165, cm, 10/01/20 13:31:00 EDT, Height Start [...] Active Obese class I Confirmed Active *[facility]N/CCA/[facility]-[phone]/ Health retirement, active care coordination Confirmed Active PTSD (post-traumatic stress disorder) Confirmed Active Tobacco dependence Confirmed Active Hepatitis C Confirmed Active 1Psy admission 04/2021 Results Radiology Reports * Exam Date Time Procedure Performing Provider Status 01/05/23 8:56 AM US Doppler Ext Upper Venous Left Tali Bonilla; Auth (Verified) Notes: (US Doppler Ext Upper Venous Left) Reason For Exam: Pain in limb;Other: RESULT: US Doppler Ext Upper Venous Left US Doppler Ext Upper Venous Left Hx of Present Illness: left upper arm pain I have a bulge in my arm and left side facial pain. ptstates it feels like my face is being pulled ongoing for the past 2 days.; Reason: Other:; Pain in limb; Clinical Question(s): Thrombosis COMPARISON: 09/26/2022 IMAGING TECHNIQUE: Ultrasound examination of the upper extremity deep venous system was performed using grayscale, color, and spectral wave analysis including response to compression. Assessment includes the contralateral jugular and subclavian vein. FINDINGS: Internal jugular vein: Patent. No thrombosis. Subclavian vein: Patent. No thrombosis. Axillary vein: Patent. No thrombosis. Brachial vein: Patent. No thrombosis. Basilic vein: Patent. No thrombosis. Cephalic vein: Patent. No thrombosis. Contralateral internal jugular vein: Patent. No thrombosis. Contralateral subclavian vein: Patent. No thrombosis. IMPRESSION: No evidence of venous thrombosis. WSN: [id number] Ordering Physician: Geetha Lugo Dictated By: Juan A Johnson MD Dictated Date/Time: 01/05/23 9:18 am Reviewed By: Juan A Johnson MD Signed By: Juan A Johnson MD Signed Date/Time: 01/05/23 9:18 am Transcribed By: MAYA Transcribed Date/Time: 01/05/23 9:17 am Vital Signs Most recent to oldest [Reference Range]: 1 2 3 Oxygen Saturation [94-100 %] 100 % (01/05/23 3:13 PM) 100 % (01/05/23 8:26 AM) 99 % (01/05/23 6:19 AM) Pulse Rate [55-90 bpm] 88 bpm (01/05/23 3:13 PM) 99 bpm *H* (01/05/23 8:26 AM) 91 bpm *H* (01/05/23 6:19 AM) Blood Pressure [90-138/55-84 mm Hg] 134/78mm Hg (01/05/23 3:13 PM) 139/86mm Hg *H* (01/05/23 8:26 AM) 159/83mm Hg *H* (01/05/23 6:19 AM) Respiratory Rate [16-30 br/min] 18 br/min (01/05/23 3:13 PM) 18 br/min (01/05/23 8:26 AM) 20 br/min (01/05/23 6:19 AM) Temperature [96.8-100.4 DegF] 98.2 DegF (01/05/23 3:13 PM) 98.5 DegF (01/05/23 8:26 AM) 98.4 DegF (01/05/23 2:03 AM) Mode of Delivery (Oxygen) Room air (01/05/23 3:13 PM) Room air (01/05/23 8:26 AM) Room air (01/05/23 6:19 AM) Blood pressure sites Arm, right (01/05/23 3:13 PM) Arm, right (01/05/23 8:26 AM) Arm, right (01/05/23 6:19 AM) Temperature Route Oral (01/05/23 3:13 PM) Oral (01/05/23 8:26 AM) Oral (01/05/23 2:03 AM) Social History Social History Type Response Smoking Status 5-9 cigarettes (betw een 1/4 to 1/2 pack)/day in last 30 days; Other: VAPING FLAVORED TOBACCO; entered on: 04/15/19 Sex Patient Care team information Care Team Personnel Name: Santi Conway DO Position: [facility] Resident Member Role: PCP Address: Address: [address] [place] [address] Name: Isabelle Sinclair Position: [facility] RN Member Role: Primary Care Nurse Name: Jared Dumont RN Position: [facility] RN Member Role: Primary Care Nurse Name: Cassidy Kelley RN Position: [facility] RN Member Role: Primary Care Nurse Name: Evelyn Chapin RN Position: [facility] RN Member Role: Primary Care Nurse Name: Matt Rosenbaum RN Position: [facility] ED RN W/OE and Tasks Member Role: Patient Care Provider Name: Geetha Lugo MD Position: [facility] Resident Member Role: ED Resident Address: Address: [address] [place] [address] Emergency Medicine [address] Name: Concepción Lew Position: [facility] ED [facility] Member Role: [place] Man Name: Severo Mccallum Position: [facility] ED [facility] Name: Carol Calvillo DO Position: [facility] ED Medicine MD Member Role: Admitting Physician Address: Address: [address] [place], [place] [id number]- Care Team Related Persons Name: MICHAEL CHEEK Name: VINICIUS WAGONER Address: [address] [place] [address] Name: CINDI WU Name: PAVITHRA WU Address: home UNKNOWN
--- OUTSIDE RECORDS SUMMARY | 2023-07-18 23:07 | XMS_ITS | Continuity of Care Document ---
Author Name Unknown Organization [facility] al Address [address] [place] [address]- Care Team Providers Care Photographer Lithographic Name Role Phone Santi Conway DO Primary Care Physician Encounter [facility] Date(s): 09/26/22 - 09/26/[address] [address]- Discharge Disposition: Transferred to short-term general hospit Attending Physician: Mary Kay Chapin MD Admitting Physician: Mary Kay Chapin MD Referring Physician: Not on Staff, Referring [...] Stop 12/15/22 9:03:00 EDT, 12/20/21 9:03:00 EDT, [facility] #[id number], 1 puffs Inhalation 4 times a day,x90 days,PRN: NEEDED FOR WHEEZI... Start Date: 12/20/21 Stop Date: 12/15/22 Status: Ordered Atrovent HFA 17 mcg/inh inhalation aerosol 2 puffs, Inhalation, 4 times a day, # 12.9 Gm, 0 Refills, Maintenance, 10/07/19 15:10:00 EDT, Aerosol, [facility] #[id number], 165, cm, 09/17/19 11:11:00 EST, Height Start Date: 10/07/19 Status: Ordered buPROPion 150 mg/24 hours (XL) oral tablet, extended release 1 tablet = 150 mg, By Mouth, Daily, # 30 tablet, 0 Refills, Maintenance, 04/22/21 9:39:00 EDT, XL Tablet, Partial fill upon patient request if the prescription is for a schedule II opioid drug. Start Date: 04/22/21 Status: Ordered KlonoPIN 0.5 mg oral tablet 1 tablet = 0.5 mg, By Mouth, 2 times a day, 0 Refills, Maintenance, 09/26/22 14:32:00 EDT, Tablet, Partial fill upon patient request if the prescription is for a schedule II opioid drug. Start Date: 09/26/22 Status: Ordered levothyroxine 0.05 mg oral tablet 1 tablet = 50 mcg, By Mouth, Daily, # 30 tablet, 5 Refills, Maintenance, 07/15/19 17:13:00 EST, Tablet, [facility] #[id number], 165, cm, 04/15/19 16:17:00 EDT, Height, 93.5, kg, 08/24/17 21:31:00 EST, Dry Weight Start Date: 07/15/19 Status: Ordered methadone 5 mg/5 mL oral [...] 2 Refills, Maintenance, 03/30/21 14:01:00 EDT, ECCapsule, [facility] #[id number], 165, cm, 10/01/20 13:31:00 EDT, Height Start [...] Active Obese class I Confirmed Active *[facility]-[phone]/ Health detention, active care coordination Confirmed Active PTSD (post-traumatic stress disorder) Confirmed Active Tobacco dependence Confirmed Active Hepatitis C Confirmed Active 1Psych admission 04/2021 Results Radiology Reports * Exam Date Time Procedure Performing Provider Status 09/26/22 6:[address] Abd/Pelvis W/ IV Contrast Only Adrianne Jenkins; Auth (Verified) Notes: (CT Abd/Pelvis W/ IV Contrast Only) Reason For Exam: llq pain;Other: RESULT: CT Abd/Pelvis W/ IV Contrast Only CT Abd/Pelvis W/ IV Contrast Only Hx of Present Illness: Left lower quadrant pain TECHNIQUE: Spiral CT through the abdomen and pelvis with IV contrast formatted in 3 planes. 100 cc of Omnipaque 300 was administered intravenously. This study was performed without oral contrast. Weight-based protocol using automatic tube modulation was used to optimize exposure parameters. COMPARISON: None. FINDINGS: Knobber View Findings, Lines and Tubes: None. Visualized Chest: Lung bases are clear. No pleural effusion. The heart is normal in size. No pericardial effusion. Diaphragm: Normal. Liver: Focal fat along the falx from ligament, otherwise unremarkable. Gallbladder: No CT evidence of gallbladder pathology. Bile ducts: No biliary ductal dilation. Spleen: Splenomegaly measuring up to 14 cm in AP dimension. Pancreas: Normal. Adrenal glands: Normal. Kidneys and ureters: No hydronephrosis, stones, or suspicious masses. Bladder: Normal. Reproductive organs: Unremarkable. Stomach, small bowel, and large bowel: Significant stool burden seen throughout the colon. Moderaterectal stool ball with mild associated rectal wall thickening. No significant inflammatory change. No small bowel obstruction. Appendix: Normal. Peritoneum and retroperitoneum: No ascites or pneumoperitoneum. No omental or mesenteric lesions. Lymph nodes: No enlarged lymph nodes. Blood vessels: Normal. No aneurysm. No evidence of venous thrombosis. Abdominal and pelvic wall: Unremarkable. Bones: No acute abnormality. IMPRESSION: Constipation with moderate rectal stool ball which may reflect impaction. Splenomegaly of uncertain etiology. This may reflect underlying hepatocellular disease, lymphoproliferative disease, or infectious disease. WSN: [id number] Ordering Physician: Mary Kay Chapin Dictated By: Dandy Valerio MD Dictated Date/Time: 09/26/22 6:36 pm Reviewed By: Dandy Valerio MD Signed By: Dandy Valerio MD Signed Date/Time: 09/26/22 6:36 pm Transcribed By: CSBritni Transcribed Date/Time: 09/26/22 6:32 pm * Exam Date Time Procedure Performing Provider Status 09/26/22 5:14 PM Chest 2 Views Frontal and Lat Tanika Cook; Auth (Verified) Notes: (Chest 2 Views Frontal and Lat) Reason For Exam: Fever RESULT: Chest 2 Views Frontal and Lat Chest 2 Views Frontal and Lat Hx of Present Illness: Pt states shes been clean from cocaine and heroin for 3 days. States she hasnt been feeling well, has ?fecal impaction. Also states she thinks shes has infection in her neck, no rash seen; Reason: Fever; Clinical Question(s): Pneumonia COMPARISON: Multiple prior examinations the most recent dated 05/19/2022. FINDINGS: LINES AND TUBES: None. LUNGS AND PLEURA: Clear lungs. Normal pulmonary vascularity. No pleural effusion. No pneumothorax. HEART, MEDIASTINUM AND ANGELINA: Heart is normal in size. Normal mediastinal and hilar contour. BONES AND SOFT TISSUES: No acute abnormality. IMPRESSION: No acute abnormality. WSN: [id number] Ordering Physician: Suhail Arellano Dictated By: Edouard Torrez MD, V Dictated Date/Time: 09/26/22 5:21 pm Reviewed By: Edouard Torrez MD, V Signed By: Edouard Torrez MD, V Signed Date/Time: 09/26/22 5:21 pm Transcribed By: CSBritni Transcribed Date/Time: 09/26/22 5:20 pm * Exam Date Time Procedure Performing Provider Status 09/26/22 5:07 PM US Doppler Ext Upper Venous Bilat Geetha Baldwin; Auth (Verified) Notes: (US Doppler Ext Upper Venous Bilat) Reason For Exam: Pain in limb;Other: RESULT: US Doppler Ext Upper Venous Bilat US Doppler Ext Upper Venous Bilat Hx of Present Illness: Pt states shes been clean from cocaine and heroin for 3 days. States she hasnt been feeling well, has ?fecal impaction. Also states she thinks shes has infection in her neck, no rash seen; Reason: Other:; Pain in limb; Clinical Question(s): Thrombosis COMPARISON: None. IMAGING TECHNIQUE: Ultrasound examination of the bilateral upper extremity deep venous systems was performed using grayscale, color, and spectral wave analysis including response to compression. FINDINGS: RIGHT UPPER EXTREMITY: Internal jugular vein: Patent. No thrombosis. Subclavian vein: Patent. No thrombosis. Axillary vein: Patent. No thrombosis. Brachial vein: Patent. No thrombosis. Basilic vein: Patent. No thrombosis. Cephalic vein: Patent. No thrombosis. LEFT UPPER EXTREMITY: Internal jugular vein: Patent. No thrombosis. Subclavian vein: Patent. No thrombosis. Axillary vein: Patent. No thrombosis. Brachial vein: Patent. No thrombosis. Basilic vein: Patent. No thrombosis. Cephalic vein: Patent. No thrombosis. IMPRESSION: No evidence of venous thrombosis. WSN: [id number] Ordering Physician: Mary Kay Chapin Dictated By: Mai Murdock MD Dictated Date/Time: 09/26/22 5:13 pm Reviewed By: Mai Murdock MD Signed By: Mai Murdock MD Signed Date/Time: 09/26/22 5:13 pm Transcribed By: MAYA Transcribed Date/Time: 09/26/22 5:13 pm Vital Signs Most recent to oldest [Reference Range]: 1 2 3 Height 165 cm (09/26/22 7:00 PM) 165 cm (09/26/22 2:23 PM) Weight 88.5 kg (09/26/22 7:00 PM) 88.5 kg (09/26/22 2:23 PM) Oxygen Saturation [94-100 %] 100 % (09/26/22 9:32 PM) 100 % (09/26/22 8:28 PM) 100 % (09/26/22 7:00 PM) Pulse Rate [55-90 bpm] 70 bpm (09/26/22 9:32 PM) 80 bpm (09/26/22 8:28 PM) 71 bpm (09/26/22 7:00 PM) Body Mass Index [18.5-24.99 kg/m2] 32.51 kg/m2 *>HHI* (09/26/22 7:00 PM) Blood Pressure [90-138/55-84 mm Hg] 132/71mm Hg (09/26/22 9:32 PM) 168/93mm Hg *H* (09/26/22 8:28 PM) 159/100mm Hg *H* (09/26/22 7:00 PM) Respiratory Rate [16-30 br/min] 18 br/min (09/26/22 9:32 PM) 18 br/min (09/26/22 8:28 PM) 18 br/min (09/26/22 7:00 PM) Temperature [96.8-100.4 DegF] 98.8 DegF (09/26/22 8:28 PM) 99.3 DegF (09/26/22 7:00 PM) 100.9 DegF *H* (09/26/22 2:23 PM) Mode of Delivery (Oxygen) Room air (09/26/22 8:28 PM) Room air (09/26/22 7:00 PM) Room air (09/26/22 2:23 PM) Blood pressure sites Arm, left (09/26/22 9:32 PM) Arm, left (09/26/22 8:28 PM) Arm, left (09/26/22 7:00 PM) Temperature Route Oral (09/26/22 8:28 PM) Oral (09/26/22 7:00 PM) Oral (09/26/22 2:23 PM) Dry Weight 88.5 kg (09/26/22 7:00 PM) 88.5 kg (09/26/22 2:23 PM) Social History Social History Type Response Smoking Status 5-9 cigarettes (betw een 1/4 to 1/2 pack)/day in last 30 days; Other: VAPING FLAVORED TOBACCO; entered on: 04/15/19 Sex Note * Cari Pulido: PERFORM, MODIFY, MODIFY, MODIFY Event Display: Discharge/Transfer Note Hospital Authored Date: 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 Age:??42 Years?Sex:??Female?:??1980?? Patient Information Discharge Location: [facility] Primary Care Physician: Santi Conway DO Admit Date/Time: 09/26/22 14:21 Discharge Disposition Discharge Disposition: Transfer to[facility]?? Discharge Diagnosis ??Sepsis unknown etiology with hx of IV drug use, new back pain, needs MRI??to??r/o Spinal epiduralabscess _ Discharge Medications Albuterol (Albuterol (Eqv-ProAir HFA) 90 mcg/inh inhalation aerosol)?1?puff(s)?Inhalation?4 times a day?as needed? NEEDED FOR WHEEZING?for 90?Days BuPROpion (buPROPion 150 mg/24 hours (XL) oral tablet, extended release)?1?tab(s)?150?Milligram?By Mouth?Daily Clonazepam (KlonoPIN 0.5 mg oral tablet)?1?tab(s)?0.5?Milligram?By Mouth?2 times a day Ipratropium (Atrovent HFA 17 mcg/inh inhalation aerosol)?2?puff(s)?Inhalation?4 times aday Levothyroxine (levothyroxine 0.05 mg oral tablet)?1?tab(s)?50?Microgram?By Mouth?Daily Methadone (methadone 5 mg/5 mL oral solution)?85?Milligram?By Mouth?Daily Omeprazole (omeprazole 40 mg oral enteric coated capsule)?1?capsule?40?Milligram?By Mouth?Daily?for 30?Days Quetiapine (QUEtiapine 200 mg oral tablet)?200?Milligram?1?tablet?By Mouth?Daily at bedtime ? Quality Measures Tobacco Use Treatment:? Medications Started IV Vancomycin IV Ceftriaxone 0.5mg clonazepam 0.1 clonidine 8mg Zofran Docusate 2.5L IVF Allergies Allergies ?(Active and Proposed Allergies Only) NKA? (Severity: Unknown severity, Onset: Unknown) ? 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 Stopped heroin and cocaine about 3 days ago. States she has 3-year history of chronic constipation and self disimpacts. She has been having neck pain with numbness radiating to her shoulders and lower back pain with numbness and pressure radiating to the anterior thighs for the past 3 weeks. Now with increasing numbness and tingling down to her feet bilaterally. Patient states she thinks the pain is related to her constipation.??States??it is??not really??abdominal pain and the pain feels mostly posterior like in her rectum. States Aunt told her she was complaining of uncontrollable back pain a few days ago but patient says she was too high to remember. She was feeling like she had fevers at home and was using old left over cephalexin. ?? In ED, she was meeting sepsis criteria with fever, leukocytosis, tachycardia with unknown infectionsource. chest x-ray negative, urinalysis negative, ultrasound of the neck negative. CT of the abdomen showing large stool burden/impaction without infection. Recieved IV vanco and ceftriaxone. Blood c ultures pending. ?? On initial evaluation patient complaining of severe tailbone pain stating that it is from her constipation,??and significant pain, diaphoretic. Thinks she may be withdrawing. Significant pinpoint tenderness to the spinous process in the lumbar spine with new numbness and tingling in her lower extremities bilaterally extending to her feet.?ED to ED transfer??for emergent MRI??to rule out spinalepidural abscess. ?? Constitutional:??Reports fever, chills, weakness. Eyes:??No visual loss, blurred vision, double vision or yellow sclera ENT:??No hearing loss, sneezing, congestion, runny nose or sore throat. Respiratory:??No shortness of breath, cough or sputum production. Cardiovascular:??Reports chest palpitations. No pedal edema. Gastrointestinal:??Reports nausea and constipation. No anorexia, vomiting or diarrhea. No abdominalpain or blood in stool. Genitourinary:??No burning micturition. No urinary frequency or incontinence. Neurologic:??Reports neck pain, with numbness radiating to her shoulders and down her legs bilaterally. No headache, dizziness, syncope, unilateral weakness, ataxia. No change in bowel or bladder control. Musculoskeletal:??Reports tailbone pain Hematologic/Lymphatics:??No bleeding or bruising. Skin:??No rash or itching. Endocrine:??Reports sweating Psychiatric:??Hx anxiety and depression ?? Objective Assessment and Plan Discharge Planning:??Transfer to [facility] for MRI and SEA r/o ? . Physical Exam Constitutional: Alert, in significant pain. Mental Status: Oriented to person, place and time. Head: Normocephalic. Eyes: Pupils are equal, round and reactive to light. Extraocular muscles intact. Neck: Supple, Full range of motion. No erythema or swelling. Respiratory: Clear to auscultation. No wheezing, rales or rhonchi. Cardiovascular: S1 S2 regular. No murmurs, rubs or gallops. Gastrointestinal: Abdomen hard, non-tender, non-distended. Neurologic: No focal neurological deficits. Flexor plantar response. Moves all extremities spontaneously. Sensation intact bilaterally. Skin: No rashes or lesions. Musculoskeletal: Significant pinpoint tenderness to the spinous process in the lumbar spine. No tenderness to thoracic and cervical spine. Psychiatric: Normal mood and affect Pending Results Add On Lab Order ordered on 09/26/2022 Add On Lab Order ordered on 09/26/2022 Blood Culture ordered on 09/26/2022 Blood Culture #2 ordered on 09/26/2022 COVID-19, RSV, and Flu A/B, Rapid PCR ordered on 09/26/2022 Hold Lavender Tube (BB) ordered on 09/26/2022 TSH with T4 Reflex (Adults Only) ordered on 09/26/2022 Results Discharge Labs BLOOD COUNT & DIFF WBC 13.5 k/mm3 (High)?? 09/26/2022 16:17 RBC 4.62 m/mm3 ()?? 09/26/2022 16:17 Hgb 11.4 Gm/dL (Low)?? 09/26/2022 16:17 Hct 36.3 % ()?? 09/26/2022 16:17 MCV 78.6 femtoliters (Low)?? 09/26/2022 16:17 MCH 24.7 pg (Low)?? 09/26/2022 16:17 MCHC 31.4 g/dL (Low)?? 09/26/2022 16:17 Platelet Count 393 k/mm3 ()?? 09/26/2022 16:17 RDW-SD 43.8 femtoliters ()?? 09/26/2022 16:17 MPV 9.5 femtoliters ()?? 09/26/2022 16:17 Nucleated RBC (Automated) 0.0 #/100 WBC'S ()?? 09/26/2022 16:17 Abs. NRBC 0.0 k/mm3 ()?? 09/26/2022 16:17 Abs. Neut 10.0 k/mm3 (High)?? 09/26/2022 16:17 Abs. Lymph 2.6 k/mm3 ()?? 09/26/2022 16:17 Abs. [place] 0.7 k/mm3 ()?? 09/26/2022 16:17 Abs. Eo 0.0 k/mm3 ()?? 09/26/2022 16:17 Abs. Baso 0.0 k/mm3 ()?? 09/26/2022 16:17 Neut % 74.3 % ()?? 09/26/2022 16:17 Lymph % 19.3 % ()?? 09/26/2022 16:17 [place] % 5.3 % ()?? 09/26/2022 16:17 Eos % 0.2 % ()?? 09/26/2022 16:17 Baso % 0.3 % ()?? 09/26/2022 16:17 Imm Gran 0.6 % ()?? 09/26/2022 16:17 Abs. Imm Gran 0.1 k/mm3 ()?? 09/26/2022 16:17 ?? CHEM GENERAL Sodium 139 mmol/L ()?? 09/26/2022 16:17 Potassium 4.1 mmol/L ()?? 09/26/2022 16:17 Chloride 101 mmol/L ()?? 09/26/2022 16:17 Bicarbonate Level 24 mmol/L ()?? 09/26/2022 16:17 Anion Gap 14 ()?? 09/26/2022 16:17 Glucose Level 89 mg/dL ()?? 09/26/2022 16:17 BUN 10 mg/dL ()?? 09/26/2022 16:17 Creatinine-Blood 1.0 mg/dL ()?? 09/26/2022 16:17 Estimated GFR Creatinine 73 ML/MIN/1.73 M2 ()?? 09/26/2022 16:17 Calcium 9.8 mg/dL ()?? 09/26/2022 16:17 Protein, Total 8.5 Gm/dL (High)?? 09/26/2022 16:17 Albumin 4.5 Gm/dL ()?? 09/26/2022 16:17 AG Ratio 1.1 ()?? 09/26/2022 16:17 Alkaline Phosphatase 73 units/L ()?? 09/26/2022 16:17 Lipase 16 units/L ()?? 09/26/2022 16:17 AST (SGOT) 13 units/L ()?? 09/26/2022 16:17 ALT (SGPT) 9 units/L ()?? 09/26/2022 16:17 Bilirubin, Total 0.2 mg/dL ()?? 09/26/2022 16:17 Lactate 1.1 mmol/L ()?? 09/26/2022 18:30 C-Reactive Protein 2.1 mg/dL (High)?? 09/26/2022 16:17 ?? ENDOCRINE/TUMOR MARKER Beta HCG-serum, Qual NEGATIVE ()?? 09/26/2022 16:17 ? HEME OTHER Sed Rate 49 mm/hr (High)?? 09/26/2022 16:17 Hold Blue Top SPECIMEN DISCARDED AFTER 4 HOURS. ()?? 09/26/2022 16:17 ?? MISC. CHEMISTRY Hold Green Top SPECIMEN DISCARDED AFTER 1 WEEK ()?? 09/26/2022 16:17 ? UA/URINALYSIS Appear/Color, Urine LIGHT YELLOW ()?? 09/26/2022 16:00 Clarity CLEAR ()?? 09/26/2022 16:00 Specific [place], Urine <1.005 ()?? 09/26/2022 16:00 pH, Urine [...] from time of collection. ()?? 09/26/2022 16:00 ? Microbiology ?? COVID-19, RSV, and Flu A/B, Rapid PCR?? Collected?? Source: Nasal Body Site: Nose Collected Dt/Tm: 09/26/2022 16:26 Last Updated Dt/Tm: 09/26/2022 16:26 ? Imaging(s) ?Chest 2 Views Frontal and Lat ?? 09/26/2022 17:14??by Lore SALAZAR, Edouard V ?No acute abnormality. ?US Doppler Ext Upper Venous Bilat ?? 09/26/2022 17:07??by Mathieu SALAZAR, Mai O ?No evidence of venous thrombosis. ?CT Abd/Pelvis W/ IV Contrast Only ?? 09/26/2022 18:24??by Teodoro SALAZAR, Dandy W ?Constipation with moderate rectal stool ball which may reflect impaction. Splenomegaly of uncertain etiology. This may reflect underlying hepatocellular disease, lymphoproliferative disease, or infectious disease. ? 35??minutes spent on discharge * ELIAZAR Peoples S: Edouard Ordaz MD V: VERIFY Event Display: Result: Authored Date: Chest 2 Views Frontal and Lat Hx of Present Illness: Pt states shes been clean from cocaine and heroin for 3 days. States she hasnt been feeling well, has ?fecal impaction. Also states she thinks shes has infection in her neck, no rash seen; Reason: Fever; Clinical Question(s): Pneumonia COMPARISON: Multiple prior examinations the most recent dated 05/19/2022. FINDINGS: LINES AND TUBES: None. LUNGS AND PLEURA: Clear lungs. Normal pulmonary vascularity. No pleural effusion. No pneumothorax. HEART, MEDIASTINUM AND ANGELINA: Heart is normal in size. Normal mediastinal and hilar contour. BONES AND SOFT TISSUES: No acute abnormality. IMPRESSION: No acute abnormality. WSN: [id number] Ordering Physician: Suhail Arellano Dictated By: Edouard Torrez MD, V Dictated Date/Time: 09/26/22 5:21 pm Reviewed By: Edouard Torrez MD, V Signed By: Edouard Torrez MD, V Signed Date/Time: 09/26/22 5:21 pm Transcribed By: MAYA Transcribed Date/Time: 09/26/22 5:20 pm US.doppler Upper extremity vein - bilateral * ELIAZAR Peoples S: Mai Jensen MD O: VERIFY Event Display: Result: Authored Date: [id number] US Doppler Ext Upper Venous Bilat Hx of Present Illness: Pt states shes been clean from cocaine and heroin for 3 days. States she hasnt been feeling well, has ?fecal impaction. Also states she thinks shes has infection in her neck, no rash seen; Reason: Other:; Pain in limb; Clinical Question(s): Thrombosis COMPARISON: None. IMAGING TECHNIQUE: Ultrasound examination of the bilateral upper extremity deep venous systems was performed using grayscale, color, and spectral wave analysis including response to compression. FINDINGS: RIGHT UPPER EXTREMITY: Internal jugular vein: Patent. No thrombosis. Subclavian vein: Patent. No thrombosis. Axillary vein: Patent. No thrombosis. Brachial vein: Patent. No thrombosis. Basilic vein: Patent. No thrombosis. Cephalic vein: Patent. No thrombosis. LEFT UPPER EXTREMITY: Internal jugular vein: Patent. No thrombosis. Subclavian vein: Patent. No thrombosis. Axillary vein: Patent. No thrombosis. Brachial vein: Patent. No thrombosis. Basilic vein: Patent. No thrombosis. Cephalic vein: Patent. No thrombosis. IMPRESSION: No evidence of venous thrombosis. WSN: [id number] Ordering Physician: Mary Kay Chapin Dictated By: Mai Murdock MD Dictated Date/Time: 09/26/22 5:13 pm Reviewed By: Mai Murdock MD Signed By: Mai Murdock MD Signed Date/Time: 09/26/22 5:13 pm Transcribed By: MAYA Transcribed Date/Time: 09/26/22 5:[address] Abdomen and Pelvis W contrast IV * [facility] , CIS S: TRANSCRITOMMY Valerio MD, Dandy W: VERIFY Event Display: Result: Authored Date: [id number] CT Abd/Pelvis W/ IV Contrast Only Hx of Present Illness: Left lower quadrant pain TECHNIQUE: Spiral CT through the abdomen and pelvis with IV contrast formatted in 3 planes. 100 cc of Omnipaque 300 was administered intravenously. This study was performed without oral contrast. Weight-based protocol using automatic tube modulation was used to optimize exposure parameters. COMPARISON: None. FINDINGS: Knobber View Findings, Lines and Tubes: None. Visualized Chest: Lung bases are clear. No pleural effusion. The heart is normal in size. No pericardial effusion. Diaphragm: Normal. Liver: Focal fat along the falx from ligament, otherwise unremarkable. Gallbladder: No CT evidence of gallbladder pathology. Bile ducts: No biliary ductal dilation. Spleen: Splenomegaly measuring up to 14 cm in AP dimension. Pancreas: Normal. Adrenal glands: Normal. Kidneys and ureters: No hydronephrosis, stones, or suspicious masses. Bladder: Normal. Reproductive organs: Unremarkable. Stomach, small bowel, and large bowel: Significant stool burden seen throughout the colon. Moderaterectal stool ball with mild associated rectal wall thickening. No significant inflammatory change. No small bowel obstruction. Appendix: Normal. Peritoneum and retroperitoneum: No ascites or pneumoperitoneum. No omental or mesenteric lesions. Lymph nodes: No enlarged lymph nodes. Blood vessels: Normal. No aneurysm. No evidence of venous thrombosis. Abdominal and pelvic wall: Unremarkable. Bones: No acute abnormality. IMPRESSION: Constipation with moderate rectal stool ball which may reflect impaction. Splenomegaly of uncertain etiology. This may reflect underlying hepatocellular disease, lymphoproliferative disease, or infectious disease. WSN: [id number] Ordering Physician: Mary Kay Chapin Dictated By: Dandy Valerio MD Dictated Date/Time: 09/26/22 6:36 pm Reviewed By: Dandy Valerio MD Signed By: Dandy Valerio MD Signed Date/Time: 09/26/22 6:36 pm Transcribed By: MAYA Transcribed Date/Time: 09/26/22 6:32 pm Patient Care team information Care Team Personnel Name: Santi Conway DO Position: [facility] Resident Member Role: PCP Address: Address: [address] [place] [id number]- Name: Isabelle Sinclair Position: [facility] RN Member Role: Primary Care Nurse Name: Heaven Perez NP Position: [facility] PCO Associate Professional Member Role: [employer] Provider Address: Address: [address] [place] [phone]- Name: Cassidy Kelley RN Position: [facility] RN Member Role: Primary Care Nurse Name: Evelyn Chapin RN Position: [facility] RN Member Role: Primary Care Nurse Name: Viki Gunderson RN Position: [facility] ED RN W/OE and Tasks Member Role: Patient Care Provider Name: Jena Swartz Position: [facility] ED TA [facility] Member Role: ED Associate Name: Cely Flowers RN Position: [facility] ED RN W/OE and Tasks Member Role: Patient Care Provider Name: Mary Kay Chapin MD Position: [facility] ED Medicine MD Member Role: Admitting Physician Address: Address: [address] [place] [id number]- Care Team Related Persons Name: MICHAEL CHEEK Name: VINICIUS WAGONER Address: home [address] [place] [id number] Name: CINDI WU Name: PAVITHRA WU Address: home UNKNOWN
--- OUTSIDE RECORDS SUMMARY | 2023-07-18 23:07 | XMS_ITS | Continuity of Care Document ---
Author Name Unknown Organization [facility] Address [address] [place] [id number]- Care Team Providers Care Land Planner Name Role Phone Kvng SALAZAR, Janina Her Primary Care Physician [phone] Encounter [facility] Date(s): 12/23/20 - 01/23/21 [facility] [address] [place] [id number] Attending Physician: Jorge Tapia MD Admitting Physician: Jorge Tapia MD Allergies, Adverse Reactions, Alerts Substance Reaction Severity Status codeine Active Medications albuterol CFC free 90 mcg/inh inhalation aerosol 1, puffs, Inhalation, 4 times a day, PRN, # 7 Gm, Refills 5, Tot. Refills 5, Maintenance, 11/10/20 9:14:00 EDT, Aerosol, Route to Pharmacy Electronically, [id number], [facility] #[id number], 165, cm, 10/01/20 13:31:00 ED... Start Date: 11/10/20 Status: Ordered Atrovent HFA 17 mcg/inh inhalation aerosol 2 puffs, Inhalation, 4 times a day, # 12.9 Gm, 0 Refills, Maintenance, 10/07/19 15:10:00 EDT, Aerosol, [facility] #[id number], 165, cm, 09/17/19 11:11:00 EST, Height Start Date: 10/07/19 Status: Ordered clonazePAM 0.5 mg oral tablet 0 Refills, Maintenance, 12/26/19 13:59:00 EDT Start Date: 12/26/19 Status: Ordered diphenhydrAMINE 25 mg oral capsule 1 capsule, By Mouth, 3 times a day, PRN NEEDED FOR ITCHING, # 100 capsule, 0 Refills, Acute, 01/18/21 20:42:00 EDT, [facility] #[id number], 165, cm, 10/01/20 13:31:00 EDT, Height Start Date: 01/18/21 Status: Ordered gabapentin 600 mg oral tablet 0 Refills, Maintenance, 12/26/19 13:59:00 EDT Start Date: 12/26/19 Status: Ordered ibuprofen 800 mg oral tablet 800 mg, 1, tablet, By Mouth, 3 times a day, # 60 tablet, Refills 1, Tot. Refills 1, Maintenance, 07/30/20 18:10:00 EST, Route to Pharmacy Electronically, [facility] #[id number], Partial fill upon patient request if the prescription is for a sched... Start Date: 07/30/20 Status: Ordered levothyroxine 0.05 mg oral tablet 1 tablet = 50 mcg, By Mouth, Daily, # 30 tablet, 5 Refills, Maintenance, 07/15/19 17:13:00 EST, Tablet, [facility] #[id number], 165, cm, 04/15/19 16:17:00 EDT, Height, 93.5, [...] 5 Refills, Maintenance, 10/01/20 14:01:00 EDT, ECCapsule, [facility] #[id number], 165, cm, 10/01/20 13:31:00 EDT, Height Start Date: 10/01/20 Stop Date: 03/30/21 Status: Ordered QUEtiapine 300 mg oral tablet 0 Refills, Maintenance, 12/26/19 13:59:00 EDT Start Date: 12/26/19 Status: Ordered triamcinolone 0.1% topical cream See Instructions, APPLY EXTERNALLY TO THE AFFECTED AREA TWICE DAILY FOR 14 DAYS, # 80 Gm, 0 Refills, Acute, [facility] #[id number], 25, APPLY EXTERNALLY TO THE AFFECTED AREA TWICE DAILY FOR 14 DAYS, 165, cm, 10/01/20 13:31:00 EDT, Height Start Date: 01/19/21 Status: Ordered Problem List Condition Effective Dates Status Health Status Inform ant *HERB/ERICH/[facility]-[phone]/Health [facility], active care coordination(Confirmed) Active Tobacco dependence(Confirmed) Active Hepatitis C(Confirmed) Active Social History Social History Type Response Smoking Status 5-9 cigarettes (betw een 1/4 to 1/2 pack)/day in last 30 days; Other: VAPING FLAVORED TOBACCO; entered on: 04/15/19 Sex Female
--- OUTSIDE RECORDS SUMMARY | 2023-07-18 23:07 | XMS_ITS | Continuity of Care Document ---
Author Name Unknown Organization [facility] Address [address] [place] [id number]- Care Team Providers Care Communication Engineer Name Role Phone Kvng SALAZAR, Janina Her Primary Care Physician Encounter [facility] Date(s): 07/08/21 - 08/07/21 [facility] [address] [place] [id number] Attending Physician: Jose Moreira Admitting Physician: AdmtrJose Referring Physician: AdmtrJose Allergies, [...] 9:14:00 EDT, Aerosol, Route to Pharmacy Electronically, [id number], [id number], 165, cm, 10/01/20 13:31:00 ED... Start Date: 11/10/20 Status: Ordered Atrovent HFA 17 mcg/inh inhalation aerosol 2 puffs, Inhalation, 4 times a day, # 12.9 Gm, 0 Refills, Maintenance, 10/07/19 15:10:00 EDT, Aerosol, [facility] #[id number], 165, cm, 09/17/19 11:11:00 EST, Height Start [...] capsule, 0 Refills, Acute, 01/18/21 20:42:00 EDT, [facility] #[id number], 165, cm, 10/01/20 13:31:00 EDT, Height Start [...] 07/30/20 18:10:00 EST, Route to Pharmacy Electronically, [facility] #[id number], Partial fill upon patient request if the prescription is for a sched... Start Date: 07/30/20 Status: Ordered levothyroxine 0.05 mg oral tablet 1 tablet = 50 mcg, By Mouth, Daily, # 30 tablet, 5 Refills, Maintenance, 07/15/19 17:13:00 EST, Tablet, [facility] #[id number], 165, cm, 04/15/19 16:17:00 EDT, Height, 93.5, [...] 2 Refills, Maintenance, 03/30/21 14:01:00 EDT, ECCapsule, [facility] #[id number], 165, cm, 10/01/20 13:31:00 EDT, Height Start [...] DAYS, # 80 Gm, 0 Refills, Acute, [facility] #[id number], 25, APPLY EXTERNALLY TO THE AFFECTED AREA TWICE DAILY FOR 14 DAYS, 165, cm, 10/01/20 13:31:00 EDT, Height Start Date: 01/19/21 Status: Ordered Problem List Condition Effective Dates Status Health Status Inform ant *WILLIAMN/ERICH/CC-Katie P[facility]-[phone]/Health [facility], active care coordination(Confirmed) Active Tobacco dependence(Confirmed) Active Hepatitis C(Confirmed) Active Social History Social History Type Response Smoking Status 5-9 cigarettes (betw een 1/4 to 1/2 pack)/day in last 30 days; Other: VAPING FLAVORED TOBACCO; entered on: 04/15/19 Sex
--- OUTSIDE RECORDS SUMMARY | 2023-07-18 23:07 | XMS_ITS | Continuity of Care Document ---
Author Name Unknown Organization [facility] Address [address] [place] [address]- Care Team Providers Care Client Services Assistant Name Role Phone Santi Conway DO Primary Care Physician Encounter [facility] Date(s): 06/14/23 - 07/14/23 [facility] [address] [place] [id number] Allergies, Adverse Reactions, Alerts No [...] 0 Refills, Maintenance, 01/05/23 15:08:00 EDT, Tablet, [facility] #[id number], Partial fill upon patient request if the [...] 2 Refills, Maintenance, 03/30/21 14:01:00 EDT, ECCapsule, [facility] #[id number], 165, cm, 10/01/20 13:31:00 EDT, Height Start [...] 0 Refills, Maintenance, 01/28/23 9:42:00 EDT, Tablet, [facility]/pharmacy #[id number], Partial fill upon patient request if the prescription is for a schedule II opioid drug., 162, cm, 01/28/23 2:58:00 EDT, Height, 9... Start Date: 01/28/23 Status: Ordered Problem List Condition Confirmation Course Effective Dates Status Health St [facility] Informant Borderline personality disorder 1 Confirmed Active *BHN/[facility] F[facility] Esp[facility]-[phone]/Health snf, active care coordination Confirmed Active PTSD (post-traumatic [...] Team Personnel Name: Santi Conway DO Position: [facility] Resident Member Role: PCP Address: Address: [address] [place] [address] Name: Isabelle Sinclair Position: S RN Member Role: Primary Care Nurse Name: Mireya Whiting Position: S RN Member Role: Primary Care Nurse Name: Jared Dumont RN Position: [facility] RN Member Role: Primary Care Nurse Name: Cassidy Kelley RN Position: S RN Member Role: Primary Care Nurse Name: Evelyn Chapin RN Position: S RN Member Role: Primary Care Nurse Care Team Related Persons Name: MICHAEL CHEEK Name: VINICIUS WAGONER Address: home [address] [place] [address] Name: CINDI WU Name: PAVITHRA WU Address: home UNKNOWN
--- OUTSIDE RECORDS SUMMARY | 2023-07-18 23:07 | XMS_ITS | Continuity of Care Document ---
Author Name Unknown Organization [facility] ter Address [address] [place] [address]- Care Team Providers Care Liquid Loader Name Role Phone Kvng SALAZAR, Janina Her Primary Care Physician En[place] [facility] Date(s): 07/18/19 - 07/18/[address] [address]- [facility] Encounter Diagnosis Antipsychotic overdose(Final) - 07/18/19 Altered mental status(Final) - 07/18/19 Substance abuse(Final) - 07/18/19 Prolonged QT interval(Final) - 07/18/19 Discharge Disposition: A-D/C Home Attending Physician: Monse Quinn MD Admitting Physician: Monse Quinn MD Referring Physician: Not on Staff, Referring MD Allergies, Adverse Reactions, Alerts Substance Reaction Severity Status codeine Active Medications clonazePAM 1 mg oral tablet 1 tablet = 1 mg, By Mouth, Daily at bedtime, # 28 tablet, 0 Refills, Maintenance, 12/24/18 16:50:49EDT, Tablet Start Date: 12/24/18 Stop Date: 01/21/19 Status: Ordered cloNIDine 0.3 mg oral tablet 1 tablet = 0.3 mg, By Mouth, Daily at bedtime, # 30 tablet, 0 Refills, Maintenance, 12/21/18 12:14:29 EDT Start Date: 12/21/18 Status: Ordered famotidine 40 mg oral tablet 1 tablet = 40 mg, By Mouth, Daily at bedtime, # 30 tablet, 6 Refills, Maintenance, 02/05/18 15:52:35 EDT, Tablet Start Date: 02/05/18 Status: Ordered gabapentin 600 mg oral tablet 1 tablet = 600 mg, By Mouth, 2 times a day, # 60 tablet, 4 Refills, Maintenance, 09/19/18 13:40:07 EST Start Date: 09/19/18 Status: Ordered levothyroxine 0.05 mg oral tablet 1 tablet = 50 mcg, By Mouth, Daily, # 30 tablet, 5 Refills, Maintenance, 07/15/19 17:13:00 EST, Tablet, [facility] #[id number], 165, cm, 04/15/19 16:17:00 EDT, Height, 93.5, [...] Effective Dates Status Health Status Inform ant *N/ERICH/CC-Katie [facility]-[phone]/Health [facility], active care coordination(Confirmed) Active Tobacco dependence(Confirmed) Active Hepatitis C(Confirmed) Active Vital Signs Most recent to oldest [Reference Range]: 1 2 3 Oxygen Saturation [94-100 %] 99 % (07/18/19 9:20 PM) 96 % (07/18/19 5:43 PM) 98 % (07/18/19 5:14 PM) Pulse Rate [55-90 bpm] 67 bpm (07/18/19 9:20 PM) 75 bpm (07/18/19 5:43 PM) 67 bpm (07/18/19 5:14 PM) Blood Pressure [90-138/55-84 mm Hg] 131/59mm Hg (07/18/19 9:20 PM) 116/54mm Hg (07/18/19 5:43 PM) 98/46mm Hg (07/18/19 5:14 PM) Respiratory Rate [16-30 br/min] 17 br/min (07/18/19 9:20 PM) 16 br/min (07/18/19 5:43 PM) 18 br/min (07/18/19 5:14 PM) Temperature [96.8-100.4 DegF] 98.3 DegF (07/18/19 2:56 PM) Liters per Minute 1 L/min (07/18/19 4:27 PM) 1 L/min (07/18/19 4:12 PM) 1 L/min (07/18/19 3:19 PM) Mode of Delivery (Oxygen) Room air (07/18/19 9:20 PM) Room air (07/18/19 5:43 PM) Room air (07/18/19 5:14 PM) Blood pressure sites Arm, right (07/18/19 4:27 PM) Arm, right (07/18/19 3:19 PM) Arm, right (07/18/19 2:56 PM) Temperature Route Oral (07/18/19 2:56 PM) Social History Social History Type Response Smoking Status 5-9 cigarettes (betw een 1/4 to 1/2 pack)/day in last 30 days; Other: VAPING FLAVORED TOBACCO; entered on: 04/15/19 Sex Female
--- OUTSIDE RECORDS SUMMARY | 2023-07-18 23:07 | XMS_ITS | Continuity of Care Document ---
Author Name Unknown Organization [facility] Address [address] [place] [address]- Care Team Providers Care Bulk Mail Technician Name Role Phone Santi Conway DO Primary Care Physician Encounter [facility] Date(s): 01/04/23 - 01/04/[address] [address]- Discharge Disposition: A-D/C Home Attending Physician: Ally Renee MD Admitting Physician: Ally Renee MD Referring Physician: Not on Staff, Referring [...] 2 Refills, Maintenance, 03/30/21 14:01:00 EDT, [facility] #[id number], 165, cm, 10/01/20 13:31:00 EDT, Height Start [...] Active Obese class I Confirmed Active *BHN/CCA/CC-Katie [facility]-[phone]/ Health residential, active care coordination Confirmed Active PTSD (post-traumatic stress disorder) Confirmed Active Tobacco dependence Confirmed Active Hepatitis C Confirmed Active 1Psych admission 04/2021 Vital Signs Most recent to oldest [Reference Range]: 1 2 Height 163 cm (01/04/23 2:01 AM) 163 cm (01/04/23 12:09 AM) Weight 91.1 kg (01/04/23 2:01 AM) 91.1 kg (01/04/23 12:09 AM) Oxygen Saturation [94-100 %] 100 % (01/04/23 2:01 AM) 97 % (01/04/23 12:09 AM) Pulse Rate [55-90 bpm] 113 bpm *H* (01/04/23 2:01 AM) 111 bpm *H* (01/04/23 12:09 AM) Body Mass Index [18.5-24.99 kg/m2] 34.29 kg/m2 *>HHI* (01/04/23 2:01 AM) Blood Pressure [90-138/55-84 mm Hg] 188/ 110mm Hg *H* (01/04/23 2:01 AM) 116/96mm Hg (01/04/23 12:09 AM) Respiratory Rate [16-30 br/min] 22 br/mi n (01/04/23 2:01 AM) 18 br/min (01/04/23 12:09 AM) Temperature [96.8-100.4 DegF] 99.3 DegF (01/04/23 2:01 AM) 98.8 DegF (01/04/23 12:09 AM) Mode of Delivery (Oxygen) Room air (01/04/23 2:01 AM) Room air (01/04/23 12:09 AM) Blood pressure sites Arm, right (01/04/23 2:01 AM) Arm, left (01/04/23 12:09 AM) Temperature Route Oral (01/04/23 2:01 AM) Temporal (01/04/23 12:09 AM) Dry Weight 91.1 kg (01/04/23 2:01 AM) 91.1 kg (01/04/23 12:09 AM) Social History Social History Type Response Smoking Status 5-9 cigarettes (betw een 1/4 to 1/2 pack)/day in last 30 days; Other: VAPING FLAVORED TOBACCO; entered on: 04/15/19 Sex EKG study * Event Display: ECG 12-Lead Authored Date: Please click on pdf link to open report * Event Display: ECG 12-Lead Authored Date: Ventricular Rate: 93 BPM Atrial Rate: 93 BPM P-R Interval: 132 ms QRS Duration: 78 ms Q-T Interval: 358 ms QTC Calculation(Bazett): 445 ms P [place]: 17 degrees R [place]: 79 degrees T [place]: 24 degrees Normal sinus rhythm Possible Left atrial enlargement Borderline ECG When compared with ECG of 03-JAN-2023 18:41, No significant change was found Confirmed by MODE GILLIS MD ([id number]) on 01/04/2023 8:43:33 PM [place]: MODE GILLIS MD Note * Thelma SALAZAR, Ally Cast: PERFORM Event Display: Patient Education Leaflets Authored Date: Uncertain Causes of Chest Pain ?? [id number] Uncertain Causes of Chest Pain Chest pain can happen for a number of reasons. Sometimes the cause can't be determined. If your??condition does not seem serious, and your pain does not appear to be coming from your heart, your healthcare provider may recommend watching it closely. Sometimes the signs of a serious problem take more time to appear. Many problems not related to your heart can cause chest pain. These include: ??? Musculoskeletal. Costochondritis is an inflammation of the tissues around the ribs that can occur from trauma or overuse injuries, or a strain of the muscles of the chest wall. ??? Respiratory. Pneumonia, collapsed lung (pneumothorax), or inflammation of the lining of the chest and lungs (pleurisy). ??? Gastrointestinal. Esophageal reflux, heartburn, ulcers, or gallbladder disease. ??? Anxiety and panic disorders ??? Nerve compression and inflammation ??? Rare problems such as aortic aneurysm or aortic dissection (a swelling of the large artery coming out of the heart or a tear in the wall of the artery), or pulmonary embolism (a blood clot in the lungs). Home care After your visit, follow these recommendations: ??? Rest today and avoid strenuous activity. ??? Take any prescribed medicine as directed. ??? Be aware of any recurrent chest pain and notice any changes ?? Follow-up care Follow up with your healthcare provider if you don't start to feel better within 24 hours, or as advised. ?? Call 911 Call 911 if any of these occur: ??? A change in the type of pain: if it feels different, becomes more severe, lasts longer, or begins to spread into your shoulder, arm, neck, jaw or back ??? Shortness of breath or increased pain with breathing ??? Weakness, dizziness, or fainting ??? Rapid heartbeat ??? Crushing sensation in your chest ??? Coughing up more than a small amount of blood. ?? When to seek medical advice Call your healthcare provider right away if any of the following occur: ??? Cough with dark coloredsputum (phlegm) or small amount of blood ??? Fever of 100.4??F??(38??C) or higher, or as directed by your healthcare provider ??? Swelling, pain or redness in one leg ?? Last Reviewed Date: 2021 ?? [employer]. All rights reserved. This information is not intended as a substitute for professional medical care. Always follow your healthcare professional's instructions. ?? * Thelma SALAZAR, Ally Cast: PERFORM Event Display: Patient Education Leaflets Authored Date: [id number] Neck Pain ?? [id number] Neck Pain Neck pain has several possible causes when there is no injury: ??? You can get a minor ligament sprain or muscle strain from a sudden minor neck movement. Sleeping with your neck in an awkward position can also cause this. ??? Some people respond to emotional stress by tensing the muscles of their neck, shoulders, and upper back. Chronic spasm in these musclescan cause neck pain and sometimes headaches. ??? Gradual??wear and tear of the joints in the spine can cause??degenerative arthritis. This can be a source of occasional or chronic neck pain. ??? The spinal disks may bulge and put pressure on a nearby spinal nerve. This can happen as a natural result of aging or repeated small injuries to the neck. The spinal disks are the cushions between each spi nal bone. This causes tingling, pain, or numbness that spreads from the neck to the shoulder, arm, or hand on one side. Acute neck pain usually gets better in 1 to 2 weeks. Neck pain related to disk disease, arthritis in the spinal joints, or spinal stenosis can become chronic and last for months or years. Spinal stenosis is narrowing of the spinal canal. X-rays are usually not ordered for the initial evaluation of neck pain. But X- rays may be done if you had a forceful physical injury, such as a car accident or fall. If pain continues and doesn???t respond to medical treatment, X-rays and other tests may be done at a later time. Less often, neck pain can be a sign of a more serious underlying medical condition. Home care ??? Rest and relax the muscles. Use a comfortable pillow that supports the head. It should also help keep the spine in a neutral position. The position of the head should not be tilted forward or backward. A rolled-up towel may help for a custom fit. ??? A soft cervical collar can help pain, especially pain with head movement. Your healthcare provider can tell you if this is appropriatefor your condition. ??? Some people find relief with??heat. Heat can be applied with either a warm shower or bath or??a moist towel heated in the microwave??and??massage.??Others prefer??cold packs. You can make an ice pack by placing ice in a plastic bag that seals at the top. Then wrap the bag with a thin towel.??Try both and use the method that feels best for??15 to??20 minutes, several times a day. ??? Whether using ice or heat, be careful that you don't injure your skin. Never put ice directly on the skin. Always wrap the ice in a towel or other type of cloth. This is very important, especially in people with poor skin sensations.? Try to reduce your stress level. Emotional stresscan lead to neck muscle tension and get in the way of or delay the healing process. ??? You may use??bqpo-qrv-kndapmf pain medicine??to control pain, unless another medicine was prescribed. If you have chronic liver or kidney disease or ever had a stomach ulcer or digestive bleeding, talk with yourprovider before??using these medicines. ?? Follow-up care Follow up with your healthcare provider if your symptoms don't show signs of improvement after 1 week. Physical therapy or more tests may be needed. If X-rays, CT scans, or MRI scans were taken, you'll be told of any new findings that may affect your care. ?? Call 911 Call 911 if you have: ??? Sudden??weakness or numbness in 1 or both arms ??? Neck swelling, difficulty or painful swallowing ??? Trouble breathing ??? Chest pain ?? When to get medical advice Call your healthcare provider right away if any of these occur: ??? Pain gets worse or spreads into1 or both arms ??? Weakness of arms or legs ??? Loss of bowel or bladder control ??? Increasing headache ??? Fever of 100.4??F (38??C) or higher, or as advised by your provider ?? Last Reviewed Date: 2022 ?? 0928-1537 The [employer]. All rights reserved. This information is not intended as a substitute for professional medical care. Always follow your healthcare professional's instructions. ?? Patient Care team information Care Team Personnel Name: Santi Conway DO Position: [facility] Resident Member Role: PCP Address: Address: [address] [place] [address]- Name: Isabelle Sinclair Position: [facility] RN Member Role: Primary Care Nurse Name: Jared Dumont RN Position: [facility] RN Member Role: Primary Care Nurse Name: Cassidy Kelley RN Position: [facility] RN Member Role: Primary Care Nurse Name: Evelyn Chapin RN Position: [facility] RN Member Role: Primary Care Nurse Name: Ally Renee MD Position: [facility] ED Medicine MD Member Role: Admitting Physician Address: Address: [address] [place] [address]- Name: Marcelo Casey Position: [facility] ED OA Member Role: Patient Care Provider Name: Jerome Scales RN Position: [facility] ED RN W/OE and Tasks Member Role: Patient Care Provider Care Team Related Persons Name: MICHAEL CHEEK Name: VINICIUS WAGONER Address: home [address] [place] [id number] Name: CINDI WU Name: PAVITHRA WU Address: home UNKNOWN
--- OUTSIDE RECORDS SUMMARY | 2023-07-18 23:08 | XMS_ITS | Continuity of Care Document ---
Author Name Unknown Organization [facility] Address [address] [place] [address]- Care Team Providers Care Explosives Operator Name Role Phone Kvng SALAZAR, Janina Her Primary Care Physician [phone] Encounter [facility] Date(s): 03/17/20 - 04/30/20 [facility] [address] [place] [address]- [facility] Attending Physician: Not on Staff, Attending MD Allergies, Adverse Reactions, Alerts Substance Reaction Severity Status codeine Active Medications acetaminophen 325 mg oral tablet 650 mg, 2, tablet, By Mouth, Every 4 hours, PRN, # 30 tablet, Refills 0, Tot. Refills 0, Maintenance, as needed for fever, 09/16/19 13:27:00 EST, Route to Pharmacy Electronically, [facility] #[id number], 165, cm, 09/13/19 9:34:00 EST, Height Start Date: 09/16/19 Status: Ordered albuterol CFC free 90 mcg/inh inhalation aerosol 1, puffs, Inhalation, 4 times a day, PRN, # 7 Gm, Refills 5, Tot. Refills 5, Maintenance, 12/02/19 10:54:00 EDT, Aerosol, Route to Pharmacy Electronically, [id number], [facility] #[id number], 165, cm, 09/17/19 11:11:00 E... Start Date: 12/02/19 Status: Ordered Atrovent HFA 17 mcg/inh inhalation aerosol 2 puffs, Inhalation, 4 times a day, # 12.9 Gm, 0 Refills, Maintenance, 10/07/19 15:10:00 EDT, Aerosol, [facility] #[id number], 165, cm, 09/17/19 11:11:00 EST, Height Start Date: 10/07/19 Status: Ordered cetirizine 5 mg oral tablet 1 tablet = 5 mg, By Mouth, Daily, PRN Congestion, # 90 tablet, 1 Refills, Maintenance, 11/12/19 11:57:00 EDT, Tablet, [facility] #87602, 165, cm, 09/17/19 11:11:00 EST, Height Start [...] 1 Refills, Maintenance, 03/15/20 14:27:00 EDT, Liquid, [facility] #91108, 5 mL By Mouth Every 4 hours,PRN:for cough and congestion, 165, cm, 09/17/19 11:11:00 EST, Height Start Date: 03/15/20 Status: Ordered Diflucan 150 mg oral tablet 1 tablet = 150 mg, By Mouth, Once, # 1 tablet, 1 Refills, Soft Stop, 12/26/19 13:58:00 EDT, Tablet,[facility] #[id number], 165, cm, 09/17/19 11:11:00 EST, Height Start Date: 12/26/19 Status: Ordered Flonase 50 mcg/inh nasal spray 1 sprays, Nares, Both, Daily in AM, # 9.9 mL, 0 Refills, Maintenance, 09/13/19 10:15:00 EST, [place],[facility] #72825, 1 sprays Nares, Both Daily in AM, 165, cm, 09/13/19 9:34:00 EST, Height Start Date: 09/13/19 Status: Ordered Flonase 50 mcg/inh nasal spray 1 sprays, Nares, Both, 2 times a day, # 16 Gm, 0 Refills, Maintenance, 10/11/19 8:25:00 EDT, [place],[facility] #44319, 1 sprays Nares, Both 2 times a day, 165, cm, 09/17/19 11:11:00 EST, Height Start Date: 10/11/19 Status: Ordered gabapentin 600 mg oral tablet 0 Refills, Maintenance, 12/26/19 13:59:00 EDT Start Date: 12/26/19 Status: Ordered levothyroxine 0.05 mg oral tablet 1 tablet = 50 mcg, By Mouth, Daily, # 30 tablet, 5 Refills, Maintenance, 07/15/19 17:13:00 EST, Tablet, [facility] #[id number], 165, cm, 04/15/19 16:17:00 EDT, Height, 93.5, [...] 5 Refills, Maintenance, 03/20/20 16:18:00 EDT, ECCapsule, [facility] #21279, 165, cm, 03/20/20 16:09:00 EDT, Height Start Date: 03/20/20 Stop Date: 09/16/20 Status: Ordered QUEtiapine 300 mg oral tablet 0 Refills, Maintenance, 12/26/19 13:59:00 EDT Start Date: 12/26/19 Status: Ordered Problem List Condition Effective Dates Status Health Status Inform ant *BHN/CCA/CC-Katie [facility]-[phone]/Health group home, active care coordination(Confirmed) Active Tobacco dependence(Confirmed) Active Hepatitis C(Confirmed) Active Social History Social History Type Response Smoking Status 5-9 cigarettes (betw een 1/4 to 1/2 pack)/day in last 30 days; Other: VAPING FLAVORED TOBACCO; entered on: 04/15/19 Sex Female
--- OUTSIDE RECORDS SUMMARY | 2023-07-18 23:08 | XMS_ITS | Continuity of Care Document ---
Author Name Unknown Organization [facility] Address [address] [place] [address]- Care Team Providers Care Residential Sales Name Role Phone Kvng SALAZAR, Janina Her Primary Care Physician Encounter [facility] R [id number] Date(s): 03/17/20 - 04/16/20 [facility] [address] [place] [address]- [facility] Attending Physician: Not on Staff, Attending MD Allergies, Adverse Reactions, Alerts Substance Reaction Severity Status codeine Active Medications acetaminophen 325 mg oral tablet 650 mg, 2, tablet, By Mouth, Every 4 hours, PRN, # 30 tablet, Refills 0, Tot. Refills 0, Maintenance, as needed for fever, 09/16/19 13:27:00 EST, Route to Pharmacy Electronically, [facility] #[id number], 165, cm, 09/13/19 9:34:00 EST, Height Start Date: 09/16/19 Status: Ordered albuterol CFC free 90 mcg/inh inhalation aerosol 1, puffs, Inhalation, 4 times a day, PRN, # 7 Gm, Refills 5, Tot. Refills 5, Maintenance, 12/02/19 10:54:00 EDT, Aerosol, Route to Pharmacy Electronically, [id number], [facility] #[id number], 165, cm, 09/17/19 11:11:00 E... Start Date: 12/02/19 Status: Ordered Atrovent HFA 17 mcg/inh inhalation aerosol 2 puffs, Inhalation, 4 times a day, # 12.9 Gm, 0 Refills, Maintenance, 10/07/19 15:10:00 EDT, Aerosol, [facility] #87185, 165, cm, 09/17/19 11:11:00 EST, Height Start Date: 10/07/19 Status: Ordered Benadryl 25 mg oral capsule 1 capsule = 25 mg, By Mouth, 3 times a day, PRN for itching, for 30 days, # 100 capsule, 0 Refills,Acute 04/19/20 16:28:00 EDT, 03/20/20 16:28:00 EDT, Capsule, [facility] #75574, 165, cm, 03/20/20 16:09:00 EDT, Height Start Date: 03/20/20 Stop Date: 04/19/20 Status: Ordered cetirizine 5 mg oral tablet 1 tablet = 5 mg, By Mouth, Daily, PRN Congestion, # 90 tablet, 1 Refills, Maintenance, 11/12/19 11:57:00 EDT, Tablet, [facility] #56491, 165, cm, 09/17/19 11:11:00 EST, Height Start [...] 1 Refills, Maintenance, 03/15/20 14:27:00 EDT, Liquid, [facility] #51636, 5 mL By Mouth Every 4 hours,PRN:for cough and congestion, 165, cm, 09/17/19 11:11:00 EST, Height Start Date: 03/15/20 Status: Ordered Diflucan 150 mg oral tablet 1 tablet = 150 mg, By Mouth, Once, # 1 tablet, 1 Refills, Soft Stop, 12/26/19 13:58:00 EDT, [place],[facility] #20848, 165, cm, 09/17/19 11:11:00 EST, Height Start Date: 12/26/19 Status: Ordered Flonase 50 mcg/inh nasal spray 1 sprays, Nares, Both, Daily in AM, # 9.9 mL, 0 Refills, Maintenance, 09/13/19 10:15:00 EST, [place],[facility] #59684, 1 sprays Nares, Both Daily in AM, 165, cm, 09/13/19 9:34:00 EST, Height Start Date: 09/13/19 Status: Ordered Flonase 50 mcg/inh nasal spray 1 sprays, Nares, Both, 2 times a day, # 16 Gm, 0 Refills, Maintenance, 10/11/19 8:25:00 EDT, [place],[facility] #[id number], 1 sprays Nares, Both 2 times a day, 165, cm, 09/17/19 11:11:00 EST, Height Start Date: 10/11/19 Status: Ordered gabapentin 600 mg oral tablet 0 Refills, Maintenance, 12/26/19 13:59:00 EDT Start Date: 12/26/19 Status: Ordered levothyroxine 0.05 mg oral tablet 1 tablet = 50 mcg, By Mouth, Daily, # 30 tablet, 5 Refills, Maintenance, 07/15/19 17:13:00 EST, Tablet, [facility] #[id number], 165, cm, 04/15/19 16:17:00 EDT, Height, 93.5, [...] 5 Refills, Maintenance, 03/20/20 16:18:00 EDT, ECCapsule, [facility] #[id number], 165, cm, 03/20/20 16:09:00 EDT, Height Start Date: 03/20/20 Stop Date: 09/16/20 Status: Ordered QUEtiapine 300 mg oral tablet 0 Refills, Maintenance, 12/26/19 13:59:00 EDT Start Date: 12/26/19 Status: Ordered Problem List Condition Effective Dates Status Health Status Inform ant *BHN/ERICH/JOHNNIE-Katie [facility]-[phone]/Health penitentiary, active care coordination(Confirmed) Active Tobacco dependence(Confirmed) Active Hepatitis C(Confirmed) Active Social History Social History Type Response Smoking Status 5-9 cigarettes (betw een 1/4 to 1/2 pack)/day in last 30 days; Other: VAPING FLAVORED TOBACCO; entered on: 04/15/19 Sex Female
--- OUTSIDE RECORDS SUMMARY | 2023-07-18 23:08 | XMS_ITS | Continuity of Care Document ---
Author Name Unknown Organization [facility] Address [address] [place] [address]- Care Team Providers Care Milk Collector Name Role Phone Not on Staff, PCP Primary Care Physician Unavail able [place] [facility] Date[place]s): 02/25/22 - 03/27/22 [facility] [address] [place] [id number] [[email or web address] Allergies, Adverse Reactions, Alerts No Known Allergies [...] Stop 12/15/22 9:03:00 EDT, 12/20/21 9:03:00 EDT, [facility] #08865, 1 puffs Inhalation 4 times a day,x90 days,PRN: NEEDED FOR WHEEZI... Start Date: 12/20/21 Stop Date: 12/15/22 Status: Ordered Atrovent HFA 17 mcg/inh inhalation aerosol 2 puffs, Inhalation, 4 times a day, # 12.9 Gm, 0 Refills, Maintenance, 10/07/19 15:10:00 EDT, Aerosol, [facility] #[id number], 165, cm, 09/17/19 11:11:00 EST, Height Start [...] 01/12/22 17:25:00 EDT, Route to Pharmacy Electronically, [facility] #[id number], Partial fill uponpatient request if the prescription [...] capsule, 0 Refills, Acute, 01/18/21 20:42:00 EDT, [facility] #24904, 165, cm, 10/01/20 13:31:00 EDT, Height Start [...] 07/30/20 18:10:00 EST, Route to Pharmacy Electronically, [facility] #09982, Partial fill upon patient request if the prescription is for a sched... Start Date: 07/30/20 Status: Ordered levothyroxine 0.05 mg oral tablet 1 tablet = 50 mcg, By Mouth, Daily, # 30 tablet, 5 Refills, Maintenance, 07/15/19 17:13:00 EST, Tablet, [facility] #10715, 165, cm, 04/15/19 16:17:00 EDT, Height, 93.5, [...] 2 Refills, Maintenance, 03/30/21 14:01:00 EDT, ECCapsule, [facility] #28014, 165, cm, 10/01/20 13:31:00 EDT, Height Start [...] DAYS, # 80 Gm, 0 Refills, Acute, [facility] #22138, 25, APPLY EXTERNALLY TO THE AFFECTED AREA TWICE DAILY FOR 14 DAYS, 165, cm, 10/01/20 13:31:00 EDT, Height Start Date: 01/19/21 Status: Ordered Tylenol Extra Strength 500 mg oral tablet 2 tablet = 1,000 mg, By Mouth, Every 6 hours, PRN for pain, for 360 days, # 100 tablet, 0 Refills, Acute 01/07/23 17:25:00 EDT, 01/12/22 17:25:00 EDT, Tablet, [facility] #24182, Partial fill upon patient request if the prescription is for a... Start Date: 01/12/22 Stop Date: 01/07/23 Status: Ordered Problem List Condition Effective Dates Status Health Status Inform ant Borderline personality disorder(Confirmed) 1 Active *N/CCA/CC-Katie [facility]-[phone]/Health custodial, active care coordination(Confirmed) Active PTSD (post-traumatic stress disorder)(Confirmed) Active Tobacco dependence(Confirmed) Active Hepatitis C(Confirmed) Active 1Psych admission 04/2021 Social History Social History Type Response Smoking Status 5-9 cigarettes (betw een 1/4 to 1/2 pack)/day in last 30 days; Other: VAPING FLAVORED TOBACCO; entered on: 04/15/19 Sex Care Team Personnel Name: Not on Staff, PCP
--- OUTSIDE RECORDS SUMMARY | 2023-07-18 23:08 | XMS_ITS | Continuity of Care Document ---
Author Name Unknown Organization [facility] Address [address] [place] [address]- Care Team Providers Care Product Support Analyst Name Role Phone Santi Conway DO Primary Care Physician [phone] Encounter [facility] Date(s): 05/02/23 - 06/07/[address] [address]- Attending Physician: Cassidy Mendoza MD Admitting Physician: Cassidy Mendoza MD Referring Physician: Cassidy Mendoza MD Allergies, Adverse Reactions, [...] 0 Refills, Maintenance, 01/05/23 15:08:00 EDT, Tablet, [facility] #70009, Partial fill upon patient request if the [...] 2 Refills, Maintenance, 03/30/21 14:01:00 EDT, [place], [facility] #33260, 165, cm, 10/01/20 13:31:00 EDT, Height Start [...] 0 Refills, Maintenance, 01/28/23 9:42:00 EDT, Tablet, [facility]/pharmacy #[id number], Partial fill upon patient request if the prescription is for a schedule II opioid drug., 162, cm, 01/28/23 2:58:00 EDT, Height, 9... Start Date: 01/28/23 Status: Ordered Problem List Condition Confirmation Course Effective Dates Status Health St [facility] Informant Borderline personality disorder 1 Confirmed Active *BHN/CCA [facility]/Business Continuity Management Director-Az Espino-[phone]/Health residential, active care coordination Confirmed Active [...] Team Personnel Name: Santi Conway DO Position: [facility] Resident Member Role: PCP Address: Address: [address] [place] [address] Name: Isabelle Sinclair Position: [facility] RN Member Role: Primary Care Nurse Name: Mireya Whiting Position: [facility] RN Member Role: Primary Care Nurse Name: Jared Dumont RN Position: [facility] RN Member Role: Primary Care Nurse Name: Cassidy Kelley RN Position: [facility] RN Member Role: Primary Care Nurse Name: Evelyn Chapin RN Position: [facility] RN Member Role: Primary Care Nurse Care Team Related Persons Name: MICHAEL CHEEK Name: VINICIUS WAGONER Address: home [address] [place] [id number] Name: CINDI WU Name: PAVITHRA WU Address: home UNKNOWN
--- OUTSIDE RECORDS SUMMARY | 2023-07-18 23:08 | XMS_ITS | Continuity of Care Document ---
Author Name Unknown Organization [facility] Address [address] [place] [address]- Care Team Providers Care Poultry Sexer Name Role Phone Kvng SALAZAR, Janina Her Primary Care Physician [phone] Encounter [facility] Date(s): 10/08/19 - 10/15/19 [facility] [address] [place] [address]- [facility] Attending Physician: Wilber Phelan Admitting Physician: Willie SALAZAR, Jorge Juan Allergies, Adverse Reactions, Alerts Substance Reaction Severity Status codeine Active Medications acetaminophen 325 mg oral tablet 650 mg, 2, tablet, By Mouth, Every 4 hours, PRN, # 30 tablet, Refills 0, Tot. Refills 0, Maintenance, as needed for fever, 09/16/19 13:27:00 EST, Route to Pharmacy Electronically, [facility] #[id number], 165, cm, 09/13/19 9:34:00 EST, Height Start Date: 09/16/19 Status: Ordered albuterol CFC free 90 mcg/inh inhalation aerosol 1, puffs, Inhalation, 4 times a day, PRN, # 7 Gm, Refills 0, Tot. Refills 0, Maintenance, 10/13/19 14:32:00 EDT, Aerosol, Route to Pharmacy Electronically, [id number], [facility] #83034, 165, cm, 09/17/19 11:11:00 E... Start Date: 10/13/19 Status: Ordered Atrovent HFA 17 mcg/inh inhalation aerosol 2 puffs, Inhalation, 4 times a day, # 12.9 Gm, 0 Refills, Maintenance, 10/07/19 15:10:00 EDT, Aerosol, [facility] #77459, 165, cm, 09/17/19 11:11:00 EST, Height Start [...] 0 Refills, Soft Stop, 10/06/19 10:57:00 EDT, Table[place],[facility] #97435, 165, cm, 09/17/19 11:11:00 EST, Height Start Date: 10/06/19 Status: Ordered Flonase 50 mcg/inh nasal spray 1 sprays, Nares, Both, Daily in AM, # 9.9 mL, 0 Refills, Maintenance, 09/13/19 10:15:00 EST, [place] #05364, 1 sprays Nares, Both Daily in AM, 165, cm, 09/13/19 9:34:00 EST, Height Start Date: 09/13/19 Status: Ordered Flonase 50 mcg/inh nasal spray 1 sprays, Nares, Both, 2 times a day, # 16 Gm, 0 Refills, Maintenance, 10/11/19 8:25:00 EDT, [place] #28549, 1 sprays Nares, Both 2 times a [...] 10/13/19 14:30:00 EDT, Route to Pharmacy Electronically, [facility] #[id number], 165, cm, 09/17/19 11:11:... Start Date: 10/13/19 Stop Date: 10/23/19 Status: Ordered levothyroxine 0.05 mg oral tablet 1 tablet = 50 mcg, By Mouth, Daily, # 30 tablet, 5 Refills, Maintenance, 07/15/19 17:13:00 EST, Tablet, [facility] #02268, 165, cm, 04/15/19 16:17:00 EDT, Height, 93.5, [...] Effective Dates Status Health Status Inform ant *BHN/CCA/CC-Katei [facility]-[phone]/Health correction, active care coordination(Confirmed) Active Tobacco dependence(Confirmed) Active Hepatitis C(Confirmed) Active Social History Social History Type Response Smoking Status 5-9 cigarettes (betw een 1/4 to 1/2 pack)/day in last 30 days; Other: VAPING FLAVORED TOBACCO; entered on: 04/15/19 Sex Female
--- OUTSIDE RECORDS SUMMARY | 2023-07-18 23:08 | XMS_ITS | Continuity of Care Document ---
Author Name Unknown Organization [facility] Address [address] [place] [address]- Care Team Providers Care Acid Crane Operator Name Role Phone Kvng SALAZAR, Janina Her Primary Care Physician Encounter [facility] Date(s): 09/17/19 - 09/27/19 [facility] [address] [place] [address]- [facility] Attending Physician: Jose Moreira Admitting Physician: AdmJose washington Referring Physician: AdmtrJose Allergies, Adverse Reactions, Alerts Substance Reaction Severity Status codeine Active Medications acetaminophen 325 mg oral tablet 650 mg, 2, tablet, By Mouth, Every 4 hours, PRN, # 30 tablet, Refills 0, Tot. Refills 0, Maintenance, as needed for fever, 09/16/19 13:27:00 EST, Route to Pharmacy Electronically, [facility] #[id number], 165, cm, 09/13/19 9:34:00 EST, Height Start Date: 09/16/19 Status: Ordered clonazePAM 1 mg oral tablet [...] # 1 tablet, 0 Refills, Soft Stop, 09/17/19 11:34:00 EST, [place],[facility] #95087, 165, cm, 09/17/19 11:11:00 EST, Height Start Date: 09/17/19 Status: Ordered Flonase 50 mcg/inh nasal spray 1 sprays, Nares, Both, Daily in AM, # 9.9 mL, 0 Refills, Maintenance, 09/13/19 10:15:00 EST, [place] #14095, 1 sprays Nares, Both Daily in AM, 165, cm, 09/13/19 9:34:00 EST, Height Start Date: 09/13/19 Status: Ordered gabapentin 600 mg oral tablet 1 tablet = 600 mg, By Mouth, 2 times a day, # 60 tablet, 4 Refills, Maintenance, 09/19/18 13:40:07 EST Start Date: 09/19/18 Status: Ordered ibuprofen 200 mg oral capsule 2 capsule = 400 mg, By Mouth, Every 4 hours, PRN as needed for pain, # 50 capsule, 0 Refills, Maintenance, 09/16/19 13:27:00 EST, Capsule, [facility] #87064, 165, cm, 09/13/19 9:34:00 EST, Height Start Date: 09/16/19 Status: Ordered levothyroxine 0.05 mg oral tablet 1 tablet = 50 mcg, By Mouth, Daily, # 30 tablet, 5 Refills, Maintenance, 07/15/19 17:13:00 EST, Tablet, [facility] #69100, 165, cm, 04/15/19 16:17:00 EDT, Height, 93.5, kg, 08/24/17 21:31:00 EST, Dry Weight Start Date: 07/15/19 Status: Ordered methadone 10 mg oral tablet = 40 mg, By Mouth, Daily, 0 Refills, Maintenance, 08/26/17 11:07:54, Tablet Start Date: 08/26/17 Status: Ordered omeprazole 20 mg oral delayed release tablet 1 tablet = 20 mg, By Mouth, Daily, # 30 tablet, 0 Refills, Maintenance, 09/13/19 10:14:00 EST, CR Tablet, [facility] #62681, 165, cm, 09/13/19 9:34:00 EST, Height Start Date: 09/13/19 Status: Ordered omeprazole 40 mg oral enteric [...] Dates Status Health Status Inform ant *N/CCA/CC-Katie [facility]-[phone]/Health alf, active care coordination(Confirmed) Active Tobacco dependence(Confirmed) Active Hepatitis C(Confirmed) Active Social History Social History Type Response Smoking Status 5-9 cigarettes (betw een 1/4 to 1/2 pack)/day in last 30 days; Other: VAPING FLAVORED TOBACCO; entered on: 04/15/19 Sex Female
--- OUTSIDE RECORDS SUMMARY | 2023-07-18 23:08 | XMS_ITS | Continuity of Care Document ---
Author Name Unknown Organization [facility] Address [address] [place] [address]- Care Team Providers Care Dairy And Food Laboratory Assistant Name Role Phone Janina Calderon MD Primary Care Physician Encounter [facility] Date(s): 08/23/21 - 09/25/21 [facility] [address] [place] [id number] Attending Physician: Not on Staff, Attending MD [...] 9:14:00 EDT, Aerosol, Route to Pharmacy Electronically, [id number], [facility] #[id number], 165, cm, 10/01/20 13:31:00 ED... Start Date: 11/10/20 Status: Ordered Atrovent HFA 17 mcg/inh inhalation aerosol 2 puffs, Inhalation, 4 times a day, # 12.9 Gm, 0 Refills, Maintenance, 10/07/19 15:10:00 EDT, Aerosol, [facility] #94353, 165, cm, 09/17/19 11:11:00 EST, Height Start [...] capsule, 0 Refills, Acute, 01/18/21 20:42:00 EDT, [facility] #06085, 165, cm, 10/01/20 13:31:00 EDT, Height Start [...] 07/30/20 18:10:00 EST, Route to Pharmacy Electronically, [facility] #44886, Partial fill upon patient request if the prescription is for a sched... Start Date: 07/30/20 Status: Ordered levothyroxine 0.05 mg oral tablet 1 tablet = 50 mcg, By Mouth, Daily, # 30 tablet, 5 Refills, Maintenance, 07/15/19 17:13:00 EST, Tablet, [facility] #32576, 165, cm, 04/15/19 16:17:00 EDT, Height, 93.5, [...] 2 Refills, Maintenance, 03/30/21 14:01:00 EDT, ECCapsule, [facility] #42073, 165, cm, 10/01/20 13:31:00 EDT, Height Start [...] DAYS, # 80 Gm, 0 Refills, Acute, [facility] #[id number], 25, APPLY EXTERNALLY TO THE AFFECTED AREA TWICE DAILY FOR 14 DAYS, 165, cm, 10/01/20 13:31:00 EDT, Height Start Date: 01/19/21 Status: Ordered Problem List Condition Effective Dates Status Health Status Inform ant Borderline personality disorder(Confirmed) 1 Active *N/CCA/CC-Katie [facility]-[phone]/Health fdc, active care coordination(Confirmed) Active PTSD (post-traumatic stress disorder)(Confirmed) Active Tobacco dependence(Confirmed) Active Hepatitis C(Confirmed) Active 1Psych admission 04/2021 Social History Social History Type Response Smoking Status 5-9 cigarettes (betw een 1/4 to 1/2 pack)/day in last 30 days; Other: VAPING FLAVORED TOBACCO; entered on: 04/15/19 Sex
--- OUTSIDE RECORDS SUMMARY | 2023-07-18 23:08 | XMS_ITS | Continuity of Care Document ---
Author Name Unknown Organization [facility] Address [address] [place] [address]- Care Team Providers Care Transportation Worker Name Role Phone Santi Conway DO Primary Care Physician [phone] Encounter [facility] Date(s): 01/02/23 - 02/01/23 [facility] [address] [place] [id number] Allergies, Adverse Reactions, Alerts No Known [...] 0 Refills, Maintenance, 01/05/23 15:08:00 EDT, Tablet, [facility]15, Partial fill upon patient request if the [...] 2 Refills, Maintenance, 03/30/21 14:01:00 EDT, [place], [facility] #02179, 165, cm, 10/01/20 13:31:00 EDT, Height Start [...] 0 Refills, Maintenance, 01/28/23 9:42:00 EDT, Tablet, [facility]/pharmacy #[id number], Partial fill upon patient request if the prescription is for a schedule II opioid drug., 162, cm, 01/28/23 2:58:00 EDT, Height, 9... Start Date: 01/28/23 Status: Ordered Problem List Condition Confirmation Course Effective Dates Status Health [facility] Informant Borderline personality disorder 1 Confirmed Active *BHN/CCA/CC-Katie [facility]-[phone]/ Health long term, active care coordination Confirmed Active PTSD (post-traumatic [...] Team Personnel Name: Santi Conway DO Position: [facility] Resident Member Role: PCP Address: Address: [address] [place] [address] Name: Isabelle Sinclair Position: [facility] RN Member Role: Primary Care Nurse Name: Mireya Whiting Position: [facility] RN Member Role: Primary Care Nurse Name: Jared Dumont RN Position: [facility] RN Member Role: Primary Care Nurse Name: Cassidy Kelley RN Position: [facility] RN Member Role: Primary Care Nurse Name: Evelyn Chapin RN Position: [facility] RN Member Role: Primary Care Nurse Care Team Related Persons Name: MICHAEL CHEEK Name: VINICIUS WAGONER Address: home [address] [place] [id number] Name: CINDI WU Name: PAVITHRA WU Address: home UNKNOWN
[2023-07-18 23:19] LABS: COVID-19 Test Negative (Negative); IDNOW Serial# 08D9AD1C; IDNOW Serial# 9DB6401D; Influenza A Negative (Negative); Influenza B2 Negative (Negative)
--- NOTE | 2023-07-18 23:25 | PC.NURSE ---
pt resting in bed at this time, no sign of distress. pt record changer to hospital attire, ekg done, lab collected and sent.
[2023-07-18 23:29] LABS: Erythrocyte Sedimentation Rate 12 MM/HR (0-20)
[2023-07-18 23:40] VITALS: BP 147/80; PULSE 77; RESP 16
--- NOTE | 2023-07-18 23:46 | PC.NURSE ---
Reviewed discharge instructions with pt, pt verbalized understanding, no sign of distress upon discharge.
== END 2023-07-18 23:46 | disposition home or self-care (01) ==
PROVIDERS: Student in an Organized Health Care Education/Training Program; Emergency Provider Emergency Medicine Emergency Medical Services
DX: R07.9 Chest pain, unspecified (principal); J06.9 Acute upper respiratory infection, unspecified; Z11.52 Encounter for screening for COVID-19
CPT/HCPCS: 36415; 71045; 80053; 81025; 84484; 85025; 85652; 86140; 87502; 87635; 93005; 99283; 99285

== ENCOUNTER → 2023-07-18 21:48 | Outpatient (BNV) | payer OTHER, MEDICAID, SELFPAY | PROVIDERS: Emergency Provider Emergency Medicine Emergency Medical Services; Visit Provider Internal Medicine Cardiovascular Disease | DX: R94.31 Abnormal electrocardiogram [ECG] [EKG] (principal) | CPT/HCPCS: 93010 ==

== ENCOUNTER 2023-08-17 08:31 | Inpatient (IN) | payer MEDICARE, MEDICAID, SELFPAY ==
--- NOTE | ~2023-08-17 | US_ITS ---
EXAMINATION: ULTRASOUND EXTREMITY NONVASCULAR CLINICAL INFORMATION: Left axillary pain COMPARISON: None available. TECHNIQUE: Real-time ultrasound of the left axilla FINDINGS: Ultrasound of the left axilla demonstrates no sonographic abnormality. No focal abnormality is seen. US/US extremity nonvascular IMPRESSION: No sonographic abnormality is seen within the left axilla.
--- NOTE | ~2023-08-17 | XR_ITS ---
EXAMINATION: XR CHEST CLINICAL INFORMATION: Chest pain COMPARISON: Portable chest 07/18/2023 TECHNIQUE: 2 views of the chest were obtained. FINDINGS: No significant abnormality is noted involving the heart, lungs, mediastinum, bony thorax or soft tissues. XR/XR chest 2V IMPRESSION: No acute cardiopulmonary disease.
[2023-08-17 08:42] VITALS: BP 134/87; PULSE 113; O2SAT 99
[2023-08-17 08:50] VITALS: BP 144/90; PULSE 109; RESP 19; TEMP 37.3; O2SAT 99; BMI 33.3
--- OUTSIDE RECORDS SUMMARY | 2023-08-17 09:36 | XMS_ITS | Continuity of Care Document ---
Author Name Unknown Organization [facility] ter Address [address] [place] [id number]- Care Team Providers Care Learning Support Specialist Name Role Phone Santi Conway DO Primary Care Physician [place] [facility] [place]16[place]23 - 08/16/[address] [id number]- Encounter Diagnosis Anxiety(Final) - 08/16/23 Discharge Disposition: A-D/C Home Attending Physician: Wilber Herrera DO Admitting Physician: Wilber Herrera DO Referring Physician: Not on Staff, Referring [...] 0 Refills, Maintenance, 01/05/23 15:08:00 EDT, Tablet, [id number], Partial fill upon patient request if the [...] capsule 300 mg, 1, capsule, By Mouth, Daily at bedtime, # 30 capsule, Refills 3, Tot. Refills 3, Maintenance, 07/21/23 10:58:00 EST, Route to Pharmacy Electronically, [facility]/pharmacy #[id number], Partial fill upon patient request if the prescription is for a schedule... Start Date: 07/21/23 Status: Ordered KlonoPIN 0.5 mg oral tablet [...] 2 Refills, Maintenance, 03/30/21 14:01:00 EDT, ECCapsule, [id number], 165, cm, 10/01/20 13:31:00 EDT, Height Start [...] 0 Refills, Maintenance, 01/28/23 9:42:00 EDT, Tablet, [id number], Partial fill upon patient request if the prescription is for a schedule II opioid drug., 162, cm, 01/28/23 2:58:00 EDT, Height, 9... Start Date: 01/28/23 Status: Ordered Problem List Condition Confirmation Course Effective Dates Status Health St atus Informant Borderline personality disorder 1 Confirmed Active *[facility]/Personal Care Assistant-Az Espino-[phone] 2/Health senior care, active care coordination Confirmed Active PTSD (post-traumatic stress disorder) Confirmed Active Severe obesity (BMI 35.0-39.9) with comorbidity Confirmed Active Tobacco dependence Confirmed Active Hepatitis C Confirmed Active 1Psych admission 04/2021 Vital Signs Most recent to oldest [Reference Range]: 1 2 3 Height 162 cm (08/16/23 8:44 PM) 162 cm (08/16/23 6:19 PM) 162 cm (08/16/23 2:47 PM) Weight 92 kg (08/16/23 8:44 PM) 92 kg (08/16/23 6:19 PM) 92 kg (08/16/23 2:47 PM) Oxygen Saturation [94-100 %] 99 % (08/16/23 8:44 PM) 97 % (08/16/23 6:19 PM) 99 % (08/16/23 2:47 PM) Pulse Rate [55-90 bpm] 102 bpm *H* (08/16/23 8:44 PM) 120 bpm *H* (08/16/23 6:19 PM) 110 bpm *H* (08/16/23 2:47 PM) Body Mass Index [18.5-24.99 kg/m2] 35.06 kg/m2 *>HHI* (08/16/23 6:19 PM) Blood Pressure [90-138/55-84 mm Hg] 142/88mm Hg *H* (08/16/23 8:44 PM) 151/101mm Hg *H* (08/16/23 6:19 PM) 138/68mm Hg (08/16/23 2:47 PM) Respiratory Rate [16-30 br/min] 16 br/min (08/16/23 8:44 PM) 18 br/min (08/16/23 6:19 PM) 21 br/min (08/16/23 2:47 PM) Temperature [96.8-100.4 DegF] 98.8 DegF (08/16/23 8:44 PM) Mode of Delivery (Oxygen) Room air (08/16/23 8:44 PM) Room air (08/16/23 6:19 PM) Room air (08/16/23 2:47 PM) Blood pressure sites Arm, right (08/16/23 8:44 PM) Arm, right (08/16/23 6:19 PM) Temperature Route Oral (08/16/23 8:44 PM) Dry Weight 92 kg (08/16/23 8:44 PM) 92 kg (08/16/23 6:19 PM) 92 kg (08/16/23 2:47 PM) Social History Social History Type Response Smoking Status 5-9 cigarettes (betw een 1/4 to 1/2 pack)/day in last 30 days; Other: VAPING FLAVORED TOBACCO; entered on: 04/15/19 Sex Female Patient Care team information Care Team Personnel Name: Santi Conway DO Position: [facility] Resident Member Role: PCP Address: Address: [address] [place] [address] Name: Isabelle Sinclair Position: S RN Member Role: Primary Care Nurse Name: Mireya Whiting Position: [facility] RN Member Role: Primary Care Nurse Name: Cassidy Kelley RN Position: [facility] RN Member Role: Primary Care Nurse Name: Evelyn Chapin RN Position: [facility] RN Member Role: Primary Care Nurse Care Team Related Persons Name: MICHAEL CHEEK Name: VINICIUS WAGONER Address: home [address] [place] [id number] Name: CINDI WU Name: PAVITHRA WU Address: home UNKNOWN
[2023-08-17 10:43] LABS: Amphetamine Screen Urine Not Detected (Not Detect); Barbiturates, Urine Not Detected (Not Detect); Benzodiazepines Screen Urine POSITIVE (Not Detect); Cannabinoid Screen Urine POSITIVE (Not Detect); Cocaine Screen Urine Not Detected (Not Detect); Fentanyl, urine POSITIVE (Not Detect); Opiate Screen Urine Not Detected (Not Detect); Phencyclidine Screen Urine Not Detected (Not Detect)
[2023-08-17 10:45] LABS: UPreg QC Valid YES; Urine Pregnancy NEGATIVE (NEGATIVE)
--- NOTE | 2023-08-17 10:48 | ECG_ITS ---
Test Reason : CHEST PAIN Blood Pressure : / mmHG Vent. Rate : 081 BPM Atrial Rate : 081 BPM P-R Int : 148 ms QRS Dur : 086 ms QT Int : 410 ms P-R-T Axes : 027 -32 028 degrees QTc Int : 476 ms Normal sinus rhythm Left axis deviation Possible Anterior infarct (cited on or before 18-JUL-2023) Abnormal ECG When compared with ECG of 18-JUL-2023 22:05, No significant change was found Referred By: Shelby Roberson Electronically Signed By:DINA MCCORMACK MD
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
[2023-08-17 10:52] LABS: Glucose Urine UA Negative (Negative); Leukocyte Esterase Urine Negative (Negative); Nitrite Urine Negative (Negative); PH 5.5 (5.0-9.0); Specific Gravity - Urine >= 1.030 (1.005-1.025); Urine Blood Negative (Negative); Urine Ketones 15 mg/dL (Negative); Urine Protein Trace mg/dL (Neg-Trace)
[2023-08-17 10:55] LABS: Appearance Urine Hazy; Color Urine Yellow
[2023-08-17 12:46] LABS: MANUAL DIFF FLAG NO
[2023-08-17 12:48] LABS: Basophils Percent Auto 0.2 % (0-2); Eosinophils Percent Auto 0.1 % (0-4); Hematocrit 38.3 % (37.0-47.0); Hemoglobin 12.3 g/dl (12.0-16.0); Imm Gran Abs Auto 0.04 X10*3/uL (0.00-0.03); Imm Gran Pct Auto 0.4 % (0.0-0.4); Lymphocytes Absolute Auto 2.9 X10*3/uL (1.2-4.9); Lymphocytes Percent Auto 29.7 % (20-40); Mean Corpuscular HGB Conc 32.1 g/dl (31.0-35.0); Mean Corpuscular Hemoglobin 25.8 pg (27.0-33.0); Mean Corpuscular Volume 80.5 fL (80.0-98.0); Mean Platelet Volume 9.3 fL (9.4-12.3); Monocytes Absolute Auto 0.4 X10*3/uL (0.1-1.2); Neutrophils Absolute Auto 6.4 x10*3/uL (2.0-8.3); Neutrophils Percent Auto 65.6 % (45-73); Platelet Count 325 X10*3/uL (160-400); Red Blood Count 4.76 X10*6/uL (4.20-5.50); Red Cell Distribution Width 16.6 % (11.0-16.0); White Blood Count 9.8 X10*3/uL (4.8-10.8)
[2023-08-17 13:09] LABS: Alanine Aminotransferase 26 U/L (0-31); Albumin Level 4.9 g/dL (3.5-5.0); Alkaline Phosphatase 44 U/L (39-117); Anion Gap 15 (12-20); Aspartate Amino Transferase 34 U/L (5-31); Bilirubin Direct 0.2 mg/dL (0.0-0.5); Bilirubin Total 0.4 mg/dL (0.0-1.0); Blood Urea Nitrogen 19 mg/dL (9-16); Calcium 9.6 mg/dL (8.4-10.2); Carbon Dioxide 23 mmol/L (22-29); Chloride 105 mmol/L (96-108); Creatinine Clr Calc Pharmacy 85.8; Estimated Glomerular Filt Rate > 60; Glucose Random 94 mg/dL (60-115); Potassium 3.8 mmol/L (3.3-5.1); Sodium 139 mmol/L (135-145); Total Protein 7.9 g/dL (6.5-8.0)
[2023-08-17 13:17] LABS: Troponin-I High Sensitivity < 2.7 ng/L (<3.5-17.0)
[2023-08-17 13:23] LABS: COVID-19 Test Negative (Negative); IDNOW Serial# 08D9AD1C; IDNOW Serial# 152EDE1D
[2023-08-17 13:24] LABS: Influenza A Negative (Negative); Influenza B2 Negative (Negative)
--- NOTE | 2023-08-17 13:55 | PC.NURSE ---
Assumed care of patient at 1100, patient has been calm and cooperative without issue. Off to ultrasound with security and HUBER croft at this time
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
[2023-08-17 15:15] VITALS: PULSE 87; RESP 14; O2SAT 99
--- NOTE | 2023-08-17 15:15 | PC.NURSE ---
release of info faxed over to [facility] in [place] for Methadone verification. Have not heard back
--- NOTE | 2023-08-17 15:17 | PC.NURSE ---
Reached out to [facility] re: last dose. Left message on after hours phone line. Awaiting call back for verification.
--- NOTE | 2023-08-17 15:26 | PC.NURSE ---
Refused call from grandmother, I don't want to talk to anyone .
--- NOTE | 2023-08-17 15:34 | PHA.MEDREC ---
Pharmacy Consult ? Medication Reconciliation Pharmacy has reviewed the medication reconciliation completed by Anne. Patient reporting taking no medications. Valarie Russell, DheerajD
--- NOTE | 2023-08-17 16:53 | HE.PHANOTE ---
RE METHADONE VERIFICATION LAST DOSE 80 MG GIVEN 08/16/23 AT [facility]
--- NOTE | 2023-08-17 17:14 | PC.NURSE ---
Spoke with Reginald (bank operations officer tx ctr director) from [facility]. Verified last dose was 08/16/23 @ 10:56am. Verification form sent to pharmacy and Dr. Lay notified to order.
[2023-08-17] MEDS: methADONE HCl 20 MG/2 ML ORAL.CONC 80 MG PO (17:24)
--- NOTE | 2023-08-17 19:14 | PC.NURSE ---
patient awake and chatting with clinical staff at present, seemingly recounting todays experiences, seems labile mood and somewhat animated. patient appears in no acute distress.
[2023-08-17 20:21] VITALS: BP 114/73; PULSE 86; RESP 18; TEMP 36.5; O2SAT 96
[2023-08-17] MEDS: Nicotine Polacrilex 2 MG GUM BUCCAL (22:48)
[2023-08-18 00:14] VITALS: BP 135/82; PULSE 103; TEMP 36.2; O2SAT 98
--- NOTE | 2023-08-18 04:08 | PC.NURSE ---
PT UP, WALKING AROUND COMMON AREA.
[2023-08-18] MEDS: LORazepam 1 MG TABLET PO (06:15)
--- NOTE | 2023-08-18 06:25 | PC.NURSE ---
PT GIVEN ATIVAN, SWEARING. BEING INTRUSIVE. MULTIPLE REDIRECTIONS GIVEN TO PT
--- NOTE | 2023-08-18 07:54 | PC.NURSE ---
Pt refusing methadone, I don't want it from here. I want it from my clinic.
[2023-08-18] MEDS: Nicotine Polacrilex 2 MG GUM BUCCAL (08:34)
[2023-08-18 10:13] LABS: Ethanol < 10 mg/dL
--- NOTE | 2023-08-18 12:39 | PC.NURSE ---
Pt rambling, talking to self loudly in unit.
--- NOTE | 2023-08-18 12:48 | PC.NURSE ---
MILES, CAN YOU HEAR ME NOW BITCH!? Pt continues pacing around unit, intermittently yelling and aruging with herself.
--- NOTE | 2023-08-18 13:52 | PC.NURSE ---
Is that psych? I'm not signing anything.
--- NOTE | 2023-08-18 14:00 | PC.NURSE ---
Pt met with psych provider, now agreeable to taking her methadone as well as ativan.
[2023-08-18] MEDS: LORazepam 1 MG TABLET 2 MG PO (14:12)
[2023-08-18] MEDS: OLANZapine ODT 10 MG TAB.RAPDIS 20 MG TRANSLINGU (14:12)
--- NOTE | 2023-08-18 14:15 | PC.NURSE ---
Report given to Mariza on M5. Pt cooperative with med administration.
[2023-08-18] MEDS: methADONE HCl 20 MG/2 ML ORAL.CONC 80 MG PO (14:20)
--- NOTE | 2023-08-18 14:59 | PC.NURSE ---
Initial admission: pt shown the unit for tour. name band placed. vitals: 128/84, O2 sat 95, resp14, and p 90. 5 foot 5 inches and weighs 90 kg. Skin check and exchange engineer done. with this ticket writer and MHC cara. Denies si/hi. disorganized and manic presentation. Pt is not a fall risk. denies potential for withdrawl although DEAL positive for fentanyl. Pt shown room and given toiletries.
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
[2023-08-18 17:29] VITALS: BP 150/92; PULSE 101; RESP 16; TEMP 36.2; O2SAT 97
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
[2023-08-19] MEDS: diphenhydrAMINE HCL 50 MG/ML VIAL IM (01:34)
[2023-08-19] MEDS: Haloperidol Lactate 5 MG/ML VIAL 10 MG IM (01:34)
[2023-08-19] MEDS: LORazepam 2 MG/ML VIAL IM (01:34)
--- NOTE | 2023-08-19 04:12 | MHC.EVENTN ---
At about 0022 on 08/19/23, pt requested for ativan for sleep stating they gave me that downstairs in the ER , and refused her prn trazadone. call center support representative provider notified and recommended to order per TO either remeron or seroquel for pt. pt chose to take remeron instead. When medication was ready, pt refused it. Later on, pt had started to get irritable after requesting for a nicorette gum and was told it will need an order from the Dr. pt became increasingly agitated about waiting too long for the nicorette gum, pt started yelling and screaming out in the hallways, pt run to her room and slammed door closed , started to bang on the doors very loudly, charge nurse Rd, offered to have pt go lay down and rest while she waits for the gum. pt became more louder and behaviorally inappropriate, security was called for assistance as pt run and locked herself in the hallway bathroom. security was able to get in and hold pt down, unfortunately, mechanical restraints was needed as pt became severely aggressive, tried to fight security and staff nurses present at scene. Dr Muhammad was notified and ordered Haldol 10mg, Ativan 2mg and Benadryl 50mg all IM AT 0122. PT was placed in chair restraints at 0120 and was given IM Ativan 2mg in left deltoid and IM Benadryl and Haldol in right deltoid. pt refused vitals due to her aggressive behaviors. charge nurse Rd and the 2 securities stayed with pt and monitored her. AT 0151, pt maintained control and calm, so released of left arm was done by CHARBEL Sultana at 0153, pt's right arm was released at 0153 and at 0200 pt's shoulders were released. pt was offered fluids. she was taken to bed and rested. hospitalist consult was placed, Dr Gray here to exam pt s/p restrain at 0210. total hours of restraints was 40mins. safety tool was updated and all forms completed and signed except for the pt debirefing.
[2023-08-19 10:55] VITALS: BP 115/66; PULSE 107; RESP 16; TEMP 36.3; O2SAT 98
--- NOTE | 2023-08-19 10:56 | HO.PSYADMNOT ---
HPI Date of Service: 08/19/23 Chief Complaint: Opiate dependence, methadone ,aintence, depressio Sources of Information: patient interviewed, chart reviewed and crisis/core team assessment reviewed HPI Subjective Notes: Saul Warning and Section 12B (08/18/23, expires 08/23/23) Narrative: As per ED Note 08/17/23: 43-year-old female, the past medical history significant for bipolar disorder, anxiety depression, borderline personality disorder, PTSD, hepatitis-C, presenting to the emergency department on section 12 by police department after being found ?dancing on in [place]?. Per [facility] police, patient was at [facility] on a section 12 and some how escaped, patient states that she was trying to stay warm and was trying to get someone to stop her call the police department. On arrival, she is cooperative. Patient denies any suicidal or homicidal ideation. Denies auditory or visual hallucinations. Her only complaint is some pain in her left axilla as well as her chest. She states that the chest pain is constant, does not radiate anywhere, and she has a history of similar chest pain in the past. Denies any recent travel, surgeries, hospitalizations. She has not on control. She denies IV drug use or alcohol use. No fevers, chills, chest pain, abdominal pain, nausea, vomiting or diarrhea Event note 08/18/23: Event Note: Pt demanded to meet to have her intake. She questioned why she was here. Offered information from her intake and community Section 12A from police. She reports these are lies. She discussed threats to this movie writer from her corrugator and from her person- you all will be sorry you have done this. She began to question what tw knew of her grandmother's scratch ticket. She then changed her questioning and asked for a copy of her rights and a three day notice. She discontinued her psychiatric intake and initiated the ending of our meeting. Education provided regarding Section 12B which tw signed. Pt asked for a three day notice when discussion was complete. Discussed differences between Section 12B and three day notice to be signed after conditional voluntary admission. Given [facility] information and area where [facility] was posted. Pt then met with her primary nurse to begin the admission process to the unit. She received a copy of her legal rights and her primary nurse offered her a three day notice to sign. Today: Had restraint last evening- IM medications given. Section 12B completed on 08/18/23, expires 08/23/23. patient reports being very angry with being in the hospital. Reports that she wants to Jolie the police that brought her to the hospital and the gas station optometrist president/practice owner the ripped up this friend scars. Reports she does not want to Jolie the hospital itself and feels that the staff have been caring. States that her uncle had a winning scratch ticket, that she went to [place] in and was it being a big winner as she describes, but was unable to give the exact amount. Reports that shop keeper said was not a winner its a loser and ripped it up. Patient reports that she tried to get police attention outside on the road which led to them bring her to the hospital. Reports being very angry that she was medicated in the ambulance with fentanyl I'm an addict why would they give that? I have been clean since 07/05 . Methadone maintenance 80 mg and reports wanting to get off methadone and this dose has been getting decreased. Reports that in the hospital she has been dancing to show that she is not supposed to be here, but she is prepared to have fun. Is pressured at times during interaction and tangential. Still believes that there is a wanting scratch ticket, but does seem last perseverative on this and not agitated or aggressive when discussing this. Did discuss Section 12, 3 business days and the Saul warning, which patient was able to hear. She was very clear she did not want medications but was open to Benadryl and melatonin for sleep. Gave tel number to speak with Aunt Annie/Mom (Emmanuelle) [phone]. Mom reports that patient has been manic and psychotic for approximately 2 weeks. Feels that stress has been the main factor. Reports the family have been homeless for around 1 year now and that patient on goal so the family estate without the family knowing and therefore the patient, her mom and her aunt having to move out of where they were staying. Patient's mom and aunt are staying with friends. Patient has been staying with her grandmother and her uncle in their basement and mom reports this is not a good scene for the patient (did not elaborate). Reports patient's grandmother was concerned around 2 weeks ago due to things that the patient was saying and how she was acting. Was stating she had a 1 million dollar scratch tickets. Reports she could go back in time. Was also hallucinating and seeing things. Slept on side of a highway that is not my daughter . Was also concerned as 4 years ago, was depressed and [place] to [place] [address] after breaking up with her ex-inpatient then S35. Family brought her to [facility] for evaluation. Also at [facility] via EMS and discharged. Also confirmed methadone dose has been lowered recently- daughter requesting same. She never acted like this even when she was on fentanyl before . Denied hx of psychosis or malinda previously. Also reports daughter has been sober and main stressor has been housing and feels that daughter snapped trying to find a place for herself, her mom and her aunt. Past Psychiatric History: 4 years ago, was depressed and tried to [place] [address] after breaking up with her ex- inpatient then S35. As per family She never acted like this even when she was on fentanyl before . Denied hx of psychosis or malinda previously. Medical Evaluation Reviewed: Yes PMFSH Social History: Mom feels that stress has been the main factor. Reports the family have been homeless for around 1 year now and that patient on goal so the family estate without the family knowing and therefore the patient, her mom and her aunt having to move out of where they were staying. Patient's mom and aunt are staying with friends. Patient has been staying with her grandmother and her uncle in their basement and mom reports this is not a good scene for the patient (did not elaborate). Pt has son that is with their bio mother (pts ex ). 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 Denied legal issues. Substance History: Opiate use disorder. Also cocaine. Reports last use was 07/05/23. S35 4 years ago Diagnostics Vital Signs (24Hr): Vital Signs - 24 hr 08/18/23 17:29 Temperature 97.1 F Pulse Rate 101 H Respiratory Rate 16 Blood Pressure 150/92 H Pulse Oximetry 97 Oxygen Delivery Method Room Air BMI result Body Mass Index 33.3 Labs 08/17/23 12:34 08/17/23 12:34 Labs: Laboratory Results - last 48 hr 08/17/23 08/17/23 10:24 12:34 WBC 9.8 RBC 4.76 Hgb 12.3 D Hct 38.3 D MCV 80.5 MCH 25.8 L MCHC 32.1 RDW 16.6 H Plt Count 325 D MPV 9.3 L Immature Gran % (Auto) 0.4 Neut % (Auto) 65.6 Lymph % (Auto) 29.7 [place] % (Auto) 4.0 Eos % (Auto) 0.1 Baso % (Auto) 0.2 Lymph # (Auto) 2.9 [place] # (Auto) 0.4 Eos # (Auto) 0.0 Baso # (Auto) 0.0 Abs Immat Gran (auto) 0.04 H Absolute Neuts (auto) 6.4 Absolute Nucleated RBC 0.000 Nucleated RBC % (auto) 0.0 Sodium 139 Potassium 3.8 Chloride 105 Carbon Dioxide 23 Anion Gap 15 BUN 19 H Creatinine 0.96 Estim Creat Clear Calc 85.8 Estimated GFR > 60 Random Glucose 94 Calcium 9.6 D Total Bilirubin 0.4 Direct Bilirubin 0.2 AST 34 H ALT 26 Alkaline Phosphatase 44 Troponin I High Sens < 2.7 Total Protein 7.9 Albumin 4.9 Urine Color Yellow Urine Appearance Hazy Urine pH 5.5 Ur Specific [place] >= 1.030 H Urine Protein Trace Urine Glucose (UA) Negative Urine Ketones 15 Urine Blood Negative Urine Nitrite Negative Ur Leukocyte Esterase Negative Ethyl Alcohol < 10 COVID-19 (NERISSA) Negative COVID-19 Clin Com See Note Influenza Type A (KIERRA) Negative Influenza Type B (KIERRA) Negative Influenza A & B Note See Note Imaging Radiology Impressions: ITS Impressions Extremity Ultrasound 08/17/23 13:59 IMPRESSION: No sonographic abnormality is seen within the left axilla. Chest X-Ray 08/17/23 14:11 IMPRESSION: No acute cardiopulmonary disease. Meds/Allergies Meds Home Medications Medication Instructions Recorded Confirmed Type methadone 10 mg/mL oral 80 mg PO DAILY 08/17/23 08/17/23 History concentrate (Methadone Intensol) Allergies Allergies Allergy/AdvReac Type Severity Reaction Status Date / Time No Known Allergies Allergy Unverified 04/02/20 18:06 Mental Status Exam Mental Status Exam Narrative: initially irritable and frustrated during interview. Self-care was good, having just showered. Was alert and oriented. Able to understand Section 12 and Saul warning. She was pressured in speech and tangential. Still appear to have some delusional beliefs, but much less intense and perseverative regarding same such as weddings scratch ticket and being targeted by people. No SI. No HI. No agitation. Insight and judgment is limited regarding pre-admission circumstances and potential treatment options. Assessment & Plan Assessment & Plan (1) Psychosis: Status: Acute Code(s): F29 - Unspecified psychosis not due to a substance or known physiological condition Plan Presents with clear psychotic symptoms over the last 2 weeks in the context of significant psychosocial stressors. It is unclear of substances are playing a part, given patient's account of being sober along with family also. Psychotic symptoms to appear much less intense now compared to pre-admission, the patient has also received some IM doses of medications. Patient adamant she does not want antipsychotics. Will continue to observe and educate. Otherwise Benadryl and melatonin for sleep. Held on a Section 12 that will on 08/23/2023. Family involved and supportive of admission/evaluation. Patient educated on: medication risk/benefits Informed Consent: further education needed Reason for continued inpatient stay Substantial Risk for: inability to function Statement Statement: I have reviewed the history and physical and performed a pertinent examination on my patient. No changes have occurred unless specified. If the History and Physical was not performed prior to admission, the Hospitalist's service will be consulted for completing the admission physical. Time Spent With Patient Time: Total time managing care of this patient today ____ minutes.
[2023-08-19] MEDS: methADONE HCl 20 MG/2 ML ORAL.CONC 80 MG PO (11:01)
[2023-08-19 13:45] LABS: Estimated Average Glucose 97 mg/dL
[2023-08-19 19:10] VITALS: BP 127/88; PULSE 81; RESP 18; TEMP 36.2; O2SAT 100
--- NOTE | 2023-08-19 20:17 | PC.NURSE ---
Assumed care of pt at 19:00, pacing halls, keeping mostly to self. Remains in behavior control at this time.
[2023-08-19] MEDS: diphenhydrAMINE HCL 25 MG CAPSULE 50 MG PO (20:20)
[2023-08-19] MEDS: Melatonin 3 MG TABLET 6 MG PO (20:20)
[2023-08-19] MEDS: Nicotine Polacrilex 2 MG GUM 4 MG BUCCAL (20:23)
[2023-08-20 08:35] VITALS: BP 147/67; PULSE 93; RESP 18; TEMP 36.2; O2SAT 98
[2023-08-20] MEDS: methADONE HCl 20 MG/2 ML ORAL.CONC 80 MG PO (09:03)
[2023-08-20] MEDS: Nicotine Polacrilex 2 MG GUM 4 MG BUCCAL (11:11)
--- NOTE | 2023-08-20 12:13 | HO.PSYCHPN ---
Subjective Subjective Date of Service: 08/20/23 Reason For Visit: Opiate dependence, methadone ,aintence, depressio Subjective Notes: Section 12B Medical Problems Affecting Mental Status: No Interim History: Slept well. Eating. Much more organized. Does not feel AP or mood stabilizer needed. Focused on legal status today- initially wanted to sign a CV with a 3 day notice and ultimately became very overwhelmed with paperwork and declined to sign CV. Communicated signing a CV was not necessary in order to be discharged in the future. Still believes gas appliance servicer ripped up a winning lottery ticket/scratch ticket- was able to perseverate less on this. Regarding collateral from mom she doesnt know whats going on . Medication Compliance: Yes (declines AP or mood stabilizer) Side effects from medications: No Attending Groups: Intermittent Review of Systems Acute medical concerns: No Review of Systems Review of Systems Yes all other systems are reviewed and are negative Mental Status Exam Mental Status Exam Narrative: initially irritable and frustrated during interview. Self-care was good. Was alert and oriented. Able to understand Section 12 and Saul warning, got overwhelemd when comparing and discussing CV and 3 day notice. She was less pressured in speech and more organized. Still appear to have some delusional beliefs, but much less intense and perseverative regarding same such as winning scratch/lottery ticket and being targeted by people. No SI. No HI. No agitation. Insight and judgment is limited regarding pre-admission circumstances and potential treatment options. Diagnostics Vital Signs (24Hr): Vital Signs - 24 hr 08/19/23 19:10 08/20/23 08:35 Temperature 97.2 F 97.1 F Pulse Rate 81 93 Respiratory Rate 18 18 Blood Pressure 127/88 147/67 H Pulse Oximetry 100 98 Oxygen Delivery Method Room Air Room Air BMI result Body Mass Index 33.3 Labs 08/17/23 12:34 08/17/23 12:34 Labs: Laboratory Results - last 48 hr 08/19/23 08/19/23 12:34 Unknown Estimat Average Glucose 97 Hemoglobin A1c % 5.0 Magnesium Cancelled Triglycerides Cancelled Cholesterol Cancelled LDL Cholesterol, Calc Cancelled HDL Cholesterol Cancelled TSH Cancelled Free T4 Cancelled Imaging Radiology Impressions: ITS Impressions Extremity Ultrasound 08/17/23 13:59 IMPRESSION: No sonographic abnormality is seen within the left axilla. Chest X-Ray 08/17/23 14:11 IMPRESSION: No acute cardiopulmonary disease. Medications Medications Current Medications Acetaminophen (Acetaminophen 325 Mg Tablet) 650 mg PO Q6H PRN PRN Reason: Headache/Pain Mild Scale (1-3) Al Hydroxide/Mg Hydroxide (Magnesium Hydrox/Alum Hydrox 30 Ml Oral.Susp) 30 ml PO Q6H PRN PRN Reason: Heartburn/Nausea Diphenhydramine HCl (Diphenhydramine Hcl 25 Mg Capsule) 50 mg PO BEDTIME HUYEN Last Admin: 08/19/23 20:20 Dose: 50 mg Diphenhydramine HCl (Diphenhydramine Hcl 25 Mg Capsule) 50 mg PO BEDTIME PRN PRN Reason: insomnia Hydroxyzine HCl (Hydroxyzine Hcl 50 Mg Tablet) 50 mg PO Q6H PRN PRN Reason: Anxiety Magnesium Hydroxide (Milk Of Magnesia 30 Ml Oral.Susp) 30 ml PO DAILY PRN PRN Reason: Constipation Melatonin (Melatonin 3 Mg Tablet) 6 mg PO BEDTIME [facility] Last Admin: 08/19/23 20:20 Dose: 6 mg Methadone HCl (Methadone Hcl 20 Mg/2 Ml Oral.Conc) 80 mg PO DAILY [facility] Last Admin: 08/20/23 09:03 Dose: 80 mg Mirtazapine (Mirtazapine 15 Mg Tablet) 15 mg PO BEDTIME MRX1 PRN PRN Reason: Sleep Nicotine Polacrilex (Nicotine Polacrilex 2 Mg Gum) 4 mg BUCCAL Q1H PRN PRN Reason: Nicotine Cravings Last Admin: 08/20/23 11:11 Dose: 4 mg Nicotine Polacrilex (Nicotine Polacrilex 2 Mg Gum) 2 mg BUCCAL Q2H PRN PRN Reason: Nicotine Cravings Allergies Allergies Allergy/AdvReac Type Severity Reaction Status Date / Time No Known Allergies Allergy Unverified 04/02/20 18:06 Assessment & Plan Assessment & Plan (1) Psychosis: Status: Acute Code(s): F29 - Unspecified psychosis not due to a substance or known physiological condition Plan Presents with clear psychotic symptoms over the last 2 weeks in the context of significant psychosocial stressors. It is unclear of substances are playing a part, given patient's account of being sober along with family also. Psychotic symptoms to appear much less intense now compared to pre-admission, the patient has also received some IM doses of medications. Patient adamant she does not want antipsychotics. Will continue to observe and educate. Otherwise Benadryl and melatonin for sleep. Held on a Section 12 that will on 08/23/2023. Family involved and supportive of admission/evaluation. 08/20: develop rapport and encourage AP Reason for continued inpatient stay Substantial Risk for: inability to function and rapid decompensation Time Spent With Patient Time: Total time managing care of this patient today ____ minutes.
[2023-08-20 18:00] VITALS: BP 143/70; PULSE 100; RESP 18; TEMP 36.7; O2SAT 100
[2023-08-20] MEDS: Magnesium Hydrox/Alum Hydrox 30 ML ORAL.SUSP PO (18:51)
[2023-08-20] MEDS: Melatonin 3 MG TABLET 6 MG PO (20:43)
[2023-08-20] MEDS: diphenhydrAMINE HCL 25 MG CAPSULE 50 MG PO (20:44)
[2023-08-21] MEDS: Mirtazapine 15 MG TABLET PO ×2 (01:15→21:16)
[2023-08-21] MEDS: Magnesium Hydrox/Alum Hydrox 30 ML ORAL.SUSP PO ×2 (06:46→21:16)
[2023-08-21 07:45] VITALS: BP 114/55; PULSE 79; RESP 15; TEMP 36.3; O2SAT 99
[2023-08-21] MEDS: methADONE HCl 20 MG/2 ML ORAL.CONC 80 MG PO (08:56)
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
[2023-08-21] MEDS: Nicotine Polacrilex 2 MG GUM 4 MG BUCCAL ×2 (10:09→17:29)
[2023-08-21 18:00] VITALS: BP 111/65; PULSE 78; RESP 18; TEMP 36.3; O2SAT 96
[2023-08-21] MEDS: diphenhydrAMINE HCL 25 MG CAPSULE 50 MG PO (21:15)
[2023-08-21] MEDS: Divalproex Sodium ER 500 MG TAB.ER.24H PO (21:16)
[2023-08-21] MEDS: Melatonin 3 MG TABLET 6 MG PO (21:16)
[2023-08-22 06:00] VITALS: BP 139/65; PULSE 83; RESP 18; TEMP 36.3; O2SAT 98
[2023-08-22] MEDS: Magnesium Hydrox/Alum Hydrox 30 ML ORAL.SUSP PO ×3 (08:20→23:24)
[2023-08-22] MEDS: methADONE HCl 20 MG/2 ML ORAL.CONC 80 MG PO (08:20)
[2023-08-22] MEDS: Nicotine Polacrilex 2 MG GUM 4 MG BUCCAL (08:20)
[2023-08-22] MEDS: Calcium Carbonate 750 MG TAB.CHEW PO ×3 (12:51→23:24)
[2023-08-22 14:23] VITALS: BP 131/87; PULSE 74; RESP 18; TEMP 36.6; O2SAT 98
--- NOTE | 2023-08-22 14:24 | PC.NURSE ---
Pt arrived on unit with security. She is calm and polite. She is able to maintain her safety. Checked vital signs and changed over. Pt showed an effusion on her right hand and L knee. She denies known injury and states that she may have had a history of tick bites. She also complains of a productive cough for the past week. She states that she was recently on antibiotics for cellulitis secondary to xylazine but that she did not complete the course of keflex. She signed releases for doctor, psychiatrist, insurance, and pharmacy. She understands the human rights form and filled out a menu before being shown to her room.
--- NOTE | 2023-08-22 15:37 | HO.PSYCHPN ---
Subjective Subjective Date of Service: 08/22/23 Reason For Visit: Opiate dependence, methadone ,aintence, depressio Interim History: Met with patient; discussed with team Patient reports she is feeling much better, back to her regular self. Patient is indeed calm, no manic symptoms, no longer with pressured speech and with organized behavior and speech. She said she had a good night's sleep last night. Aboriginal Education Teacher discussed bipolar disorder and her history and patient is ambivalent about whether or not she has bipolar disorder. She thinks that what happened was all the psychosocial stressors combined with poor sleep, triggered a dysregulated mood rather than stress, lack of sleep triggered a manic episode. She says her mother has bipolar disorder and she is grown up seeing it and is skeptical that this is what is occurring with her. She says she has had very few manic episodes and most of her past hospitalizations have been due to emotional reactivity/SI after a romantic break-up. She adds that any type of manic episodes have usually been in the context of substance abuse, however she was sober this time around. She was also sober when in long term she went 13 days without sleeping, was manic and was transferred to a psychiatric hospital where she was put on lithium and Haldol. Despite this history and typewriter assembly and parts inspector's education, she still doubts she has bipolar disorder but appreciates information and says she will continue to consider it. That said, patient wants to continue with current medication regimen of mirtazapine and Depakote; typewriter assembly and parts inspector reviewed risks/side effects of this regimen to which patient understood and agreed with which to continue. She very much wants to discharge tomorrow. Mental Status Exam Mental Status Exam Narrative: Pt is alert and oriented; behavior is cooperative, friendly and calm; patient is not in distress; dressed in casual attire with unkempt hair but adequate hygiene; tattoos on arms/face; mood is described as good and affect congruent; eye contact appropriate; Speech is normal rate, volume and prosody and not pressured; no psychomotor agitation/retardation present; thought process is organized and goal directed; Thought content is on tx; otherwise pertinent to relevant topics and without any delusional content, paranoid ideations or grandiosity; denies any SI/HI. There is no evidence of perceptual disturbance. Patients insight and judgment appear intact. Diagnostics Vital Signs (24Hr): Vital Signs - 24 hr 08/21/23 18:00 08/22/23 06:00 08/22/23 14:23 Temperature 97.3 F 97.4 F 97.8 F Pulse Rate 78 83 74 Respiratory Rate 18 18 18 Blood Pressure 111/65 139/65 131/87 Pulse Oximetry 96 98 98 Oxygen Delivery Method Room Air Room Air Room Air BMI result Body Mass Index 33.3 Labs 08/17/23 12:34 08/17/23 12:34 Imaging Radiology Impressions: ITS Impressions Extremity Ultrasound 08/17/23 13:59 IMPRESSION: No sonographic abnormality is seen within the left axilla. Chest X-Ray 08/17/23 14:11 IMPRESSION: No acute cardiopulmonary disease. Medications Medications Current Medications Acetaminophen (Acetaminophen 325 Mg Tablet) 650 mg PO Q6H PRN PRN Reason: Headache/Pain Mild Scale (1-3) Al Hydroxide/Mg Hydroxide (Magnesium Hydrox/Alum Hydrox 30 Ml Oral.Susp) 30 ml PO Q6H PRN PRN Reason: Heartburn/Nausea Last Admin: 08/22/23 08:20 Dose: 30 ml Calcium Carbonate (Calcium Carbonate 750 Mg Tab.Chew) 750 mg PO Q4H PRN PRN Reason: gerd Last Admin: 08/22/23 12:51 Dose: 750 mg Diphenhydramine HCl (Diphenhydramine Hcl 25 Mg Capsule) 50 mg PO BEDTIME HUYEN Last Admin: 08/21/23 21:15 Dose: 50 mg Diphenhydramine HCl (Diphenhydramine Hcl 25 Mg Capsule) 50 mg PO BEDTIME PRN PRN Reason: insomnia Divalproex Sodium (Divalproex Sodium Er 500 Mg Tab.Er.24h) 500 mg PO BEDTIME HUYEN Last Admin: 08/21/23 21:16 Dose: 500 mg Hydroxyzine HCl (Hydroxyzine Hcl 50 Mg Tablet) 50 mg PO Q6H PRN PRN Reason: Anxiety Magnesium Hydroxide (Milk Of Magnesia 30 Ml Oral.Susp) 30 ml PO DAILY PRN PRN Reason: Constipation Melatonin (Melatonin 3 Mg Tablet) 6 mg PO BEDTIME [facility] Last Admin: 08/21/23 21:16 Dose: 6 mg Methadone HCl (Methadone Hcl 20 Mg/2 Ml Oral.Conc) 80 mg PO DAILY HUYEN Last Admin: 08/22/23 08:20 Dose: 80 mg Mirtazapine (Mirtazapine 15 Mg Tablet) 15 mg PO BEDTIME HUYEN Last Admin: 08/21/23 21:16 Dose: 15 mg Nicotine Polacrilex (Nicotine Polacrilex 2 Mg Gum) 4 mg BUCCAL Q1H PRN PRN Reason: Nicotine Cravings Last Admin: 08/22/23 08:20 Dose: 4 mg Nicotine Polacrilex (Nicotine Polacrilex 2 Mg Gum) 2 mg BUCCAL Q2H PRN PRN Reason: Nicotine Cravings Allergies Allergies Allergy/AdvReac Type Severity Reaction Status Date / Time No Known Allergies Allergy Unverified 04/02/20 18:06 Assessment & Plan Assessment & Plan (1) Psychosis: Status: Acute Code(s): F29 - Unspecified psychosis not due to a substance or known physiological condition Plan Patient is a 43-year-old female, on a 12b with past medical history significant for bipolar disorder, anxiety depression, borderline personality disorder, PTSD, hepatitis-C, presenting to the emergency department on section 12 by police department after being found ?dancing on in [place]?. Per state police, patient was at [facility] on a section 12 and some how escaped, patient states that she was trying to stay warm and was trying to get someone to stop her call the police department. On arrival, she is cooperative. Patient denies any suicidal or homicidal ideation. Denies auditory or visual hallucinations. Her only complaint is some pain in her left axilla as well as her chest. She states that the chest pain is constant, does not radiate anywhere, and she has a history of similar chest pain in the past. Denies any recent travel, surgeries, hospitalizations. She has not on control. She denies IV drug use or alcohol use. No fevers, chills, chest pain, abdominal pain, nausea, vomiting or diarrhea Event note 08/18/23: Event Note: Pt demanded to meet to have her intake. She questioned why she was here. Offered information from her intake and community Section 12A from police. She reports these are lies. She discussed threats to this typewriter assembly and parts inspector from her medical superintendent and from her person- you all will be sorry you have done this. She began to question what tw knew of her grandmother's scratch ticket. She then changed her questioning and asked for a copy of her rights and a three day notice. She discontinued her psychiatric intake and initiated the ending of our meeting. Education provided regarding Section 12B which tw signed. Pt asked for a three day notice when discussion was complete. Discussed differences between Section 12B and three day notice to be signed after conditional voluntary admission. Given [facility] information and area where [facility] was posted. Pt then met with her primary nurse to begin the admission process to the unit. She received a copy of her legal rights and her primary nurse offered her a three day notice to sign. Hospital course: Presents with clear psychotic symptoms over the last 2 weeks in the context of significant psychosocial stressors. It is unclear of substances are playing a part, given patient's account of being sober along with family also. Psychotic symptoms to appear much less intense now compared to pre-admission, the patient has also received some IM doses of medications. Patient adamant she does not want antipsychotics. Will continue to observe and educate. Otherwise Benadryl and melatonin for sleep. Held on a Section 12 that will on 08/23/2023. Family involved and supportive of admission/evaluation. 08/20 Had restraint last evening- IM medications given. Section 12B completed on 08/18/23, expires 08/23/23. patient reports being very angry with being in the hospital. Reports that she wants to Jolie the police that brought her to the hospital and the gas station hospital fellow the ripped up this friend scars. Reports she does not want to Jolie the hospital itself and feels that the staff have been caring. States that her uncle had a winning scratch ticket, that she went to [place] in and was it being a big winner as she describes, but was unable to give the exact amount. Reports that shop keeper said was not a winner its a loser and ripped it up. Patient reports that she tried to get police attention outside on the road which led to them bring her to the hospital. Reports being very angry that she was medicated in the ambulance with fentanyl I'm an addict why would they give that? I have been clean since 07/05 . Methadone maintenance 80 mg and reports wanting to get off methadone and this dose has been getting decreased. Reports that in the hospital she has been dancing to show that she is not supposed to be here, but she is prepared to have fun. Is pressured at times during interaction and tangential. Still believes that there is a wanting scratch ticket, but does seem last perseverative on this and not agitated or aggressive when discussing this. Did discuss Section 12, 3 business days and the Saul warning, which patient was able to hear. She was very clear she did not want medications but was open to Benadryl and melatonin for sleep. Gave tel number to speak with Aunt Annie/Mom (Emmanuelle) [phone]. Mom reports that patient has been manic and psychotic for approximately 2 weeks. Feels that stress has been the main factor. Reports the family have been homeless for around 1 year now and that patient on goal so the family estate without the family knowing and therefore the patient, her mom and her aunt having to move out of where they were staying. Patient's mom and aunt are staying with friends. Patient has been staying with her grandmother and her uncle in their basement and mom reports this is not a good scene for the patient (did not elaborate). Reports patient's grandmother was concerned around 2 weeks ago due to things that the patient was saying and how she was acting. Was stating she had a 1 million dollar scratch tickets. Reports she could go back in time. Was also hallucinating and seeing things. Slept on side of a highway that is not my daughter . Was also concerned as 4 years ago, was depressed and [place] [address] after breaking up with her ex-inpatient then S[facility]. Family brought her to [facility] for evaluation. Also at [facility] via EMS and discharged. Also confirmed methadone dose has been lowered recently- daughter requesting same. She never acted like this even when she was on fentanyl before . Denied hx of psychosis or malinda previously. Also reports daughter has been sober and main stressor has been housing and feels that daughter snapped trying to find a place for herself, her mom and her aunt. Past Psychiatric History: 4 years ago, was depressed and tried to [place] [address] after breaking up with her ex- inpatient then S35. As per family She never acted like this even when she was on fentanyl before . Denied hx of psychosis or malinda previously. Medical Evaluation Reviewed: Yes 2/5 Hypomanic but seems to be calming down; still with only partial insight into events leading up to admission but insight and judgment improved; patient did sleep last night and thinks it is making a big difference as she feels more calm. Agrees to get on Depakote. Very focused on discharge as soon as possible because she is trying to rent a house that can incorporate several members of her family and she does not want to lose this opportunity -patient able to sit more calmly in the milieu, not intrusive with others today; can likely go to Q 15 2/6 Patient reports she is feeling much better, back to her regular self. Patient is indeed calm, no manic symptoms, no longer with pressured speech and with organized behavior and speech. Patient shared that she is very embarrassed about her behaviors on the unit. She said she had a good night's sleep last night. Aboriginal Education Teacher discussed bipolar disorder and her history and patient is ambivalent about whether or not she has bipolar disorder. She thinks that what happened was all the psychosocial stressors combined with poor sleep, triggered a dysregulated mood rather than stress, lack of sleep triggered a manic episode. She says her mother has bipolar disorder and she is grown up seeing it and is skeptical that this is what is occurring with her. She says she has had very few manic episodes and most of her past hospitalizations have been due to emotional reactivity/SI after a romantic break-up. She adds that any type of manic episodes have usually been in the context of substance abuse, however she was sober this time around. She was also sober when in long term she went 13 days without sleeping, was manic and was transferred to a psychiatric hospital where she was put on lithium and Haldol. Despite this history and typewriter assembly and parts inspector's education, she still doubts she has bipolar disorder but appreciates information and says she will continue to consider it. That said, patient wants to continue with current medication regimen of mirtazapine and Depakote; typewriter assembly and parts inspector reviewed risks/side effects of this regimen to which patient understood and agreed with which to continue. She very much wants to discharge tomorrow. -will get labs impression: Manic symptoms have fully resolved and patient has been with good behavioral and impulse control last night and today; she has had appropriate behaviors with peers and staff, is polite, calm, cooperative and friendly. Patient is is organized in both speech and behavior, logical, reasonable and open to treatment. Patient's 72 hour 12 B time frame is due tomorrow. Aboriginal Education Teacher thinks it is likely she has bipolar disorder given her history presentation for this admission. Patient wants outpatient providers and says she will continue to consider this diagnosis. While she remains at risk for relapse and mood dysregulation, She is not in imminent risk of harm to self or others and her request for discharge honored. PLAN: 12 B q5's for safety (over weekend intrusive; touching, unintentionally intimidating peers) Continue Depakote ER 500mg qhs Continue Remeron 15mg qhs (pt started on this last night for insomnia) Collateral Patient educated on: diagnosis, medication risk/benefits and substance abuse Informed Consent: understands Reason for continued inpatient stay Substantial Risk for: stable for discharge Time Spent With Patient Time: Total time managing care of this patient today ____ minutes.
--- NOTE | 2023-08-22 16:01 | PM.PSYDC ---
DS: Providers Provider Date of Service: 08/23/23 Date of admission: 08/18/23 12:52 Date of discharge: 08/23/23 Primary care physician: Unknown Physician Attending physician on admission: Geln Butler Attending physician on discharge: Kali Huerta DS: Diagnosis Discharge Diagnosis (1) Psychosis: Status: Acute DS: Medications Discharge Medications Home Medications: Home Medications Medication Instructions Recorded Confirmed methadone 10 mg/mL oral 80 mg PO DAILY 08/17/23 08/17/23 concentrate (Methadone Intensol) Previous Rx's Medication Instructions Recorded divalproex 500 mg tablet,extended 500 mg PO BEDTIME 30 days #30 tabs 08/22/23 release 24 hr mirtazapine 15 mg tablet 15 mg PO BEDTIME 30 days #30 tabs 08/22/23 nicotine (polacrilex) 4 mg gum 4 mg buccal Q2H 30 days #100 ea 08/22/23 Data Data Completed and Pending Completed studies during hospitalization [Text1]: 08/17/23 08/17/23 08/19/23 10:24 12:34 12:34 WBC 9.8 RBC 4.76 Hgb 12.3 D Hct 38.3 D MCV 80.5 MCH 25.8 L MCHC 32.1 RDW 16.6 H Plt Count 325 D MPV 9.3 L Immature Gran % (Auto) 0.4 Neut % (Auto) 65.6 Lymph % (Auto) 29.7 Gray % (Auto) 4.0 Eos % (Auto) 0.1 Baso % (Auto) 0.2 Lymph # (Auto) 2.9 Gray # (Auto) 0.4 Eos # (Auto) 0.0 Baso # (Auto) 0.0 Abs Immat Gran (auto) 0.04 H Absolute Neuts (auto) 6.4 Absolute Nucleated RBC 0.000 Nucleated RBC % (auto) 0.0 Sodium 139 Potassium 3.8 Chloride 105 Carbon Dioxide 23 Anion Gap 15 BUN 19 H Creatinine 0.96 Estim Creat Clear Calc 85.8 Estimated GFR > 60 Random Glucose 94 Estimat Average Glucose 97 Hemoglobin A1c % 5.0 Calcium 9.6 D Magnesium Total Bilirubin 0.4 Direct Bilirubin 0.2 AST 34 H ALT 26 Alkaline Phosphatase 44 Troponin I High Sens < 2.7 Total Protein 7.9 Albumin 4.9 Triglycerides Cholesterol LDL Cholesterol, Calc HDL Cholesterol TSH Free T4 Urine Color Yellow Urine Appearance Hazy Urine pH 5.5 Ur Specific [place] >= 1.030 H Urine Protein Trace Urine Glucose (UA) Negative Urine Ketones 15 Urine Blood Negative Urine Nitrite Negative Ur Leukocyte Esterase Negative Urine Test NEGATIVE Urine Opiates Screen Not Detected Urine Fentanyl Screen POSITIVE H Ur Barbiturates Screen Not Detected Ur Phencyclidine Scrn Not Detected Ur Amphetamines Screen Not Detected U Benzodiazepines Scrn POSITIVE H Urine Cocaine Screen Not Detected U Marijuana (THC) Screen POSITIVE H Ethyl Alcohol < 10 COVID-19 (NERISSA) Negative COVID-19 Clin Com See Note Influenza Type A (KIERRA) Negative Influenza Type B (KIERRA) Negative Influenza A & B Note See Note 08/19/23 Unknown WBC RBC Hgb Hct MCV MCH MCHC RDW Plt Count MPV Immature Gran % (Auto) Neut % (Auto) Lymph % (Auto) Gray % (Auto) Eos % (Auto) Baso % (Auto) Lymph # (Auto) Gray # (Auto) Eos # (Auto) Baso # (Auto) Abs Immat Gran (auto) Absolute Neuts (auto) Absolute Nucleated RBC Nucleated RBC % (auto) Sodium Potassium Chloride Carbon Dioxide Anion Gap BUN Creatinine Estim Creat Clear Calc Estimated GFR Random Glucose Estimat Average Glucose Hemoglobin A1c % Calcium Magnesium Cancelled Total Bilirubin Direct Bilirubin AST ALT Alkaline Phosphatase Troponin I High Sens Total Protein Albumin Triglycerides Cancelled Cholesterol Cancelled LDL Cholesterol, Calc Cancelled HDL Cholesterol Cancelled TSH Cancelled Free T4 Cancelled Urine Color Urine Appearance Urine pH Ur Specific [place] Urine Protein Urine Glucose (UA) Urine Ketones Urine Blood Urine Nitrite Ur Leukocyte Esterase Urine Test Urine Opiates Screen Urine Fentanyl Screen Ur Barbiturates Screen Ur Phencyclidine Scrn Ur Amphetamines Screen U Benzodiazepines Scrn Urine Cocaine Screen U Marijuana (THC) Screen Ethyl Alcohol COVID-19 (NERISSA) COVID-19 Clin Com Influenza Type A (KIERRA) Influenza Type B (KIERRA) Influenza A & B Note Imaging Diagnostic Imaging Impressions Extremity Ultrasound 08/17/23 13:59 IMPRESSION: No sonographic abnormality is seen within the left axilla. Chest X-Ray 08/17/23 14:11 IMPRESSION: No acute cardiopulmonary disease. DS: Summary Hospital Course Hospital Course: HPI: Patient is a 43-year-old female, on a 12b with past medical history significant for bipolar disorder, anxiety depression, borderline personality disorder, PTSD, hepatitis-C, presenting to the emergency department on section 12 by police department after being found ?dancing on in [place]?. Per state police, patient was at [facility] on a section 12 and some how escaped, patient states that she was trying to stay warm and was trying to get someone to stop her call the police department. On arrival, she is cooperative. Patient denies any suicidal or homicidal ideation. Denies auditory or visual hallucinations. Her only complaint is some pain in her left axilla as well as her chest. She states that the chest pain is constant, does not radiate anywhere, and she has a history of similar chest pain in the past. Denies any recent travel, surgeries, hospitalizations. She has not on control. She denies IV drug use or alcohol use. No fevers, chills, chest pain, abdominal pain, nausea, vomiting or diarrhea -She questioned why she was here. Offered information from her intake and community Section 12A from police. -She reports these are lies. She discussed threats to this web content writer from her head greenskeeper and from her person- you all will be sorry you have done this. -She began to question what tw knew of her grandmother's scratch ticket. Past Psychiatric History: -4 years ago, was depressed and tried to jump off [facility] after breaking up with her ex- inpatient then S35. As per family She never acted like this even when she was on fentanyl before . -Denied hx of psychosis -however endorses manic episode while in halfway, needing to be psychiatrically hospitalized for 2 weeks during which time she was put on lithium and Haldol Hospital course: Presents with clear psychotic symptoms over the last 2 weeks in the context of significant psychosocial stressors. It is unclear of substances are playing a part, given patient's account of being sober along with family also. Psychotic symptoms to appear much less intense now compared to pre-admission, the patient has also received some IM doses of medications. Patient adamant she does not want antipsychotics. Will continue to observe and educate. Otherwise Benadryl and melatonin for sleep. Held on a Section 12 that will on 08/23/2023. Family involved and supportive of admission/evaluation. 2 Had restraint last evening- IM medications given. Section 12B completed on 08/18/23, expires 08/23/23. patient reports being very angry with being in the hospital. Reports that she wants to Jolie the police that brought her to the hospital and the gas station vulcanizer rubber plate the ripped up this friend scars. Reports she does not want to Jolie the hospital itself and feels that the staff have been caring. States that her uncle had a winning scratch ticket, that she went to [place] in and was it being a big winner as she describes, but was unable to give the exact amount. Reports that shop keeper said was not a winner its a loser and ripped it up. Patient reports that she tried to get police attention outside on the road which led to them bring her to the hospital. Reports being very angry that she was medicated in the ambulance with fentanyl I'm an addict why would they give that? I have been clean since 07/05 . Methadone maintenance 80 mg and reports wanting to get off methadone and this dose has been getting decreased. Reports that in the hospital she has been dancing to show that she is not supposed to be here, but she is prepared to have fun. Is pressured at times during interaction and tangential. Still believes that there is a wanting scratch ticket, but does seem last perseverative on this and not agitated or aggressive when discussing this. Did discuss Section 12, 3 business days and the Saul warning, which patient was able to hear. She was very clear she did not want medications but was open to Benadryl and melatonin for sleep. Gave tel number to speak with Aunt Annie/Mom (Emmanuelle) [phone]. Mom reports that patient has been manic and psychotic for approximately 2 weeks. Feels that stress has been the main factor. Reports the family have been homeless for around 1 year now and that patient on goal so the family estate without the family knowing and therefore the patient, her mom and her aunt having to move out of where they were staying. Patient's mom and aunt are staying with friends. Patient has been staying with her grandmother and her uncle in their basement and mom reports this is not a good scene for the patient (did not elaborate). Reports patient's grandmother was concerned around 2 weeks ago due to things that the patient was saying and how she was acting. Was stating she had a 1 million dollar scratch tickets. Reports she could go back in time. Was also hallucinating and seeing things. Slept on side of a highway that is not my daughter . Was also concerned as 4 years ago, was depressed and tried to jump off [facility] bridge after breaking up with her ex-inpatient then S35. Family brought her to [facility] for evaluation. Also at [facility] via EMS and discharged. Also confirmed methadone dose has been lowered recently- daughter requesting same. She never acted like this even when she was on fentanyl before . Denied hx of psychosis or malinda previously. Also reports daughter has been sober and main stressor has been housing and feels that daughter snapped trying to find a place for herself, her mom and her aunt. 2/ Still Hypomanic,, limited insight into her presentation and recent events however is overall in better behavioral control today and seems to be calming down; still with only partial insight into events leading up to admission but insight and judgment improved; patient got Remeron 15 mg last night and reports she slept well which she feels is making a big difference as she feels more calm. Crossbar Switch Adjuster discussed concern for bipolar disorder given her biological loading, history and presentation. Patient is ambivalent but Agrees to get on Depakote. Very focused on discharge as soon as possible because she is trying to rent a house that can incorporate several members of her family and she does not want to lose this opportunity -patient able to sit more calmly in the milieu, not intrusive with others today; can likely go to Q 15 2/ Last night got both Depakote 500mg and Remeron 15mg Patient reports she is feeling much better, back to her regular self. Patient is indeed calm, no manic symptoms, no longer with pressured speech and with organized behavior and speech. Patient shared that she is very embarrassed about her behaviors on the unit. She said she had a good night's sleep last night. Crossbar Switch Adjuster discussed bipolar disorder and her history and patient is ambivalent about whether or not she has bipolar disorder. She thinks that what happened was all the psychosocial stressors combined with poor sleep, triggered a dysregulated mood rather than stress, lack of sleep triggered a manic episode. She says her mother has bipolar disorder and she is grown up seeing it and is skeptical that this is what is occurring with her. She says she has had very few manic episodes and most of her past hospitalizations have been due to emotional reactivity/SI after a romantic break-up. She adds that any type of manic episodes have usually been in the context of substance abuse, however she was sober this time around. She was also sober when in halfway she went 13 days without sleeping, was manic and was transferred to a psychiatric hospital where she was put on lithium and Haldol. Despite this history and web content writer's education, she still doubts she has bipolar disorder but appreciates information and says she will continue to consider it. That said, patient wants to continue with current medication regimen of mirtazapine and Depakote; web content writer reviewed risks/side effects of this regimen to which patient understood and agreed with which to continue. She very much wants to discharge tomorrow. -labs drawn on 08/23 and liver/ammonia WNL; Depakote subtherapeutic as expected impression: Manic symptoms have fully resolved and patient has been with good behavioral and impulse control last night and today; she has had appropriate behaviors with peers and staff, is polite, calm, cooperative and friendly. Patient is is organized in both speech and behavior, logical, reasonable and open to treatment. Patient's 72 hour 12 B time frame is due tomorrow. Crossbar Switch Adjuster thinks it is likely she has bipolar disorder given her history presentation for this admission. Patient wants outpatient providers and says she will continue to consider this diagnosis. While she remains at risk for relapse and mood dysregulation, She is not in imminent risk of harm to self or others and her request for discharge honored. Medications: Depakote ER 500mg qhs Remeron 15mg qhs Time spent discussing smoking cessation with patient: 3 to 10 minutes Status at Discharge Functional status at discharge: independent ambulation Overall status at discharge: patient is back to baseline Time Spent with Patient Time attestation: Total time managing care of this patient today ____ minutes. Time spent: Less than 30 minutes Discharge Plan Discharge Anticipated Discharge Date/Time: 08/23/23 11:00 Patient Disposition: Home, Self-Care Discharge Diagnosis: Bipolar I disorder, severe; in full remission Referrals: Rd Simon MD [Physician] - 08/31/23 2:00 pm ([address] [place], [place]) Discharge Medications: New divalproex 500 mg Tablet Extended Release 24 Hr 500 mg PO BEDTIME 30 Days Qty: 30 1RF mirtazapine 15 mg Tablet 15 mg PO BEDTIME 30 Days Qty: 30 1RF nicotine (polacrilex) 4 mg gum 4 mg buccal Q2H 30 Days Qty: 100 1RF Continued methadone [Methadone Intensol] 10 mg/mL Concentrate 80 mg PO DAILY Discharge Orders: Discharge Order (Routine); Ordered 08/23/23 Ordered By: Kali Huerta Diet: Regular diet Activity on Discharge: As tolerated Stand Alone Forms: Patient Portal Discharge page Care Plan Goals: Maintain mood and safe behaviors Take medications as prescribed Continue to pursue sobriety Practice coping skills Continue with outpatient providers and reach out to them as needed Health Concerns: Mood stability and behaviors Sobriety Plan of Treatment: Follow up with your PCP, psychiatric provider and other outpatient providers regarding above concerns Take medications as prescribed Assessment: Risk assessment at time of discharge:? Patient was interviewed prior to discharge and found to be fully oriented and without any SI or HI. Patient has improved insight and judgment and wants to continue treatment. Patient is not in imminent risk of harm to self or others and has a safety plan that includes presenting to the closest ER or calling 911 if feeling unsafe.? Patient has been observed closely by nursing and unit staff throughout admission; patient has not engaged in any behaviors that suggest dangerousness to self or others and has demonstrated appropriate behaviors and impulse control
[2023-08-22 18:05] VITALS: BP 138/82; PULSE 80; RESP 18; TEMP 36.4; O2SAT 98
[2023-08-22] MEDS: Mirtazapine 15 MG TABLET PO (20:06)
[2023-08-22] MEDS: diphenhydrAMINE HCL 25 MG CAPSULE 50 MG PO ×2 (20:06→23:44)
[2023-08-22] MEDS: Divalproex Sodium ER 500 MG TAB.ER.24H PO (20:07)
[2023-08-22] MEDS: Melatonin 3 MG TABLET 6 MG PO (20:07)
[2023-08-23 06:00] VITALS: BP 140/84; PULSE 93; RESP 18; TEMP 36.3; O2SAT 97
[2023-08-23] MEDS: Magnesium Hydrox/Alum Hydrox 30 ML ORAL.SUSP PO (06:44)
[2023-08-23] MEDS: Calcium Carbonate 750 MG TAB.CHEW PO (06:44)
[2023-08-23] MEDS: Naloxone HCl Nasal TAKE HOME 4 MG SPRAY 8 MG NOSTRILALT (07:57)
[2023-08-23] MEDS: methADONE HCl 20 MG/2 ML ORAL.CONC 80 MG PO (08:02)
[2023-08-23 09:03] LABS: Valproate 29.5 mcg/mL (50.0-100.0)
[2023-08-23 09:07] LABS: Alanine Aminotransferase 19 U/L (0-31); Albumin Level 4.5 g/dL (3.5-5.0); Alkaline Phosphatase 38 U/L (39-117); Aspartate Amino Transferase 21 U/L (5-31); Bilirubin Direct < 0.2 mg/dL (0.0-0.5); Bilirubin Total 0.2 mg/dL (0.0-1.0); Total Protein 7.6 g/dL (6.5-8.0)
[2023-08-23 09:12] LABS: Ammonia 45 umol/L (13-55)
== END 2023-08-23 10:42 | disposition home or self-care (01) | DRG 885 ==
LOC: HO.ED 20:15 → HO.PM5 08-18 13:15
PROVIDERS: Physician Assistant Medical; Admitting Provider Clinical Nurse Specialist Psychiatric/Mental Health, Adult; Emergency Provider Emergency Medicine; Visit Provider Psychiatry & Neurology Psychiatry
DX: F31.9 Bipolar disorder, unspecified (principal); R45.851 Suicidal ideations; F11.20 Opioid dependence, uncomplicated; Z59.01 Sheltered homelessness; F43.10 Post-traumatic stress disorder, unspecified; F17.210 Nicotine dependence, cigarettes, uncomplicated; Z20.822 Contact with and (suspected) exposure to COVID-19; Z71.6 Tobacco abuse counseling; Z79.899 Other long term (current) drug therapy
CPT/HCPCS: 36415; 71046; 76882; 80048; 80076; 80164; 80307; 81003; 81025; 82140; 83036; 84484; 85025; 87502; 87635; 93005; 99285; J1200; J1630; J2060; S9485

== ENCOUNTER → 2023-08-17 10:48 | Outpatient (BNV) | payer MEDICARE, MEDICAID, SELFPAY | PROVIDERS: Emergency Provider Emergency Medicine; Visit Provider Internal Medicine Cardiovascular Disease | DX: R94.31 Abnormal electrocardiogram [ECG] [EKG] (principal) | CPT/HCPCS: 93010 ==

== ENCOUNTER → 2023-08-18 12:52 | Outpatient (BNV) | payer MEDICARE, MEDICAID, SELFPAY | PROVIDERS: Admitting Provider Clinical Nurse Specialist Psychiatric/Mental Health, Adult; Emergency Provider Emergency Medicine; Visit Provider Clinical Nurse Specialist Psychiatric/Mental Health, Adult | DX: F31.76 Bipolar disorder, in full remission, most recent episode depressed (principal) | CPT/HCPCS: 90792; 99231; 99232; 99238; 99499 ==